=== PATIENT | male | born 1955 | race Caucasian/White ===

== ENCOUNTER 2019-06-14 02:41 | Inpatient (IN) | payer MEDICARE ==
[2019-06-14] MEDS ORDERED: SODIUM CHLORIDE 0.9% 1000 ML 2,000 ML ONE (05:12)
--- NOTE | 2019-06-14 05:15 | Emergency Department Report ---
Blank Doc - Documentation Documentation: I was called to the room to evaluate the patient. Patient has evidently been in the room for 2 hours, but was not on the tracking board and did not get triaged upon arrival. Nurse passed by room and saw that there was a pt in there. Nurse called patient's custodial from which he came, they state patient was transported to the ED for altered mental status. Patient currently has blood coming from his penile meatus. snf states patient normally has indwelling Toribio, but was having bleeding around the Toribio, so catheter was removed at some point on yesterday. Nurse reports patient is normally somewhat altered, usually yelling out randomly, sometimes able to answer questions. Patient is currently hypotensive, appears dry and dehydrayted. He is awake, lethargic, lifts head when name is called. Resuscitation will be initiated, and orders placed for further evaluation.
[2019-06-14] MEDS ORDERED: SODIUM CHLORIDE 0.9% 1000 ML IV SOLN IV ONE (05:31)
--- NOTE | 2019-06-14 05:36 | XRay Report ---
CHEST 1 VIEW INDICATION: ams. COMPARISON: None. FINDINGS: Support devices: None. Heart: Moderate cardiomegaly. Status post previous median sternotomy. Lungs/Pleura: No acute air space or interstitial disease. Additional findings: None. IMPRESSION: Moderate cardiomegaly. Signer Name: Hector Cornejo MD Signed: 06/14/2019 5:32 AM Workstation Name: [id number]
--- NOTE | 2019-06-14 06:13 | Emergency Department Report ---
HPI - General Chief Complaint: Altered Mental Status Time Seen by Provider: 06/14/19 05:56 - HPI HPI: As per my colleagues note, this patient has been in the emergency department for 3.5 hours prior to my arrival on shift. This 63-year-old male was initially sent in for some altered mental status and for some blood seen coming from the urethra. The patient usually has a indwelling Toribio catheter but the long-term staff, where he stays, had noticed blood coming around the Toribio catheter and therefore removed it. Apparently his baseline mental status is that he is generally altered and will call out at times. 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 There is some question of the pa tient having a fever at the long-term and Tylenol was given at 1:20 AM this morning. The patient is a poor historian. ED Past Medical Hx - Past Medical History Hx Hypertension: Yes Hx CVA: Yes Hx Diabetes: Yes Additional medical history: muscle weakness, urineary retention, hyperlipidemia, gout, prostate disorder, - Surgical History Additional Surgical History: atherosclerosis CAD bypass graft, left above the knee amputation - Social History Smoking Status: Former Smoker Substance Use Type: None - Medications Home Medications: Home Medications Medication Instructions Recorded Confirmed Last Taken Type Clotrimazole 1% [Mycelex Vag cream] 1 applicatio .ROUTE BID #1 tube 04/17/19 Unknown Rx ED Review of Systems ROS: Stated complaint: ALTERED MENTAL STATUS Other details as noted in HPI Comment: Unobtainable due to pts medical conditions Physical Exam - Physical Exam Vital Signs: Vital Signs 06/14/19 06/14/19 06/14/19 04:10 04:45 05:00 Temperature 99.6 F Pulse Rate 82 85 Respiratory 18 18 Rate Blood Pressure 81/45 82/52 Blood Pressure 89/48 [Right] O2 Sat by Pulse 97 97 99 Oximetry 06/14/19 06/14/19 06/14/19 05:15 05:46 06:01 Temperature Pulse Rate 82 Respiratory 18 Rate Blood Pressure 89/49 89/49 119/61 Blood Pressure [Right] O2 Sat by Pulse 96 98 100 Oximetry Physical Exam: GENERAL: The patient is well-developed well-nourished. HENT: Normocephalic. Atraumatic. Patient has moist mucous membranes. EYES: Extraocular motions are intact. Pupils equal reactive to light bilaterally. NECK: Supple. Trachea is midline. CHEST/LUNGS: Clear to auscultation. There is no respiratory distress noted. HEART/CARDIOVASCULAR: Regular. There is no tachycardia. There is no murmur. ABDOMEN: Abdomen is soft, nontender. Patient has normal bowel sounds. SKIN: Skin is warm and dry. NEURO: Patient is nonverbal. Withdraws to painful stimuli. Chronic left-sided hemiparesis. MUSCULOSKELETAL: There is no tenderness or deformity. There is no evidence of acute injury. ED Course Vital Signs 06/14/19 06/14/19 06/14/19 04:10 04:45 05:00 Temperature 99.6 F Pulse Rate 82 85 Respiratory 18 18 Rate Blood Pressure 81/45 82/52 Blood Pressure 89/48 [Right] O2 Sat by Pulse 97 97 99 Oximetry 06/14/19 06/14/19 06/14/19 05:15 05:46 06:01 Temperature Pulse Rate 82 Respiratory 18 Rate Blood Pressure 89/49 89/49 119/61 Blood Pressure [Right] O2 Sat by Pulse 96 98 100 Oximetry - Central Line Placement Right Femoral Consent Obtained: written consent Time Out Performed: Yes Patient Placed on Monitor/Pulse Ox: Yes MD Prep: mask, gown, gloves Central Line Prep: Chlorhexidine scrub Local Anesthesia Used: Lidocaine 1% Amount of Anesthesia Used (mls): 2 Ultrasound Used for Placement: Yes Central Line Lumen Inserted: triple Central Line Position: good blood return, all ports aspirated, flus, sutured in place with nyl Dressing Applied: Tegaderm, sterile gauze/tape Patient Tolerated Procedure: well Complications: none ED Medical Decision Making - Lab Data Result diagrams: 06/14/19 05:59 06/14/19 05:59 - EKG Data -: EKG Interpreted by Me EKG shows normal: sinus rhythm, axis (left axis deviation), intervals, QRS complexes (q waves to anterior and inferior leads), ST-T waves Rate: normal - EKG Data When compared to previous EKG there are: previous EKG unavailable Interpretation: other (sinus rhythm, left axis deviation, Q waves to the anterior and inferior leads) - Radiology Data Radiology results: report reviewed, image reviewed interpreted by me: Chest x-ray does not show any acute process. There are no pleural effusions, obvious pneumonia and there is no pneumothorax. CT head/brain wo con INDICATION: ams. TECHNIQUE: All CT scans at this location are performed using the following dose modulation technique: Automated exposure control. CONTRAST: None. COMPARISON: None available. FINDINGS: There is mild dilatation of the ventricular system on the basis of diffuse cerebral atrophy. Negative for midline shift, mass or hemorrhage. Low density within the periventricular white matter is typical of chronic small vessel ischemic change. A chronic right MCA infarct is present. Imaged portions of the paranasal sinuses are clear. IMPRESSION: 1. Chronic changes of atrophy and small vessel ischemia. 2. Chronic right MCA infarct. - Medical Decision Making This patient was sent in by his long-term facility for some altered mental status and concern for bleeding around his Toribio catheter. When he got here he was found to have some hypotension that at first responded to IV fluid resuscitation. Patient's labs show multiple abnormalities including a leukocytosis of 20,000, some acute renal insufficiency/failure, hyperglycemia, transaminitis and lactic acidosis. The patient's blood sugar was about 400 and he was given some IV insulin, along with the IV fluid resuscitation, as treatment. It is possible he has some early DKA as there is some venous acidosis and a slightly elevated anion gap, however the lactic acidosis is most likely the reason for the elevated venous acidosis and his current blood sugar has come down to about 190. He was treated empirically with some Rocephin, although no source of infection has yet to be found. At first the blood pressure responded to the IV fluid but after 3 L of normal saline the patient s till display some hypotension. For this reason a central line was placed by myself and the patient has been started on pressors by the admitting hospitalist. The patient will be treated admitted to the ICU and was accepted by Dr. Madsen. - Differential Diagnosis Sepsis, SIRS, DKA, HHNK, UTI Critical Care Time: Yes Critical care time in (mins) excluding proc time.: 35 Critical care attestation.: If time is entered above; I have spent that time in minutes in the direct care of this critically ill patient, excluding procedure time. Critical care time was spent on this patient and doing his initial evaluation, multiple re- evaluations, ordering and interpretation of labs and imaging, discussion with the patient's family. This does not include the time spent doing the central line procedure. Critical Care Time: 35 minutes ED Disposition Clinical Impression: Elevated troponin, Hyperglycemia, SIRS (systemic inflammatory response syndrome) Altered mental state Qualifiers: Altered mental status type: unspecified Qualified Code(s): R41.82 - Altered mental status, unspecified Acute renal failure Qualifiers: Acute renal failure type: unspecified Qualified Code(s): N17.9 - Acute kidney failure, unspecified Hypotension Qualifiers: Hypotension type: unspecified hypotension type Qualified Code(s): I95.9 - Hypotension, unspecified Disposition: DC-09 OP ADMIT IP TO THIS HOSP Is pt being admited?: Yes Condition: Serious Time of Disposition: 07:37
--- NOTE | 2019-06-14 06:20 | Cat Scan Report ---
CT head/brain wo con INDICATION: ams. TECHNIQUE: All CT scans at this location are performed using the following dose modulation technique: Automated exposure control. CONTRAST: None. COMPARISON: None available. FINDINGS: There is mild dilatation of the ventricular system on the basis of diffuse cerebral atrophy . Negative for midline shift, mass or hemorrhage. Low density within the periventricular white matter is typical of chronic small vessel ischemic change. A chronic right MCA infarct is present. Imaged portions of the paranasal sinuses are clear. IMPRESSION: 1. Chronic changes of atrophy and small vessel ischemia. 2. Chronic right MCA infarct. Signer Name: Hector Cornejo MD Signed: 06/14/2019 6:16 AM Workstation Name: [id number]
[2019-06-14 06:43] LABS: Hematocrit 39.2 % (35.5-45.6); Hemoglobin 12.7 gm/dl (11.8-15.2); Mean Corpuscular HGB Conc 33 % (32-34); Mean Corpuscular Volume 100 fl (84-94); Platelet Count 110 K/mm3 (140-440); Red Blood Count 3.92 M/mm3 (3.65-5.03); Red Cell Distribution Width 14.4 % (13.2-15.2)
[2019-06-14 06:50] LABS: Albumin 2.6 g/dL (3.9-5); Calcium 7.6 mg/dL (8.4-10.2); INR 1.63 (0.87-1.13)
[2019-06-14 06:51] LABS: Partial Thromboplastin Time 39.7 Sec. (24.2-36.6)
[2019-06-14] MEDS ORDERED: cefTRIAXone/NS 1 GM/50 ML 1 GM/50 ML BAG IV ONE (06:54)
[2019-06-14] MEDS ORDERED: INSULIN REGULAR, HUMAN 100 UNITS/1 ML IV ONE (06:55)
[2019-06-14] MEDS ORDERED: SODIUM CHLORIDE 0.9% 1000 ML 1,000 ML IV ONE (07:33)
[2019-06-14] MEDS ORDERED: ONDANSETRON 4 MG/2 ML INJ IV PRN (08:04)
[2019-06-14] MEDS ORDERED: DEXTROSE 50% IN WATER (25GM) 50 ML SYRINGE IV PRN (08:04)
[2019-06-14] MEDS ORDERED: ACETAMINOPHEN 325 MG TAB PO PRN (08:04)
[2019-06-14] MEDS ORDERED: LIDOCAINE-MPF (1%) 10 MG/1 ML VIAL 5 ML INFILTRATI ONE (08:08)
[2019-06-14 08:26] LABS: Chol/HDL Ratio 3.11 %
[2019-06-14 08:32] LABS: INR 1.67 (0.87-1.13)
[2019-06-14 08:33] LABS: Partial Thromboplastin Time 40.5 Sec. (24.2-36.6)
[2019-06-14] MEDS ORDERED: SODIUM CHLORIDE 0.9% 1000 ML 1,000 ML IV SCH (09:00)
[2019-06-14 09:11] LABS: Total Cells Counted 100
[2019-06-14 09:12] LABS: Basophils % (Manual) 0 % (0.0-1.8); Eosinophils % (Manual) 0 % (0.0-4.3); Large Platelets Few; Platelet Estimate Consistent w Auto; RBC Morphology Normal
[2019-06-14] MEDS ORDERED: FAMOTIDINE 20 MG/2 ML INJ IV ONE (10:53)
[2019-06-14] MEDS ORDERED: ENOXAPARIN 40 MG/0.4 ML INJ SUB-Q ONE (10:53)
[2019-06-14] MEDS: FAMOTIDINE 20 MG/2 ML INJ IV SCH ×2 (10:55→21:53)
[2019-06-14] MEDS: ENOXAPARIN 40 MG/0.4 ML INJ SUB-Q SCH (10:55)
[2019-06-14] MEDS ORDERED: VANCOMYCIN/NS 1 GM/250 ML 1 GM/250 ML BAG IV SCH (11:00)
[2019-06-14] MEDS ORDERED: NORepinephrine/NS 4 MG-250 ML 4 MG/250 ML BAG IV ONE (11:32)
[2019-06-14] MEDS: NORepinephrine/NS 4 MG-250 ML 4 MG/250 ML BAG IV SCH ×2 (11:33→21:51)
[2019-06-14] MEDS ORDERED: PANTOPRAZOLE 40 MG INJ IV ONE (11:39)
[2019-06-14] MEDS: PANTOPRAZOLE 40 MG INJ IV SCH (11:39)
--- NOTE | 2019-06-14 11:52 | Consultation ---
History of Present Illness - Reason for Consult Consult date: 06/14/19 acute renal failure Requesting physician: RU LINARES - History of Present Illness Patient is a 63-year-old male with past medical history significant for hypertension, diabetes and coronary artery disease was brought to the emergency room because of altered mental status. Patient apparently has also a history of urinary retention and had a Toribio catheter in the past. He was noted to have some hematuria in the skilled nursing and his Toribio catheter was removed. In the ER he was also found to have some blood coming out from his penile meatus. He currently has a previous Toribio in place. Renal consultation is requested for serum creatinine of 2.1. Patient is confused and unable to get any history from him. His daughter is at bedside in the emergency room who is giving the hist ory. Apparently they have been having problem making him drink water at the skilled nursing. He recently moved to [place]. Past History Past Medical History: CAD, diabetes, hypertension, stroke, other (history of urinary retention and coronary artery bypass surgery) Past Surgical History: Other (history of coronary artery bypass surgery) Social history: other (patient is currently a skilled nursing resident.) Family history: other (no significant family history of kidney disease) Medications and Allergies Allergies Allergy/AdvReac Type Severity Reaction Status Date / Time No Known Allergies Allergy Verified 04/17/19 03:38 Home Medications Medication Instructions Recorded Confirmed Last Taken Type Clotrimazole 1% [Mycelex Vag cream] 1 applicatio .ROUTE BID #1 tube 04/17/19 Unknown Rx Active Meds: Active Medications Acetaminophen (Tylenol) 650 mg PO Q4H PRN PRN Reason: Pain MILD(1-3)/Fever >100.5/GONZALEZ Dextrose (D50w (25gm) Syringe) 50 ml IV Q30MIN PRN; Protocol PRN Reason: Hypoglycemia Enoxaparin Sodium (Enoxaparin) 40 mg SUB-Q QDAY [facility] Last Admin: 06/14/19 10:55 Dose: 40 mg Documented by: Famotidine (Pepcid) 10 mg IV BID [facility] Last Admin: 06/14/19 10:55 Dose: 10 mg Documented by: Sodium Chloride (Nacl 0.9% 1000 Ml) 1,000 mls @ 125 mls/hr IV DIRECT [facility] Vancomycin HCl (Vancomycin/Ns 1 Gm/250 Ml) 1 gm in 250 mls @ 167.007 mls/hr IV ONCE [facility]; Protocol Norepinephrine (Levophed Drip 4 Mg/Ns 250 Ml) 4 mg in 250 mls @ 7.5 mls/hr IV TITR [facility]; Protocol Last Admin: 06/14/19 11:33 Dose: 2 mcg/min, 7.5 mls/hr Documented by: Morphine Sulfate (Morphine) 2 mg IV Q4H PRN PRN Reason: Pain, Moderate (4-6) Ondansetron HCl (Zofran) 4 mg IV Q8H PRN PRN Reason: Nausea And Vomiting Oxycodone/Acetaminophen (Percocet 5/325) 1 tab PO Q6H PRN PRN Reason: Pain, Moderate (4-6) Pantoprazole Sodium (Protonix) 40 mg IV QDAY [facility] Last Admin: 06/14/19 11:39 Dose: 40 mg Documented by: Sodium Chloride (Sodium Chloride Flush Syringe 10 Ml) 10 ml IV BID [facility] Last Admin: 06/14/19 10:43 Dose: 10 ml Documented by: Sodium Chloride (Sodium Chloride Flush Syringe 10 Ml) 10 ml IV PRN PRN PRN Reason: LINE FLUSH Review of Systems ROS unobtainable: due to mental status Exam - Vital Signs Vital signs: Vital Signs Temp Pulse Resp BP Pulse Ox 99.6 F 82 18 89/48 97 06/14/19 04:10 06/14/19 04:10 06/14/19 04:10 06/14/19 04:10 06/14/19 04:10 - General Appearance General appearance: well-developed, well-nourished, appears stated age EENT: ATNC, PERRL, mucous membranes dry Neck: Present: neck supple Respiratory: Clear to Ascultation Heart: regular, normal heart rate Gastrointestinal: Present: normal, normoactive bowel sounds Integumentary: no rash, other (no edema) Results - Lab Results 06/14/19 05:59 06/14/19 05:59 Most recent lab results Calcium 7.6 mg/dL (8.4-10.2) L 06/14/19 05:59 Assessment and Plan Impression * Acute kidney injury * Dehydration * Altered mental status * Metabolic acidosis * Hypotension * Sepsis * Diabetes * History of CVA * Coronary artery disease status post bypass surgery * Gross hematuria Recommendations * Patient clinically appears to be dehydrated. Oral mucosa is dry. He has received about 3 L of fluid in the emergency room. Currently on a Levophed drip. Continue IV hydration with isotonic fluid * Check a UA as well as a fractional excretion of sodium * Check a renal ultrasound to assess kidney size and echogenicity * Check vasculitis workup * Avoid nephrotoxins * Monitor fluid status and electrolytes closely * Thank you very much for the consultation. Shall follow along with you
[2019-06-14 14:01] LABS: Bilirubin,Urine NEG (Negative); Blood,Urine LG (Negative); Color,Urine Red (Yellow); Urobilinogen,Urine < 2.0 mg/dL (<2.0)
[2019-06-14 14:02] LABS: RBC,Urine > 182.0 /HPF (0.0-6.0); WBC,Urine > 182.0 /HPF (0.0-6.0)
[2019-06-14 14:04] LABS: Creatinine,Urine 246.7 mg/dL (0.1-20.0)
[2019-06-14] MEDS ORDERED: SODIUM CHLORIDE 0.9% IRRIG SOLN 2000 ML IR SCH (15:00)
--- NOTE | 2019-06-14 16:08 | History and Physical Report ---
History of Present Illness Date of admission: 06/14/19 08:05 Chief complaint: Altered mental status. Presents from senior care facility. History of present illness: Patient 63-year-old history of hypertension diabetes coronary artery disease status post CABG CVA presents with worsening altered mental status nursing facility. Patient was brought in initially had hematuria around Toribio catheter was changed. Important to note last visit several months ago patient had similar problem with urinary catheter with bleeding. Was reinserted. Spoke with both daughters were at bedside stated patient has had some hematuria and dysuria over the last several weeks. He states he always has been altered from previous stroke but this is more severe. Upon presentation patient was found to be altered hypotensive febrile and was diagnosed with sepsis. Hospital course was complicated by worsening hypotension and shock. Patient then had IV line placed and we started patient on pressors and transferred to ICU. Patient at present had tachypnea unable to really answer any questions despite sternal rub. Her present remains lethargic encephalopathic and unresponsive. Past History Past Medical History: CAD, diabetes, hypertension, stroke, other (history of urinary retention and coronary artery bypass surgery) Past Surgical History: Other (history of coronary artery bypass surgery) Social history: other (patient is currently a senior care resident.) Family history: other (no significant family history of kidney disease) Medications and Allergies Allergies Allergy/AdvReac Type Severity Reaction Status Date / Time No Known Allergies Allergy Verified 04/17/19 03:38 Home Medications Medication Instructions Recorded Confirmed Last Taken Type Clotrimazole 1% [Mycelex Vag cream] 1 applicatio .ROUTE BID #1 tube 04/17/19 Unknown Rx Active Meds: Active Medications Acetaminophen (Tylenol) 650 mg PO Q4H PRN PRN Reason: Pain MILD(1-3)/Fever >100.5/GONZALEZ Dextrose (D50w (25gm) Syringe) 50 ml IV Q30MIN PRN; Protocol PRN Reason: Hypoglycemia Enoxaparin Sodium (Enoxaparin) 40 mg SUB-Q QDAY [facility] Last Admin: 06/14/19 10:55 Dose: 40 mg Documented by: Famotidine (Pepcid) 10 mg IV BID [facility] Last Admin: 06/14/19 10:55 Dose: 10 mg Documented by: Sodium Chloride (Nacl 0.9% 1000 Ml) 1,000 mls @ 125 mls/hr IV DIRECT [facility] Last Admin: 06/14/19 12:04 Dose: 125 mls/hr Documented by: Vancomycin HCl (Vancomycin/Ns 1 Gm/250 Ml) 1 gm in 250 mls @ 167.007 mls/hr IV ONCE SAM; Protocol Last Admin: 06/14/19 12:23 Dose: 167.007 mls/hr Documented by: Norepinephrine (Levophed Drip 4 Mg/Ns 250 Ml) 4 mg in 250 mls @ 7.5 mls/hr IV TITR SAM; Protocol Last Titration: 06/14/19 13:56 Dose: 6 mcg/min, 22.5 mls/hr Documented by: Sodium Bicarbonate 75 meq/ (Sodium Chloride) 1,075 mls @ 150 mls/hr IV DIRECT SAM Morphine Sulfate (Morphine) 2 mg IV Q4H PRN PRN Reason: Pain, Moderate (4-6) Ondansetron HCl (Zofran) 4 mg IV Q8H PRN PRN Reason: Nausea And Vomiting Oxycodone/Acetaminophen (Percocet 5/325) 1 tab PO Q6H PRN PRN Reason: Pain, Moderate (4-6) Pantoprazole Sodium (Protonix) 40 mg IV QDAY [facility] Last Admin: 06/14/19 11:39 Dose: 40 mg Documented by: Sodium Chloride (Sodium Chloride Flush Syringe 10 Ml) 10 ml IV BID [facility] Last Admin: 06/14/19 10:43 Dose: 10 ml Documented by: Sodium Chloride (Sodium Chloride Flush Syringe 10 Ml) 10 ml IV PRN PRN PRN Reason: LINE FLUSH Sodium Chloride (Nacl 0.9%) 2,000 ml IR DIRECT SAM Review of Systems Constitutional: fever, chills, night sweats, weakness, no weight loss, no weight gain, no sweats, no anorexia, no fatigue, no malaise, no lethargy, no chronic headaches, no poor appetite, no daytime sleepiness, no chronic pain Ears, nose, mouth and throat: no ear discharge, no nose pain, no nasal discharge, no bleeding gums, no mouth pain, no dysphagia, no hoarseness, no vertigo, no pain front of neck, no neck fullness/pressure Cardiovascular: orthopnea, palpitations, no chest pain, no rapid/irregular heart beat, no edema, no syncope, no lightheadedness, no shortness of breath, no dy spnea on exertion, no paroxysmal nocturnal dyspnea, no claudication, no high blood pressure Respiratory: no cough, no cough with sputum, no excessive sputum, no congestion Gastrointestinal: nausea, no abdominal pain, no vomiting, no diarrhea, no cons tipation, no change in bowel habits, no hematemesis, no coffee ground emesis, no hematochezia, no loss of appetite, no belching, no early satiety Genitourinary Male: dysuria, hematuria, flank pain, incontinence, no discharge, no urinary frequency, no urinary hesitancy, no nocturia, no erectile dysfunction, no impotence, no decreased libido, no testicular pain, no testicula r lump, no difficulties fathering child, no urinary retention, no kidney stones Musculoskeletal: muscle weakness, prior amputations, no neck stiffness, no arm numbness/tingling, no low back pain, no morning stiffness, no myalgias, no atrophy, no limitation of motion, no frequent falls, no fractures, no loss of height Integumentary: no rash, no pruritis, no redness, no sores, no jaundice, no lesions, no depigmentation, no acne, no color changes, no brittle nails, no hirsutism, no foot/leg ulcers Neurological: paralysis, weakness, parathesias, numbness, tremors, lack of coordination, aphasia, change in speech, burning pain, no syncope, no headaches, no migraines, no convulsions Psychiatric: memory loss, no change in sleep habits, no insomnia, no hypersomnia, no hallucinations, no paranoia, no hopelessness, no difficulties concentrating, no confusion, no sadness/tearfullness Endocrine: no cold intolerance, no heat intolerance, no excessive thirst, no polydipsia, no polyuria, no flushing, no weight change, no increase in ring/shoe/hat size, no deepening of the voice, no low blood sugars, no recent glucocorticoid use Allergic/Immunologic: allergic rhinitis, persistent infections, no anaphylaxis Exam - Constitutional Vitals: Temp Pulse Resp BP Pulse Ox 98.4 F 77 16 105/46 100 06/14/19 12:27 06/14/19 13:40 06/14/19 13:40 06/14/19 14:21 06/14/19 13:40 General appearance: Present: severe distress, obese - EENT Eyes: Present: PERRL, EOM intact ENT: hearing decreased, poor dentition - Neck Neck: Present: supple, normal ROM. Absent: enlarged thyroid, masses or JVD, cervical LAD - Respiratory Respiratory: bilateral: diminished, rales - Cardiovascular Rhythm: other (tachycardia) - Extremities Extremities: no ischemia, pulses intact, normal temperature, normal color Extremity abnormal: edema, other (hemiparesis left) Peripheral Pulses: within normal limits - Abdominal General gastrointestinal: Present: soft, non-tender, distended, normal bowel sounds, other ( obese flank pain.). Absent: hepatomegaly, splenomegaly Male genitourinary: Present: penile edema - Rectal Rectal Exam: other (hematuria around Toribio catheter.) - Musculoskeletal Musculoskeletal: left sided weakness, generalized weakness - Psychiatric Psychiatric: no appropriate mood/affect, no intact judgment & insight, no memory intact - Neurologic Neurologic: focal deficits Results - Labs CBC & Chem 7: 06/14/19 05:59 06/14/19 05:59 Labs: Abnormal lab results 06/14/19 06/14/19 06/14/19 Range/Units 05:17 05:59 05:59 WBC 20.4 H (4.5-11.0) K/mm3 MCV 100 H (84-94) fl Plt Count 110 L (140-440) K/mm3 Seg Neuts % (Manual) 76.0 H (40.0-70.0) % Lymphocytes % (Manual) 2.0 L (13.4-35.0) % Seg Neutrophils # Man 15.5 H (1.8-7.7) K/mm3 Lymphocytes # (Manual) 0.4 L (1.2-5.4) K/mm3 PT 19.1 H (12.2-14.9) Sec. INR 1.63 H (0.87-1.13) APTT 39.7 H (24.2-36.6) Sec. VBG pH (7.320-7.420) Carbon Dioxide (22-30) mmol/L BUN (9-20) mg/dL Creatinine (0.8-1.5) mg/dL Glucose (75-100) mg/dL POC Glucose 422 H (70-105) Lactic Acid (0.7-2.0) mmol/L Calcium (8.4-10.2) mg/dL AST (5-40) units/L ALT (7-56) units/L Troponin T (0.00-0.029) ng/mL Total Protein (6.3-8.2) g/dL Albumin (3.9-5) g/dL LDL Cholesterol Direct (50-130) mg/dL HDL Cholesterol (40-59) mg/dL Urine WBC (Auto) (0.0-6.0) /HPF Urine Creatinine (0.1-20.0) mg/dL 06/14/19 06/14/19 06/14/19 Range/Units 05:59 05:59 05:59 WBC (4.5-11.0) K/mm3 MCV (84-94) fl Plt Count (140-440) K/mm3 Seg Neuts % (Manual) (40.0-70.0) % Lymphocytes % (Manual) (13.4-35.0) % Seg Neutrophils # Man (1.8-7.7) K/mm3 Lymphocytes # (Manual) (1.2-5.4) K/mm3 PT (12.2-14.9) Sec. INR (0.87-1.13) APTT (24.2-36.6) Sec. VBG pH 7.303 L (7.320-7.420) Carbon Dioxide 17 L (22-30) mmol/L BUN 35 H (9-20) mg/dL Creatinine 2.1 H (0.8-1.5) mg/dL Glucose 397 H (75-100) mg/dL POC Glucose (70-105) Lactic Acid 6.70 H* (0.7-2.0) mmol/L Calcium 7.6 L (8.4-10.2) mg/dL AST 130 H (5-40) units/L ALT 162 H (7-56) units/L Troponin T 0.055 H (0.00-0.029) ng/mL Total Protein 5.3 L (6.3-8.2) g/dL Albumin 2.6 L (3.9-5) g/dL LDL Cholesterol Direct 49 L (50-130) mg/dL HDL Cholesterol 26 L (40-59) mg/dL Urine WBC (Auto) (0.0-6.0) /HPF Urine Creatinine (0.1-20.0) mg/dL 06/14/19 06/14/19 06/14/19 Range/Units 08:03 08:03 10:12 WBC (4.5-11.0) K/mm3 MCV (84-94) fl Plt Count (140-440) K/mm3 Seg Neuts % (Manual) (40.0-70.0) % Lymphocytes % (Manual) (13.4-35.0) % Seg Neutrophils # Man (1.8-7.7) K/mm3 Lymphocytes # (Manual) (1.2-5.4) K/mm3 PT 19.4 H (12.2-14.9) Sec. INR 1.67 H (0.87-1.13) APTT 40.5 H (24.2-36.6) Sec. VBG pH (7.320-7.420) Carbon Dioxide (22-30) mmol/L BUN (9-20) mg/dL Creatinine (0.8-1.5) mg/dL Glucose (75-100) mg/dL POC Glucose 180 H (70-105) Lactic Acid 5.90 H* (0.7-2.0) mmol/L Calcium (8.4-10.2) mg/dL AST (5-40) units/L ALT (7-56) units/L Troponin T (0.00-0.029) ng/mL Total Protein (6.3-8.2) g/dL Albumin (3.9-5) g/dL LDL Cholesterol Direct (50-130) mg/dL HDL Cholesterol (40-59) mg/dL Urine WBC (Auto) (0.0-6.0) /HPF Urine Creatinine (0.1-20.0) mg/dL 06/14/19 06/14/19 06/14/19 Range/Units 13:40 13:40 13:51 WBC (4.5-11.0) K/mm3 MCV (84-94) fl Plt Count (140-440) K/mm3 Seg Neuts % (Manual) (40.0-70.0) % Lymphocytes % (Manual) (13.4-35.0) % Seg Neutrophils # Man (1.8-7.7) K/mm3 Lymphocytes # (Manual) (1.2-5.4) K/mm3 PT (12.2-14.9) Sec. INR (0.87-1.13) APTT (24.2-36.6) Sec. VBG pH (7.320-7.420) Carbon Dioxide (22-30) mmol/L BUN (9-20) mg/dL Creatinine (0.8-1.5) mg/dL Glucose (75-100) mg/dL POC Glucose 145 H (70-105) Lactic Acid (0.7-2.0) mmol/L Calcium (8.4-10.2) mg/dL AST (5-40) units/L ALT (7-56) units/L Troponin T (0.00-0.029) ng/mL Total Protein (6.3-8.2) g/dL Albumin (3.9-5) g/dL LDL Cholesterol Direct (50-130) mg/dL HDL Cholesterol (40-59) mg/dL Urine WBC (Auto) > 182.0 H (0.0-6.0) /HPF Urine Creatinine 246.7 H (0.1-20.0) mg/dL - Imaging and Cardiology Chest x-ray: report reviewed, image reviewed CT Scan - head: report reviewed, image reviewed US - abdomen: report reviewed, image reviewed Assessment and Plan 40 min The high probability of a clinically significant, sudden or life threatening de terioration of the [] system(s) required my full and direct attention, intervention and personal management. The aggregate critical care time was [] minutes. This time is in addition to time spent performing reported procedures but includes the following: [x] Data Review and interpretation [x] Patient assessment and monitoring of vital signs [x] Documentation [x] Medication orders and management - Patient Problems (1) Septic shock Current Visit: Yes Status: Acute Plan to address problem: Issue with septic shock most likely secondary to urinary source. We'll admit to ICU aggressive intravascular volume replacement. Start patient on pressors levophed. Continue supportive care. Follow culture data. We'll start patient on broad-spectrum anabiotic Rocephin which she is already on. Add a dose of vancomycin. And cefepime ID consult blood culture supportive care. Spoke with family they understand significance and how sick patient is. All questions and concerns answered. (2) Acute renal failure Current Visit: Yes Status: Acute Qualifiers: Acute renal failure type: unspecified Qualified Code(s): N17.9 - Acute kidney failure, unspecified Plan to address problem: Most likely secondary to prerenal azotemia. Patient does have a history of diabetes. Therefore does have increased risk of chronic kidney disease diabetic nephropathy. Rest of IV fluid renal consultation. (3) Altered mental state Current Visit: Yes Status: Acute Qualifiers: Altered mental status type: unspecified Qualified Code(s): R41.82 - Altered mental status, unspecified Plan to address problem: Multifactorial secondary to sepsis septic shock. We'll rule out another CVA but unlikely. I think this is all revolves around sepsis fever leukocytosis. (4) Elevated troponin Current Visit: Yes Status: Acute Plan to address problem: Elevated troponin. Nonspecific. No new changes on EKG. Only old anterior and inferior infarct. Most likely secondary to renal insufficiency we'll obtain c ardiology consult. Not a candidate for any invasive testing. He conservatively. (5) Hyperglycemia Current Visit: Yes Status: Acute Plan to address problem: We'll add sliding-scale insulin every 6 hours. Be aggressive with blood sugar control. (6) Hypotension Current Visit: Yes Status: Acute Qualifiers: Hypotension type: unspecified hypotension type Qualified Code(s): I95.9 - Hypotension, unspecified Plan to address problem: Pressor support. Secondary to sepsis. (7) UTI (urinary tract infection) due to urinary indwelling catheter Current Visit: Yes Status: Acute Plan to address problem: Patient on Rocephin we'll await culture data. Patient is only been here one time before. Suspect sensitivities. I have added vancomycin as well. Flat ce fepime ID consult. (8) Elevated transaminase level Current Visit: Yes Status: Acute Plan to address problem: May be associated with decrease liver perfusion shock liver. We'll obtain follow-up chemistry in a.m. If does not resolve may require GI consult.
--- NOTE | 2019-06-14 16:14 | Ultrasound Report ---
US renal BILAT INDICATION: acute kidney injury. COMPARISON: None available. FINDINGS: Right kidney: 11.2 cm in length. No significant abnormality. Left kidney: 10.9 cm in length. No significant abnormality. Urinary Bladder: Decompressed with a Toribio catheter Additional Findings: None. IMPRESSION: 1. No significant sonographic abnormality of the kidneys. Signer Name: Misbah Springer MD Signed: 06/14/2019 4:10 PM Workstation Name: [id number]
[2019-06-14 20:44] LABS: Hepatitis B Surface Antigen Non-Reactive (Negative); Hepatitis C Virus Antibody Non-Reactive (NonReactive)
[2019-06-14] MEDS: SODIUM CHLORIDE 0.45% 1000 ML 1,000 ML with SODIUM BICARBONATE 75 MEQ IV SCH (21:54)
[2019-06-15] MEDS: SODIUM CHLORIDE 0.45% 1000 ML 1,000 ML with SODIUM BICARBONATE 75 MEQ IV SCH ×2 (04:16→11:42)
[2019-06-15] MEDS: NORepinephrine/NS 4 MG-250 ML 4 MG/250 ML BAG IV SCH (08:55)
[2019-06-15] MEDS ORDERED: VANCOMYCIN PHARMACY TO DOSE IV SCH (09:00)
[2019-06-15] MEDS: PANTOPRAZOLE 40 MG INJ IV SCH (09:41)
[2019-06-15] MEDS: ENOXAPARIN 40 MG/0.4 ML INJ SUB-Q SCH (09:41)
[2019-06-15] MEDS ORDERED: cefTRIAXone/NS 1 GM/50 ML 1 GM/50 ML BAG IV SCH ×2 (10:00)
[2019-06-15 10:02] LABS: Hematocrit 35.2 % (35.5-45.6); Mean Corpuscular HGB Conc 34 % (32-34); Mean Corpuscular Volume 96 fl (84-94); Red Blood Count 3.67 M/mm3 (3.65-5.03); Red Cell Distribution Width 14.4 % (13.2-15.2)
[2019-06-15 10:03] LABS: Platelet Count 94 K/mm3 (140-440)
[2019-06-15 10:28] LABS: Alanine Aminotransferase 84 units/L (7-56); Albumin 2.4 g/dL (3.9-5); BUN/Creatinine Ratio 33; Blood Urea Nitrogen 33 mg/dL (9-20); Calcium 7.6 mg/dL (8.4-10.2); Hemolysis Index 4
--- NOTE | 2019-06-15 10:31 | Progress Note ---
Subjective Date of service: 06/15/19 Interval history: CONSULT DICTATED Objective Vital Signs Temp Pulse Pulse Pulse Pulse Pulse Pulse 06/15/19 09:21 78 06/15/19 09:11 77 06/15/19 09:00 79 06/15/19 08:51 76 06/15/19 08:41 79 06/15/19 08:37 06/15/19 08:30 80 06/15/19 08:21 80 06/15/19 08:11 81 06/15/19 08:00 98.3 F 78 79 06/15/19 07:51 80 06/15/19 07:41 80 06/15/19 07:30 80 06/15/19 07:21 79 06/15/19 07:11 80 06/15/19 07:00 76 06/15/19 06:51 82 06/15/19 06:41 81 06/15/19 06:30 77 06/15/19 06:21 78 06/15/19 06:11 82 06/15/19 06:00 78 06/15/19 05:51 77 06/15/19 05:50 80 80 80 80 80 06/15/19 05:41 77 06/15/19 05:30 78 06/15/19 05:20 83 06/15/19 05:11 83 06/15/19 05:00 78 06/15/19 04:50 81 06/15/19 04:40 81 06/15/19 04:30 81 06/15/19 04:21 82 06/15/19 04:10 74 06/15/19 04:00 99.3 F 76 66 68 68 68 68 06/15/19 03:51 80 06/15/19 03:41 82 06/15/19 03:31 82 06/15/19 03:21 83 06/15/19 03:11 79 06/15/19 03:00 75 06/15/19 02:50 73 06/15/19 02:41 75 06/15/19 02:30 74 06/15/19 02:21 80 06/15/19 02:11 77 06/15/19 02:00 74 77 77 77 77 77 06/15/19 01:51 78 06/15/19 01:41 78 06/15/19 01:30 83 06/15/19 01:21 82 06/15/19 01:11 80 06/15/19 00:00 99.3 F 06/14/19 23:56 66 66 66 66 66 06/14/19 22:00 66 68 68 68 68 06/14/19 21:07 85 06/14/19 20:00 98.8 F 66 66 66 66 66 06/14/19 18:00 98.7 F 82 82 82 82 82 06/14/19 17:14 06/14/19 17:00 85 06/14/19 16:06 85 06/14/19 14:21 06/14/19 13:40 77 06/14/19 12:27 98.4 F 06/14/19 12:00 82 06/14/19 11:55 81 06/14/19 10:40 84 Resp BP BP Pulse Ox 06/15/19 09:21 15 131/41 100 06/15/19 09:11 15 134/39 100 06/15/19 09:00 13 134/39 100 06/15/19 08:51 12 141/45 100 06/15/19 08:41 11 L 137/50 100 06/15/19 08:37 100 06/15/19 08:30 14 137/50 100 06/15/19 08:21 17 128/53 100 06/15/19 08:11 13 135/41 100 06/15/19 08:00 14 135/41 100 06/15/19 07:51 13 119/48 100 06/15/19 07:41 16 128/59 100 06/15/19 07:30 12 128/59 98 06/15/19 07:21 12 110/45 100 06/15/19 07:11 11 L 122/53 100 06/15/19 07:00 13 122/53 100 06/15/19 06:51 14 103/31 99 06/15/19 06:41 10 L 118/49 100 06/15/19 06:30 14 130/46 99 06/15/19 06:21 12 132/55 100 06/15/19 06:11 12 118/48 100 06/15/19 06:00 14 118/49 100 06/15/19 05:51 14 122/48 99 06/15/19 05:50 15 97 06/15/19 05:41 13 109/45 99 06/15/19 05:30 14 118/48 100 06/15/19 05:20 17 109/45 100 06/15/19 05:11 12 118/43 99 06/15/19 05:00 13 118/43 100 06/15/19 04:50 12 105/35 100 06/15/19 04:40 14 121/46 100 06/15/19 04:30 13 121/46 99 06/15/19 04:21 12 103/46 100 06/15/19 04:10 12 100/42 97 06/15/19 04:00 16 100/42 99 06/15/19 03:51 10 L 104/34 99 06/15/19 03:41 12 119/50 99 06/15/19 03:31 14 119/50 100 06/15/19 03:21 16 117/68 99 06/15/19 03:11 13 101/43 100 06/15/19 03:00 14 101/43 100 06/15/19 02:50 11 L 104/38 100 06/15/19 02:41 11 L 122/41 100 06/15/19 02:30 14 122/41 99 06/15/19 02:21 12 109/41 100 06/15/19 02:11 11 L 110/38 100 06/15/19 02:00 11 L 110/38 100 06/15/19 01:51 14 103/40 100 06/15/19 01:41 14 99 06/15/19 01:30 10 L 110/44 100 06/15/19 01:21 13 110/44 99 06/15/19 01:11 14 108/45 100 06/15/19 00:00 06/14/19 23:56 15 97 06/14/19 22:00 15 97 06/14/19 21:07 06/14/19 20:00 15 97 06/14/19 18:00 19 97 06/14/19 17:14 16 103/48 100 06/14/19 17:00 16 93/47 100 06/14/19 16:06 16 92/57 100 06/14/19 14:21 105/46 06/14/19 13:40 16 97/46 100 06/14/19 12:27 06/14/19 12:00 16 108/39 99 06/14/19 11:55 16 95/32 98 06/14/19 10:40 18 74/43 98 - Physical Examination Neck: Positive: neck supple - Labs and Meds Cardiac Enzymes 06/15/19 Range/Units 09:45 AST 44 H (5-40) units/L CBC 06/15/19 Range/Units 09:45 WBC 18.1 H (4.5-11.0) K/mm3 RBC 3.67 (3.65-5.03) M/mm3 Hgb 12.0 (11.8-15.2) gm/dl Hct 35.2 L (35.5-45.6) % Plt Count 94 L (140-440) K/mm3 Comprehensive Metabolic Panel 06/15/19 Range/Units 09:45 Sodium 141 (137-145) mmol/L Potassium 3.7 (3.6-5.0) mmol/L Chloride 106.1 (98-107) mmol/L Carbon Dioxide 21 L (22-30) mmol/L BUN 33 H (9-20) mg/dL Creatinine 1.0 D (0.8-1.5) mg/dL Glucose 100 (75-100) mg/dL Calcium 7.6 L (8.4-10.2) mg/dL AST 44 H (5-40) units/L ALT 84 H (7-56) units/L Alkaline Phosphatase 82 (35-129) units/L Total Protein 5.4 L (6.3-8.2) g/dL Albumin 2.4 L (3.9-5) g/dL
[2019-06-15] MEDS: PIPERACIL/TAZOBACTA 4.5/NS 100 4.5 GM/100 ML VIAL IV SCH ×2 (10:34→17:34)
[2019-06-15 10:49] LABS: Band Neutrophils # (Manual) 1.6 K/mm3; Basophils % (Manual) 0 % (0.0-1.8); Eosinophils % (Manual) 0 % (0.0-4.3); Total Cells Counted 100
[2019-06-15 10:50] LABS: Platelet Estimate Consistent w Auto; RBC Morphology Normal
--- NOTE | 2019-06-15 10:59 | Consultation ---
HISTORY OF PRESENT ILLNESS: The patient is a 63-year-old male who [facility] a [facility] and he has multiple medical problems. The patient has a history of coronary artery bypass surgery, stroke, diabetes and hypertension. He is aphasic, with dysarthric speech and unable to give any history. He has an indwelling Toribio and was noted to have hematuria. He was found to have urinary tract infection with sepsis and associated shock. Cardiology consult was requested because of abnormal cardiac enzymes. He is unable to give a history as to whether or not he has had any chest discomfort. His blood pressure has stabilized with pressors. There is no clear description of congestive heart failure or arrhythmias. ALLERGIES: None. MEDICATIONS: See the nurse's list. FAMILY HISTORY: Noncontributory. SOCIAL HISTORY: Smoking: None listed. Alcohol: No heavy use. None listed. PAST SURGICAL HISTORY: Other than coronary artery bypass surgery and left above the knee amputation, no surgeries are listed. REVIEW OF SYSTEMS: Unable to obtain due to mental status. Note that his mental status was noted to have worsened, so this is being evaluated. His mental status has not been normal since the stroke. PHYSICAL EXAMINATION: GENERAL: Well-developed, well-nourished, no acute distress. Alert, can follow some commands, but speech is dysarthric. EYES, NOSE, AND THROAT: Unremarkable. NECK: Reveals no JVD, no bruits. Neck is supple, no masses. LUNGS: Bilateral rhonchi. No labored respirations. HEART: Regular rate and rhythm, grade 2 systolic murmur. ABDOMEN: Soft, nontender, no masses. EXTREMITIES: No cyanosis or clubbing. There are diminished pulses in the right ankle. There is a left [id number] amputation. No skin lesions noted. NEUROLOGIC: Deferred. IMPRESSION: 1. Sepsis with shock and probable associated acute renal failure secondary to urinary tract infection. 2. History of coronary artery bypass surgery with minimal elevation of the troponin, which could be secondary to renal insufficiency. There are no acute electrocardiographic changes to suggest a myocardial infarction. 3. History of cerebrovascular accident with dysarthric speech. 4. Hyperlipidemia. 5. Bronchitis on physical exam, no evidence of pneumonia on chest x-ray. 6. Diabetes. 7. History of hypertension. 8. Systolic murmur. PLAN: Monitor clinically. Echocardiography to check for endocarditis. Continue pressors. Thank you for this consultation. We will follow the patient. JOB# [id number] FLOWER/NTS
[2019-06-15] MEDS: MORPHINE 2 MG/1 ML INJ IV PRN (11:41)
--- NOTE | 2019-06-15 12:07 | Progress Note ---
Assessment and Plan Impression * Acute kidney injury * Dehydration * Altered mental status * Metabolic acidosis * Hypotension * Sepsis * Diabetes * History of CVA * Coronary artery disease status post bypass surgery * Gross hematuria Recommendations * Her renal function is much improved. He is also currently nonoliguric. However he is currently on continuous bladder irrigation * Acidosis has also improved significantly. Reduce his IV fluid. * His urine shows microhematuria as well as pyuria. Urine study is also consistent with prerenal state. * Renal ultrasound is normal * Follow up results of vasculitis workup * Avoid nephrotoxins * Monitor fluid status and electrolytes closely * Discussed with patient's daughter at bedside Subjective Date of service: 06/15/19 Interval history: Patient currently in ICU. Appears much more alert. Off Levophed. Denies any shortness of breath. Objective - Vital Signs Vital signs: Vital Signs - 12hr 06/15/19 06/15/19 06/15/19 01:11 01:21 01:30 Temperature Pulse Rate 80 82 83 Pulse Rate [ From Monitor] Pulse Rate [ Left Popliteal] Pulse Rate [ Left Radial] Pulse Rate [ Right Dorsalis Pedis] Pulse Rate [ Right Radial] Respiratory 14 13 10 L Rate Blood Pressure 108/45 110/44 110/44 O2 Sat by Pulse 100 99 100 Oximetry 06/15/19 06/15/19 06/15/19 01:41 01:51 02:00 Temperature Pulse Rate 78 78 74 Pulse Rate [ 77 From Monitor] Pulse Rate [ 77 Left Popliteal] Pulse Rate [ 77 Left Radial] Pulse Rate [ 77 Right Dorsalis Pedis] Pulse Rate [ 77 Right Radial] Respiratory 14 14 11 L Rate Blood Pressure 103/40 110/38 O2 Sat by Pulse 99 100 100 Oximetry 06/15/19 06/15/19 06/15/19 02:11 02:21 02:30 Temperature Pulse Rate 77 80 74 Pulse Rate [ From Monitor] Pulse Rate [ Left Popliteal] Pulse Rate [ Left Radial] Pulse Rate [ Right Dorsalis Pedis] Pulse Rate [ Right Radial] Respiratory 11 L 12 14 Rate Blood Pressure 110/38 109/41 122/41 O2 Sat by Pulse 100 100 99 Oximetry 06/15/19 06/15/19 06/15/19 02:41 02:50 03:00 Temperature Pulse Rate 75 73 75 Pulse Rate [ From Monitor] Pulse Rate [ Left Popliteal] Pulse Rate [ Left Radial] Pulse Rate [ Right Dorsalis Pedis] Pulse Rate [ Right Radial] Respiratory 11 L 11 L 14 Rate Blood Pressure 122/41 104/38 101/43 O2 Sat by Pulse 100 100 100 Oximetry 06/15/19 06/15/19 06/15/19 03:11 03:21 03:31 Temperature Pulse Rate 79 83 82 Pulse Rate [ From Monitor] Pulse Rate [ Left Popliteal] Pulse Rate [ Left Radial] Pulse Rate [ Right Dorsalis Pedis] Pulse Rate [ Right Radial] Respiratory 13 16 14 Rate Blood Pressure 101/43 117/68 119/50 O2 Sat by Pulse 100 99 100 Oximetry 06/15/19 06/15/19 06/15/19 03:41 03:51 04:00 Temperature 99.3 F Pulse Rate 82 80 76 Pulse Rate [ 66 From Monitor] Pulse Rate [ 68 Left Popliteal] Pulse Rate [ 68 Left Radial] Pulse Rate [ 68 Right Dorsalis Pedis] Pulse Rate [ 68 Right Radial] Respiratory 12 10 L 16 Rate Blood Pressure 119/50 104/34 100/42 O2 Sat by Pulse 99 99 99 Oximetry 06/15/19 06/15/19 06/15/19 04:10 04:21 04:30 Temperature Pulse Rate 74 82 81 Pulse Rate [ From Monitor] Pulse Rate [ Left Popliteal] Pulse Rate [ Left Radial] Pulse Rate [ Right Dorsalis Pedis] Pulse Rate [ Right Radial] Respiratory 12 12 13 Rate Blood Pressure 100/42 103/46 121/46 O2 Sat by Pulse 97 100 99 Oximetry 06/15/19 06/15/19 06/15/19 04:40 04:50 05:00 Temperature Pulse Rate 81 81 78 Pulse Rate [ From Monitor] Pulse Rate [ Left Popliteal] Pulse Rate [ Left Radial] Pulse Rate [ Right Dorsalis Pedis] Pulse Rate [ Right Radial] Respiratory 14 12 13 Rate Blood Pressure 121/46 105/35 118/43 O2 Sat by Pulse 100 100 100 Oximetry 06/15/19 06/15/19 06/15/19 05:11 05:20 05:30 Temperature Pulse Rate 83 83 78 Pulse Rate [ From Monitor] Pulse Rate [ Left Popliteal] Pulse Rate [ Left Radial] Pulse Rate [ Right Dorsalis Pedis] Pulse Rate [ Right Radial] Respiratory 12 17 14 Rate Blood Pressure 118/43 109/45 118/48 O2 Sat by Pulse 99 100 100 Oximetry 1106/15/19 06/15/19 05:41 05:50 05:51 Temperature Pulse Rate 77 77 Pulse Rate [ 80 From Monitor] Pulse Rate [ 80 Left Popliteal] Pulse Rate [ 80 Left Radial] Pulse Rate [ 80 Right Dorsalis Pedis] Pulse Rate [ 80 Right Radial] Respiratory 13 15 14 Rate Blood Pressure 109/45 122/48 O2 Sat by Pulse 99 97 99 Oximetry 06/15/19 06/15/19 06/15/19 06:00 06:11 06:21 Temperature Pulse Rate 78 82 78 Pulse Rate [ From Monitor] Pulse Rate [ Left Popliteal] Pulse Rate [ Left Radial] Pulse Rate [ Right Dorsalis Pedis] Pulse Rate [ Right Radial] Respiratory 14 12 12 Rate Blood Pressure 118/49 118/48 132/55 O2 Sat by Pulse 100 100 100 Oximetry 06/15/19 06/15/19 06/15/19 06:30 06:41 06:51 Temperature Pulse Rate 77 81 82 Pulse Rate [ From Monitor] Pulse Rate [ Left Popliteal] Pulse Rate [ Left Radial] Pulse Rate [ Right Dorsalis Pedis] Pulse Rate [ Right Radial] Respiratory 14 10 L 14 Rate Blood Pressure 130/46 118/49 103/31 O2 Sat by Pulse 99 100 99 Oximetry 06/15/19 06/15/19 06/15/19 07:00 07:11 07:21 Temperature Pulse Rate 76 80 79 Pulse Rate [ From Monitor] Pulse Rate [ Left Popliteal] Pulse Rate [ Left Radial] Pulse Rate [ Right Dorsalis Pedis] Pulse Rate [ Right Radial] Respiratory 13 11 L 12 Rate Blood Pressure 122/53 122/53 110/45 O2 Sat by Pulse 100 100 100 Oximetry 06/15/19 06/15/19 06/15/19 07:30 07:41 07:51 Temperature Pulse Rate 80 80 80 Pulse Rate [ From Monitor] Pulse Rate [ Left Popliteal] Pulse Rate [ Left Radial] Pulse Rate [ Right Dorsalis Pedis] Pulse Rate [ Right Radial] Respiratory 12 16 13 Rate Blood Pressure 128/59 128/59 119/48 O2 Sat by Pulse 98 100 100 Oximetry 06/15/19 06/15/19 06/15/19 08:00 08:11 08:21 Temperature 98.3 F Pulse Rate 78 81 80 Pulse Rate [ 79 From Monitor] Pulse Rate [ Left Popliteal] Pulse Rate [ Left Radial] Pulse Rate [ Right Dorsalis Pedis] Pulse Rate [ Right Radial] Respiratory 14 13 17 Rate Blood Pressure 135/41 135/41 128/53 O2 Sat by Pulse 100 100 100 Oximetry 06/15/19 06/15/19 06/15/19 08:30 08:37 08:41 Temperature Pulse Rate 80 79 Pulse Rate [ From Monitor] Pulse Rate [ Left Popliteal] Pulse Rate [ Left Radial] Pulse Rate [ Right Dorsalis Pedis] Pulse Rate [ Right Radial] Respiratory 14 11 L Rate Blood Pressure 137/50 137/50 O2 Sat by Pulse 100 100 100 Oximetry 06/15/19 06/15/19 06/15/19 08:51 09:00 09:11 Temperature Pulse Rate 76 79 77 Pulse Rate [ From Monitor] Pulse Rate [ Left Popliteal] Pulse Rate [ Left Radial] Pulse Rate [ Right Dorsalis Pedis] Pulse Rate [ Right Radial] Respiratory 12 13 15 Rate Blood Pressure 141/45 134/39 134/39 O2 Sat by Pulse 100 100 100 Oximetry 06/15/19 06/15/19 06/15/19 09:21 09:30 09:41 Temperature Pulse Rate 78 75 78 Pulse Rate [ From Monitor] Pulse Rate [ Left Popliteal] Pulse Rate [ Left Radial] Pulse Rate [ Right Dorsalis Pedis] Pulse Rate [ Right Radial] Respiratory 15 12 16 Rate Blood Pressure 131/41 136/54 136/54 O2 Sat by Pulse 100 100 100 Oximetry 06/15/19 06/15/19 06/15/19 09:51 10:00 10:11 Temperature Pulse Rate 76 78 81 Pulse Rate [ From Monitor] Pulse Rate [ Left Popliteal] Pulse Rate [ Left Radial] Pulse Rate [ Right Dorsalis Pedis] Pulse Rate [ Right Radial] Respiratory 13 13 14 Rate Blood Pressure 119/60 111/57 111/57 O2 Sat by Pulse 100 100 100 Oximetry 06/15/19 06/15/19 06/15/19 10:21 10:31 10:41 Temperature Pulse Rate 78 80 80 Pulse Rate [ From Monitor] Pulse Rate [ Left Popliteal] Pulse Rate [ Left Radial] Pulse Rate [ Right Dorsalis Pedis] Pulse Rate [ Right Radial] Respiratory 14 14 13 Rate Blood Pressure 135/53 114/50 114/50 O2 Sat by Pulse 100 100 100 Oximetry 06/15/19 06/15/19 06/15/19 10:51 11:00 11:11 Temperature Pulse Rate 79 80 80 Pulse Rate [ From Monitor] Pulse Rate [ Left Popliteal] Pulse Rate [ Left Radial] Pulse Rate [ Right Dorsalis Pedis] Pulse Rate [ Right Radial] Respiratory 15 13 17 Rate Blood Pressure 110/48 116/51 116/51 O2 Sat by Pulse 99 99 100 Oximetry 06/15/19 06/15/19 06/15/19 11:21 11:30 11:41 Temperature Pulse Rate 80 82 82 Pulse Rate [ From Monitor] Pulse Rate [ Left Popliteal] Pulse Rate [ Left Radial] Pulse Rate [ Right Dorsalis Pedis] Pulse Rate [ Right Radial] Respiratory 13 17 18 Rate Blood Pressure 129/71 124/65 124/65 O2 Sat by Pulse 100 99 100 Oximetry 06/15/19 11:51 Temperature Pulse Rate 81 Pulse Rate [ From Monitor] Pulse Rate [ Left Popliteal] Pulse Rate [ Left Radial] Pulse Rate [ Right Dorsalis Pedis] Pulse Rate [ Right Radial] Respiratory 16 Rate Blood Pressure 131/48 O2 Sat by Pulse 98 Oximetry - General Appearance General appearance: well-developed, well-nourished, appears stated age EENT: PERRL, mucous membranes moist Neck: no JVD, no thyromegaly, no carotid bruit, supple Respiratory: Present: Ronchi (bilateral scattered rhonchi) Cardiology: regular, normal heart rate Gastrointestinal: normal, normoactive bowel sounds Integumentary: other (no edema) - Lab 06/15/19 09:45 06/15/19 09:45 Most recent lab results Calcium 7.6 mg/dL (8.4-10.2) L 06/15/19 09:45 Urine Creatinine 246.7 mg/dL (0.1-20.0) H 06/14/19 13:40 Urine Sodium 28 mmol/L 06/14/19 13:40 Medications & Allergies - Medications Allergies/Adverse Reactions: Allergies No Known Allergies Allergy (Verified 04/17/19 03:38) Home Medications: Home Medications Medication Instructions Recorded Confirmed Last Taken Type Clotrimazole 1% [Mycelex Vag cream] 1 applicatio .ROUTE BID #1 tube 04/17/19 Unknown Rx Active Medications: Generic Name Dose Route Start Last Admin Trade Name Freq PRN Reason Stop Dose Admin Acetaminophen 650 mg 06/14/19 08:04 Tylenol PO Q4H PRN Pain MILD(1-3)/Fever >100.5/GONZALEZ Dextrose 50 ml 06/14/19 08:04 D50w (25gm) Syringe IV Q30MIN PRN Hypoglycemia Protocol Enoxaparin Sodium 40 mg 06/14/19 10:00 06/15/19 09:41 Enoxaparin SUB-Q 40 mg QDAY SAM Administration Sodium Chloride 1,000 mls @ 125 mls/hr 06/14/19 09:00 06/14/19 21:53 Nacl 0.9% 1000 Ml IV Infused DIRECT SAM Infusion Norepinephrine 4 mg in 250 mls @ 7.5 mls/hr 06/14/19 11:00 06/15/19 10:16 Levophed Drip 4 Mg/Ns 250 Ml IV 0 mcg/min TITR SAM 0 mls/hr Titration Protocol 2 MCG/MIN Sodium Bicarbonate 75 meq/ 1,075 mls @ 150 mls/hr 06/14/19 12:00 06/15/19 11:42 Sodium Chloride IV 150 mls/hr DIRECT SAM Administration Piperacillin Sod/Tazobactam Sod 4.5 gm in 100 mls @ 200 mls/hr 06/15/19 10:00 06/15/19 10:34 Zosyn/Ns 4.5gm/100ml IV 200 mls/hr Q8H SAM Administration Morphine Sulfate 2 mg 06/14/19 08:04 06/15/19 11:41 Morphine IV 2 mg Q4H PRN Administration Pain, Moderate (4-6) Ondansetron HCl 4 mg 06/14/19 08:04 Zofran IV Q8H PRN Nausea And Vomiting Oxycodone/Acetaminophen 1 tab 06/14/19 08:04 Percocet 5/325 PO Q6H PRN Pain, Moderate (4-6) Pantoprazole Sodium 40 mg 06/14/19 11:00 06/15/19 09:41 Protonix IV 40 mg QDAY SAM Administration Sodium Chloride 10 ml 06/14/19 10:00 06/15/19 09:41 Sodium Chloride Flush Syringe 10 Ml IV 10 ml BID SAM Administration Sodium Chloride 10 ml 06/14/19 08:04 Sodium Chloride Flush Syringe 10 Ml IV PRN PRN LINE FLUSH Sodium Chloride 2,000 ml 06/14/19 15:00 06/14/19 19:04 Nacl 0.9% IR 2,000 ml DIRECT SAM Administration
--- NOTE | 2019-06-15 12:45 | Consultation ---
History of Present Illness Consult date: 06/15/19 Requesting physician: RU LINARES Reason for consult: other (Severe sepsis with septic shock, acute toxic- metabolic encephalopathy, Hematuria) History of present illness: history as per medical records- patient is encephaloapthic and unable to give a history Patient is a 63-year-old male with past medical history significant for hypertension, diabetes and coronary artery disease was brought to the emergency room because of altered mental status. Patient apparently has also a history of urinary retention and had a Zayas catheter in the past. He was noted to have some hematuria in the snf and his Zayas catheter was removed. In the ER he was also found to have some blood coming out from his penile meatus. He currently has a previous Zaays in place. Patient is confused and unable to get any history from him. Apparently they have been having problem making him drink water at the snf. He recently moved to [place]. Patient was admitted to the ICU with severe metabolic acidosis, sepsis, acute toxic metabolic encephalaopthy I have been consulted for critical care management. Patient was seen and examined. Vitals, labs, medications, chart and imaging were reviewed. At the time of my evaluation, he is awake but not obeying commands, he has a 3 way zayas catheter with dark urine, no blood. He is currently on a bicarbonate infusion and vasopressor support Past History Past Medical History: CAD, diabetes, hypertension, stroke, other (history of urinary retention and coronary artery bypass surgery) Past Surgical History: Other (history of coronary artery bypass surgery) Social history: other (patient is currently a snf resident.) Family history: other (no significant family history of kidney disease) Medications and Allergies Allergies Allergy/AdvReac Type Severity Reaction Status Date / Time No Known Allergies Allergy Verified 04/17/19 03:38 Home Medications Medication Instructions Recorded Confirmed Last Taken Type Allopurinol [Zyloprim] 300 mg PO QDAY 06/16/19 06/16/19 Unknown History Amlodipine Besylate [Norvasc] 2.5 mg PO DAILY 06/16/19 06/16/19 Unknown History Atorvastatin Calcium [Lipitor] 80 mg PO HS 06/16/19 06/16/19 Unknown History Colace CAP 200 mg PO BID 06/16/19 06/16/19 Unknown History Dicyclomine [Bentyl] 20 mg PO Q6HR PRN 06/16/19 06/16/19 Unknown History Ezetimibe [Zetia] 10 mg PO HS 06/16/19 06/16/19 Unknown History Levemir Flextouch (Nf) 23 units SC HS 06/16/19 06/16/19 Unknown History Losartan Potassium 100 mg PO DAILY 06/16/19 06/16/19 Unknown History Maalox Advanced Suspension 5 ml PO Q6HR PRN 06/16/19 06/16/19 Unknown History Melatonin 5 mg PO HS 06/16/19 06/16/19 Unknown History Plavix 75 mg PO DAILY 06/16/19 06/16/19 Unknown History Polyethylene Glycol 3350 1 packet PO DAILY PRN 06/16/19 06/16/19 Unknown History Senna Plus Tablet 2 tab PO HS PRN 06/16/19 06/16/19 Unknown History TEGretol 200 mg PO DAILY 06/16/19 06/16/19 Unknown History Tylenol 500 mg PO Q8HR PRN 06/16/19 06/16/19 Unknown History Vaseline White Petroleum 1 applicatio BID PRN 06/16/19 06/16/19 Unknown History carvediloL [Coreg] 12.5 mg PO BID 06/16/19 06/16/19 Unknown History Active Meds: Active Medications Acetaminophen (Tylenol) 650 mg PO Q4H PRN PRN Reason: Pain MILD(1-3)/Fever >100.5/GONZALEZ Dextrose (D50w (25gm) Syringe) 50 ml IV Q30MIN PRN; Protocol PRN Reason: Hypoglycemia Enoxaparin Sodium (Enoxaparin) 40 mg SUB-Q QDAY SAM Last Admin: 06/15/19 09:41 Dose: 40 mg Documented by: Sodium Chloride (Nacl 0.9% 1000 Ml) 1,000 mls @ 125 mls/hr IV DIRECT SAM Last Infusion: 06/14/19 21:53 Dose: Infused Documented by: Norepinephrine (Levophed Drip 4 Mg/Ns 250 Ml) 4 mg in 250 mls @ 7.5 mls/hr IV TITR SAM; Protocol Last Titration: 06/15/19 10:16 Dose: 0 mcg/min, 0 mls/hr Documented by: Sodium Bicarbonate 75 meq/ (Sodium Chloride) 1,075 mls @ 65 mls/hr IV DIRECT SAM Last Infusion: 06/15/19 12:14 Dose: 65 mls/hr Documented by: Piperacillin Sod/Tazobactam Sod (Zosyn/Ns 4.5gm/100ml) 4.5 gm in 100 mls @ 200 mls/hr IV Q8H [facility] Last Admin: 06/15/19 10:34 Dose: 200 mls/hr Documented by: Vancomycin HCl 1,250 mg/ (Sodium Chloride) 275 mls @ 166.667 mls/hr IV Q12H [facility] Morphine Sulfate (Morphine) 2 mg IV Q4H PRN PRN Reason: Pain, Moderate (4-6) Last Admin: 06/15/19 11:41 Dose: 2 mg Documented by: Ondansetron HCl (Zofran) 4 mg IV Q8H PRN PRN Reason: Nausea And Vomiting Oxycodone/Acetaminophen (Percocet 5/325) 1 tab PO Q6H PRN PRN Reason: Pain, Moderate (4-6) Pantoprazole Sodium (Protonix) 40 mg IV QDAY [facility] Last Admin: 06/15/19 09:41 Dose: 40 mg Documented by: Sodium Chloride (Sodium Chloride Flush Syringe 10 Ml) 10 ml IV BID [facility] Last Admin: 06/15/19 09:41 Dose: 10 ml Documented by: Sodium Chloride (Sodium Chloride Flush Syringe 10 Ml) 10 ml IV PRN PRN PRN Reason: LINE FLUSH Sodium Chloride (Nacl 0.9%) 2,000 ml IR DIRECT [facility] Last Admin: 06/14/19 19:04 Dose: 2,000 ml Documented by: Physical Examination Vital signs: Vital Signs Temp Pulse Resp BP Pulse Ox 99.6 F 82 18 89/48 97 06/14/19 04:10 06/14/19 04:10 06/14/19 04:10 06/14/19 04:10 06/14/19 04:10 General appearance: lethargic, other (rousable, obese) Eyes: non-icteric ENT: oropharynx dry Neck: supple, no lymphadenopathy, no JVD Effort: mildly labored Ascultation: Bilateral: clear, diminished breath sounds Cardiovascular: regular rate and rhythm, other (S1,S2, no murmurs, gallops or rubs. Midline sternotomy scar) Gastrointestinal: soft, non-tender, non-distended, other (3 way zayas cather with dark urine) Integumentary: normal Extremities: no cyanosis, no edema, pulses normal pupils equal and round, unable to assess, other other (unable to assess: AMS) Results - Laboratory Findings CBC and BMP: 06/15/19 09:45 06/16/19 05:26 PT/INR, D-dimer PT 19.4 Sec. (12.2-14.9) H 06/14/19 08:03 INR 1.67 (0.87-1.13) H 06/14/19 08:03 Abnormal lab findings: Abnormal Labs 06/14/19 06/14/19 06/14/19 05:17 05:59 05:59 WBC 20.4 H Hct MCV 100 H MCH Plt Count 110 L Seg Neuts % (Manual) 76.0 H Lymphocytes % (Manual) 2.0 L Seg Neutrophils # Man 15.5 H Lymphocytes # (Manual) 0.4 L PT 19.1 H INR 1.63 H APTT 39.7 H VBG pH Carbon Dioxide BUN Creatinine Glucose POC Glucose 422 H Lactic Acid Calcium AST ALT Troponin T Total Protein Albumin LDL Cholesterol Direct HDL Cholesterol Urine WBC (Auto) Urine Creatinine 06/14/19 06/14/19 06/14/19 05:59 05:59 05:59 WBC Hct MCV MCH Plt Count Seg Neuts % (Manual) Lymphocytes % (Manual) Seg Neutrophils # Man Lymphocytes # (Manual) PT INR APTT VBG pH 7.303 L Carbon Dioxide 17 L BUN 35 H Creatinine 2.1 H Glucose 397 H POC Glucose Lactic Acid 6.70 H* Calcium 7.6 L AST 130 H ALT 162 H Troponin T 0.055 H Total Protein 5.3 L Albumin 2.6 L LDL Cholesterol Direct 49 L HDL Cholesterol 26 L Urine WBC (Auto) Urine Creatinine 06/14/19 06/14/19 06/14/19 08:03 08:03 10:12 WBC Hct MCV MCH Plt Count Seg Neuts % (Manual) Lymphocytes % (Manual) Seg Neutrophils # Man Lymphocytes # (Manual) PT 19.4 H INR 1.67 H APTT 40.5 H VBG pH Carbon Dioxide BUN Creatinine Glucose POC Glucose 180 H Lactic Acid 5.90 H* Calcium AST ALT Troponin T Total Protein Albumin LDL Cholesterol Direct HDL Cholesterol Urine WBC (Auto) Urine Creatinine 06/14/19 06/14/19 06/14/19 13:40 13:40 13:51 WBC Hct MCV MCH Plt Count Seg Neuts % (Manual) Lymphocytes % (Manual) Seg Neutrophils # Man Lymphocytes # (Manual) PT INR APTT VBG pH Carbon Dioxide BUN Creatinine Glucose POC Glucose 145 H Lactic Acid Calcium AST ALT Troponin T Total Protein Albumin LDL Cholesterol Direct HDL Cholesterol Urine WBC (Auto) > 182.0 H Urine Creatinine 246.7 H 06/14/19 06/14/19 06/15/19 18:31 21:31 09:45 WBC 18.1 H Hct 35.2 L MCV 96 H MCH 33 H Plt Count 94 L Seg Neuts % (Manual) 83.0 H Lymphocytes % (Manual) 3.0 L Seg Neutrophils # Man 15.0 H Lymphocytes # (Manual) 0.5 L PT INR APTT VBG pH Carbon Dioxide BUN Creatinine Glucose POC Glucose 148 H 137 H Lactic Acid Calcium AST ALT Troponin T Total Protein Albumin LDL Cholesterol Direct HDL Cholesterol Urine WBC (Auto) Urine Creatinine 06/15/19 09:45 WBC Hct MCV MCH Plt Count Seg Neuts % (Manual) Lymphocytes % (Manual) Seg Neutrophils # Man Lymphocytes # (Manual) PT INR APTT VBG pH Carbon Dioxide 21 L BUN 33 H Creatinine Glucose POC Glucose Lactic Acid Calcium 7.6 L AST 44 H ALT 84 H Troponin T Total Protein 5.4 L Albumin 2.4 L LDL Cholesterol Direct HDL Cholesterol Urine WBC (Auto) Urine Creatinine Assessment and Plan Severe sepsis with septic shock- GNR bacteremia AG metabolic acidosis/Lactic acidosis Acute toxic-metabolic encephalopathy Acute renal failure probably secondary to vasomotor nephropathy Elevated troponin, possible type 2 ischemia -patient has history if CAD Hyperglycemia UTI (urinary tract infection) due to urinary indwelling catheter Elevated transaminases, possibly secondary to hypotension - Wean vasopressor support for MAP>65, -Continue bicarb infusion -Get ABG, follow up lactic acid levels -With history of CAD, it is unclear what his EF is. While volume resuscitation, we need to be judicious with fluids. Monitor his respiratory status closely to avoid pulmonary edema. -CXR in am, Supplemental oxygen if indicated to keep O2 sast>90% -Continue 3 way zayas catheter per Urology -Monitor Hand H and hemodynamics closely -Monitor renal function, avoid nephrotoxic agents, renally dose all medications -Volume resuscitation per sepsis protocol -Aspiration precautions, HOB>40 degrees -Speech language pathologist to evaluate swallow function -Discontinue femoral CVC once he is off vasopressor support and hemodynamically normal. -Place peripheral IV -Antibiotics for GNR sepsis ( blood culture positive for GNR), de-escalate antibiotics based on SHERRY and sensitivities - Lung protective strategies -CBC, BMP in am -VTE prophylaxis prophylaxis - Accuchecks with glycemic control for SSI (While critically ill target blood glucose of 140-180 mg/dL; avoid hypoglycemia) - Mobility protocol for pressure ulcer prevention -Monitor electrolyte profile closely and replete as indicated -Avoid benzodiazepines re delirium -Supportive transfusions as indicated for HgB<7 g/dL Discussed with care team in ICU-RT/RN CONDITION: CRITICAL PROGNOSIS: GUARDED CODE STATUS: FULL CODE The high probability of a clinically significant, sudden or life-threatening deterioration of the [respiratory, cardiovascular, neurology, renal ] system(s) required my full and direct attention, intervention and personal management. The aggregate critical care time was [65] minutes without overlap. Time includes s pent on; [x] Data Review and interpretation [x] Patient assessment and monitoring of vital signs [x] Documentation [x] Medication orders and management
[2019-06-15 12:57] LABS: Bacteria,Urine 2+ /HPF (Negative); Bilirubin,Urine NEG (Negative); Blood,Urine MOD (Negative); Color,Urine Yellow (Yellow); Protein,Urine <15 mg/dL mg/dL (Negative); Urobilinogen,Urine < 2.0 mg/dL (<2.0)
[2019-06-15] MEDS: VANCOMYCIN 1,250 MG in SODIUM CHLORIDE 0.9% 250ML 250 ML IV SCH (13:54)
--- NOTE | 2019-06-15 14:13 | Progress Note ---
Assessment and Plan Assessment and plan: 40 min The high probability of a clinically significant, sudden or life threatening deterioration of the [] system(s) required my full and direct attention, intervention and personal management. The aggregate critical care time was [] minutes. This time is in addition to time spent performing reported procedures but includes the following: [x] Data Review and interpretation [x] Patient assessment and monitoring of vital signs [x] Documentation [x] Medication orders and management Total Time Spent with Patient (Minutes): 34 - Patient Problems (1) Septic shock Current Visit: Yes Status: Acute Plan to address problem: Patient improving significantly. Fever curve coming down. Much more alert and less lethargic. Able to wean pressor support off. Patient found to have gram- negative rods. Antibiotic coverage changed to cover this Zosyn. If continues to improve by tomorrow discontinue vancomycin. (2) Acute renal failure Current Visit: Yes Status: Acute Qualifiers: Acute renal failure type: unspecified Qualified Code(s): N17.9 - Acute kidney failure, unspecified Plan to address problem: Acute renal failure has had significant improvement with volume resuscitation. (3) Altered mental state Current Visit: Yes Status: Acute Qualifiers: Altered mental status type: unspecified Qualified Code(s): R41.82 - Altered mental status, unspecified Plan to address problem: Improving as sepsis improved and dehydration improved prerenal azotemia not quite back at baseline. (4) Elevated troponin Current Visit: Yes Status: Acute Plan to address problem: Secondary to acute kidney injury. Atypical presentation. Aggressive blood pressure control. (5) Hyperglycemia Current Visit: Yes Status: Acute Plan to address problem: Patient diabetes much better controlled Accu-Chek today 104. Patient is nothing by mouth we'll hold any insulin a long-acting hypoglycemics at this particular time. NG tube on hold. We'll reevaluate in a.m. the patient unable to eat. Has failed swallow eval. (6) Hypotension Current Visit: Yes Status: Acute Qualifiers: Hypotension type: unspecified hypotension type Qualified Code(s): I95.9 - Hypotension, unspecified Plan to address problem: Pressor support. Secondary to sepsis. (7) UTI (urinary tract infection) due to urinary indwelling catheter Current Visit: Yes Status: Acute Plan to address problem: Patient on Rocephin we'll await culture data. Patient is only been here one time before. Suspect sensitivities. I have added vancomycin as well. Flat cefepime ID consult. (8) Elevated transaminase level Current Visit: Yes Status: Acute Plan to address problem: His amylase and liver function tests is also resolving to normal. History Interval history: Patient clinically looks better today. Able to open eyes. Daughter at bedside. Patient attempts to make needs known. No new untoward events overnight. Fever curve is down trending. Patient was able to wean off pressors. Hospitalist Physical - Constitutional Vitals: Temp Pulse Resp BP Pulse Ox 98.3 F 78 10 L 126/51 99 06/15/19 08:00 06/15/19 13:11 06/15/19 13:11 06/15/19 13:11 06/15/19 13:11 General appearance: Present: severe distress, obese - EENT Eyes: Present: PERRL, EOM intact ENT: clear oral mucosa - Respiratory Respiratory effort: normal Respiratory: bilateral: diminished - Extremities Extremities: no ischemia, pulses intact Extremity abnormal: other Peripheral Pulses: abnormal - Abdominal General gastrointestinal: soft, non-tender, hypoactive bowel sounds, other (obese) - Neurologic Neurologic: other (cognitive abnormalities and deficiency above baseline but much improved.) Results - Labs CBC & Chem 7: 06/15/19 09:45 06/15/19 09:45 Labs: Laboratory Last Values WBC 18.1 K/mm3 (4.5-11.0) H 06/15/19 09:45 RBC 3.67 M/mm3 (3.65-5.03) 06/15/19 09:45 Hgb 12.0 gm/dl (11.8-15.2) 06/15/19 09:45 Hct 35.2 % (35.5-45.6) L 06/15/19 09:45 MCV 96 fl (84-94) H 06/15/19 09:45 MCH 33 pg (28-32) H 06/15/19 09:45 MCHC 34 % (32-34) 06/15/19 09:45 RDW 14.4 % (13.2-15.2) 06/15/19 09:45 Plt Count 94 K/mm3 (140-440) L 06/15/19 09:45 Add Manual Diff Complete 06/15/19 09:45 Total Counted 100 06/15/19 09:45 Seg Neutrophils % Branch Manager 06/15/19 09:45 Seg Neuts % (Manual) 83.0 % (40.0-70.0) H 06/15/19 09:45 Band Neutrophils % 9.0 % 06/15/19 09:45 Lymphocytes % (Manual) 3.0 % (13.4-35.0) L 06/15/19 09:45 Reactive Lymphs % (Man) 0 % 06/15/19 09:45 Monocytes % (Manual) 1.0 % (0.0-7.3) 06/15/19 09:45 Eosinophils % (Manual) 0 % (0.0-4.3) 06/15/19 09:45 Basophils % (Manual) 0 % (0.0-1.8) 06/15/19 09:45 Metamyelocytes % 4.0 % 06/15/19 09:45 Myelocytes % 0 % 06/15/19 09:45 Promyelocytes % 0 % 06/15/19 09:45 Blast Cells % 0 % 06/15/19 09:45 Nucleated RBC % Not Reportable 06/15/19 09:45 Seg Neutrophils # Man 15.0 K/mm3 (1.8-7.7) H 06/15/19 09:45 Band Neutrophils # 1.6 K/mm3 06/15/19 09:45 Lymphocytes # (Manual) 0.5 K/mm3 (1.2-5.4) L 06/15/19 09:45 Abs React Lymphs (Man) 0.0 K/mm3 06/15/19 09:45 Monocytes # (Manual) 0.2 K/mm3 (0.0-0.8) 06/15/19 09:45 Eosinophils # (Manual) 0.0 K/mm3 (0.0-0.4) 06/15/19 09:45 Basophils # (Manual) 0.0 K/mm3 (0.0-0.1) 06/15/19 09:45 Metamyelocytes # 0.7 K/mm3 06/15/19 09:45 Myelocytes # 0.0 K/mm3 06/15/19 09:45 Promyelocytes # 0.0 K/mm3 06/15/19 09:45 Blast Cells # 0.0 K/mm3 06/15/19 09:45 WBC Morphology Not Reportable 06/15/19 09:45 Hypersegmented Neuts Not Reportable 06/15/19 09:45 Hyposegmented Neuts Not Reportable 06/15/19 09:45 Hypogranular Neuts Not Reportable 06/15/19 09:45 Smudge Cells Not Reportable 06/15/19 09:45 Toxic Granulation Not Reportable 06/15/19 09:45 Toxic Vacuolation Not Reportable 06/15/19 09:45 Dohle Bodies Not Reportable 06/15/19 09:45 Pelger-Huet Anomaly Not Reportable 06/15/19 09:45 Elinor Rods Not Reportable 06/15/19 09:45 Platelet Estimate Consistent w auto 06/15/19 09:45 Clumped Platelets Not Reportable 06/15/19 09:45 Plt Clumps, EDTA Not Reportable 06/15/19 09:45 Large Platelets Not Reportable 06/15/19 09:45 Giant Platelets Not Reportable 06/15/19 09:45 Platelet Satelliting Not Reportable 06/15/19 09:45 Plt Morphology Comment Not Reportable 06/15/19 09:45 RBC Morphology Normal 06/15/19 09:45 Dimorphic RBCs Not Reportable 06/15/19 09:45 Polychromasia Not Reportable 06/15/19 09:45 Hypochromasia Not Reportable 06/15/19 09:45 Poikilocytosis Not Reportable 06/15/19 09:45 Anisocytosis Not Reportable 06/15/19 09:45 Microcytosis Not Reportable 06/15/19 09:45 Macrocytosis Not Reportable 06/15/19 09:45 Spherocytes Not Reportable 06/15/19 09:45 Pappenheimer Bodies Not Reportable 06/15/19 09:45 Sickle Cells Not Reportable 06/15/19 09:45 Target Cells Not Reportable 06/15/19 09:45 Tear Drop Cells Not Reportable 06/15/19 09:45 Ovalocytes Not Reportable 06/15/19 09:45 Helmet Cells Not Reportable 06/15/19 09:45 Gillespie-Cochiti Bodies Not Reportable 06/15/19 09:45 Lengby Rings Not Reportable 06/15/19 09:45 Tj Cells Not Reportable 06/15/19 09:45 Bite Cells Not Reportable 06/15/19 09:45 Crenated Cell Not Reportable 06/15/19 09:45 Elliptocytes Not Reportable 06/15/19 09:45 Acanthocytes (Spur) Not Reportable 06/15/19 09:45 Rouleaux Not Reportable 06/15/19 09:45 Hemoglobin C Crystals Not Reportable 06/15/19 09:45 Schistocytes Not Reportable 06/15/19 09:45 Malaria parasites Not Reportable 06/15/19 09:45 Endy Bodies Not Reportable 06/15/19 09:45 Hem Pathologist Commnt No 06/15/19 09:45 PT 19.4 Sec. (12.2-14.9) H 06/14/19 08:03 INR 1.67 (0.87-1.13) H 06/14/19 08:03 APTT 40.5 Sec. (24.2-36.6) H 06/14/19 08:03 VBG pH 7.303 (7.320-7.420) L 06/14/19 05:59 Sodium 141 mmol/L (137-145) 06/15/19 09:45 Potassium 3.7 mmol/L (3.6-5.0) 06/15/19 09:45 Chloride 106.1 mmol/L (98-107) 06/15/19 09:45 Carbon Dioxide 21 mmol/L (22-30) L 06/15/19 09:45 Anion Gap 18 mmol/L 06/15/19 09:45 BUN 33 mg/dL (9-20) H 06/15/19 09:45 Creatinine 1.0 mg/dL (0.8-1.5) D 06/15/19 09:45 Estimated GFR > 60 ml/min 06/15/19 09:45 BUN/Creatinine Ratio 33 % 06/15/19 09:45 Glucose 100 mg/dL (75-100) 06/15/19 09:45 POC Glucose 101 (70-105) 06/15/19 07:54 Lactic Acid 5.90 mmol/L (0.7-2.0) H* 06/14/19 08:03 Calcium 7.6 mg/dL (8.4-10.2) L 06/15/19 09:45 Total Bilirubin 0.90 mg/dL (0.1-1.2) 06/15/19 09:45 AST 44 units/L (5-40) H 06/15/19 09:45 ALT 84 units/L (7-56) H 06/15/19 09:45 Alkaline Phosphatase 82 units/L (35-129) 06/15/19 09:45 Troponin T 0.055 ng/mL (0.00-0.029) H 06/14/19 05:59 Total Protein 5.4 g/dL (6.3-8.2) L 06/15/19 09:45 Albumin 2.4 g/dL (3.9-5) L 06/15/19 09:45 Albumin/Globulin Ratio 0.8 % 06/15/19 09:45 Triglycerides 83 mg/dL (2-149) 06/14/19 05:59 Cholesterol 81 mg/dL (50-199) 06/14/19 05:59 LDL Cholesterol Direct 49 mg/dL (50-130) L 06/14/19 05:59 HDL Cholesterol 26 mg/dL (40-59) L 06/14/19 05:59 Cholesterol/HDL Ratio 3.11 % 06/14/19 05:59 Urine Color Yellow (Yellow) 06/15/19 12:20 Urine Turbidity Clear (Clear) 06/15/19 12:20 Urine pH 7.0 (5.0-7.0) 06/15/19 12:20 Ur Specific Ribera 1.011 (1.003-1.030) 06/15/19 12:20 Urine Protein <15 mg/dl mg/dL (Negative) 06/15/19 12:20 Urine Glucose (UA) Neg mg/dL (Negative) 06/15/19 12:20 Urine Ketones Neg mg/dL (Negative) 06/15/19 12:20 Urine Blood Mod (Negative) 06/15/19 12:20 Urine Nitrite Neg (Negative) 06/15/19 12:20 Urine Bilirubin Neg (Negative) 06/15/19 12:20 Urine Urobilinogen < 2.0 mg/dL (<2.0) 06/15/19 12:20 Ur Leukocyte Esterase Mod (Negative) 06/15/19 12:20 Urine WBC (Auto) 19.0 /HPF (0.0-6.0) H 06/15/19 12:20 Urine RBC (Auto) 25.0 /HPF (0.0-6.0) 06/15/19 12:20 Urine Bacteria (Auto) 2+ /HPF (Negative) 06/15/19 12:20 Urine Eosinophils Few (None Seen) 06/14/19 13:40 Urine Creatinine 246.7 mg/dL (0.1-20.0) H 06/14/19 13:40 Urine Sodium 28 mmol/L 06/14/19 13:40 Fraction Sodium Excret 0.0 06/14/19 13:40 Random Vancomycin 7.1 ug/mL (0-40.0) 06/15/19 08:57 Hepatitis A IgM Ab Non-reactive (NonReactive) 06/14/19 19:40 Hep Bs Antigen Non-reactive (Negative) 06/14/19 19:40 Hep B Core IgM Ab Non-reactive (NonReactive) 06/14/19 19:40 Hepatitis C Antibody Non-reactive (NonReactive) 06/14/19 19:40 - Imaging and Cardiology CT Scan - head: report reviewed, image reviewed Venous US: image reviewed Active Medications - Current Medications Current Medications: Generic Name Dose Route Start Last Admin Trade Name Freq PRN Reason Stop Dose Admin Acetaminophen 650 mg 06/14/19 08:04 Tylenol PO Q4H PRN Pain MILD(1-3)/Fever >100.5/GONZALEZ Dextrose 50 ml 06/14/19 08:04 D50w (25gm) Syringe IV Q30MIN PRN Hypoglycemia Protocol Enoxaparin Sodium 40 mg 06/14/19 10:00 06/15/19 09:41 Enoxaparin SUB-Q 40 mg QDAY SAM Administration Sodium Chloride 1,000 mls @ 125 mls/hr 06/14/19 09:00 06/14/19 21:53 Nacl 0.9% 1000 Ml IV Infused DIRECT SAM Infusion Norepinephrine 4 mg in 250 mls @ 7.5 mls/hr 06/14/19 11:00 06/15/19 10:16 Levophed Drip 4 Mg/Ns 250 Ml IV 0 mcg/min TITR SAM 0 mls/hr Titration Protocol 2 MCG/MIN Sodium Bicarbonate 75 meq/ 1,075 mls @ 65 mls/hr 06/14/19 12:00 06/15/19 12:14 Sodium Chloride IV 65 mls/hr DIRECT SAM Infusion Piperacillin Sod/Tazobactam Sod 4.5 gm in 100 mls @ 200 mls/hr 06/15/19 10:00 06/15/19 10:34 Zosyn/Ns 4.5gm/100ml IV 200 mls/hr Q8H SAM Administration Vancomycin HCl 1,250 mg/ 275 mls @ 166.667 mls/hr 06/15/19 14:00 06/15/19 13:54 Sodium Chloride IV 166.667 mls/hr Q12H SAM Administration Morphine Sulfate 2 mg 06/14/19 08:04 06/15/19 11:41 Morphine IV 2 mg Q4H PRN Administration Pain, Moderate (4-6) Ondansetron HCl 4 mg 06/14/19 08:04 Zofran IV Q8H PRN Nausea And Vomiting Oxycodone/Acetaminophen 1 tab 06/14/19 08:04 Percocet 5/325 PO Q6H PRN Pain, Moderate (4-6) Pantoprazole Sodium 40 mg 06/14/19 11:00 06/15/19 09:41 Protonix IV 40 mg QDAY SAM Administration Sodium Chloride 10 ml 06/14/19 10:00 06/15/19 09:41 Sodium Chloride Flush Syringe 10 Ml IV 10 ml BID SAM Administration Sodium Chloride 10 ml 06/14/19 08:04 Sodium Chloride Flush Syringe 10 Ml IV PRN PRN LINE FLUSH Sodium Chloride 2,000 ml 06/14/19 15:00 06/14/19 19:04 Nacl 0.9% IR 2,000 ml DIRECT SAM Administration
[2019-06-15] MEDS ORDERED: D5W/0.45% NACL 1,000 ML IV SCH (17:00)
[2019-06-16] MEDS: PIPERACIL/TAZOBACTA 4.5/NS 100 4.5 GM/100 ML VIAL IV SCH ×2 (01:04→09:44)
[2019-06-16] MEDS: VANCOMYCIN 1,250 MG in SODIUM CHLORIDE 0.9% 250ML 250 ML IV SCH ×2 (03:33→13:56)
[2019-06-16 06:04] LABS: BUN/Creatinine Ratio 31; Blood Urea Nitrogen 22 mg/dL (9-20); Calcium 7.9 mg/dL (8.4-10.2)
[2019-06-16 06:05] LABS: Hemolysis Index 12
--- NOTE | 2019-06-16 08:46 | Progress Note ---
Assessment and Plan Septic shock UTI (urinary tract infection) Leucocytosis Acute renal failure Acute Encephalopathy (Toxic/Metabolic) NSTEMI Hyperglycemia Elevated transaminase level (? Shock liver) - replaced potassium (40 meq Kcl p.o.) - s/p Gan drip for gross hematuria - begin empiric flomax for possible BPH - pull Toribio catheter thereafter - prn vasopressor support to keep MAP > 65 mmHg - Stop IVF re: CHF - conservative volume management at this point - continue supplemental oxygen as needed to keep O2 sat's > 90% - continue bronchodilators with pulmonary hygiene per RT - complete empiric anti-infective therapy; de-escalate based on clinical and microbiologic data/progress - ID consult placed - ST evaluation as more alert; advance diet per their recommendations - continue aspiration precautions - PT/OT as tolerated - mobility protocols for pressure ulcer prophylaxis - continue accuchecks with glycemic control per SSI for target BG < 180 mg/dl - Monitor hemodynamics closely - Monitor electrolyte profile closely and replete as indicated - GI & VTE prophylaxis - Flu & pneumovax addressed per protocol - continue other care per attending / other consultants ... re-evaluate in am & prn ... transfer to IMCU and watch closely The high probability of a clinically significant, sudden or life threatening deterioration of the [Cardiovascular, pulmonary and renal] system(s) required my full and direct attention, intervention and personal management. The aggregate critical care time was [32] minutes. This time is in addition to time spent performing reported procedures but includes the following: [x] Data Review and interpretation [x] Patient assessment and monitoring of vital signs [x] Documentation [x] Medication orders and management Subjective Date of service: 06/16/19 Principal diagnosis: Septic shock; UTI; DIANA; Ac. Encephalopathy; NSTEMI; Hyperglycemia Interval history: Patient is seen today for: Septic shock; UTI (urinary tract infection) ; Leucocytosis; Acute renal failure; Acute Encephalopathy (Toxic/Metabolic); NSTEMI; Hyperglycemia; Elevated transaminase level (? Shock liver) Seen and examined at bedside; 24hour events reviewed; nursing and respiratory care staff consulted; no adverse overnight events reported to me; resting peacefully in bed; remains on supplemental oxygen via NC; still with AMS; no more gross hematuria noted; off vasopressors now but BP's labile; no emesis or overt aspiration Objective Vital Signs - 12hr 06/15/19 06/15/1906/15/19 20:58 21:00 21:11 Temperature Pulse Rate 88 94 H 81 Pulse Rate [ From Monitor] Respiratory 17 12 13 Rate Blood Pressure 129/55 148/90 148/90 O2 Sat by Pulse 94 96 94 Oximetry 06/15/19 06/15/19 06/15/19 21:31 22:00 22:30 Temperature Pulse Rate 82 89 89 Pulse Rate [ From Monitor] Respiratory 18 18 9 L Rate Blood Pressure 144/94 126/99 130/87 O2 Sat by Pulse 94 95 94 Oximetry 06/15/19 06/15/19 06/16/19 23:00 23:30 00:00 Temperature 99.6 F Pulse Rate 84 83 79 Pulse Rate [ From Monitor] Respiratory 15 14 12 Rate Blood Pressure 140/77 149/72 149/72 O2 Sat by Pulse 95 99 96 Oximetry 06/16/19 06/16/19 06/16/19 00:30 01:00 02:00 Temperature Pulse Rate 84 76 82 Pulse Rate [ From Monitor] Respiratory 15 10 L 15 Rate Blood Pressure 145/67 151/70 141/60 O2 Sat by Pulse 100 100 98 Oximetry 06/16/19 06/16/19 06/16/19 03:00 04:00 05:00 Temperature 98.9 F Pulse Rate 78 75 80 Pulse Rate [ From Monitor] Respiratory 11 L 13 12 Rate Blood Pressure 133/70 144/51 149/46 O2 Sat by Pulse 96 98 96 Oximetry 06/16/19 06/16/19 06/16/19 06:00 07:00 08:00 Temperature Pulse Rate 76 78 79 Pulse Rate [ 75 From Monitor] Respiratory 10 L 17 12 Rate Blood Pressure 152/60 151/60 151/53 O2 Sat by Pulse 96 93 100 Oximetry Constitutional: appears uncomfortable, other (elderly looking male; normoc ephalic with mildly increased respiratory effort at rest) Eyes: non-icteric ENT: oropharynx moist Neck: supple, no lymphadenopathy, no JVD, other (large neck circumference) Effort: mildly labored Ascultation: Bilateral: diminished breath sounds, rhonchi Percussion: Bilateral: not dull Cardiovascular: regular rate and rhythm Gastrointestinal: normoactive bowel sounds, soft, non-tender, non-distended Integumentary: normal Extremities: no cyanosis, no edema, no ischemia or petechiae, other (Left AKA) Neurologic: non-focal exam (grossly), pupils equal and round, CN II-XII normal, other (weak, lethargic, confused) Psychiatric: other (unable to assess re: AMS) CBC and BMP: 06/15/19 09:45 06/16/19 05:26 ABG, PT/INR, D-dimer: ABG POC ABG pH 7.403 (7.35-7.45) 06/15/19 14:39 POC ABG pCO2 42.5 (35-45) 06/15/19 14:39 POC ABG pO2 63 (80-105) L 06/15/19 14:39 POC ABG HCO3 26.5 (22-26 mml/L) 06/15/19 14:39 POC ABG Total CO2 28 (23-27mmol/L) 06/15/19 14:39 POC ABG O2 Sat 92 06/15/19 14:39 PT/INR, D-dimer PT 19.4 Sec. (12.2-14.9) H 06/14/19 08:03 INR 1.67 (0.87-1.13) H 06/14/19 08:03 Abnormal lab findings: Abnormal Labs 06/14/19 06/14/19 06/14/19 05:17 05:59 05:59 WBC 20.4 H Hct MCV 100 H MCH Plt Count 110 L Seg Neuts % (Manual) 76.0 H Lymphocytes % (Manual) 2.0 L Seg Neutrophils # Man 15.5 H Lymphocytes # (Manual) 0.4 L PT 19.1 H INR 1.63 H APTT 39.7 H POC ABG pO2 VBG pH Potassium Carbon Dioxide BUN Creatinine Glucose POC Glucose 422 H Lactic Acid Calcium AST ALT Troponin T Total Protein Albumin LDL Cholesterol Direct HDL Cholesterol Urine WBC (Auto) Urine Creatinine 06/14/19 06/14/19 06/14/19 05:59 05:59 05:59 WBC Hct MCV MCH Plt Count Seg Neuts % (Manual) Lymphocytes % (Manual) Seg Neutrophils # Man Lymphocytes # (Manual) PT INR APTT POC ABG pO2 VBG pH 7.303 L Potassium Carbon Dioxide 17 L BUN 35 H Creatinine 2.1 H Glucose 397 H POC Glucose Lactic Acid 6.70 H* Calcium 7.6 L AST 130 H ALT 162 H Troponin T 0.055 H Total Protein 5.3 L Albumin 2.6 L LDL Cholesterol Direct 49 L HDL Cholesterol 26 L Urine WBC (Auto) Urine Creatinine 06/14/19 06/14/19 06/14/19 08:03 08:03 10:12 WBC Hct MCV MCH Plt Count Seg Neuts % (Manual) Lymphocytes % (Manual) Seg Neutrophils # Man Lymphocytes # (Manual) PT 19.4 H INR 1.67 H APTT 40.5 H POC ABG pO2 VBG pH Potassium Carbon Dioxide BUN Creatinine Glucose POC Glucose 180 H Lactic Acid 5.90 H* Calcium AST ALT Troponin T Total Protein Albumin LDL Cholesterol Direct HDL Cholesterol Urine WBC (Auto) Urine Creatinine 06/14/19 06/14/19 06/14/19 13:40 13:40 13:51 WBC Hct MCV MCH Plt Count Seg Neuts % (Manual) Lymphocytes % (Manual) Seg Neutrophils # Man Lymphocytes # (Manual) PT INR APTT POC ABG pO2 VBG pH Potassium Carbon Dioxide BUN Creatinine Glucose POC Glucose 145 H Lactic Acid Calcium AST ALT Troponin T Total Protein Albumin LDL Cholesterol Direct HDL Cholesterol Urine WBC (Auto) > 182.0 H Urine Creatinine 246.7 H 06/14/19 06/14/19 06/15/19 18:31 21:31 09:45 WBC 18.1 H Hct 35.2 L MCV 96 H MCH 33 H Plt Count 94 L Seg Neuts % (Manual) 83.0 H Lymphocytes % (Manual) 3.0 L Seg Neutrophils # Man 15.0 H Lymphocytes # (Manual) 0.5 L PT INR APTT POC ABG pO2 VBG pH Potassium Carbon Dioxide BUN Creatinine Glucose POC Glucose 148 H 137 H Lactic Acid Calcium AST ALT Troponin T Total Protein Albumin LDL Cholesterol Direct HDL Cholesterol Urine WBC (Auto) Urine Creatinine 06/15/19 06/15/19 06/15/19 09:45 12:20 14:39 WBC Hct MCV MCH Plt Count Seg Neuts % (Manual) Lymphocytes % (Manual) Seg Neutrophils # Man Lymphocytes # (Manual) PT INR APTT POC ABG pO2 63 L VBG pH Potassium Carbon Dioxide 21 L BUN 33 H Creatinine Glucose POC Glucose Lactic Acid Calcium 7.6 L AST 44 H ALT 84 H Troponin T Total Protein 5.4 L Albumin 2.4 L LDL Cholesterol Direct HDL Cholesterol Urine WBC (Auto) 19.0 H Urine Creatinine 06/16/19 06/16/19 05:26 05:58 WBC Hct MCV MCH Plt Count Seg Neuts % (Manual) Lymphocytes % (Manual) Seg Neutrophils # Man Lymphocytes # (Manual) PT INR APTT POC ABG pO2 VBG pH Potassium 3.5 L Carbon Dioxide BUN 22 H Creatinine 0.7 L Glucose 123 H POC Glucose 119 H Lactic Acid Calcium 7.9 L AST ALT Troponin T Total Protein Albumin LDL Cholesterol Direct HDL Cholesterol Urine WBC (Auto) Urine Creatinine Chest x-ray: image reviewed (developing interstitial edema; ? LLL infiltrate also) Allied health notes reviewed: nursing
--- NOTE | 2019-06-16 09:03 | XRay Report ---
CHEST 1 VIEW INDICATION / CLINICAL INFORMATION: obie. COMPARISON: 06/14/2019 FINDINGS: SUPPORT DEVICES: None. HEART / MEDIASTINUM: Unchanged LUNGS / PLEURA: No significant pulmonary or pleural abnormality.. No pneumothorax. ADDITIONAL FINDINGS: No significant additional findings. IMPRESSION: 1. No significant change. Signer Name: Ezio Kapoor MD Signed: 06/16/2019 8:59 AM Workstation Name: [id number]
[2019-06-16] MEDS: ENOXAPARIN 40 MG/0.4 ML INJ SUB-Q SCH (09:44)
[2019-06-16] MEDS: PANTOPRAZOLE 40 MG INJ IV SCH (09:44)
--- NOTE | 2019-06-16 10:08 | Progress Note ---
Assessment and Plan - Patient Problems (1) Acute renal failure Current Visit: Yes Status: Acute Qualifiers: Acute renal failure type: with acute tubular necrosis Qualified Code(s): N17.0 - Acute kidney failure with tubular necrosis Plan to address problem: Acute renal failure resolved Current creatinine is 0.6 creatinine admission was 2.1 Plan discontinue intravenous fluids Avoid nephrotoxins Continue Toribio (2) Septic shock Current Visit: Yes Status: Acute Plan to address problem: Septic shock improving remains on Levophed Lactic acidosis resolved (3) Metabolic acidosis Current Visit: Yes Status: Acute Plan to address problem: Metabolic acidosis Bicarbonate is 22 Would avoid saline containing infusions unless necessary Consider changing D5 half-normal to D5 water (4) Hypokalemia Current Visit: Yes Status: Acute Plan to address problem: Hypokalemia We'll give 40 mEq KCl 1 We will sign off thank you for allowing us to participate in his care Subjective Principal diagnosis: Septic shock; UTI; DIANA; Ac. Encephalopathy; NSTEMI; Hyperglycemia Interval history: 63-year-old gentleman with diabetes CAD status post CABG previous CVA admitted with altered mental status hematuria was lethargic encephalopathy, on arrival Patient was seen today mental status is improved Current intravenous fluids Objective - Vital Signs Vital signs: Vital Signs - 12hr 06/15/19 06/15/19 06/15/19 22:30 23:00 23:30 Temperature Pulse Rate 89 84 83 Pulse Rate [ From Monitor] Respiratory 9 L 15 14 Rate Blood Pressure 130/87 140/77 149/72 O2 Sat by Pulse 94 95 99 Oximetry 06/16/19 06/16/19 06/16/19 00:00 00:30 01:00 Temperature 99.6 F Pulse Rate 79 84 76 Pulse Rate [ From Monitor] Respiratory 12 15 10 L Rate Blood Pressure 149/72 145/67 151/70 O2 Sat by Pulse 96 100 100 Oximetry 06/16/19 06/16/19 06/16/19 02:00 03:00 04:00 Temperature 98.9 F Pulse Rate 82 78 75 Pulse Rate [ From Monitor] Respiratory 15 11 L 13 Rate Blood Pressure 141/60 133/70 144/51 O2 Sat by Pulse 98 96 98 Oximetry 06/16/19 06/16/19 06/16/19 05:00 06:00 07:00 Temperature Pulse Rate 80 76 78 Pulse Rate [ From Monitor] Respiratory 12 10 L 17 Rate Blood Pressure 149/46 152/60 151/60 O2 Sat by Pulse 96 96 93 Oximetry 06/16/19 06/16/19 08:00 09:00 Temperature Pulse Rate 79 74 Pulse Rate [ 75 From Monitor] Respiratory 12 12 Rate Blood Pressure 151/53 152/69 O2 Sat by Pulse 100 98 Oximetry - General Appearance General appearance: well-developed, well-nourished EENT: ATNC, PERRL Neck: no JVD Respiratory: Present: Clear to Ascultation Cardiology: regular, S1S2 Gastrointestinal: normal, normoactive bowel sounds Integumentary: no rash Neurologic: alert and oriented x3, CN 3-12 intact Psychiatric: mood/affect appropriate - Lab 06/15/19 09:45 06/16/19 05:26 Most recent lab results Calcium 7.9 mg/dL (8.4-10.2) L 06/16/19 05:26 Urine Creatinine 246.7 mg/dL (0.1-20.0) H 06/14/19 13:40 Urine Sodium 28 mmol/L 06/14/19 13:40 - Imaging Chest x-ray: image reviewed (review chest x-ray without significant pulmonary edema) Medications & Allergies - Medications Allergies/Adverse Reactions: Allergies No Known Allergies Allergy (Verified 04/17/19 03:38) Home Medications: Home Medications Medication Instructions Recorded Confirmed Last Taken Type Allopurinol [Zyloprim] 300 mg PO QDAY 06/16/19 06/16/19 Unknown History Amlodipine Besylate [Norvasc] 2.5 mg PO DAILY 06/16/19 06/16/19 Unknown History Atorvastatin Calcium [Lipitor] 80 mg PO HS 06/16/19 06/16/19 Unknown History Colace CAP 200 mg PO BID 06/16/19 06/16/19 Unknown History Dicyclomine [Bentyl] 20 mg PO Q6HR PRN 06/16/19 06/16/19 Unknown History Ezetimibe [Zetia] 10 mg PO HS 06/16/19 06/16/19 Unknown History Levemir Flextouch (Nf) 23 units SC HS 06/16/19 06/16/19 Unknown History Losartan Potassium 100 mg PO DAILY 06/16/19 06/16/19 Unknown History Maalox Advanced Suspension 5 ml PO Q6HR PRN 06/16/19 06/16/19 Unknown History Melatonin 5 mg PO HS 06/16/19 06/16/19 Unknown History Plavix 75 mg PO DAILY 06/16/19 06/16/19 Unknown History Polyethylene Glycol 3350 1 packet PO DAILY PRN 06/16/19 06/16/19 Unknown History Senna Plus Tablet 2 tab PO HS PRN 06/16/19 06/16/19 Unknown History TEGretol 200 mg PO DAILY 06/16/19 06/16/19 Unknown History Tylenol 500 mg PO Q8HR PRN 06/16/19 06/16/19 Unknown History Vaseline White Petroleum 1 applicatio BID PRN 06/16/19 06/16/19 Unknown History carvediloL [Coreg] 12.5 mg PO BID 06/16/19 06/16/19 Unknown History Active Medications: Generic Name Dose Route Start Last Admin Trade Name Freq PRN Reason Stop Dose Admin Acetaminophen 650 mg 06/14/19 08:04 Tylenol PO Q4H PRN Pain MILD(1-3)/Fever >100.5/GONZALEZ Dextrose 50 ml 06/14/19 08:04 D50w (25gm) Syringe IV Q30MIN PRN Hypoglycemia Protocol Enoxaparin Sodium 40 mg 06/14/19 10:00 06/16/19 09:44 Enoxaparin SUB-Q 40 mg QDAY SAM Administration Norepinephrine 4 mg in 250 mls @ 7.5 mls/hr 06/14/19 11:00 06/15/19 10:16 Levophed Drip 4 Mg/Ns 250 Ml IV 0 mcg/min TITR SAM 0 mls/hr Titration Protocol 2 MCG/MIN Piperacillin Sod/Tazobactam Sod 4.5 gm in 100 mls @ 200 mls/hr 06/15/19 10:00 06/16/19 09:44 Zosyn/Ns 4.5gm/100ml IV 200 mls/hr Q8H SAM Administration Vancomycin HCl 1,250 mg/ 275 mls @ 166.667 mls/hr 06/15/19 14:00 06/16/19 03:33 Sodium Chloride IV 166.667 mls/hr Q12H SAM Administration Dextrose/Sodium Chloride 1,000 mls @ 50 mls/hr 06/15/19 17:00 06/16/19 03:34 D5/0.45ns IV 50 mls/hr DIRECT SAM Infusion Morphine Sulfate 2 mg 06/14/19 08:04 06/15/19 11:41 Morphine IV 2 mg Q4H PRN Administration Pain, Moderate (4-6) Ondansetron HCl 4 mg 06/14/19 08:04 Zofran IV Q8H PRN Nausea And Vomiting Oxycodone/Acetaminophen 1 tab 06/14/19 08:04 Percocet 5/325 PO Q6H PRN Pain, Moderate (4-6) Pantoprazole Sodium 40 mg 06/14/19 11:00 06/16/19 09:44 Protonix IV 40 mg QDAY SAM Administration Sodium Chloride 10 ml 06/14/19 10:00 06/16/19 09:44 Sodium Chloride Flush Syringe 10 Ml IV 10 ml BID SAM Administration Sodium Chloride 10 ml 06/14/19 08:04 Sodium Chloride Flush Syringe 10 Ml IV PRN PRN LINE FLUSH
[2019-06-16] MEDS ORDERED: POTASSIUM CHLORIDE 20 MEQ PACKET FEEDTUBE ONE (13:00)
--- NOTE | 2019-06-16 13:15 | Progress Note ---
Assessment and Plan Altered mental status Severe sepsis with - GNR bacteremia UTI Hx of CAD with 4vessel CABG in 2013 Prior CVA Hyperglycemia Elevated transaminases -trending downwards Acute renal failure -resolved An echocardiogram this admission reports a mildly decreased LVEF 40-45%. Subjective Date of service: 06/16/19 Principal diagnosis: Septic shock; UTI; DIANA; Ac. Encephalopathy; NSTEMI; Hyperglycemia Interval history: Patient is resting in bed comfortably. Expressive aphasia noted. Family member is at the bedside. Objective Vital Signs Temp Pulse Pulse Resp BP Pulse Ox 06/16/19 13:00 71 11 L 156/72 94 06/16/19 12:00 77 77 16 146/80 100 06/16/19 11:00 66 12 169/74 100 06/16/19 10:00 81 12 159/71 99 06/16/19 09:00 74 12 152/69 98 06/16/19 08:00 96.2 F L 79 75 12 151/53 100 06/16/19 07:00 78 17 151/60 93 06/16/19 06:00 76 10 L 152/60 96 06/16/19 05:00 80 12 149/46 96 06/16/19 04:00 98.9 F 75 13 144/51 98 06/16/19 03:00 78 11 L 133/70 96 06/16/19 02:00 82 15 141/60 98 06/16/19 01:00 76 10 L 151/70 100 06/16/19 00:30 84 15 145/67 100 06/16/19 00:00 99.6 F 79 12 149/72 96 06/15/19 23:30 83 14 149/72 99 06/15/19 23:00 84 15 140/77 95 06/15/19 22:30 89 9 L 130/87 94 06/15/19 22:00 89 18 126/99 95 06/15/19 21:31 82 18 144/94 94 06/15/19 21:11 81 13 148/90 94 06/15/19 21:00 94 H 12 148/90 96 06/15/19 20:58 88 17 129/55 94 06/15/19 20:45 79 10 L 129/55 95 06/15/19 20:31 78 9 L 148/59 93 06/15/19 20:15 84 15 141/82 94 06/15/19 20:06 80 06/15/19 20:00 99.9 F H 82 12 141/82 94 06/15/19 19:45 85 11 L 142/93 94 06/15/19 19:30 79 11 L 136/52 92 06/15/19 19:21 78 12 137/53 92 06/15/19 19:11 77 11 L 151/56 93 06/15/19 19:00 78 10 L 149/63 91 06/15/19 18:51 87 12 149/63 93 06/15/19 18:41 84 13 147/71 91 06/15/19 18:30 89 12 147/71 86 06/15/19 18:21 82 13 141/65 92 06/15/19 18:11 88 12 136/65 90 06/15/19 18:00 85 21 136/65 93 06/15/19 17:51 92 H 132/63 93 06/15/19 17:41 92 H 14 132/63 95 06/15/19 17:30 87 8 L 132/63 93 06/15/19 17:21 89 12 124/109 94 06/15/19 17:11 87 11 L 112/58 95 06/15/19 17:00 88 9 L 112/58 96 06/15/19 16:51 86 10 L 121/62 96 06/15/19 16:41 85 11 L 125/49 96 06/15/19 16:31 86 12 125/49 96 06/15/19 16:21 86 13 128/64 95 06/15/19 16:11 90 15 133/55 95 06/15/19 16:03 82 12 94 06/15/19 16:00 99.0 F 82 12 133/55 94 06/15/19 15:51 82 11 L 125/54 93 06/15/19 15:41 78 12 125/54 91 06/15/19 15:30 86 11 L 125/54 96 06/15/19 15:21 78 12 121/53 92 06/15/19 15:11 83 11 L 126/54 95 06/15/19 15:00 81 12 126/54 96 06/15/19 14:51 81 13 120/46 95 06/15/19 14:41 78 11 L 107/81 95 06/15/19 14:31 79 13 107/81 95 06/15/19 14:21 80 16 107/81 95 06/15/19 14:11 73 11 L 133/37 93 06/15/19 14:01 80 11 L 133/37 97 06/15/19 13:51 84 14 113/57 97 06/15/19 13:41 77 11 L 98/41 95 06/15/19 13:31 80 13 125/96 99 06/15/19 13:21 83 12 125/96 99 - Physical Examination General: No Apparent Distress HEENT: Positive: PERRL Neck: Positive: trachea midline Cardiac: Positive: Reg Rate and Rhythm - Labs and Meds Comprehensive Metabolic Panel 06/16/19 Range/Units 05:26 Sodium 140 (137-145) mmol/L Potassium 3.5 L (3.6-5.0) mmol/L Chloride 105.4 (98-107) mmol/L Carbon Dioxide 22 (22-30) mmol/L BUN 22 H (9-20) mg/dL Creatinine 0.7 L (0.8-1.5) mg/dL Glucose 123 H (75-100) mg/dL Calcium 7.9 L (8.4-10.2) mg/dL
--- NOTE | 2019-06-16 13:23 | Gastroenterology Consultation ---
<NICHOLAS SEPULVEDA - Last Filed: 06/16/19 13:25> History of Present Illness - Reason for Consult Consult date: 06/16/19 liver failure Requesting physician: RU LINARES - History of Present Illness Patient is a 63 y[facility] PM[facility] of HTN, DM, stroke, and urinary retention (indwelling zayas) who presented to ED with AMS and was admitted for severe sepsis/shock 2/2 UTI/GNR bacteremia. Upon admission, LFTs were noted to be elevated to which GI has been consulted for evaluation of liver failure. Patient is currently in ICU, now off pressor supports. With noted expressive aphasia upon exam and unable to provide history (no family at bedside; history obtained via chart review). No evidence of abd pain, N/V, jaundice, or signs of bleeding. Prior GI history including liver disease or substance abuse unknown. Past History Past Medical History: CAD, diabetes, hypertension, stroke, other (history of urinary retention and coronary artery bypass surgery) Past Surgical History: Other (history of coronary artery bypass surgery) Social history: other (patient is currently a jail resident.) Family history: other (no significant family history of kidney disease) Medications and Allergies Allergies Allergy/AdvReac Type Severity Reaction Status Date / Time No Known Allergies Allergy Verified 04/17/19 03:38 Home Medications Medication Instructions Recorded Confirmed Last Taken Type Allopurinol [Zyloprim] 300 mg PO QDAY 06/16/19 06/16/19 Unknown History Amlodipine Besylate [Norvasc] 2.5 mg PO DAILY 06/16/19 06/16/19 Unknown History Atorvastatin Calcium [Lipitor] 80 mg PO HS 06/16/19 06/16/19 Unknown History Colace CAP 200 mg PO BID 06/16/19 06/16/19 Unknown History Dicyclomine [Bentyl] 20 mg PO Q6HR PRN 06/16/19 06/16/19 Unknown History Ezetimibe [Zetia] 10 mg PO HS 06/16/19 06/16/19 Unknown History Levemir Flextouch (Nf) 23 units SC HS 06/16/19 06/16/19 Unknown History Losartan Potassium 100 mg PO DAILY 06/16/19 06/16/19 Unknown History Maalox Advanced Suspension 5 ml PO Q6HR PRN 06/16/19 06/16/19 Unknown History Melatonin 5 mg PO HS 06/16/19 06/16/19 Unknown History Plavix 75 mg PO DAILY 06/16/19 06/16/19 Unknown History Polyethylene Glycol 3350 1 packet PO DAILY PRN 06/16/19 06/16/19 Unknown History Senna Plus Tablet 2 tab PO HS PRN 06/16/19 06/16/19 Unknown History TEGretol 200 mg PO DAILY 06/16/19 06/16/19 Unknown History Tylenol 500 mg PO Q8HR PRN 06/16/19 06/16/19 Unknown History Vaseline White Petroleum 1 applicatio BID PRN 06/16/19 06/16/19 Unknown History carvediloL [Coreg] 12.5 mg PO BID 06/16/19 06/16/19 Unknown History Active Meds: Active Medications Acetaminophen (Tylenol) 650 mg PO Q4H PRN PRN Reason: Pain MILD(1-3)/Fever >100.5/GONZALEZ Dextrose (D50w (25gm) Syringe) 50 ml IV Q30MIN PRN; Protocol PRN Reason: Hypoglycemia Enoxaparin Sodium (Enoxaparin) 40 mg SUB-Q QDAY SAM Last Admin: 06/16/19 09:44 Dose: 40 mg Documented by: Norepinephrine (Levophed Drip 4 Mg/Ns 250 Ml) 4 mg in 250 mls @ 7.5 mls/hr IV TITR SAM; Protocol Last Titration: 06/15/19 10:16 Dose: 0 mcg/min, 0 mls/hr Documented by: Vancomycin HCl 1,250 mg/ (Sodium Chloride) 275 mls @ 166.667 mls/hr IV Q12H SAM Last Admin: 06/16/19 03:33 Dose: 166.667 mls/hr Documented by: Cefepime HCl (Cefepime/Ns 1 Gm/100 Ml) 1 gm in 100 mls @ 200 mls/hr IV Q8HR SAM Morphine Sulfate (Morphine) 2 mg IV Q4H PRN PRN Reason: Pain, Moderate (4-6) Last Admin: 06/15/19 11:41 Dose: 2 mg Documented by: Ondansetron HCl (Zofran) 4 mg IV Q8H PRN PRN Reason: Nausea And Vomiting Oxycodone/Acetaminophen (Percocet 5/325) 1 tab PO Q6H PRN PRN Reason: Pain, Moderate (4-6) Pantoprazole Sodium (Protonix) 40 mg IV QDAY [facility] Last Admin: 06/16/19 09:44 Dose: 40 mg Documented by: Sodium Chloride (Sodium Chloride Flush Syringe 10 Ml) 10 ml IV BID [facility] Last Admin: 06/16/19 09:44 Dose: 10 ml Documented by: Sodium Chloride (Sodium Chloride Flush Syringe 10 Ml) 10 ml IV PRN PRN PRN Reason: LINE FLUSH Tamsulosin HCl (Flomax) 0.4 mg PO QDAY [facility] medications reviewed/updated as required Review of Systems - Review of Systems ROS unobtainable: due to mental status Exam - Constitutional Vital Signs: Temp Pulse Resp BP Pulse Ox 96.2 F L 71 11 L 156/72 94 06/16/19 08:00 06/16/19 13:00 06/16/19 13:00 06/16/19 13:00 06/16/19 13:00 General appearance: no acute distress, other (expressive aphasia) - Respiratory Respiratory effort: normal Respiratory: bilateral: diminished - Cardiovascular Rhythm: regular - Gastrointestinal General gastrointestinal: Present: soft, non-distended, normal bowel sounds - Integumentary Integumentary: Present: warm, dry - Neurologic Neurological: other (unable to assess) - Labs CBC & Chem 7: 06/15/19 09:45 06/16/19 05:26 Lab Results: Laboratory Results - last 24 hr 06/15/19 06/15/19 06/15/19 12:12 14:31 14:39 POC ABG pH 7.403 POC ABG pCO2 42.5 POC ABG pO2 63 L POC ABG HCO3 26.5 POC ABG Total CO2 28 POC ABG O2 Sat 92 POC ABG Base Excess 2 FiO2 28 Sodium Potassium Chloride Carbon Dioxide Anion Gap BUN Creatinine Estimated GFR BUN/Creatinine Ratio Glucose POC Glucose 93 Lactic Acid 1.30 Calcium 06/15/19 06/15/19 06/16/19 18:06 23:40 05:26 POC ABG pH POC ABG pCO2 POC ABG pO2 POC ABG HCO3 POC ABG Total CO2 POC ABG O2 Sat POC ABG Base Excess FiO2 Sodium 140 Potassium 3.5 L Chloride 105.4 Carbon Dioxide 22 Anion Gap 16 BUN 22 H Creatinine 0.7 L Estimated GFR > 60 BUN/Creatinine Ratio 31 Glucose 123 H POC Glucose 81 93 Lactic Acid Calcium 7.9 L 06/16/19 06/16/19 06/16/19 05:58 12:01 12:47 POC ABG pH POC ABG pCO2 POC ABG pO2 POC ABG HCO3 POC ABG Total CO2 POC ABG O2 Sat POC ABG Base Excess FiO2 Sodium Potassium Chloride Carbon Dioxide Anion Gap BUN Creatinine Estimated GFR BUN/Creatinine Ratio Glucose POC Glucose 119 H 136 H 142 H Lactic Acid Calcium Assessment and Plan 1.elevated LFTs/liver failure? -plt 94 -INR 1.67 on admission -LFTs trending down (T.patrick 0.90, AST 44, ALT 84, alk phos 82) -acute hepatitis panel negative -etiology unclear-possibly 2/2 sepsis vs other (underlying liver disease?) -will order abd ultrasound to further evaluate liver -continue to trend labs and supportive care -avoid hepatotoxic agents -further recommendations to follow <GUSTAVO ORLANDO - Last Filed: 06/16/19 20:05> Medications and Allergies Active Meds: Active Medications Acetaminophen (Tylenol) 650 mg PO Q4H PRN PRN Reason: Pain MILD(1-3)/Fever >100.5/GONZALEZ Albuterol (Proventil) 2.5 mg IH Q4HRT PRN PRN Reason: Shortness Of Breath Dextrose (D50w (25gm) Syringe) 50 ml IV Q30MIN PRN; Protocol PRN Reason: Hypoglycemia Enoxaparin Sodium (Enoxaparin) 40 mg SUB-Q QDAY [facility] Last Admin: 06/16/19 09:44 Dose: 40 mg Documented by: Cefepime HCl (Cefepime/Ns 2 Gm/100 Ml) 2 gm in 100 mls @ 200 mls/hr IV Q8HR [facility]; Protocol Last Admin: 06/16/19 15:19 Dose: 200 mls/hr Documented by: Morphine Sulfate (Morphine) 2 mg IV Q4H PRN PRN Reason: Pain, Moderate (4-6) Last Admin: 06/16/19 13:51 Dose: 2 mg Documented by: Ondansetron HCl (Zofran) 4 mg IV Q8H PRN PRN Reason: Nausea And Vomiting Oxycodone/Acetaminophen (Percocet 5/325) 1 tab PO Q6H PRN PRN Reason: Pain, Moderate (4-6) Pantoprazole Sodium (Protonix) 40 mg IV QDAY [facility] Last Admin: 06/16/19 09:44 Dose: 40 mg Documented by: Sodium Chloride (Sodium Chloride Flush Syringe 10 Ml) 10 ml IV BID [facility] Last Admin: 06/16/19 09:44 Dose: 10 ml Documented by: Sodium Chloride (Sodium Chloride Flush Syringe 10 Ml) 10 ml IV PRN PRN PRN Reason: LINE FLUSH Tamsulosin HCl (Flomax) 0.4 mg PO QDAY [facility] Last Admin: 06/16/19 19:15 Dose: Not Given Documented by: Exam - Constitutional Vital Signs: Temp Pulse Resp BP Pulse Ox 98.3 F 75 16 155/68 98 06/16/19 12:00 06/16/19 18:00 06/16/19 18:00 06/16/19 18:00 06/16/19 18:00 - Labs CBC & Chem 7: 06/15/19 09:45 06/16/19 05:26 Lab Results: Laboratory Results - last 24 hr 06/15/19 06/16/19 06/16/19 23:40 05:26 05:58 Sodium 140 Potassium 3.5 L Chloride 105.4 Carbon Dioxide 22 Anion Gap 16 BUN 22 H Creatinine 0.7 L Estimated GFR > 60 BUN/Creatinine Ratio 31 Glucose 123 H POC Glucose 93 119 H Calcium 7.9 L 06/16/19 06/16/19 06/16/19 12:01 12:47 18:22 Sodium Potassium Chloride Carbon Dioxide Anion Gap BUN Creatinine Estimated GFR BUN/Creatinine Ratio Glucose POC Glucose 136 H 142 H 142 H Calcium Assessment and Plan Patient seen and examined. Agree with note above.
[2019-06-16] MEDS ORDERED: ALBUTEROL 2.5 MG/3 ML NEBU IH PRN (13:38)
[2019-06-16] MEDS: MORPHINE 2 MG/1 ML INJ IV PRN ×2 (13:51→21:28)
[2019-06-16] MEDS ORDERED: CEFEPIME/NS 1 GM/100 ML 1 GM/100 ML BAG IV SCH (14:00)
--- NOTE | 2019-06-16 14:08 | Consultation ---
History of Present Illness - Reason for Consult Consult date: 06/16/19 sepsis Requesting physician: YEFRI WATTS - History of Present Illness 63 y/o male with history of diabetes, previous CVA, hypertension, previous left AKA and urinary retention with a chronic indwelling zayas at [facility] admitted on 06/14/2019 due to altered mental status, fever and zayas draining blood, sent from [place]. He has currently expressive aphasia, unknown if this is new, difficult interview. In the ER, temp 99.6, BP 89/48, HR 87. WBC 20.4. Plat 110. Lactate 6.7. Glucose 422. AST 130. ALT 162. UA with 182 wbc, positive nitrates and large blood. Blood culture 06/14/2019 growing GNR 4 of 4 bottles. Urine culture grew 10-100K mixed bacteria. Renal US was unremarkable. CXR with cardiomegaly no consolidations. CT head chronic atrophy and right MCA. In the ED, zayas was removed and ED placed a new zayas and started bladder irrigation. ID consulted for septic shock. Review of Systems: unable to obtain due to expressive aphasia Past History Past Medical History: CAD, diabetes, hypertension, stroke, other (history of urinary retention and coronary artery bypass surgery) Past Surgical History: Other (history of coronary artery bypass surgery) Social history: other (patient is currently a retirement resident.) Family history: other (no significant family history of kidney disease) Medications and Allergies Allergies Allergy/AdvReac Type Severity Reaction Status Date / Time No Known Allergies Allergy Verified 04/17/19 03:38 Home Medications Medication Instructions Recorded Confirmed Last Taken Type Allopurinol [Zyloprim] 300 mg PO QDAY 06/16/19 06/16/19 Unknown History Amlodipine Besylate [Norvasc] 2.5 mg PO DAILY 06/16/19 06/16/19 Unknown History Atorvastatin Calcium [Lipitor] 80 mg PO HS 06/16/19 06/16/19 Unknown History Colace CAP 200 mg PO BID 06/16/19 06/16/19 Unknown History Dicyclomine [Bentyl] 20 mg PO Q6HR PRN 06/16/19 06/16/19 Unknown History Ezetimibe [Zetia] 10 mg PO HS 06/16/19 06/16/19 Unknown History Levemir Flextouch (Nf) 23 units SC HS 06/16/19 06/16/19 Unknown History Losartan Potassium 100 mg PO DAILY 06/16/19 06/16/19 Unknown History Maalox Advanced Suspension 5 ml PO Q6HR PRN 06/16/19 06/16/19 Unknown History Melatonin 5 mg PO HS 06/16/19 06/16/19 Unknown History Plavix 75 mg PO DAILY 06/16/19 06/16/19 Unknown History Polyethylene Glycol 3350 1 packet PO DAILY PRN 06/16/19 06/16/19 Unknown History Senna Plus Tablet 2 tab PO HS PRN 06/16/19 06/16/19 Unknown History TEGretol 200 mg PO DAILY 06/16/19 06/16/19 Unknown History Tylenol 500 mg PO Q8HR PRN 06/16/19 06/16/19 Unknown History Vaseline White Petroleum 1 applicatio BID PRN 06/16/19 06/16/19 Unknown History carvediloL [Coreg] 12.5 mg PO BID 06/16/19 06/16/19 Unknown History Active Meds: Active Medications Acetaminophen (Tylenol) 650 mg PO Q4H PRN PRN Reason: Pain MILD(1-3)/Fever >100.5/GONZALEZ Albuterol (Proventil) 2.5 mg IH Q4HRT PRN PRN Reason: Shortness Of Breath Dextrose (D50w (25gm) Syringe) 50 ml IV Q30MIN PRN; Protocol PRN Reason: Hypoglycemia Enoxaparin Sodium (Enoxaparin) 40 mg SUB-Q QDAY SAM Last Admin: 06/16/19 09:44 Dose: 40 mg Documented by: Norepinephrine (Levophed Drip 4 Mg/Ns 250 Ml) 4 mg in 250 mls @ 7.5 mls/hr IV TITR SAM; Protocol Last Titration: 06/15/19 10:16 Dose: 0 mcg/min, 0 mls/hr Documented by: Vancomycin HCl 1,250 mg/ (Sodium Chloride) 275 mls @ 166.667 mls/hr IV Q12H [facility] Last Admin: 06/16/19 13:56 Dose: 166.667 mls/hr Documented by: Cefepime HCl (Cefepime/Ns 1 Gm/100 Ml) 1 gm in 100 mls @ 200 mls/hr IV Q8HR SAM Morphine Sulfate (Morphine) 2 mg IV Q4H PRN PRN Reason: Pain, Moderate (4-6) Last Admin: 06/16/19 13:51 Dose: 2 mg Documented by: Ondansetron HCl (Zofran) 4 mg IV Q8H PRN PRN Reason: Nausea And Vomiting Oxycodone/Acetaminophen (Percocet 5/325) 1 tab PO Q6H PRN PRN Reason: Pain, Moderate (4-6) Pantoprazole Sodium (Protonix) 40 mg IV QDAY [facility] Last Admin: 06/16/19 09:44 Dose: 40 mg Documented by: Sodium Chloride (Sodium Chloride Flush Syringe 10 Ml) 10 ml IV BID [facility] Last Admin: 06/16/19 09:44 Dose: 10 ml Documented by: Sodium Chloride (Sodium Chloride Flush Syringe 10 Ml) 10 ml IV PRN PRN PRN Reason: LINE FLUSH Tamsulosin HCl (Flomax) 0.4 mg PO QDAY [facility] Physical Examination - Physical Exam Narrative exam: Constitutional: Alert, cooperative. No acute distress Head, Ears, Nose: Normocephalic, atraumatic. External ears, nose normal Eyes: Conjunctivae/corneas clear. No icterus. No ptosis. Neck: Supple, no meningeal signs Oral: dentition fair, no thrush Cardiovascular: S1, S2 normal. Respiratory: Good air entry, clear to auscultation bilaterally GI: Soft, non-tender Musculoskeletal: left AKA well healed Skin: No rash or abscess Hem/Lymphatic: No palpable cervical or supraclavicular nodes. No lymphangitis Psych: no agitated Neurological: Awake, alert, +expressive aphasia, follows commands - Constitutional Vitals: Vital Signs Temp Pulse Resp BP Pulse Ox 98.3 F 71 11 L 156/72 94 06/16/19 12:00 06/16/19 13:00 06/16/19 13:00 06/16/19 13:00 06/16/19 13:00 Temperature -Last 24 Hours Temperature 98.3 F Temperature 96.2 F Temperature 98.9 F Temperature 99.6 F Temperature 99.9 F Temperature 99.0 F Results - Labs CBC & Chem 7: 06/15/19 09:45 06/16/19 05:26 Labs: Abnormal lab results 06/15/19 06/16/19 06/16/19 Range/Units 14:39 05:26 05:58 POC ABG pO2 63 L (80-105) Potassium 3.5 L (3.6-5.0) mmol/L BUN 22 H (9-20) mg/dL Creatinine 0.7 L (0.8-1.5) mg/dL Glucose 123 H (75-100) mg/dL POC Glucose 119 H (70-105) Calcium 7.9 L (8.4-10.2) mg/dL 06/16/19 06/16/19 Range/Units 12:01 12:47 POC ABG pO2 (80-105) Potassium (3.6-5.0) mmol/L BUN (9-20) mg/dL Creatinine (0.8-1.5) mg/dL Glucose (75-100) mg/dL POC Glucose 136 H 142 H (70-105) Calcium (8.4-10.2) mg/dL Assessment and Plan Cultures: Blood culture 06/14/2019 GNR 4 of 4 bottles Urine culture 10-100K mixed bacteria Assessment: 63 y/o male with history of diabetes, previous CVA, hypertension, previous left AKA and urinary retention with a chronic indwelling zayas at [facility] admitted on 06/14/2019 due to altered mental status: 1) Severe sepsis with initial septic shock: present on admission with low grade fever, hypotension, elevated lactate, shock currently resolved; etiology likely GNR bacteremia/UTI. Blood culture 06/14/2019 growing GNR 4 of 4 bottles. 2) GNR bacteremia: likely from complicated UTI. 3) Complicated CAUTI with hematuria: In the ED, zayas was removed and ED placed a new zayas and started bladder irrigation.UA with 182 wbc, positive nitrates and large blood. Urine culture grew 10-100K mixed bacteria. Renal US was unremarkable. 4) Elevated LFTs: from sepsis. 5) Diabetes uncontrolled 6) AMS: CT head chronic atrophy and right MCA. Better ? baseline aphasia. Recs: increase cefepime to 2 gm IV q 8 hours stop vancomycin f/u blood culture ID and MICs check acute viral hepatitis panel Urology consult Will follow. Thanks for consultation Jackelyn Archer MD Infectious Diseases Science Tutor [facility] M [phone] O [phone]
--- NOTE | 2019-06-16 15:10 | Progress Note ---
Assessment and Plan Assessment and plan: Patient 63-year-old history of hypertension diabetes coronary artery disease status post CABG, CVA presents with worsening altered mental status nursing facility. Patient was brought in initially had hematuria around Toribio catheter was changed. Important to note last visit several months ago patient had similar problem with urinary catheter with bleeding. Was reinserted. Spoke with both daughters were at bedside stated patient has had some hematuria and dysuria over the last several weeks. He states he always has been altered from previous stroke but this is more severe. Upon presentation patient was found to be altered hypotensive febrile and was diagnosed with sepsis. Hospital course was complicated by worsening hypotension and shock. Patient then had IV line placed and we started patient on pressors and transferred to ICU. Patient at present had tachypnea unable to really answer any questions despite sternal rub. HE present remains lethargic encephalopathic and unresponsive. Echocardiogram shows mild left ventricle systolic dysfunction, ejection fraction 40-45%. PT/OT eval for passive range of motion when out of critical care Patient is bedbound, employ pressure ulcer preventive measures. (1) Septic shock secondary to GNR bactermia probably from Complicated UTI-POA Current Visit: Yes Status: Acute Plan to address problem: Patient improving significantly. Fever curve coming down. Much more alert and less lethargic. Able to wean pressor support off. Patient found to have gram- negative rods. ID following, currently on Cefepime Patient has indewing Toribio from home. Was replaced in the ED, bladder irragation done (2) Acute renal failure secondary to vasomotor nephropathy- Continue to monitor Current Visit: Yes Status: Acute Qualifiers: Acute renal failure type: unspecified Qualified Code(s): N17.9 - Acute kidney failure, unspecified Plan to address problem: Acute renal failure has had significant improvement with volume resuscitation. (3) Altered mental state-Toxic Metabolic Encephalopathy Current Visit: Yes Status: Acute Qualifiers: Altered mental status type: unspecified Qualified Code(s): R41.82 - Altered mental status, unspecified Plan to address problem: Improving as sepsis improved and dehydration improved prerenal azotemia not quite back at baseline. (4) Type 2 TX Current Visit: Yes Status: Acute Plan to address problem: Secondary to acute kidney injury. Atypical presentation. Aggressive blood pressure control. Cardiology input lilian (5) Hyperglycemia Current Visit: Yes Status: Acute Plan to address problem: Patient diabetes much better controlled Accu-Chek today 104. Patient is nothing by mouth we'll hold any insulin a long-acting hypoglycemics at this particular time. NG tube on hold. We'll reevaluate in a.m. the patient unable to eat. Has failed swallow eval. (6) SHOCK LIVER Pressor support now off. Secondary to sepsis. GI following -acute hepatitis panel negative -etiology unclear-possibly 2/2 sepsis vs other (underlying liver disease?) -will order abd ultrasound to further evaluate liver -continue to trend labs and supportive care -avoid hepatotoxic agents -further recommendations to follow (7) UTI (urinary tract infection) due to urinary indwelling catheter Current Visit: Yes Status: Acute Plan to address problem: Patient on Rocephin we'll await culture data. Patient is only been here one time before. Suspect sensitivities. I have added vancomycin as well. Flat cefepime ID consult. (8) Hypokalemia Replace DVT/GI prophy Continue SUPPORTIVE CARE DOWNGRADE TO IMCU History Interval history: Patient seen and examined, resting comfortably. now off pressors and undergoing swallowing evaluation Hospitalist Physical - Constitutional Vitals: Temp Pulse Resp BP Pulse Ox 98.3 F 71 11 L 156/72 94 06/16/19 12:00 06/16/19 13:00 06/16/19 13:00 06/16/19 13:00 06/16/19 13:00 General appearance: Present: mild distress, obese - EENT Eyes: Present: PERRL, EOM intact ENT: hearing intact, clear oral mucosa - Neck Neck: Present: supple, normal ROM - Respiratory Respiratory effort: normal Respiratory: bilateral: diminished - Cardiovascular Rhythm: regular Heart Sounds: Present: S1 & S2. Absent: systolic murmur - Extremities Extremities: no ischemia, pulses intact, No edema, normal temperature, normal color, Full ROM Extremity abnormal: edema Peripheral Pulses: within normal limits - Abdominal General gastrointestinal: soft, non-tender, non-distended, normal bowel sounds - Integumentary Integumentary: Present: warm, dry - Psychiatric Psychiatric: cooperative, other (aphasia) - Neurologic Neurologic: CNII-XII intact, focal deficits (left hemipareses), other (bedbound) - Allied Health Allied health notes reviewed: nursing Results - Labs CBC & Chem 7: 06/15/19 09:45 06/16/19 05:26 Labs: Laboratory Last Values WBC 18.1 K/mm3 (4.5-11.0) H 06/15/19 09:45 RBC 3.67 M/mm3 (3.65-5.03) 06/15/19 09:45 Hgb 12.0 gm/dl (11.8-15.2) 06/15/19 09:45 Hct 35.2 % (35.5-45.6) L 06/15/19 09:45 MCV 96 fl (84-94) H 06/15/19 09:45 MCH 33 pg (28-32) H 06/15/19 09:45 MCHC 34 % (32-34) 06/15/19 09:45 RDW 14.4 % (13.2-15.2) 06/15/19 09:45 Plt Count 94 K/mm3 (140-440) L 06/15/19 09:45 Add Manual Diff Complete 06/15/19 09:45 Total Counted 100 06/15/19 09:45 Seg Neutrophils % Molecular Biology Scientist 06/15/19 09:45 Seg Neuts % (Manual) 83.0 % (40.0-70.0) H 06/15/19 09:45 Band Neutrophils % 9.0 % 06/15/19 09:45 Lymphocytes % (Manual) 3.0 % (13.4-35.0) L 06/15/19 09:45 Reactive Lymphs % (Man) 0 % 06/15/19 09:45 Monocytes % (Manual) 1.0 % (0.0-7.3) 06/15/19 09:45 Eosinophils % (Manual) 0 % (0.0-4.3) 06/15/19 09:45 Basophils % (Manual) 0 % (0.0-1.8) 06/15/19 09:45 Metamyelocytes % 4.0 % 06/15/19 09:45 Myelocytes % 0 % 06/15/19 09:45 Promyelocytes % 0 % 06/15/19 09:45 Blast Cells % 0 % 06/15/19 09:45 Nucleated RBC % Not Reportable 06/15/19 09:45 Seg Neutrophils # Man 15.0 K/mm3 (1.8-7.7) H 06/15/19 09:45 Band Neutrophils # 1.6 K/mm3 06/15/19 09:45 Lymphocytes # (Manual) 0.5 K/mm3 (1.2-5.4) L 06/15/19 09:45 Abs React Lymphs (Man) 0.0 K/mm3 06/15/19 09:45 Monocytes # (Manual) 0.2 K/mm3 (0.0-0.8) 06/15/19 09:45 Eosinophils # (Manual) 0.0 K/mm3 (0.0-0.4) 06/15/19 09:45 Basophils # (Manual) 0.0 K/mm3 (0.0-0.1) 06/15/19 09:45 Metamyelocytes # 0.7 K/mm3 06/15/19 09:45 Myelocytes # 0.0 K/mm3 06/15/19 09:45 Promyelocytes # 0.0 K/mm3 06/15/19 09:45 Blast Cells # 0.0 K/mm3 06/15/19 09:45 WBC Morphology Not Reportable 06/15/19 09:45 Hypersegmented Neuts Not Reportable 06/15/19 09:45 Hyposegmented Neuts Not Reportable 06/15/19 09:45 Hypogranular Neuts Not Reportable 06/15/19 09:45 Smudge Cells Not Reportable 06/15/19 09:45 Toxic Granulation Not Reportable 06/15/19 09:45 Toxic Vacuolation Not Reportable 06/15/19 09:45 Dohle Bodies Not Reportable 06/15/19 09:45 Pelger-Huet Anomaly Not Reportable 06/15/19 09:45 Elinor Rods Not Reportable 06/15/19 09:45 Platelet Estimate Consistent w auto 06/15/19 09:45 Clumped Platelets Not Reportable 06/15/19 09:45 Plt Clumps, EDTA Not Reportable 06/15/19 09:45 Large Platelets Not Reportable 06/15/19 09:45 Giant Platelets Not Reportable 06/15/19 09:45 Platelet Satelliting Not Reportable 06/15/19 09:45 Plt Morphology Comment Not Reportable 06/15/19 09:45 RBC Morphology Normal 06/15/19 09:45 Dimorphic RBCs Not Reportable 06/15/19 09:45 Polychromasia Not Reportable 06/15/19 09:45 Hypochromasia Not Reportable 06/15/19 09:45 Poikilocytosis Not Reportable 06/15/19 09:45 Anisocytosis Not Reportable 06/15/19 09:45 Microcytosis Not Reportable 06/15/19 09:45 Macrocytosis Not Reportable 06/15/19 09:45 Spherocytes Not Reportable 06/15/19 09:45 Pappenheimer Bodies Not Reportable 06/15/19 09:45 Sickle Cells Not Reportable 06/15/19 09:45 Target Cells Not Reportable 06/15/19 09:45 Tear Drop Cells Not Reportable 06/15/19 09:45 Ovalocytes Not Reportable 06/15/19 09:45 Helmet Cells Not Reportable 06/15/19 09:45 Gillespie-Shaniko Bodies Not Reportable 06/15/19 09:45 [place] Rings Not Reportable 06/15/19 09:45 Tj Cells Not Reportable 06/15/19 09:45 Bite Cells Not Reportable 06/15/19 09:45 Crenated Cell Not Reportable 06/15/19 09:45 Elliptocytes Not Reportable 06/15/19 09:45 Acanthocytes (Spur) Not Reportable 06/15/19 09:45 Rouleaux Not Reportable 06/15/19 09:45 Hemoglobin C Crystals Not Reportable 06/15/19 09:45 Schistocytes Not Reportable 06/15/19 09:45 Malaria parasites Not Reportable 06/15/19 09:45 Endy Bodies Not Reportable 06/15/19 09:45 Hem Pathologist Commnt No 06/15/19 09:45 PT 19.4 Sec. (12.2-14.9) H 06/14/19 08:03 INR 1.67 (0.87-1.13) H 06/14/19 08:03 APTT 40.5 Sec. (24.2-36.6) H 06/14/19 08:03 POC ABG pH 7.403 (7.35-7.45) 06/15/19 14:39 POC ABG pCO2 42.5 (35-45) 06/15/19 14:39 POC ABG pO2 63 (80-105) L 06/15/19 14:39 POC ABG HCO3 26.5 (22-26 mml/L) 06/15/19 14:39 POC ABG Total CO2 28 (23-27mmol/L) 06/15/19 14:39 POC ABG O2 Sat 92 06/15/19 14:39 POC ABG Base Excess 2 ((-2) - (+3)mmol/L) 06/15/19 14:39 VBG pH 7.303 (7.320-7.420) L 06/14/19 05:59 FiO2 28 % 06/15/19 14:39 Sodium 140 mmol/L (137-145) 06/16/19 05:26 Potassium 3.5 mmol/L (3.6-5.0) L 06/16/19 05:26 Chloride 105.4 mmol/L (98-107) 06/16/19 05:26 Carbon Dioxide 22 mmol/L (22-30) 06/16/19 05:26 Anion Gap 16 mmol/L 06/16/19 05:26 BUN 22 mg/dL (9-20) H 06/16/19 05:26 Creatinine 0.7 mg/dL (0.8-1.5) L 06/16/19 05:26 Estimated GFR > 60 ml/min 06/16/19 05:26 BUN/Creatinine Ratio 31 % 06/16/19 05:26 Glucose 123 mg/dL (75-100) H 06/16/19 05:26 POC Glucose 142 (70-105) H 06/16/19 12:47 Lactic Acid 1.30 mmol/L (0.7-2.0) 06/15/19 14:31 Calcium 7.9 mg/dL (8.4-10.2) L 06/16/19 05:26 Total Bilirubin 0.90 mg/dL (0.1-1.2) 06/15/19 09:45 AST 44 units/L (5-40) H 06/15/19 09:45 ALT 84 units/L (7-56) H 06/15/19 09:45 Alkaline Phosphatase 82 units/L (35-129) 06/15/19 09:45 Troponin T 0.055 ng/mL (0.00-0.029) H 06/14/19 05:59 Total Protein 5.4 g/dL (6.3-8.2) L 06/15/19 09:45 Albumin 2.4 g/dL (3.9-5) L 06/15/19 09:45 Albumin/Globulin Ratio 0.8 % 06/15/19 09:45 Triglycerides 83 mg/dL (2-149) 06/14/19 05:59 Cholesterol 81 mg/dL (50-199) 06/14/19 05:59 LDL Cholesterol Direct 49 mg/dL (50-130) L 06/14/19 05:59 HDL Cholesterol 26 mg/dL (40-59) L 06/14/19 05:59 Cholesterol/HDL Ratio 3.11 % 06/14/19 05:59 Urine Color Yellow (Yellow) 06/15/19 12:20 Urine Turbidity Clear (Clear) 06/15/19 12:20 Urine pH 7.0 (5.0-7.0) 06/15/19 12:20 Ur Specific [place] 1.011 (1.003-1.030) 06/15/19 12:20 Urine Protein <15 mg/dl mg/dL (Negative) 06/15/19 12:20 Urine Glucose (UA) Neg mg/dL (Negative) 06/15/19 12:20 Urine Ketones Neg mg/dL (Negative) 06/15/19 12:20 Urine Blood Mod (Negative) 06/15/19 12:20 Urine Nitrite Neg (Negative) 06/15/19 12:20 Urine Bilirubin Neg (Negative) 06/15/19 12:20 Urine Urobilinogen < 2.0 mg/dL (<2.0) 06/15/19 12:20 Ur Leukocyte Esterase Mod (Negative) 06/15/19 12:20 Urine WBC (Auto) 19.0 /HPF (0.0-6.0) H 06/15/19 12:20 Urine RBC (Auto) 25.0 /HPF (0.0-6.0) 06/15/19 12:20 Urine Bacteria (Auto) 2+ /HPF (Negative) 06/15/19 12:20 Urine Eosinophils Few (None Seen) 06/14/19 13:40 Urine Creatinine 246.7 mg/dL (0.1-20.0) H 06/14/19 13:40 Urine Sodium 28 mmol/L 06/14/19 13:40 Fraction Sodium Excret 0.0 06/14/19 13:40 Random Vancomycin 7.1 ug/mL (0-40.0) 06/15/19 08:57 Hepatitis A IgM Ab Non-reactive (NonReactive) 06/14/19 19:40 Hep Bs Antigen Non-reactive (Negative) 06/14/19 19:40 Hep B Core IgM Ab Non-reactive (NonReactive) 06/14/19 19:40 Hepatitis C Antibody Non-reactive (NonReactive) 06/14/19 19:40 Active Medications - Current Medications Current Medications: Generic Name Dose Route Start Last Admin Trade Name Freq PRN Reason Stop Dose Admin Acetaminophen 650 mg 06/14/19 08:04 Tylenol PO Q4H PRN Pain MILD(1-3)/Fever >100.5/GONZALEZ Albuterol 2.5 mg 06/16/19 13:38 Proventil IH Q4HRT PRN Shortness Of Breath Dextrose 50 ml 06/14/19 08:04 D50w (25gm) Syringe IV Q30MIN PRN Hypoglycemia Protocol Enoxaparin Sodium 40 mg 06/14/19 10:00 06/16/19 09:44 Enoxaparin SUB-Q 40 mg QDAY SAM Administration Norepinephrine 4 mg in 250 mls @ 7.5 mls/hr 06/14/19 11:00 06/15/19 10:16 Levophed Drip 4 Mg/Ns 250 Ml IV 0 mcg/min TITR SAM 0 mls/hr Titration Protocol 2 MCG/MIN Cefepime HCl 2 gm in 100 mls @ 200 mls/hr 06/16/19 15:00 Cefepime/Ns 2 Gm/100 Ml IV Q8HR SAM Protocol Morphine Sulfate 2 mg 06/14/19 08:04 06/16/19 13:51 Morphine IV 2 mg Q4H PRN Administration Pain, Moderate (4-6) Ondansetron HCl 4 mg 06/14/19 08:04 Zofran IV Q8H PRN Nausea And Vomiting Oxycodone/Acetaminophen 1 tab 06/14/19 08:04 Percocet 5/325 PO Q6H PRN Pain, Moderate (4-6) Pantoprazole Sodium 40 mg 06/14/19 11:00 06/16/19 09:44 Protonix IV 40 mg QDAY SAM Administration Sodium Chloride 10 ml 06/14/19 10:00 06/16/19 09:44 Sodium Chloride Flush Syringe 10 Ml IV 10 ml BID SAM Administration Sodium Chloride 10 ml 06/14/19 08:04 Sodium Chloride Flush Syringe 10 Ml IV PRN PRN LINE FLUSH Tamsulosin HCl 0.4 mg 06/16/19 13:00 Flomax PO QDAY SAM Nutrition/Malnutrition Assess - Dietary Evaluation Nutrition/Malnutrition Findings: Nutrition Notes Start: 06/16/19 10:15 Freq: Status: Active Protocol: Document 06/16/19 10:15 LP (Rec: 06/16/19 10:27 LP [id number]) Nutrition Notes Need for Assessment generated from: acetylene cutter Initial or Follow up Assessment Current Diagnosis Acute Kidney Injury,Diabetes, Sepsis,Hypertension,Stroke Other Pertinent Diagnosis AMS, UTI Current Diet NPO Labs/Tests K 3.5 BUN 22 BG 123 Pertinent Medications D5 1/2 NS at 50ml/hr Height 5 ft 6 in Weight 86 kg [place] Body Weight (kg) 64.54 BMI 30.6 Subjective/Other Information Screen for difficulty chewing and skin risk (13). Pt sleeping at time of visit. CRM CONSULTANT recommends NPO until MBS. Burn Absent Trauma Absent Minimum of two criteria No physical signs of malnutrition #1 Nutrition Diagnosis Inadequate oral intake Etiology CVA As Evidenced by Signs and Symptoms Pt with swallowing difficulty and NPO Is patient on ventilator? No Is Patient Ambulatory and/or Out of Bed No REE-([facility]-confined to bed) 1928.220 Calculation Used for Recommendations [facility] Additional Notes Protein needs are 86-103g (1-1 .2g/kg) Fluid needs are 1ml/kcal Nutrition Intervention Change Diet Order: Advance diet as feasible per MBS Goal #1 MBS results Anticipated Discharge Needs: Unable to determine at this time Follow-Up By: 06/18/19 Additional Comments Follow for MBS results/ assessment
[2019-06-16] MEDS: CEFEPIME/NS 2 GM/100 ML 2 GM/100 ML BAG IV SCH ×2 (15:19→21:43)
[2019-06-16] MEDS: TAMSULOSIN 0.4 MG CAP PO SCH ×2 (18:12→19:15)
--- NOTE | 2019-06-16 20:59 | Ultrasound Report ---
ULTRASOUND ABDOMEN, COMPLETE INDICATION: Elevated liver function tests. COMPARISON: None available. FINDINGS: PANCREAS: Suboptimally evaluated due to bowel gas. ABDOMINAL AORTA: Incompletely visualized due to bowel gas. IVC: No significant abnormality.. LIVER: 10.7 cm in length with mild generalized increased echogenicity compared to the right renal cor bhanu. No focal lesion and normal directional blood flow in the main portal vein. GALLBLADDER: No significant abnormality. BILE DUCTS: No significant abnormality. Common bile duct measures 3 mm. KIDNEYS: Right: No significant abnormality Left: No significant abnormality SPLEEN: No significant abnormality. FREE FLUID: None. ADDITIONAL FINDINGS: None. IMPRESSION: Mild diffuse fatty infiltration of the liver. Signer Name: Markie Flanagan MD Signed: 06/16/2019 8:55 PM Workstation Name: [id number]
[2019-06-17] MEDS: MORPHINE 2 MG/1 ML INJ IV PRN ×4 (01:42→22:01)
[2019-06-17] MEDS: CEFEPIME/NS 2 GM/100 ML 2 GM/100 ML BAG IV SCH ×3 (05:13→21:46)
[2019-06-17 05:40] LABS: INR 1.15 (0.87-1.13)
[2019-06-17 05:46] LABS: Alanine Aminotransferase 51 units/L (7-56); Albumin 2.6 g/dL (3.9-5); BUN/Creatinine Ratio 20; Bilirubin,Direct 0.6 mg/dL (0-0.2); Blood Urea Nitrogen 12 mg/dL (9-20); Calcium 8.1 mg/dL (8.4-10.2); Hemolysis Index 10
[2019-06-17 06:55] LABS: BUN/Creatinine Ratio TNR; Blood Urea Nitrogen TNR mg/dL (9-20)
[2019-06-17 06:56] LABS: Calcium TNR mg/dL (8.4-10.2); Hemolysis Index TNR
[2019-06-17 07:56] LABS: Hematocrit 40.3 % (35.5-45.6); Hemoglobin 13.8 gm/dl (11.8-15.2); Mean Corpuscular HGB Conc 34 % (32-34); Mean Corpuscular Volume 95 fl (84-94); Red Blood Count 4.24 M/mm3 (3.65-5.03); Red Cell Distribution Width 14.3 % (13.2-15.2)
[2019-06-17 07:59] LABS: Platelet Count 82 K/mm3 (140-440)
[2019-06-17 08:30] LABS: BUN/Creatinine Ratio 24; Blood Urea Nitrogen 12 mg/dL (9-20); Calcium 8.3 mg/dL (8.4-10.2); Hemolysis Index 30
[2019-06-17] MEDS: TAMSULOSIN 0.4 MG CAP PO SCH (09:26)
[2019-06-17] MEDS: ENOXAPARIN 40 MG/0.4 ML INJ SUB-Q SCH (09:26)
[2019-06-17] MEDS: PANTOPRAZOLE 40 MG TAB PO SCH (09:26)
[2019-06-17] MEDS: oxyCODONE /ACETAMINOPHEN 5-325MG TAB PO PRN ×2 (10:29→21:55)
--- NOTE | 2019-06-17 10:45 | Progress Note ---
Assessment and Plan Assessment and plan: Patient 63-year-old history of hypertension diabetes coronary artery disease status post CABG, CVA presents with worsening altered mental status nursing facility. Patient was brought in initially had hematuria around Toribio catheter was changed. Important to note last visit several months ago patient had similar problem with urinary catheter with bleeding. Was reinserted. Spoke with both daughters were at bedside stated patient has had some hematuria and dysuria over the last several weeks. He states he always has been altered from previous stroke but this is more severe. Upon presentation patient was found to be altered hypotensive febrile and was diagnosed with sepsis. Hospital course was complicated by worsening hypotension and shock. Patient then had IV line placed and we started patient on pressors and transferred to ICU. Patient at present had tachypnea unable to really answer any questions despite sternal rub. HE present remains lethargic encephalopathic and unresponsive. Echocardiogram shows mild left ventricle systolic dysfunction, ejection fraction 40-45%. PT/OT eval for passive range of motion when out of critical care Patient is bedbound, employ pressure ulcer preventive measures. Septic shock secondary to GNR bactermia probably from Complicated UTI-POA Patient improving significantly. Fever curve coming down. Much more alert and less lethargic. Able to wean pressor support off. Patient found to have gram- negative rods. ID following, currently on Cefepime Patient has indewing Toribio from home. Was replaced in the ED, bladder irragation done Acute renal failure secondary to vasomotor nephropathy- Continue to monitor Acute renal failure has had significant improvement with volume resuscitation. Altered mental state-Toxic Metabolic Encephalopathy Improving as sepsis improved and dehydration improved prerenal azotemia not quite back at baseline. Type 2 [place] Secondary to acute kidney injury. Atypical presentation. Aggressive blood pressure control. Cardiology input noed Hyperglycemia Patient diabetes much better controlled Accu-Chek today 104. Patient is nothing by mouth we'll hold any insulin a long-acting hypoglycemics at this particular time. NG tube on hold. We'll reevaluate in a.m. the patient unable to eat. Has failed swallow eval. SHOCK LIVER Pressor support now off. Secondary to sepsis. GI following -acute hepatitis panel negative -etiology unclear-possibly 2/2 sepsis vs other (underlying liver disease?) -will order abd ultrasound to further evaluate liver -continue to trend labs and supportive care -avoid hepatotoxic agents -further recommendations to follow UTI (urinary tract infection) due to urinary indwelling catheter Patient on Rocephin we'll await culture data. Patient is only been here one time before. Suspect sensitivities. I have added vancomycin as well. Flat cefepime ID consult. Hypokalemia Replace DVT/GI prophy Continue SUPPORTIVE CARE History Interval history: Altered mental status Hospitalist Physical - Physical exam Narrative exam: Gen: Not in acute distress, lying in bed, obese HEENT: Normocephalic, atraumatic Neck: supple, no JVD Heart: S1 and S2 reg, no murmurs, rubs or gallop Lungs: Clear to auscultation bilaterally, Abd: soft, non tender, non distended, normal BS, Ext: No edema, no clubbing, no cyanosis Neuro: Lethargic, encephalopathy, - Constitutional Vitals: Temp Pulse Resp BP Pulse Ox 99.7 F H 82 11 L 154/118 95 06/17/19 08:00 06/17/19 10:01 06/17/19 10:01 06/17/19 10:01 06/17/19 10:01 General appearance: Present: obese Results - Labs CBC & Chem 7: 06/17/19 06:59 06/17/19 06:59 Labs: Laboratory Last Values WBC 10.6 K/mm3 (4.5-11.0) 06/17/19 06:59 RBC 4.24 M/mm3 (3.65-5.03) 06/17/19 06:59 Hgb 13.8 gm/dl (11.8-15.2) 06/17/19 06:59 Hct 40.3 % (35.5-45.6) 06/17/19 06:59 MCV 95 fl (84-94) H 06/17/19 06:59 MCH 33 pg (28-32) H 06/17/19 06:59 MCHC 34 % (32-34) 06/17/19 06:59 RDW 14.3 % (13.2-15.2) 06/17/19 06:59 Plt Count 82 K/mm3 (140-440) L 06/17/19 06:59 Add Manual Diff Complete 06/15/19 09:45 Total Counted 100 06/15/19 09:45 Seg Neutrophils % Due Diligence Coordinator 06/15/19 09:45 Seg Neuts % (Manual) 83.0 % (40.0-70.0) H 06/15/19 09:45 Band Neutrophils % 9.0 % 06/15/19 09:45 Lymphocytes % (Manual) 3.0 % (13.4-35.0) L 06/15/19 09:45 Reactive Lymphs % (Man) 0 % 06/15/19 09:45 Monocytes % (Manual) 1.0 % (0.0-7.3) 06/15/19 09:45 Eosinophils % (Manual) 0 % (0.0-4.3) 06/15/19 09:45 Basophils % (Manual) 0 % (0.0-1.8) 06/15/19 09:45 Metamyelocytes % 4.0 % 06/15/19 09:45 Myelocytes % 0 % 06/15/19 09:45 Promyelocytes % 0 % 06/15/19 09:45 Blast Cells % 0 % 06/15/19 09:45 Nucleated RBC % Not Reportable 06/15/19 09:45 Seg Neutrophils # Man 15.0 K/mm3 (1.8-7.7) H 06/15/19 09:45 Band Neutrophils # 1.6 K/mm3 06/15/19 09:45 Lymphocytes # (Manual) 0.5 K/mm3 (1.2-5.4) L 06/15/19 09:45 Abs React Lymphs (Man) 0.0 K/mm3 06/15/19 09:45 Monocytes # (Manual) 0.2 K/mm3 (0.0-0.8) 06/15/19 09:45 Eosinophils # (Manual) 0.0 K/mm3 (0.0-0.4) 06/15/19 09:45 Basophils # (Manual) 0.0 K/mm3 (0.0-0.1) 06/15/19 09:45 Metamyelocytes # 0.7 K/mm3 06/15/19 09:45 Myelocytes # 0.0 K/mm3 06/15/19 09:45 Promyelocytes # 0.0 K/mm3 06/15/19 09:45 Blast Cells # 0.0 K/mm3 06/15/19 09:45 WBC Morphology Not Reportable 06/15/19 09:45 Hypersegmented Neuts Not Reportable 06/15/19 09:45 Hyposegmented Neuts Not Reportable 06/15/19 09:45 Hypogranular Neuts Not Reportable 06/15/19 09:45 Smudge Cells Not Reportable 06/15/19 09:45 Toxic Granulation Not Reportable 06/15/19 09:45 Toxic Vacuolation Not Reportable 06/15/19 09:45 Dohle Bodies Not Reportable 06/15/19 09:45 Pelger-Huet Anomaly Not Reportable 06/15/19 09:45 Elinor Rods Not Reportable 06/15/19 09:45 Platelet Estimate Consistent w auto 06/15/19 09:45 Clumped Platelets Not Reportable 06/15/19 09:45 Plt Clumps, EDTA Not Reportable 06/15/19 09:45 Large Platelets Not Reportable 06/15/19 09:45 Giant Platelets Not Reportable 06/15/19 09:45 Platelet Satelliting Not Reportable 06/15/19 09:45 Plt Morphology Comment Not Reportable 06/15/19 09:45 RBC Morphology Normal 06/15/19 09:45 Dimorphic RBCs Not Reportable 06/15/19 09:45 Polychromasia Not Reportable 06/15/19 09:45 Hypochromasia Not Reportable 06/15/19 09:45 Poikilocytosis Not Reportable 06/15/19 09:45 Anisocytosis Not Reportable 06/15/19 09:45 Microcytosis Not Reportable 06/15/19 09:45 Macrocytosis Not Reportable 06/15/19 09:45 Spherocytes Not Reportable 06/15/19 09:45 Pappenheimer Bodies Not Reportable 06/15/19 09:45 Sickle Cells Not Reportable 06/15/19 09:45 Target Cells Not Reportable 06/15/19 09:45 Tear Drop Cells Not Reportable 06/15/19 09:45 Ovalocytes Not Reportable 06/15/19 09:45 Helmet Cells Not Reportable 06/15/19 09:45 Gillespie-Belcourt Bodies Not Reportable 06/15/19 09:45 [place] Rings Not Reportable 06/15/19 09:45 Tj Cells Not Reportable 06/15/19 09:45 Bite Cells Not Reportable 06/15/19 09:45 Crenated Cell Not Reportable 06/15/19 09:45 Elliptocytes Not Reportable 06/15/19 09:45 Acanthocytes (Spur) Not Reportable 06/15/19 09:45 Rouleaux Not Reportable 06/15/19 09:45 Hemoglobin C Crystals Not Reportable 06/15/19 09:45 Schistocytes Not Reportable 06/15/19 09:45 Malaria parasites Not Reportable 06/15/19 09:45 Endy Bodies Not Reportable 06/15/19 09:45 Hem Pathologist Commnt No 06/15/19 09:45 PT 14.6 Sec. (12.2-14.9) 06/17/19 04:12 INR 1.15 (0.87-1.13) H 06/17/19 04:12 APTT 40.5 Sec. (24.2-36.6) H 06/14/19 08:03 POC ABG pH 7.403 (7.35-7.45) 06/15/19 14:39 POC ABG pCO2 42.5 (35-45) 06/15/19 14:39 POC ABG pO2 63 (80-105) L 06/15/19 14:39 POC ABG HCO3 26.5 (22-26 mml/L) 06/15/19 14:39 POC ABG Total CO2 28 (23-27mmol/L) 06/15/19 14:39 POC ABG O2 Sat 92 06/15/19 14:39 POC ABG Base Excess 2 ((-2) - (+3)mmol/L) 06/15/19 14:39 VBG pH 7.303 (7.320-7.420) L 06/14/19 05:59 FiO2 28 % 06/15/19 14:39 Sodium 137 mmol/L (137-145) 06/17/19 06:59 Potassium 4.1 mmol/L (3.6-5.0) 06/17/19 06:59 Chloride 102.6 mmol/L (98-107) 06/17/19 06:59 Carbon Dioxide 21 mmol/L (22-30) L 06/17/19 06:59 Anion Gap 18 mmol/L 06/17/19 06:59 BUN 12 mg/dL (9-20) 06/17/19 06:59 Creatinine 0.5 mg/dL (0.8-1.5) L 06/17/19 06:59 Estimated GFR > 60 ml/min 06/17/19 06:59 BUN/Creatinine Ratio 24 % 06/17/19 06:59 Glucose 121 mg/dL (75-100) H 06/17/19 06:59 POC Glucose 121 (70-105) H 06/17/19 05:45 Lactic Acid 1.30 mmol/L (0.7-2.0) 06/15/19 14:31 Calcium 8.3 mg/dL (8.4-10.2) L 06/17/19 06:59 Total Bilirubin 0.90 mg/dL (0.1-1.2) 06/17/19 04:12 Direct Bilirubin 0.6 mg/dL (0-0.2) H 06/17/19 04:12 Indirect Bilirubin 0.3 mg/dL 06/17/19 04:12 AST 21 units/L (5-40) 06/17/19 04:12 ALT 51 units/L (7-56) 06/17/19 04:12 Alkaline Phosphatase 125 units/L (35-129) 06/17/19 04:12 Troponin T 0.055 ng/mL (0.00-0.029) H 06/14/19 05:59 Total Protein 5.7 g/dL (6.3-8.2) L 06/17/19 04:12 Albumin 2.6 g/dL (3.9-5) L 06/17/19 04:12 Albumin/Globulin Ratio 0.8 % 06/17/19 04:12 Triglycerides 83 mg/dL (2-149) 06/14/19 05:59 Cholesterol 81 mg/dL (50-199) 06/14/19 05:59 LDL Cholesterol Direct 49 mg/dL (50-130) L 06/14/19 05:59 HDL Cholesterol 26 mg/dL (40-59) L 06/14/19 05:59 Cholesterol/HDL Ratio 3.11 % 06/14/19 05:59 Urine Color Yellow (Yellow) 06/15/19 12:20 Urine Turbidity Clear (Clear) 06/15/19 12:20 Urine pH 7.0 (5.0-7.0) 06/15/19 12:20 Ur Specific [place] 1.011 (1.003-1.030) 06/15/19 12:20 Urine Protein <15 mg/dl mg/dL (Negative) 06/15/19 12:20 Urine Glucose (UA) Neg mg/dL (Negative) 06/15/19 12:20 Urine Ketones Neg mg/dL (Negative) 06/15/19 12:20 Urine Blood Mod (Negative) 06/15/19 12:20 Urine Nitrite Neg (Negative) 06/15/19 12:20 Urine Bilirubin Neg (Negative) 06/15/19 12:20 Urine Urobilinogen < 2.0 mg/dL (<2.0) 06/15/19 12:20 Ur Leukocyte Esterase Mod (Negative) 06/15/19 12:20 Urine WBC (Auto) 19.0 /HPF (0.0-6.0) H 06/15/19 12:20 Urine RBC (Auto) 25.0 /HPF (0.0-6.0) 06/15/19 12:20 Urine Bacteria (Auto) 2+ /HPF (Negative) 06/15/19 12:20 Urine Eosinophils Few (None Seen) 06/14/19 13:40 Urine Creatinine 246.7 mg/dL (0.1-20.0) H 06/14/19 13:40 Urine Sodium 28 mmol/L 06/14/19 13:40 Fraction Sodium Excret 0.0 06/14/19 13:40 Random Vancomycin 7.1 ug/mL (0-40.0) 06/15/19 08:57 Hepatitis A IgM Ab Non-reactive (NonReactive) 06/14/19 19:40 Hep Bs Antigen Non-reactive (Negative) 06/14/19 19:40 Hep B Core IgM Ab Non-reactive (NonReactive) 06/14/19 19:40 Hepatitis C Antibody Non-reactive (NonReactive) 06/14/19 19:40 Active Medications - Current Medications Current Medications: Generic Name Dose Route Start Last Admin Trade Name Freq PRN Reason Stop Dose Admin Acetaminophen 650 mg 06/14/19 08:04 Tylenol PO Q4H PRN Pain MILD(1-3)/Fever >100.5/GONZALEZ Albuterol 2.5 mg 06/16/19 13:38 Proventil IH Q4HRT PRN Shortness Of Breath Dextrose 50 ml 06/14/19 08:04 D50w (25gm) Syringe IV Q30MIN PRN Hypoglycemia Protocol Enoxaparin Sodium 40 mg 06/14/19 10:00 06/17/19 09:26 Enoxaparin SUB-Q 40 mg QDAY SAM Administration Cefepime HCl 2 gm in 100 mls @ 200 mls/hr 06/16/19 15:00 06/17/19 05:13 Cefepime/Ns 2 Gm/100 Ml IV 200 mls/hr Q8HR SAM Administration Protocol Morphine Sulfate 2 mg 06/14/19 08:04 06/17/19 09:29 Morphine IV 2 mg Q4H PRN Administration Pain, Moderate (4-6) Ondansetron HCl 4 mg 06/14/19 08:04 Zofran IV Q8H PRN Nausea And Vomiting Oxycodone/Acetaminophen 1 tab 06/14/19 08:04 06/17/19 10:29 Percocet 5/325 PO 1 tab Q6H PRN Administration Pain, Moderate (4-6) Pantoprazole Sodium 40 mg 06/17/19 10:00 06/17/19 09:26 Protonix PO 40 mg DAILY SAM Administration Sodium Chloride 10 ml 06/14/19 10:00 06/17/19 09:32 Sodium Chloride Flush Syringe 10 Ml IV 10 ml BID SAM Administration Sodium Chloride 10 ml 06/14/19 08:04 Sodium Chloride Flush Syringe 10 Ml IV PRN PRN LINE FLUSH Tamsulosin HCl 0.4 mg 06/16/19 13:00 06/17/19 09:26 Flomax PO 0.4 mg QDAY SAM Administration Nutrition/Malnutrition Assess - Dietary Evaluation Nutrition/Malnutrition Findings: Nutrition Notes Start: 06/16/19 10:15 Freq: Status: Active Protocol: Document 06/16/19 10:15 LP (Rec: 06/16/19 10:27 LP [id number]) Nutrition Notes Need for Assessment generated from: railway patrol officer Initial or Follow up Assessment Current Diagnosis Acute Kidney Injury,Diabetes, Sepsis,Hypertension,Stroke Other Pertinent Diagnosis AMS, UTI Current Diet NPO Labs/Tests K 3.5 BUN 22 BG 123 Pertinent Medications D5 1/2 NS at 50ml/hr Height 5 ft 6 in Weight 86 kg [place] Body Weight (kg) 64.54 BMI 30.6 Subjective/Other Information Screen for difficulty chewing and skin risk (13). Pt sleeping at time of visit. NETWORK SECURITY ADMINISTRATOR recommends NPO until MBS. Burn Absent Trauma Absent Minimum of two criteria No physical signs of malnutrition #1 Nutrition Diagnosis Inadequate oral intake Etiology CVA As Evidenced by Signs and Symptoms Pt with swallowing difficulty and NPO Is patient on ventilator? No Is Patient Ambulatory and/or Out of Bed No REE-([facility]-confined to bed) [phone] Calculation Used for Recommendations [facility] Additional Notes Protein needs are 86-103g (1-1 .2g/kg) Fluid needs are 1ml/kcal Nutrition Intervention Change Diet Order: Advance diet as feasible per MBS Goal #1 MBS results Anticipated Discharge Needs: Unable to determine at this time Follow-Up By: 06/18/19 Additional Comments Follow for MBS results/ assessment
--- NOTE | 2019-06-17 10:57 | Progress Note ---
Assessment and Plan Altered mental status Severe sepsis with - GNR bacteremia Dehydration UTI Hx of CAD with 4vessel CABG in 2013 Prior CVA with left hemiparesis and aphasic. Diabetes Elevated transaminases -resolved Acute renal failure -resolved Elevated troponin EKG was normal sinus rhythm, old inferior myocardial infarction and poor with progression but no acute ischemic changes. An echocardiogram this admission reports a mildly decreased LVEF 40-45%. Conservative cardiac management. Subjective Date of service: 06/17/19 Principal diagnosis: Septic shock; UTI; DIANA; Ac. Encephalopathy; NSTEMI; Hyperglycemia Interval history: No cardiac events overnight reported. Objective Vital Signs Temp Pulse Pulse Resp BP Pulse Ox 06/17/19 10:01 82 11 L 154/118 95 06/17/19 09:01 85 20 165/59 97 06/17/19 08:01 80 9 L 146/80 96 06/17/19 08:00 99.7 F H 06/17/19 07:00 76 15 146/74 94 06/17/19 06:01 77 11 L 147/66 96 06/17/19 05:00 84 12 138/83 98 06/17/19 04:01 81 13 130/71 98 06/17/19 03:59 98.8 F 06/17/19 03:57 98.8 F 06/17/19 03:01 75 11 L 130/61 95 06/17/19 02:00 76 13 132/71 96 06/17/19 01:01 81 9 L 166/78 96 06/17/19 00:00 98.8 F 112 H 20 152/90 98 06/16/19 23:22 111 H 164/59 06/16/19 20:00 98.6 F 06/16/19 18:31 164/59 06/16/19 18:00 75 16 155/68 98 06/16/19 17:00 74 16 146/71 100 06/16/19 16:00 97 H 97 H 15 132/98 100 06/16/19 15:00 72 14 145/67 100 06/16/19 14:00 80 13 144/74 100 06/16/19 13:00 71 11 L 156/72 94 06/16/19 12:00 98.3 F 77 77 16 146/80 100 06/16/19 11:00 66 12 169/74 100 - Physical Examination General: No Apparent Distress HEENT: Positive: PERRL Neck: Positive: trachea midline Cardiac: Positive: Reg Rate and Rhythm Lungs: Positive: Decreased Breath Sounds - Labs and Meds Cardiac Enzymes 06/17/19 Range/Units 04:12 AST 21 (5-40) units/L Coagulation 06/17/19 Range/Units 04:12 PT 14.6 (12.2-14.9) Sec. INR 1.15 H (0.87-1.13) CBC 06/17/19 Range/Units 06:59 WBC 10.6 (4.5-11.0) K/mm3 RBC 4.24 (3.65-5.03) M/mm3 Hgb 13.8 (11.8-15.2) gm/dl Hct 40.3 (35.5-45.6) % Plt Count 82 L (140-440) K/mm3 Comprehensive Metabolic Panel 06/17/19 06/17/19 06/17/19 Range/Units 04:12 04:12 06:59 Sodium TNR 141 137 Potassium TNR 3.9 4.1 Chloride TNR 104.8 102.6 Carbon Dioxide TNR 26 21 L BUN TNR 12 12 Creatinine TNR 0.6 L 0.5 L Glucose TNR 124 H 121 H Calcium TNR 8.1 L 8.3 L Direct Bilirubin 0.6 H (0-0.2) mg/dL Indirect Bilirubin 0.3 mg/dL AST 21 (5-40) units/L ALT 51 (7-56) units/L Alkaline Phosphatase 125 (35-129) units/L Total Protein 5.7 L (6.3-8.2) g/dL Albumin 2.6 L (3.9-5) g/dL - Allied health notes Allied health notes reviewed: nursing
--- NOTE | 2019-06-17 11:03 | Progress Note ---
Assessment and Plan Cultures: Blood culture 06/14/2019 GNR 4 of 4 bottles Urine culture 10-100K mixed bacteria Assessment: 63 y/o male with history of diabetes, previous CVA, hypertension, previous left AKA and urinary retention with a chronic indwelling zaays at [facility] admitted on 06/14/2019 due to altered mental status: 1) Severe sepsis with initial septic shock: present on admission with low grade fever, hypotension, elevated lactate, shock currently resolved; etiology likely GNR bacteremia/UTI. Blood culture 06/14/2019 growing GNR 4 of 4 bottles. 2) GNR bacteremia: likely from complicated UTI. 3) Complicated CAUTI with hematuria: In the ED, zayas was removed and ED placed a new zayas and started bladder irrigation.UA with 182 wbc, positive nitrates and large blood. Urine culture grew 10-100K mixed bacteria. Renal US was unremarkable. 4) Elevated LFTs: from sepsis. Viral hepatitis serology negative 5) Diabetes uncontrolled 6) AMS: CT head chronic atrophy and right MCA. Better ? baseline aphasia. Recs: continue cefepime to 2 gm IV q 8 hours D2 f/u blood culture ID and MICs Will follow. Jackelyn Archer MD Infectious Diseases Soft Work Cigar Machine Operator [facility], [place], [facility]ated [facility] ([facility]) M [phone] O [phone] Subjective Date of service: 06/17/19 Principal diagnosis: Septic shock; UTI; DIANA; Ac. Encephalopathy; NSTEMI; Hyperglycemia Interval history: Feels better, talking more still aphasic Objective - Exam Narrative Exam: Constitutional: Alert, cooperative. No acute distress Head, Ears, Nose: Normocephalic, atraumatic. External ears, nose normal Eyes: Conjunctivae/corneas clear. No icterus. No ptosis. Neck: Supple, no meningeal signs Oral: dentition fair, no thrush Cardiovascular: S1, S2 normal. Respiratory: Good air entry, clear to auscultation bilaterally GI: Soft, non-tender Musculoskeletal: left AKA well healed Skin: No rash or abscess Hem/Lymphatic: No palpable cervical or supraclavicular nodes. No lymphangitis Psych: no agitated Neurological: Awake, alert, +expressive aphasia, follows commands +zayas clear urine - Constitutional Vitals: Vital Signs Temp Pulse Resp BP Pulse Ox 99.7 F H 82 11 L 154/118 95 06/17/19 08:00 06/17/19 10:01 06/17/19 10:01 06/17/19 10:01 06/17/19 10:01 Temperature -Last 24 Hours Temperature 99.7 F Temperature 98.8 F Temperature 98.8 F Temperature 98.8 F Temperature 98.6 F Temperature 98.3 F - Labs CBC & Chem 7: 06/17/19 06:59 06/17/19 06:59 Labs: Abnormal lab results 06/16/19 06/16/19 06/16/19 Range/Units 12:01 12:47 18:22 MCV (84-94) fl MCH (28-32) pg Plt Count (140-440) K/mm3 INR (0.87-1.13) Carbon Dioxide (22-30) mmol/L Creatinine (0.8-1.5) mg/dL Glucose (75-100) mg/dL POC Glucose 136 H 142 H 142 H (70-105) Calcium (8.4-10.2) mg/dL Direct Bilirubin (0-0.2) mg/dL Total Protein (6.3-8.2) g/dL Albumin (3.9-5) g/dL 06/17/19 06/17/19 06/17/19 Range/Units 00:19 04:12 04:12 MCV (84-94) fl MCH (28-32) pg Plt Count (140-440) K/mm3 INR 1.15 H (0.87-1.13) Carbon Dioxide (22-30) mmol/L Creatinine 0.6 L (0.8-1.5) mg/dL Glucose 124 H (75-100) mg/dL POC Glucose 119 H (70-105) Calcium 8.1 L (8.4-10.2) mg/dL Direct Bilirubin 0.6 H (0-0.2) mg/dL Total Protein 5.7 L (6.3-8.2) g/dL Albumin 2.6 L (3.9-5) g/dL 06/17/19 06/17/19 06/17/19 Range/Units 05:45 06:59 06:59 MCV 95 H (84-94) fl MCH 33 H (28-32) pg Plt Count 82 L (140-440) K/mm3 INR (0.87-1.13) Carbon Dioxide 21 L (22-30) mmol/L Creatinine 0.5 L (0.8-1.5) mg/dL Glucose 121 H (75-100) mg/dL POC Glucose 121 H (70-105) Calcium 8.3 L (8.4-10.2) mg/dL Direct Bilirubin (0-0.2) mg/dL Total Protein (6.3-8.2) g/dL Albumin (3.9-5) g/dL
--- NOTE | 2019-06-17 11:35 | Gastroenterology Progress Note ---
<NICHOLAS SEPULVEDA - Last Filed: 06/17/19 11:35> Assessment and Plan 1.elevated LFTs/liver failure? -INR 1.15-trending down -LFTs now trended down to normal -acute hepatitis panel negative -abd U/S shoed fatty infiltration of the liver -etiology-likely 2/2 sepsis -continue to trend labs and supportive care -avoid hepatotoxic agents -no further workup recommended at this time per GI standpoint -will sign off, please call if needed Subjective Date of service: 06/17/19 Principal diagnosis: liver failure Interval history: No acute distress. No evidence of abd pain, N/V, or signs of GI bleeding. Objective - Constitutional Vitals: Temp Pulse Resp BP Pulse Ox 99.7 F H 75 13 163/83 100 06/17/19 08:00 06/17/19 11:00 06/17/19 11:00 06/17/19 11:00 06/17/19 11:00 General appearance: no acute distress - Respiratory Respiratory effort: normal - Cardiovascular Rhythm: regular - Gastrointestinal General gastrointestinal: Present: soft, non-tender, non-distended, normal bowel sounds - Labs CBC & Chem 7: 06/17/19 06:59 06/17/19 06:59 Labs: Laboratory Results - last 24 hr 06/16/19 06/16/19 06/16/19 12:01 12:47 18:22 WBC RBC Hgb Hct MCV MCH MCHC RDW Plt Count PT INR Sodium Potassium Chloride Carbon Dioxide Anion Gap BUN Creatinine Estimated GFR BUN/Creatinine Ratio Glucose POC Glucose 136 H 142 H 142 H Calcium Total Bilirubin Direct Bilirubin Indirect Bilirubin AST ALT Alkaline Phosphatase Total Protein Albumin Albumin/Globulin Ratio 06/17/19 06/17/19 06/17/19 00:19 04:12 04:12 WBC RBC Hgb Hct MCV MCH MCHC RDW Plt Count PT 14.6 INR 1.15 H Sodium TNR Potassium TNR Chloride TNR Carbon Dioxide TNR Anion Gap TNR BUN TNR Creatinine TNR Estimated GFR TNR BUN/Creatinine Ratio TNR Glucose TNR POC Glucose 119 H Calcium TNR Total Bilirubin Direct Bilirubin Indirect Bilirubin AST ALT Alkaline Phosphatase Total Protein Albumin Albumin/Globulin Ratio 06/17/19 06/17/19 06/17/19 04:12 05:45 06:59 WBC 10.6 RBC 4.24 Hgb 13.8 Hct 40.3 MCV 95 H MCH 33 H MCHC 34 RDW 14.3 Plt Count 82 L PT INR Sodium 141 Potassium 3.9 Chloride 104.8 Carbon Dioxide 26 Anion Gap 14 BUN 12 Creatinine 0.6 L Estimated GFR > 60 BUN/Creatinine Ratio 20 Glucose 124 H POC Glucose 121 H Calcium 8.1 L Total Bilirubin 0.90 Direct Bilirubin 0.6 H Indirect Bilirubin 0.3 AST 21 ALT 51 Alkaline Phosphatase 125 Total Protein 5.7 L Albumin 2.6 L Albumin/Globulin Ratio 0.8 06/17/19 06:59 WBC RBC Hgb Hct MCV MCH MCHC RDW Plt Count PT INR Sodium 137 Potassium 4.1 Chloride 102.6 Carbon Dioxide 21 L Anion Gap 18 BUN 12 Creatinine 0.5 L Estimated GFR > 60 BUN/Creatinine Ratio 24 Glucose 121 H POC Glucose Calcium 8.3 L Total Bilirubin Direct Bilirubin Indirect Bilirubin AST ALT Alkaline Phosphatase Total Protein Albumin Albumin/Globulin Ratio <GUSTAVO ORLANDO - Last Filed: 06/17/19 19:03> Assessment and Plan pt seen and examined; agree with note above. liver enzymes improved. will sign off, please call as needed. Objective - Constitutional Vitals: Temp Pulse Resp BP Pulse Ox 98.8 F 78 22 188/78 95 06/17/19 16:00 06/17/19 18:57 06/17/19 18:00 06/17/19 18:57 06/17/19 18:00 - Labs CBC & Chem 7: 06/17/19 06:59 06/17/19 06:59 Labs: Laboratory Results - last 24 hr 06/17/19 06/17/19 06/17/19 00:19 04:12 04:12 WBC RBC Hgb Hct MCV MCH MCHC RDW Plt Count PT 14.6 INR 1.15 H Sodium TNR Potassium TNR Chloride TNR Carbon Dioxide TNR Anion Gap TNR BUN TNR Creatinine TNR Estimated GFR TNR BUN/Creatinine Ratio TNR Glucose TNR POC Glucose 119 H Calcium TNR Total Bilirubin Direct Bilirubin Indirect Bilirubin AST ALT Alkaline Phosphatase Total Protein Albumin Albumin/Globulin Ratio 06/17/19 06/17/19 06/17/19 04:12 05:45 06:59 WBC 10.6 RBC 4.24 Hgb 13.8 Hct 40.3 MCV 95 H MCH 33 H MCHC 34 RDW 14.3 Plt Count 82 L PT INR Sodium 141 Potassium 3.9 Chloride 104.8 Carbon Dioxide 26 Anion Gap 14 BUN 12 Creatinine 0.6 L Estimated GFR > 60 BUN/Creatinine Ratio 20 Glucose 124 H POC Glucose 121 H Calcium 8.1 L Total Bilirubin 0.90 Direct Bilirubin 0.6 H Indirect Bilirubin 0.3 AST 21 ALT 51 Alkaline Phosphatase 125 Total Protein 5.7 L Albumin 2.6 L Albumin/Globulin Ratio 0.8 06/17/19 06/17/19 06:59 12:31 WBC RBC Hgb Hct MCV MCH MCHC RDW Plt Count PT INR Sodium 137 Potassium 4.1 Chloride 102.6 Carbon Dioxide 21 L Anion Gap 18 BUN 12 Creatinine 0.5 L Estimated GFR > 60 BUN/Creatinine Ratio 24 Glucose 121 H POC Glucose 159 H Calcium 8.3 L Total Bilirubin Direct Bilirubin Indirect Bilirubin AST ALT Alkaline Phosphatase Total Protein Albumin Albumin/Globulin Ratio
[2019-06-17] MEDS: amLODIPine 5 MG TAB PO SCH (13:20)
--- NOTE | 2019-06-17 14:21 | Progress Note ---
Assessment and Plan Severe sepsis with septic shock- GNR bacteremia AG metabolic acidosis/Lactic acidosis Acute toxic-metabolic encephalopathy Acute renal failure probably secondary to vasomotor nephropathy Elevated troponin, possible type 2 ischemia -patient has history if CAD Hyperglycemia UTI (urinary tract infection) due to urinary indwelling catheter Elevated transaminases, possibly secondary to hypotension -CXR prn, -Wean supplemental oxygen for O2 sats>90% -Hematuria and zayas catheter management per Urology -Monitor Hand H and hemodynamics closely -Monitor renal function, avoid nephrotoxic agents, renally dose all medications -Aspiration precautions, HOB>40 degrees -Speech language pathologist to evaluate swallow function -Antibiotics for GNR sepsis ( blood culture positive for GNR), de-escalate antibiotics based on SHERRY and sensitivities -CBC, BMP in am -VTE prophylaxis prophylaxis - Accuchecks with glycemic control for SSI (While critically ill target blood glucose of 140-180 mg/dL; avoid hypoglycemia) - Mobility protocol for pressure ulcer prevention -Monitor electrolyte profile closely and replete as indicated -Avoid benzodiazepines re delirium -Supportive transfusions as indicated for HgB<7 g/dL - Flu & pneumovax addressed per protocol Subjective Date of service: 06/17/19 Principal diagnosis: liver failure Interval history: Patient is seen today for: Septic shock; UTI (urinary tract infection) ; Leucocytosis; Acute renal failure; Acute Encephalopathy (Toxic/Metabolic); NSTEM I; Hyperglycemia; Elevated transaminase level Seen and examined at bedside; 24hour events reviewed; nursing and respiratory care staff consulted; no adverse overnight events reported to me; resting peacefully in bed; remains on supplemental oxygen via NC; persistent enceph alopathy; off vasopressors; no emesis or overt aspiration; no fvers or chills, no diarrhea. Vitals, labs, medications, chart reviewed Objective Vital Signs - 12hr 06/17/19 06/17/19 06/17/19 03:01 03:57 03:59 Temperature 98.8 F 98.8 F Pulse Rate 75 Pulse Rate [ From Monitor] Respiratory 11 L Rate Blood Pressure 130/61 O2 Sat by Pulse 95 Oximetry 06/17/19 06/17/19 06/17/19 04:01 05:00 06:01 Temperature Pulse Rate 81 84 77 Pulse Rate [ From Monitor] Respiratory 13 12 11 L Rate Blood Pressure 130/71 138/83 147/66 O2 Sat by Pulse 98 98 96 Oximetry 06/17/19 06/17/19 06/17/19 07:00 08:00 08:01 Temperature 99.7 F H Pulse Rate 76 80 80 Pulse Rate [ 80 From Monitor] Respiratory 15 15 9 L Rate Blood Pressure 146/74 146/80 O2 Sat by Pulse 94 96 96 Oximetry 06/17/19 06/17/19 06/17/19 09:01 10:01 11:00 Temperature Pulse Rate 85 82 75 Pulse Rate [ From Monitor] Respiratory 20 11 L 13 Rate Blood Pressure 165/59 154/118 163/83 O2 Sat by Pulse 97 95 100 Oximetry 06/17/19 06/17/19 12:00 13:20 Temperature 98.3 F Pulse Rate 77 77 Pulse Rate [ From Monitor] Respiratory 14 Rate Blood Pressure 159/89 155/76 O2 Sat by Pulse 92 Oximetry Constitutional: no acute distress, appears uncomfortable Eyes: non-icteric ENT: oropharynx moist Neck: supple, no lymphadenopathy, no JVD, other (large neck circumference) Effort: normal Ascultation: Bilateral: clear, diminished breath sounds, rhonchi Percussion: Bilateral: not dull Cardiovascular: regular rate and rhythm, other (S1,S2) Gastrointestinal: normoactive bowel sounds, soft, non-tender, non-distended Integumentary: normal Extremities: no cyanosis, no edema, no ischemia or petechiae, other (Left AKA) Neurologic: non-focal exam (grossly), pupils equal and round, other (weak, lethargic, confused) Psychiatric: other (unable to assess re: AMS) CBC and BMP: 06/17/19 06:59 06/18/19 04:44 ABG, PT/INR, D-dimer: ABG POC ABG pH 7.403 (7.35-7.45) 06/15/19 14:39 POC ABG pCO2 42.5 (35-45) 06/15/19 14:39 POC ABG pO2 63 (80-105) L 06/15/19 14:39 POC ABG HCO3 26.5 (22-26 mml/L) 06/15/19 14:39 POC ABG Total CO2 28 (23-27mmol/L) 06/15/19 14:39 POC ABG O2 Sat 92 06/15/19 14:39 PT/INR, D-dimer PT 14.6 Sec. (12.2-14.9) 06/17/19 04:12 INR 1.15 (0.87-1.13) H 06/17/19 04:12 Abnormal lab findings: Abnormal Labs 06/14/19 06/14/19 06/14/19 05:17 05:59 05:59 WBC 20.4 H Hct MCV 100 H MCH Plt Count 110 L Seg Neuts % (Manual) 76.0 H Lymphocytes % (Manual) 2.0 L Seg Neutrophils # Man 15.5 H Lymphocytes # (Manual) 0.4 L PT 19.1 H INR 1.63 H APTT 39.7 H POC ABG pO2 VBG pH Potassium Carbon Dioxide BUN Creatinine Glucose POC Glucose 422 H Lactic Acid Calcium Direct Bilirubin AST ALT Troponin T Total Protein Albumin LDL Cholesterol Direct HDL Cholesterol Urine WBC (Auto) Urine Creatinine 06/14/19 06/14/19 06/14/19 05:59 05:59 05:59 WBC Hct MCV MCH Plt Count Seg Neuts % (Manual) Lymphocytes % (Manual) Seg Neutrophils # Man Lymphocytes # (Manual) PT INR APTT POC ABG pO2 VBG pH 7.303 L Potassium Carbon Dioxide 17 L BUN 35 H Creatinine 2.1 H Glucose 397 H POC Glucose Lactic Acid 6.70 H* Calcium 7.6 L Direct Bilirubin AST 130 H ALT 162 H Troponin T 0.055 H Total Protein 5.3 L Albumin 2.6 L LDL Cholesterol Direct 49 L HDL Cholesterol 26 L Urine WBC (Auto) Urine Creatinine 06/14/19 06/14/19 06/14/19 08:03 08:03 10:12 WBC Hct MCV MCH Plt Count Seg Neuts % (Manual) Lymphocytes % (Manual) Seg Neutrophils # Man Lymphocytes # (Manual) PT 19.4 H INR 1.67 H APTT 40.5 H POC ABG pO2 VBG pH Potassium Carbon Dioxide BUN Creatinine Glucose POC Glucose 180 H Lactic Acid 5.90 H* Calcium Direct Bilirubin AST ALT Troponin T Total Protein Albumin LDL Cholesterol Direct HDL Cholesterol Urine WBC (Auto) Urine Creatinine 06/14/19 06/14/19 06/14/19 13:40 13:40 13:51 WBC Hct MCV MCH Plt Count Seg Neuts % (Manual) Lymphocytes % (Manual) Seg Neutrophils # Man Lymphocytes # (Manual) PT INR APTT POC ABG pO2 VBG pH Potassium Carbon Dioxide BUN Creatinine Glucose POC Glucose 145 H Lactic Acid Calcium Direct Bilirubin AST ALT Troponin T Total Protein Albumin LDL Cholesterol Direct HDL Cholesterol Urine WBC (Auto) > 182.0 H Urine Creatinine 246.7 H 06/14/19 06/14/19 06/15/19 18:31 21:31 09:45 WBC 18.1 H Hct 35.2 L MCV 96 H MCH 33 H Plt Count 94 L Seg Neuts % (Manual) 83.0 H Lymphocytes % (Manual) 3.0 L Seg Neutrophils # Man 15.0 H Lymphocytes # (Manual) 0.5 L PT INR APTT POC ABG pO2 VBG pH Potassium Carbon Dioxide BUN Creatinine Glucose POC Glucose 148 H 137 H Lactic Acid Calcium Direct Bilirubin AST ALT Troponin T Total Protein Albumin LDL Cholesterol Direct HDL Cholesterol Urine WBC (Auto) Urine Creatinine 06/15/19 06/15/19 06/15/19 09:45 12:20 14:39 WBC Hct MCV MCH Plt Count Seg Neuts % (Manual) Lymphocytes % (Manual) Seg Neutrophils # Man Lymphocytes # (Manual) PT INR APTT POC ABG pO2 63 L VBG pH Potassium Carbon Dioxide 21 L BUN 33 H Creatinine Glucose POC Glucose Lactic Acid Calcium 7.6 L Direct Bilirubin AST 44 H ALT 84 H Troponin T Total Protein 5.4 L Albumin 2.4 L LDL Cholesterol Direct HDL Cholesterol Urine WBC (Auto) 19.0 H Urine Creatinine 06/16/19 06/16/19 06/16/19 05:26 05:58 12:01 WBC Hct MCV MCH Plt Count Seg Neuts % (Manual) Lymphocytes % (Manual) Seg Neutrophils # Man Lymphocytes # (Manual) PT INR APTT POC ABG pO2 VBG pH Potassium 3.5 L Carbon Dioxide BUN 22 H Creatinine 0.7 L Glucose 123 H POC Glucose 119 H 136 H Lactic Acid Calcium 7.9 L Direct Bilirubin AST ALT Troponin T Total Protein Albumin LDL Cholesterol Direct HDL Cholesterol Urine WBC (Auto) Urine Creatinine 06/16/19 06/16/19 06/17/19 12:47 18:22 00:19 WBC Hct MCV MCH Plt Count Seg Neuts % (Manual) Lymphocytes % (Manual) Seg Neutrophils # Man Lymphocytes # (Manual) PT INR APTT POC ABG pO2 VBG pH Potassium Carbon Dioxide BUN Creatinine Glucose POC Glucose 142 H 142 H 119 H Lactic Acid Calcium Direct Bilirubin AST ALT Troponin T Total Protein Albumin LDL Cholesterol Direct HDL Cholesterol Urine WBC (Auto) Urine Creatinine 06/17/19 06/17/19 06/17/19 04:12 04:12 05:45 WBC Hct MCV MCH Plt Count Seg Neuts % (Manual) Lymphocytes % (Manual) Seg Neutrophils # Man Lymphocytes # (Manual) PT INR 1.15 H APTT POC ABG pO2 VBG pH Potassium Carbon Dioxide BUN Creatinine 0.6 L Glucose 124 H POC Glucose 121 H Lactic Acid Calcium 8.1 L Direct Bilirubin 0.6 H AST ALT Troponin T Total Protein 5.7 L Albumin 2.6 L LDL Cholesterol Direct HDL Cholesterol Urine WBC (Auto) Urine Creatinine 06/17/19 06/17/19 06/17/19 06:59 06:59 12:31 WBC Hct MCV 95 H MCH 33 H Plt Count 82 L Seg Neuts % (Manual) Lymphocytes % (Manual) Seg Neutrophils # Man Lymphocytes # (Manual) PT INR APTT POC ABG pO2 VBG pH Potassium Carbon Dioxide 21 L BUN Creatinine 0.5 L Glucose 121 H POC Glucose 159 H Lactic Acid Calcium 8.3 L Direct Bilirubin AST ALT Troponin T Total Protein Albumin LDL Cholesterol Direct HDL Cholesterol Urine WBC (Auto) Urine Creatinine Additional Studies: Echocardiogram shows mild left ventricle systolic dysfunction, ejection fraction 40-45%. Allied health notes reviewed: nursing
[2019-06-17] MEDS: hydrALAZINE 20 MG/1 ML INJ IV PRN (18:57)
[2019-06-17] MEDS: INSULIN LISPRO 100 UNIT/ML SUB-Q SCH (18:57)
[2019-06-18] MEDS: INSULIN LISPRO 100 UNIT/ML SUB-Q SCH ×4 (00:08→18:10)
[2019-06-18] MEDS: MORPHINE 2 MG/1 ML INJ IV PRN ×2 (02:23→21:34)
[2019-06-18] MEDS: CEFEPIME/NS 2 GM/100 ML 2 GM/100 ML BAG IV SCH ×3 (05:16→21:33)
[2019-06-18 05:25] LABS: BUN/Creatinine Ratio 16; Blood Urea Nitrogen 8 mg/dL (9-20); Calcium 8.3 mg/dL (8.4-10.2); Hemolysis Index 129
[2019-06-18] MEDS: TAMSULOSIN 0.4 MG CAP PO SCH (10:47)
[2019-06-18] MEDS: ENOXAPARIN 40 MG/0.4 ML INJ SUB-Q SCH (10:47)
[2019-06-18] MEDS: amLODIPine 5 MG TAB PO SCH (10:47)
[2019-06-18] MEDS: PANTOPRAZOLE 40 MG TAB PO SCH (10:48)
--- NOTE | 2019-06-18 11:59 | Progress Note ---
Assessment and Plan Cultures: Blood culture 06/14/2019 Proteus and Providencia 4 of 4 bottles Urine culture 10-100K mixed bacteria Assessment: 63 y/o male with history of diabetes, previous CVA, hypertension, previous left AKA and urinary retention with a chronic indwelling zayas at [facility] admitted on 06/14/2019 due to altered mental status: 1) Severe sepsis with initial septic shock: resolved; etiology likely GNR bacteremia/UTI. 2) Proteus and Providencia bacteremia: likely from complicated UTI. 3) Complicated CAUTI with hematuria: In the ED, zayas was removed and ED placed a new zayas and started bladder irrigation. UA with 182 wbc, positive nitrates and large blood. Urine culture grew 10-100K mixed bacteria. Renal US was unremarkable. 4) Elevated LFTs: from sepsis. Viral hepatitis serology negative 5) Diabetes uncontrolled 6) AMS: CT head chronic atrophy and right MCA. Better ? baseline aphasia. Recs: continue cefepime to 2 gm IV q 8 hours D3 f/u blood culture ID and MICs duration abx 7-10 days Will follow. Jackelyn Archer MD Infectious Diseases [employer] [facility] [id number] [phone] Subjective Date of service: 06/18/19 Principal diagnosis: liver failure Interval history: Feels better, no fever, daughter at bedside, still aphasic Objective - Exam Narrative Exam: Constitutional: Alert, cooperative. No acute distress Head, Ears, Nose: Normocephalic, atraumatic. External ears, nose normal Eyes: Conjunctivae/corneas clear. No icterus. No ptosis. Neck: Supple, no meningeal signs Oral: dentition fair, no thrush Cardiovascular: S1, S2 normal. Respiratory: Good air entry, clear to auscultation bilaterally GI: Soft, non-tender Musculoskeletal: left AKA well healed Skin: No rash or abscess Hem/Lymphatic: No palpable cervical or supraclavicular nodes. No lymphangitis Psych: no agitated Neurological: Awake, alert, +expressive aphasia, follows commands +zayas clear urine - Constitutional Vitals: Vital Signs Temp Pulse Resp BP Pulse Ox 98.7 F 82 18 189/78 97 06/18/19 08:00 06/18/19 11:00 06/18/19 11:00 06/18/19 11:00 06/18/19 11:00 Temperature -Last 24 Hours Temperature 98.7 F Temperature 98.9 F Temperature 98.0 F Temperature 98 F Temperature 98.1 F Temperature 98.8 F Temperature 98.3 F - Labs CBC & Chem 7: 06/17/19 06:59 06/18/19 04:44 Labs: Abnormal lab results 06/17/19 06/17/19 06/17/19 Range/Units 12:31 18:11 23:59 Sodium (137-145) mmol/L BUN (9-20) mg/dL Creatinine (0.8-1.5) mg/dL Glucose (75-100) mg/dL POC Glucose 159 H 178 H 114 H (70-105) Calcium (8.4-10.2) mg/dL 06/18/19 06/18/19 Range/Units 04:44 06:44 Sodium 136 L (137-145) mmol/L BUN 8 L (9-20) mg/dL Creatinine 0.5 L (0.8-1.5) mg/dL Glucose 129 H (75-100) mg/dL POC Glucose 121 H (70-105) Calcium 8.3 L (8.4-10.2) mg/dL
[2019-06-18 12:54] LABS: ANA Screen, IFA Negative (Negative)
--- NOTE | 2019-06-18 13:17 | Progress Note ---
Assessment and Plan Septic shock UTI (urinary tract infection) Leucocytosis Acute renal failure Acute Encephalopathy (Toxic/Metabolic) NSTEMI Hyperglycemia Elevated transaminase level (? Shock liver) - continue empiric flomax for possible BPH - continue supplemental oxygen as needed to keep O2 sat's > 90% - continue bronchodilators with pulmonary hygiene per RT - complete empiric anti-infective therapy; de-escalate per ID recommendations - continue ST evaluation; advance diet per their recommendations - continue aspiration precautions - PT/OT as tolerated - mobility protocols for pressure ulcer prophylaxis - continue accuchecks with glycemic control per SSI for target BG < 180 mg/dl - Monitor hemodynamics closely - Monitor electrolyte profile closely and replete as indicated - GI & VTE prophylaxis - Flu & pneumovax addressed per protocol - continue other care per attending / other consultants ... re-evaluate in am & prn Subjective Date of service: 06/18/19 Principal diagnosis: Septic shock; UTI; DIANA; Ac. Encephalopathy; NSTEMI; Hyperglycemia Interval history: Patient is seen today for: Septic shock; UTI (urinary tract infection) ; Leucocytosis; Acute renal failure; Acute Encephalopathy (Toxic/Metabolic); NSTEMI; Hyperglycemia; Elevated transaminase level (? Shock liver) Seen and examined at bedside; 24hour events reviewed; nursing and respiratory care staff consulted; no adverse overnight events reported to me; resting peacefully in bed; feels better overall; NO N/V/F/C Objective Vital Signs - 12hr 06/18/19 06/18/19 06/18/19 02:00 03:00 04:00 Temperature 98.9 F Pulse Rate 80 81 79 Pulse Rate [ 79 From Monitor] Respiratory 17 15 14 Rate Blood Pressure 142/67 139/73 149/71 O2 Sat by Pulse 100 97 94 Oximetry 06/18/19 06/18/19 06/18/19 05:00 06:00 07:00 Temperature Pulse Rate 77 80 77 Pulse Rate [ From Monitor] Respiratory 13 12 11 L Rate Blood Pressure 138/64 138/64 152/71 O2 Sat by Pulse 92 96 98 Oximetry 06/18/19 06/18/19 06/18/19 08:00 08:55 09:00 Temperature 98.7 F Pulse Rate 81 86 Pulse Rate [ 81 From Monitor] Respiratory 16 16 Rate Blood Pressure 172/72 148/70 O2 Sat by Pulse 95 97 95 Oximetry 06/18/19 06/18/1906/18/19 10:00 10:47 11:00 Temperature Pulse Rate 81 83 82 Pulse Rate [ From Monitor] Respiratory 15 18 Rate Blood Pressure 165/69 165/69 189/78 O2 Sat by Pulse 88 97 Oximetry 06/18/19 12:00 Temperature 98.8 F Pulse Rate Pulse Rate [ From Monitor] Respiratory Rate Blood Pressure O2 Sat by Pulse Oximetry Constitutional: no acute distress, appears uncomfortable Eyes: non-icteric ENT: oropharynx moist Neck: supple, no lymphadenopathy, no JVD, other (large neck circumference) Effort: normal Ascultation: Bilateral: clear, diminished breath sounds Percussion: Bilateral: not dull Cardiovascular: regular rate and rhythm, other (S1,S2) Gastrointestinal: normoactive bowel sounds, soft, non-tender, non-distended Integumentary: normal Extremities: no cyanosis, no edema, no ischemia or petechiae, other (Left AKA) Neurologic: non-focal exam (grossly), pupils equal and round, other (weak, lethargic, confused) Psychiatric: mood appropriate, affect normal CBC and BMP: 06/19/19 04:55 06/19/19 04:55 ABG, PT/INR, D-dimer: ABG POC ABG pH 7.403 (7.35-7.45) 06/15/19 14:39 POC ABG pCO2 42.5 (35-45) 06/15/19 14:39 POC ABG pO2 63 (80-105) L 06/15/19 14:39 POC ABG HCO3 26.5 (22-26 mml/L) 06/15/19 14:39 POC ABG Total CO2 28 (23-27mmol/L) 06/15/19 14:39 POC ABG O2 Sat 92 06/15/19 14:39 PT/INR, D-dimer PT 14.6 Sec. (12.2-14.9) 06/17/19 04:12 INR 1.15 (0.87-1.13) H 06/17/19 04:12 Abnormal lab findings: Abnormal Labs 06/14/19 06/14/19 06/14/19 05:17 05:59 05:59 WBC 20.4 H Hct MCV 100 H MCH Plt Count 110 L Seg Neuts % (Manual) 76.0 H Lymphocytes % (Manual) 2.0 L Seg Neutrophils # Man 15.5 H Lymphocytes # (Manual) 0.4 L PT 19.1 H INR 1.63 H APTT 39.7 H POC ABG pO2 VBG pH Sodium Potassium Carbon Dioxide BUN Creatinine Glucose POC Glucose 422 H Lactic Acid Calcium Direct Bilirubin AST ALT Troponin T Total Protein Albumin LDL Cholesterol Direct HDL Cholesterol Urine WBC (Auto) Urine Creatinine 06/14/19 06/14/19 06/14/19 05:59 05:59 05:59 WBC Hct MCV MCH Plt Count Seg Neuts % (Manual) Lymphocytes % (Manual) Seg Neutrophils # Man Lymphocytes # (Manual) PT INR APTT POC ABG pO2 VBG pH 7.303 L Sodium Potassium Carbon Dioxide 17 L BUN 35 H Creatinine 2.1 H Glucose 397 H POC Glucose Lactic Acid 6.70 H* Calcium 7.6 L Direct Bilirubin AST 130 H ALT 162 H Troponin T 0.055 H Total Protein 5.3 L Albumin 2.6 L LDL Cholesterol Direct 49 L HDL Cholesterol 26 L Urine WBC (Auto) Urine Creatinine 06/14/19 06/14/19 06/14/19 08:03 08:03 10:12 WBC Hct MCV MCH Plt Count Seg Neuts % (Manual) Lymphocytes % (Manual) Seg Neutrophils # Man Lymphocytes # (Manual) PT 19.4 H INR 1.67 H APTT 40.5 H POC ABG pO2 VBG pH Sodium Potassium Carbon Dioxide BUN Creatinine Glucose POC Glucose 180 H Lactic Acid 5.90 H* Calcium Direct Bilirubin AST ALT Troponin T Total Protein Albumin LDL Cholesterol Direct HDL Cholesterol Urine WBC (Auto) Urine Creatinine 06/14/19 06/14/19 06/14/19 13:40 13:40 13:51 WBC Hct MCV MCH Plt Count Seg Neuts % (Manual) Lymphocytes % (Manual) Seg Neutrophils # Man Lymphocytes # (Manual) PT INR APTT POC ABG pO2 VBG pH Sodium Potassium Carbon Dioxide BUN Creatinine Glucose POC Glucose 145 H Lactic Acid Calcium Direct Bilirubin AST ALT Troponin T Total Protein Albumin LDL Cholesterol Direct HDL Cholesterol Urine WBC (Auto) > 182.0 H Urine Creatinine 246.7 H 06/14/19 06/14/19 06/15/19 18:31 21:31 09:45 WBC 18.1 H Hct 35.2 L MCV 96 H MCH 33 H Plt Count 94 L Seg Neuts % (Manual) 83.0 H Lymphocytes % (Manual) 3.0 L Seg Neutrophils # Man 15.0 H Lymphocytes # (Manual) 0.5 L PT INR APTT POC ABG pO2 VBG pH Sodium Potassium Carbon Dioxide BUN Creatinine Glucose POC Glucose 148 H 137 H Lactic Acid Calcium Direct Bilirubin AST ALT Troponin T Total Protein Albumin LDL Cholesterol Direct HDL Cholesterol Urine WBC (Auto) Urine Creatinine 06/15/19 06/15/19 06/15/19 09:45 12:20 14:39 WBC Hct MCV MCH Plt Count Seg Neuts % (Manual) Lymphocytes % (Manual) Seg Neutrophils # Man Lymphocytes # (Manual) PT INR APTT POC ABG pO2 63 L VBG pH Sodium Potassium Carbon Dioxide 21 L BUN 33 H Creatinine Glucose POC Glucose Lactic Acid Calcium 7.6 L Direct Bilirubin AST 44 H ALT 84 H Troponin T Total Protein 5.4 L Albumin 2.4 L LDL Cholesterol Direct HDL Cholesterol Urine WBC (Auto) 19.0 H Urine Creatinine 06/16/19 06/16/19 06/16/19 05:26 05:58 12:01 WBC Hct MCV MCH Plt Count Seg Neuts % (Manual) Lymphocytes % (Manual) Seg Neutrophils # Man Lymphocytes # (Manual) PT INR APTT POC ABG pO2 VBG pH Sodium Potassium 3.5 L Carbon Dioxide BUN 22 H Creatinine 0.7 L Glucose 123 H POC Glucose 119 H 136 H Lactic Acid Calcium 7.9 L Direct Bilirubin AST ALT Troponin T Total Protein Albumin LDL Cholesterol Direct HDL Cholesterol Urine WBC (Auto) Urine Creatinine 06/16/19 06/16/19 06/17/19 12:47 18:22 00:19 WBC Hct MCV MCH Plt Count Seg Neuts % (Manual) Lymphocytes % (Manual) Seg Neutrophils # Man Lymphocytes # (Manual) PT INR APTT POC ABG pO2 VBG pH Sodium Potassium Carbon Dioxide BUN Creatinine Glucose POC Glucose 142 H 142 H 119 H Lactic Acid Calcium Direct Bilirubin AST ALT Troponin T Total Protein Albumin LDL Cholesterol Direct HDL Cholesterol Urine WBC (Auto) Urine Creatinine 06/17/19 06/17/19 06/17/19 04:12 04:12 05:45 WBC Hct MCV MCH Plt Count Seg Neuts % (Manual) Lymphocytes % (Manual) Seg Neutrophils # Man Lymphocytes # (Manual) PT INR 1.15 H APTT POC ABG pO2 VBG pH Sodium Potassium Carbon Dioxide BUN Creatinine 0.6 L Glucose 124 H POC Glucose 121 H Lactic Acid Calcium 8.1 L Direct Bilirubin 0.6 H AST ALT Troponin T Total Protein 5.7 L Albumin 2.6 L LDL Cholesterol Direct HDL Cholesterol Urine WBC (Auto) Urine Creatinine 06/17/19 06/17/19 06/17/19 06:59 06:59 12:31 WBC Hct MCV 95 H MCH 33 H Plt Count 82 L Seg Neuts % (Manual) Lymphocytes % (Manual) Seg Neutrophils # Man Lymphocytes # (Manual) PT INR APTT POC ABG pO2 VBG pH Sodium Potassium Carbon Dioxide 21 L BUN Creatinine 0.5 L Glucose 121 H POC Glucose 159 H Lactic Acid Calcium 8.3 L Direct Bilirubin AST ALT Troponin T Total Protein Albumin LDL Cholesterol Direct HDL Cholesterol Urine WBC (Auto) Urine Creatinine 06/17/19 06/17/19 06/18/19 18:11 23:59 04:44 WBC Hct MCV MCH Plt Count Seg Neuts % (Manual) Lymphocytes % (Manual) Seg Neutrophils # Man Lymphocytes # (Manual) PT INR APTT POC ABG pO2 VBG pH Sodium 136 L Potassium Carbon Dioxide BUN 8 L Creatinine 0.5 L Glucose 129 H POC Glucose 178 H 114 H Lactic Acid Calcium 8.3 L Direct Bilirubin AST ALT Troponin T Total Protein Albumin LDL Cholesterol Direct HDL Cholesterol Urine WBC (Auto) Urine Creatinine 06/18/19 06:44 WBC Hct MCV MCH Plt Count Seg Neuts % (Manual) Lymphocytes % (Manual) Seg Neutrophils # Man Lymphocytes # (Manual) PT INR APTT POC ABG pO2 VBG pH Sodium Potassium Carbon Dioxide BUN Creatinine Glucose POC Glucose 121 H Lactic Acid Calcium Direct Bilirubin AST ALT Troponin T Total Protein Albumin LDL Cholesterol Direct HDL Cholesterol Urine WBC (Auto) Urine Creatinine Allied health notes reviewed: nursing
[2019-06-18] MEDS: oxyCODONE /ACETAMINOPHEN 5-325MG TAB PO PRN (14:47)
--- NOTE | 2019-06-18 15:19 | Progress Note ---
Assessment and Plan Assessment and plan: Patient 63-year-old history of hypertension diabetes coronary artery disease status post CABG, CVA presents with worsening altered mental status nursing facility. Patient was brought in initially had hematuria around Toribio catheter was changed. Important to note last visit several months ago patient had similar problem with urinary catheter with bleeding. Was reinserted. Spoke with both daughters were at bedside stated patient has had some hematuria and dysuria over the last several weeks. He states he always has been altered from previous stroke but this is more severe. Upon presentation patient was found to be altered hypotensive febrile and was diagnosed with sepsis. Hospital course was complicated by worsening hypotension and shock. Patient then had IV line placed and we started patient on pressors and transferred to ICU. Patient at present had tachypnea unable to really answer any questions despite sternal rub. HE present remains lethargic encephalopathic and unresponsive. Echocardiogram shows mild left ventricle systolic dysfunction, ejection fraction 40-45%. PT/OT eval for passive range of motion when out of critical care Patient is bedbound, employ pressure ulcer preventive measures. Septic shock secondary to GNR bactermia probably from Complicated UTI-POA Patient improving significantly. Fever curve coming down. Much more alert and less lethargic. Able to wean pressor support off. Patient found to have gram- negative rods. ID following, currently on Cefepime Patient has indewing Toribio from home. Was replaced in the ED, bladder irragation done Acute renal failure secondary to vasomotor nephropathy- Continue to monitor Acute renal failure has had significant improvement with volume resuscitation. Altered mental state-Toxic Metabolic Encephalopathy Improving as sepsis improved and dehydration improved prerenal azotemia not quite back at baseline. Type 2 LA Secondary to acute kidney injury. Atypical presentation. Aggressive blood pressure control. Cardiology input noed Hyperglycemia Patient diabetes much better controlled Accu-Chek today 104. Patient is nothing by mouth we'll hold any insulin a long-acting hypoglycemics at this particular time. NG tube on hold. We'll reevaluate in a.m. the patient unable to eat. Has failed swallow eval. SHOCK LIVER Pressor support now off. Secondary to sepsis. GI following -acute hepatitis panel negative -etiology unclear-possibly 2/2 sepsis vs other (underlying liver disease?) -will order abd ultrasound to further evaluate liver -continue to trend labs and supportive care -avoid hepatotoxic agents -further recommendations to follow UTI (urinary tract infection) due to urinary indwelling catheter Patient on Rocephin we'll await culture data. Patient is only been here one time before. Suspect sensitivities. I have added vancomycin as well. Flat cefepime ID consult. Hypokalemia Replace DVT/GI prophy Continue SUPPORTIVE CARE History Interval history: Altered mental status Hospitalist Physical - Physical exam Narrative exam: Gen: Not in acute distress, lying in bed, obese HEENT: Normocephalic, atraumatic Neck: supple, no JVD Heart: S1 and S2 reg, no murmurs, rubs or gallop Lungs: Clear to auscultation bilaterally, Abd: soft, non tender, non distended, normal BS, Ext: No edema, no clubbing, no cyanosis Neuro: Lethargic, encephalopathy, - Constitutional Vitals: Temp Pulse Resp BP Pulse Ox 98.8 F 91 H 17 151/46 93 06/18/19 12:00 06/18/19 14:00 06/18/19 14:00 06/18/19 14:00 06/18/19 14:00 General appearance: Present: obese Results - Labs CBC & Chem 7: 06/17/19 06:59 06/18/19 04:44 Labs: Laboratory Last Values WBC 10.6 K/mm3 (4.5-11.0) 06/17/19 06:59 RBC 4.24 M/mm3 (3.65-5.03) 06/17/19 06:59 Hgb 13.8 gm/dl (11.8-15.2) 06/17/19 06:59 Hct 40.3 % (35.5-45.6) 06/17/19 06:59 MCV 95 fl (84-94) H 06/17/19 06:59 MCH 33 pg (28-32) H 06/17/19 06:59 MCHC 34 % (32-34) 06/17/19 06:59 RDW 14.3 % (13.2-15.2) 06/17/19 06:59 Plt Count 82 K/mm3 (140-440) L 06/17/19 06:59 Add Manual Diff Complete 06/15/19 09:45 Total Counted 100 06/15/19 09:45 Seg Neutrophils % Manager Environmental Health And Safety 06/15/19 09:45 Seg Neuts % (Manual) 83.0 % (40.0-70.0) H 06/15/19 09:45 Band Neutrophils % 9.0 % 06/15/19 09:45 Lymphocytes % (Manual) 3.0 % (13.4-35.0) L 06/15/19 09:45 Reactive Lymphs % (Man) 0 % 06/15/19 09:45 Monocytes % (Manual) 1.0 % (0.0-7.3) 06/15/19 09:45 Eosinophils % (Manual) 0 % (0.0-4.3) 06/15/19 09:45 Basophils % (Manual) 0 % (0.0-1.8) 06/15/19 09:45 Metamyelocytes % 4.0 % 06/15/19 09:45 Myelocytes % 0 % 06/15/19 09:45 Promyelocytes % 0 % 06/15/19 09:45 Blast Cells % 0 % 06/15/19 09:45 Nucleated RBC % Not Reportable 06/15/19 09:45 Seg Neutrophils # Man 15.0 K/mm3 (1.8-7.7) H 06/15/19 09:45 Band Neutrophils # 1.6 K/mm3 06/15/19 09:45 Lymphocytes # (Manual) 0.5 K/mm3 (1.2-5.4) L 06/15/19 09:45 Abs React Lymphs (Man) 0.0 K/mm3 06/15/19 09:45 Monocytes # (Manual) 0.2 K/mm3 (0.0-0.8) 06/15/19 09:45 Eosinophils # (Manual) 0.0 K/mm3 (0.0-0.4) 06/15/19 09:45 Basophils # (Manual) 0.0 K/mm3 (0.0-0.1) 06/15/19 09:45 Metamyelocytes # 0.7 K/mm3 06/15/19 09:45 Myelocytes # 0.0 K/mm3 06/15/19 09:45 Promyelocytes # 0.0 K/mm3 06/15/19 09:45 Blast Cells # 0.0 K/mm3 06/15/19 09:45 WBC Morphology Not Reportable 06/15/19 09:45 Hypersegmented Neuts Not Reportable 06/15/19 09:45 Hyposegmented Neuts Not Reportable 06/15/19 09:45 Hypogranular Neuts Not Reportable 06/15/19 09:45 Smudge Cells Not Reportable 06/15/19 09:45 Toxic Granulation Not Reportable 06/15/19 09:45 Toxic Vacuolation Not Reportable 06/15/19 09:45 Dohle Bodies Not Reportable 06/15/19 09:45 Pelger-Huet Anomaly Not Reportable 06/15/19 09:45 Elinor Rods Not Reportable 06/15/19 09:45 Platelet Estimate Consistent w auto 06/15/19 09:45 Clumped Platelets Not Reportable 06/15/19 09:45 Plt Clumps, EDTA Not Reportable 06/15/19 09:45 Large Platelets Not Reportable 06/15/19 09:45 Giant Platelets Not Reportable 06/15/19 09:45 Platelet Satelliting Not Reportable 06/15/19 09:45 Plt Morphology Comment Not Reportable 06/15/19 09:45 RBC Morphology Normal 06/15/19 09:45 Dimorphic RBCs Not Reportable 06/15/19 09:45 Polychromasia Not Reportable 06/15/19 09:45 Hypochromasia Not Reportable 06/15/19 09:45 Poikilocytosis Not Reportable 06/15/19 09:45 Anisocytosis Not Reportable 06/15/19 09:45 Microcytosis Not Reportable 06/15/19 09:45 Macrocytosis Not Reportable 06/15/19 09:45 Spherocytes Not Reportable 06/15/19 09:45 Pappenheimer Bodies Not Reportable 06/15/19 09:45 Sickle Cells Not Reportable 06/15/19 09:45 Target Cells Not Reportable 06/15/19 09:45 Tear Drop Cells Not Reportable 06/15/19 09:45 Ovalocytes Not Reportable 06/15/19 09:45 Helmet Cells Not Reportable 06/15/19 09:45 Gillespie-Cowden Bodies Not Reportable 06/15/19 09:45 [place] Rings Not Reportable 06/15/19 09:45 [place] Cells Not Reportable 06/15/19 09:45 Bite Cells Not Reportable 06/15/19 09:45 Crenated Cell Not Reportable 06/15/19 09:45 Elliptocytes Not Reportable 06/15/19 09:45 Acanthocytes (Spur) Not Reportable 06/15/19 09:45 Rouleaux Not Reportable 06/15/19 09:45 Hemoglobin C Crystals Not Reportable 06/15/19 09:45 Schistocytes Not Reportable 06/15/19 09:45 Malaria parasites Not Reportable 06/15/19 09:45 Endy Bodies Not Reportable 06/15/19 09:45 Hem Pathologist Commnt No 06/15/19 09:45 PT 14.6 Sec. (12.2-14.9) 06/17/19 04:12 INR 1.15 (0.87-1.13) H 06/17/19 04:12 APTT 40.5 Sec. (24.2-36.6) H 06/14/19 08:03 POC ABG pH 7.403 (7.35-7.45) 06/15/19 14:39 POC ABG pCO2 42.5 (35-45) 06/15/19 14:39 POC ABG pO2 63 (80-105) L 06/15/19 14:39 POC ABG HCO3 26.5 (22-26 mml/L) 06/15/19 14:39 POC ABG Total CO2 28 (23-27mmol/L) 06/15/19 14:39 POC ABG O2 Sat 92 06/15/19 14:39 POC ABG Base Excess 2 ((-2) - (+3)mmol/L) 06/15/19 14:39 VBG pH 7.303 (7.320-7.420) L 06/14/19 05:59 FiO2 28 % 06/15/19 14:39 Sodium 136 mmol/L (137-145) L 06/18/19 04:44 Potassium 4.0 mmol/L (3.6-5.0) 06/18/19 04:44 Chloride 98.4 mmol/L (98-107) 06/18/19 04:44 Carbon Dioxide 27 mmol/L (22-30) 06/18/19 04:44 Anion Gap 15 mmol/L 06/18/19 04:44 BUN 8 mg/dL (9-20) L 06/18/19 04:44 Creatinine 0.5 mg/dL (0.8-1.5) L 06/18/19 04:44 Estimated GFR > 60 ml/min 06/18/19 04:44 BUN/Creatinine Ratio 16 % 06/18/19 04:44 Glucose 129 mg/dL (75-100) H 06/18/19 04:44 POC Glucose 121 (70-105) H 06/18/19 06:44 Lactic Acid 1.30 mmol/L (0.7-2.0) 06/15/19 14:31 Calcium 8.3 mg/dL (8.4-10.2) L 06/18/19 04:44 Total Bilirubin 0.90 mg/dL (0.1-1.2) 06/17/19 04:12 Direct Bilirubin 0.6 mg/dL (0-0.2) H 06/17/19 04:12 Indirect Bilirubin 0.3 mg/dL 06/17/19 04:12 AST 21 units/L (5-40) 06/17/19 04:12 ALT 51 units/L (7-56) 06/17/19 04:12 Alkaline Phosphatase 125 units/L (35-129) 06/17/19 04:12 Troponin T 0.055 ng/mL (0.00-0.029) H 06/14/19 05:59 Total Protein 5.7 g/dL (6.3-8.2) L 06/17/19 04:12 Albumin 2.6 g/dL (3.9-5) L 06/17/19 04:12 Albumin/Globulin Ratio 0.8 % 06/17/19 04:12 Triglycerides 83 mg/dL (2-149) 06/14/19 05:59 Cholesterol 81 mg/dL (50-199) 06/14/19 05:59 LDL Cholesterol Direct 49 mg/dL (50-130) L 06/14/19 05:59 HDL Cholesterol 26 mg/dL (40-59) L 06/14/19 05:59 Cholesterol/HDL Ratio 3.11 % 06/14/19 05:59 Urine Color Yellow (Yellow) 06/15/19 12:20 Urine Turbidity Clear (Clear) 06/15/19 12:20 Urine pH 7.0 (5.0-7.0) 06/15/19 12:20 Ur Specific [place] 1.011 (1.003-1.030) 06/15/19 12:20 Urine Protein <15 mg/dl mg/dL (Negative) 06/15/19 12:20 Urine Glucose (UA) Neg mg/dL (Negative) 06/15/19 12:20 Urine Ketones Neg mg/dL (Negative) 06/15/19 12:20 Urine Blood Mod (Negative) 06/15/19 12:20 Urine Nitrite Neg (Negative) 06/15/19 12:20 Urine Bilirubin Neg (Negative) 06/15/19 12:20 Urine Urobilinogen < 2.0 mg/dL (<2.0) 06/15/19 12:20 Ur Leukocyte Esterase Mod (Negative) 06/15/19 12:20 Urine WBC (Auto) 19.0 /HPF (0.0-6.0) H 06/15/19 12:20 Urine RBC (Auto) 25.0 /HPF (0.0-6.0) 06/15/19 12:20 Urine Bacteria (Auto) 2+ /HPF (Negative) 06/15/19 12:20 Urine Eosinophils Few (None Seen) 06/14/19 13:40 Urine Creatinine 246.7 mg/dL (0.1-20.0) H 06/14/19 13:40 Urine Sodium 28 mmol/L 06/14/19 13:40 Fraction Sodium Excret 0.0 06/14/19 13:40 Random Vancomycin 7.1 ug/mL (0-40.0) 06/15/19 08:57 MARJORIE Screen Negative (Negative) 06/14/19 19:40 Complement C3 122 mg/dL (82-185) 06/14/19 19:40 Complement C4 34 mg/dL (15-53) 06/14/19 19:40 Hepatitis A IgM Ab Non-reactive (NonReactive) 06/14/19 19:40 Hep Bs Antigen Non-reactive (Negative) 06/14/19 19:40 Hep B Core IgM Ab Non-reactive (NonReactive) 06/14/19 19:40 Hepatitis C Antibody Non-reactive (NonReactive) 06/14/19 19:40 Active Medications - Current Medications Current Medications: Generic Name Dose Route Start Last Admin Trade Name Freq PRN Reason Stop Dose Admin Acetaminophen 650 mg 06/14/19 08:04 Tylenol PO Q4H PRN Pain MILD(1-3)/Fever >100.5/[id number] Albuterol 2.5 mg 06/16/19 13:38 Proventil IH Q4HRT PRN Shortness Of Breath Amlodipine Besylate 5 mg 06/17/19 14:00 06/18/19 10:47 Amlodipine PO 5 mg QDAY SAM Administration Dextrose 50 ml 06/14/19 08:04 D50w (25gm) Syringe IV Q30MIN PRN Hypoglycemia Protocol Enoxaparin Sodium 40 mg 06/14/19 10:00 06/18/19 10:47 Enoxaparin SUB-Q 40 mg QDAY SAM Administration Hydralazine HCl 10 mg 06/17/19 18:40 06/17/19 18:57 Apresoline IV 10 mg Q4H PRN Administration HTN SBP>170 OR DBP>110 Cefepime HCl 2 gm in 100 mls @ 200 mls/hr 06/16/19 15:00 06/18/19 14:38 Cefepime/Ns 2 Gm/100 Ml IV 200 mls/hr Q8HR SAM Administration Protocol Insulin Human Lispro 0 unit 06/17/19 19:00 06/18/19 12:41 Humalog SUB-Q 2 unit Q6HR SAM Administration Protocol Morphine Sulfate 2 mg 06/14/19 08:04 06/18/19 02:23 Morphine IV 2 mg Q4H PRN Administration Pain, Moderate (4-6) Ondansetron HCl 4 mg 06/14/19 08:04 Zofran IV Q8H PRN Nausea And Vomiting Oxycodone/Acetaminophen 1 tab 06/14/19 08:04 06/18/19 14:47 Percocet 5/325 PO 1 tab Q6H PRN Administration Pain, Moderate (4-6) Pantoprazole Sodium 40 mg 06/17/19 10:00 06/18/19 10:48 Protonix PO 40 mg DAILY SAM Administration Sodium Chloride 10 ml 06/14/19 10:00 06/18/19 10:48 Sodium Chloride Flush Syringe 10 Ml IV 10 ml BID SAM Administration Sodium Chloride 10 ml 06/14/19 08:04 Sodium Chloride Flush Syringe 10 Ml IV PRN PRN LINE FLUSH Tamsulosin HCl 0.4 mg 06/16/19 13:00 06/18/19 10:47 Flomax PO 0.4 mg QDAY SAM Administration Nutrition/Malnutrition Assess - Dietary Evaluation Nutrition/Malnutrition Findings: Nutrition Notes Start: 06/16/19 10:15 Freq: Status: Active Protocol: Document 06/18/19 10:50 CC (Rec: 06/18/19 11:01 CC [email or web address]) Co-Sign 06/18/19 10:50 LP Nutrition Notes Initial or Follow up Reassessment Current Diagnosis Acute Kidney Injury,Diabetes, Sepsis,Hypertension,Stroke Other Pertinent Diagnosis AMS, UTI Current Diet clear liquid Labs/Tests Na 136 BUN 8 Creat 0.5 Pertinent Medications reviewed Height 5 ft 6 in Weight 86 kg Matthews Body Weight (kg) 64.54 BMI 30.6 Subjective/Other Information Per RN pt eating 50-75% of meals. RN reported pt does not have a long attention span while eating therfore he is not eating all of his meal. Pt was on clear liquid diet and per STAFF RADIATION THERAPIST note full liquid diet with nectar thick liquids was recommended with advancement as tolerated. ONS order placed Percent of energy/protein needs met: 19%/12% Burn Absent Trauma Absent Minimum of two criteria No physical signs of malnutrition #1 Nutrition Diagnosis Inadequate oral intake Etiology CVA As Evidenced by Signs and Symptoms Pt with swallowing difficulty and difficulty focusing on meal Diagnosis Progress(for reassessment Continues documentation) Is patient on ventilator? No Is Patient Ambulatory and/or Out of Bed No REE-([facility]-confined to bed) [phone] Calculation Used for Recommendations [facility] Additional Notes Protein needs are 86-103g (1-1 .2g/kg) Fluid needs are 1ml/kcal Nutrition Intervention Change Diet Order: advance diet as tolerated Add Supplement/Snack (indicate name/kcal Ensure high protein chocolate, /protein ) chilled once daily Provides kCal: 160 Provides Protein (gm) 16 Goal #1 Meet at least 80% of energy and protein needs via PO and ONS intakes Anticipated Discharge Needs: Unable to determine at this time Follow-Up By: 06/20/19 Additional Comments F/U for PO and ONS intakes
[2019-06-18 21:26] LABS: Albumin 2.2 g/dL (3.8-4.8); Gamma Globulin 0.8 g/dL (0.8-1.7)
[2019-06-19] MEDS: INSULIN LISPRO 100 UNIT/ML SUB-Q SCH ×6 (00:39→22:00)
[2019-06-19 05:29] LABS: Hematocrit 39.9 % (35.5-45.6); Hemoglobin 13.8 gm/dl (11.8-15.2); Mean Corpuscular HGB Conc 35 % (32-34); Mean Corpuscular Volume 95 fl (84-94); Red Blood Count 4.22 M/mm3 (3.65-5.03); Red Cell Distribution Width 13.7 % (13.2-15.2)
[2019-06-19] MEDS: CEFEPIME/NS 2 GM/100 ML 2 GM/100 ML BAG IV SCH (05:37)
[2019-06-19 05:44] LABS: BUN/Creatinine Ratio 18; Blood Urea Nitrogen 9 mg/dL (9-20); Calcium 8.1 mg/dL (8.4-10.2); Hemolysis Index 1
[2019-06-19 05:46] LABS: Platelet Count 78 K/mm3 (140-440)
--- NOTE | 2019-06-19 07:43 | Progress Note ---
Assessment and Plan Severe sepsis with septic shock- GNR bacteremia AG metabolic acidosis/Lactic acidosis Acute toxic-metabolic encephalopathy( improving) Acute renal failure probably secondary to vasomotor nephropathy( resolved) Elevated troponin, possible type 2 ischemia -patient has history if CAD Hyperglycemia UTI (urinary tract infection) due to urinary indwelling catheter Elevated transaminases, possibly secondary to hypotension -CXR prn, -Wean supplemental oxygen for O2 sats>90% -Hematuria and zayas catheter management per Urology -Monitor Hand H and hemodynamics closely -Monitor renal function, avoid nephrotoxic agents, renally dose all medications -Modified diet with aspiration precautions -Antibiotics for GNR sepsis ( blood culture positive for GNR), de-escalate antibiotics based on SHERRY and sensitivities -CBC, BMP prn -VTE prophylaxis - Accuchecks with glycemic control for SSI (While critically ill target blood glucose of 140-180 mg/dL; avoid hypoglycemia) - Mobility protocol for pressure ulcer prevention -Monitor electrolyte profile closely and replete as indicated -Avoid benzodiazepines re delirium -Supportive transfusions as indicated for HgB<7 g/dL - Flu & pneumovax addressed per protocol Stable for transfer to the floor Discussed with RN Discussed with Dr. Garcia Subjective Date of service: 06/19/19 Principal diagnosis: Septic shock; UTI; DIANA; Ac. Encephalopathy; NSTEMI; Hyperglycemia Interval history: Patient is seen today for: Septic shock; UTI (urinary tract infection) ; Leucocytosis; Acute renal failure; Acute Encephalopathy (Toxic/Metabolic); NSTEMI; Hyperglycemia; Elevated transaminase level Seen and examined at bedside; 24hour events reviewed; nursing and respiratory care staff consulted; no adverse overnight events reported to me; resting peacefully in bed; remains on supplemental oxygen via NC; no emesis or overt aspiration; no fevers or chills, no diarrhea; able to communicate needs- has some dysarthria Vitals, labs, medications, chart reviewed Objective Vital Signs - 12hr 06/18/19 06/18/19 06/18/19 20:00 21:00 22:00 Temperature 98.3 F Pulse Rate 82 75 77 Pulse Rate [ 76 From Monitor] Respiratory 16 16 15 Rate Blood Pressure 143/66 147/68 147/68 O2 Sat by Pulse 95 95 92 Oximetry 06/18/19 06/18/19 06/19/19 23:00 23:20 00:00 Temperature 98.9 F Pulse Rate 80 82 79 Pulse Rate [ 75 From Monitor] Respiratory 16 15 12 Rate Blood Pressure 147/68 154/63 154/63 O2 Sat by Pulse 94 95 95 Oximetry 06/19/19 06/19/19 06/19/19 01:00 02:00 03:00 Temperature Pulse Rate 76 75 75 Pulse Rate [ From Monitor] Respiratory 18 11 L 15 Rate Blood Pressure 175/48 149/59 169/76 O2 Sat by Pulse 93 96 94 Oximetry 06/19/19 06/19/19 06/19/19 04:00 05:00 06:00 Temperature 98.9 F Pulse Rate 73 81 75 Pulse Rate [ 77 From Monitor] Respiratory 16 14 11 L Rate Blood Pressure 148/77 153/84 137/51 O2 Sat by Pulse 96 93 93 Oximetry Constitutional: no acute distress, appears uncomfortable Eyes: non-icteric ENT: oropharynx moist Neck: supple, no lymphadenopathy, no JVD, other (large neck circumference) Effort: normal Ascultation: Bilateral: clear, diminished breath sounds, rhonchi Percussion: Bilateral: not dull Cardiovascular: regular rate and rhythm, other (S1,S2) Gastrointestinal: normoactive bowel sounds, soft, non-tender, non-distended, other (3-way zayas catheter draining clear urine) Integumentary: normal Extremities: no cyanosis, no edema, no ischemia or petechiae, other (Left AKA) Neurologic: non-focal exam (grossly), pupils equal and round, other (dysarthria but able to make needs known) Psychiatric: mood appropriate, affect normal CBC and BMP: 06/19/19 04:55 06/19/19 04:55 ABG, PT/INR, D-dimer: ABG POC ABG pH 7.403 (7.35-7.45) 06/15/19 14:39 POC ABG pCO2 42.5 (35-45) 06/15/19 14:39 POC ABG pO2 63 (80-105) L 06/15/19 14:39 POC ABG HCO3 26.5 (22-26 mml/L) 06/15/19 14:39 POC ABG Total CO2 28 (23-27mmol/L) 06/15/19 14:39 POC ABG O2 Sat 92 06/15/19 14:39 PT/INR, D-dimer PT 14.6 Sec. (12.2-14.9) 06/17/19 04:12 INR 1.15 (0.87-1.13) H 06/17/19 04:12 Abnormal lab findings: Abnormal Labs 06/14/19 06/14/19 06/14/19 05:17 05:59 05:59 WBC 20.4 H Hct MCV 100 H MCH MCHC Plt Count 110 L Seg Neuts % (Manual) 76.0 H Lymphocytes % (Manual) 2.0 L Seg Neutrophils # Man 15.5 H Lymphocytes # (Manual) 0.4 L PT 19.1 H INR 1.63 H APTT 39.7 H POC ABG pO2 VBG pH Sodium Potassium Carbon Dioxide BUN Creatinine Glucose POC Glucose 422 H Lactic Acid Calcium Direct Bilirubin AST ALT Troponin T Serum Total Protein Total Protein Albumin PEP Interpretation LDL Cholesterol Direct HDL Cholesterol Urine WBC (Auto) Urine Creatinine 06/14/19 06/14/19 06/14/19 05:59 05:59 05:59 WBC Hct MCV MCH MCHC Plt Count Seg Neuts % (Manual) Lymphocytes % (Manual) Seg Neutrophils # Man Lymphocytes # (Manual) PT INR APTT POC ABG pO2 VBG pH 7.303 L Sodium Potassium Carbon Dioxide 17 L BUN 35 H Creatinine 2.1 H Glucose 397 H POC Glucose Lactic Acid 6.70 H* Calcium 7.6 L Direct Bilirubin AST 130 H ALT 162 H Troponin T 0.055 H Serum Total Protein Total Protein 5.3 L Albumin 2.6 L PEP Interpretation LDL Cholesterol Direct 49 L HDL Cholesterol 26 L Urine WBC (Auto) Urine Creatinine 06/14/19 06/14/19 06/14/19 08:03 08:03 10:12 WBC Hct MCV MCH MCHC Plt Count Seg Neuts % (Manual) Lymphocytes % (Manual) Seg Neutrophils # Man Lymphocytes # (Manual) PT 19.4 H INR 1.67 H APTT 40.5 H POC ABG pO2 VBG pH Sodium Potassium Carbon Dioxide BUN Creatinine Glucose POC Glucose 180 H Lactic Acid 5.90 H* Calcium Direct Bilirubin AST ALT Troponin T Serum Total Protein Total Protein Albumin PEP Interpretation LDL Cholesterol Direct HDL Cholesterol Urine WBC (Auto) Urine Creatinine 06/14/19 06/14/19 06/14/19 13:40 13:40 13:51 WBC Hct MCV MCH MCHC Plt Count Seg Neuts % (Manual) Lymphocytes % (Manual) Seg Neutrophils # Man Lymphocytes # (Manual) PT INR APTT POC ABG pO2 VBG pH Sodium Potassium Carbon Dioxide BUN Creatinine Glucose POC Glucose 145 H Lactic Acid Calcium Direct Bilirubin AST ALT Troponin T Serum Total Protein Total Protein Albumin PEP Interpretation LDL Cholesterol Direct HDL Cholesterol Urine WBC (Auto) > 182.0 H Urine Creatinine 246.7 H 06/14/19 06/14/19 06/15/19 18:31 21:31 04:59 WBC Hct MCV MCH MCHC Plt Count Seg Neuts % (Manual) Lymphocytes % (Manual) Seg Neutrophils # Man Lymphocytes # (Manual) PT INR APTT POC ABG pO2 VBG pH Sodium Potassium Carbon Dioxide BUN Creatinine Glucose POC Glucose 148 H 137 H Lactic Acid Calcium Direct Bilirubin AST ALT Troponin T Serum Total Protein 4.6 L Total Protein Albumin 2.2 L PEP Interpretation see below H LDL Cholesterol Direct HDL Cholesterol Urine WBC (Auto) Urine Creatinine 06/15/19 06/15/19 06/15/19 09:45 09:45 12:20 WBC 18.1 H Hct 35.2 L MCV 96 H MCH 33 H MCHC Plt Count 94 L Seg Neuts % (Manual) 83.0 H Lymphocytes % (Manual) 3.0 L Seg Neutrophils # Man 15.0 H Lymphocytes # (Manual) 0.5 L PT INR APTT POC ABG pO2 VBG pH Sodium Potassium Carbon Dioxide 21 L BUN 33 H Creatinine Glucose POC Glucose Lactic Acid Calcium 7.6 L Direct Bilirubin AST 44 H ALT 84 H Troponin T Serum Total Protein Total Protein 5.4 L Albumin 2.4 L PEP Interpretation LDL Cholesterol Direct HDL Cholesterol Urine WBC (Auto) 19.0 H Urine Creatinine 06/15/19 06/16/19 06/16/19 14:39 05:26 05:58 WBC Hct MCV MCH MCHC Plt Count Seg Neuts % (Manual) Lymphocytes % (Manual) Seg Neutrophils # Man Lymphocytes # (Manual) PT INR APTT POC ABG pO2 63 L VBG pH Sodium Potassium 3.5 L Carbon Dioxide BUN 22 H Creatinine 0.7 L Glucose 123 H POC Glucose 119 H Lactic Acid Calcium 7.9 L Direct Bilirubin AST ALT Troponin T Serum Total Protein Total Protein Albumin PEP Interpretation LDL Cholesterol Direct HDL Cholesterol Urine WBC (Auto) Urine Creatinine 06/16/19 06/16/19 06/16/19 12:01 12:47 18:22 WBC Hct MCV MCH MCHC Plt Count Seg Neuts % (Manual) Lymphocytes % (Manual) Seg Neutrophils # Man Lymphocytes # (Manual) PT INR APTT POC ABG pO2 VBG pH Sodium Potassium Carbon Dioxide BUN Creatinine Glucose POC Glucose 136 H 142 H 142 H Lactic Acid Calcium Direct Bilirubin AST ALT Troponin T Serum Total Protein Total Protein Albumin PEP Interpretation LDL Cholesterol Direct HDL Cholesterol Urine WBC (Auto) Urine Creatinine 06/17/19 06/17/19 06/17/19 00:19 04:12 04:12 WBC Hct MCV MCH MCHC Plt Count Seg Neuts % (Manual) Lymphocytes % (Manual) Seg Neutrophils # Man Lymphocytes # (Manual) PT INR 1.15 H APTT POC ABG pO2 VBG pH Sodium Potassium Carbon Dioxide BUN Creatinine 0.6 L Glucose 124 H POC Glucose 119 H Lactic Acid Calcium 8.1 L Direct Bilirubin 0.6 H AST ALT Troponin T Serum Total Protein Total Protein 5.7 L Albumin 2.6 L PEP Interpretation LDL Cholesterol Direct HDL Cholesterol Urine WBC (Auto) Urine Creatinine 06/17/19 06/17/19 06/17/19 05:45 06:59 06:59 WBC Hct MCV 95 H MCH 33 H MCHC Plt Count 82 L Seg Neuts % (Manual) Lymphocytes % (Manual) Seg Neutrophils # Man Lymphocytes # (Manual) PT INR APTT POC ABG pO2 VBG pH Sodium Potassium Carbon Dioxide 21 L BUN Creatinine 0.5 L Glucose 121 H POC Glucose 121 H Lactic Acid Calcium 8.3 L Direct Bilirubin AST ALT Troponin T Serum Total Protein Total Protein Albumin PEP Interpretation LDL Cholesterol Direct HDL Cholesterol Urine WBC (Auto) Urine Creatinine 06/17/19 06/17/19 06/17/19 12:31 18:11 23:59 WBC Hct MCV MCH MCHC Plt Count Seg Neuts % (Manual) Lymphocytes % (Manual) Seg Neutrophils # Man Lymphocytes # (Manual) PT INR APTT POC ABG pO2 VBG pH Sodium Potassium Carbon Dioxide BUN Creatinine Glucose POC Glucose 159 H 178 H 114 H Lactic Acid Calcium Direct Bilirubin AST ALT Troponin T Serum Total Protein Total Protein Albumin PEP Interpretation LDL Cholesterol Direct HDL Cholesterol Urine WBC (Auto) Urine Creatinine 06/18/19 06/18/19 06/18/19 04:44 06:44 11:53 WBC Hct MCV MCH MCHC Plt Count Seg Neuts % (Manual) Lymphocytes % (Manual) Seg Neutrophils # Man Lymphocytes # (Manual) PT INR APTT POC ABG pO2 VBG pH Sodium 136 L Potassium Carbon Dioxide BUN 8 L Creatinine 0.5 L Glucose 129 H POC Glucose 121 H 198 H Lactic Acid Calcium 8.3 L Direct Bilirubin AST ALT Troponin T Serum Total Protein Total Protein Albumin PEP Interpretation LDL Cholesterol Direct HDL Cholesterol Urine WBC (Auto) Urine Creatinine 06/18/19 06/19/19 06/19/19 18:19 00:08 04:55 WBC Hct MCV MCH MCHC Plt Count Seg Neuts % (Manual) Lymphocytes % (Manual) Seg Neutrophils # Man Lymphocytes # (Manual) PT INR APTT POC ABG pO2 VBG pH Sodium Potassium 3.4 L Carbon Dioxide BUN Creatinine 0.5 L Glucose 133 H POC Glucose 141 H 130 H Lactic Acid Calcium 8.1 L Direct Bilirubin AST ALT Troponin T Serum Total Protein Total Protein Albumin PEP Interpretation LDL Cholesterol Direct HDL Cholesterol Urine WBC (Auto) Urine Creatinine 06/19/19 06/19/19 04:55 05:40 WBC Hct MCV 95 H MCH 33 H MCHC 35 H Plt Count 78 L Seg Neuts % (Manual) Lymphocytes % (Manual) Seg Neutrophils # Man Lymphocytes # (Manual) PT INR APTT POC ABG pO2 VBG pH Sodium Potassium Carbon Dioxide BUN Creatinine Glucose POC Glucose 126 H Lactic Acid Calcium Direct Bilirubin AST ALT Troponin T Serum Total Protein Total Protein Albumin PEP Interpretation LDL Cholesterol Direct HDL Cholesterol Urine WBC (Auto) Urine Creatinine Allied health notes reviewed: nursing
[2019-06-19] MEDS: PANTOPRAZOLE 40 MG TAB PO SCH (10:26)
[2019-06-19] MEDS: ENOXAPARIN 40 MG/0.4 ML INJ SUB-Q SCH (10:27)
[2019-06-19] MEDS: TAMSULOSIN 0.4 MG CAP PO SCH (10:27)
[2019-06-19] MEDS: amLODIPine 5 MG TAB PO SCH (10:27)
[2019-06-19 10:57] LABS: Myeloperoxidase Antibody <1.0 AI (<1.0)
[2019-06-19] MEDS ORDERED: cefTRIAXone/NS 2 GM/100 ML 2 GM/100 ML BAG IV SCH (13:00)
--- NOTE | 2019-06-19 13:02 | Progress Note ---
Assessment and Plan Assessment and plan: Patient 63-year-old history of hypertension diabetes coronary artery disease status post CABG, CVA presents with worsening altered mental status nursing facility. Patient was brought in initially had hematuria and Toribio catheter was changed. Important to note last visit several months ago patient had similar problem with urinary catheter with bleeding. Was reinserted. Hospitalist discussed with both daughters at bedside stated patient has had some hematuria and dysuria over the last several weeks. He states he always has been altered from previous stroke but this is more severe. Upon presentation patient was found to be altered hypotensive febrile and was diagnosed with sepsis. Hospital course was complicated by worsening hypotension and shock. Patient then had IV line placed and we started patient on pressors and transferred to ICU. He was managed in ICU, improved ,transferred to IMCU. Septic shock secondary to GNR bactermia probably from Complicated UTI-POA Blood cultures growing Proteus mirabilis and Providencia stuartii Patient improving significantly. Much more alert and less lethargic. ID following, was on Cefepime, switched to Ertapenem today 06/19 Patient has indewlling Toribio from home. Was replaced in the ED, bladder irragation done Acute renal failure secondary to vasomotor nephropathy, resolved. Altered mental state-Toxic Metabolic Encephalopathy Improving as sepsis improved and dehydration improved prerenal azotemia not quite back at baseline. Type 2 NSTEMI Secondary to acute kidney injury. Atypical presentation. Aggressive blood pressure control. Cardiology input noted Diabetes mellitus type 2 monitor accuchek . SHOCK LIVER Pressor support now off. Secondary to sepsis. GI following -acute hepatitis panel negative -etiology unclear-possibly 2/2 sepsis vs other (underlying liver disease?) -continue to trend labs and supportive care -avoid hepatotoxic agents UTI (urinary tract infection) due to urinary indwelling catheter Full code status Patient improved stable to transfer to med/surg History Interval history: Altered mental status, improving Hospitalist Physical - Physical exam Narrative exam: Gen: Not in acute distress, lying in bed, obese HEENT: Normocephalic, atraumatic Neck: supple, no JVD Heart: S1 and S2 reg, no murmurs, rubs or gallop Lungs: Clear to auscultation bilaterally, Abd: soft, non tender, non distended, normal BS, Ext: No edema, no clubbing, no cyanosis Neuro: More alert, encephalopathy, - Constitutional Vitals: Temp Pulse Resp BP Pulse Ox 98.4 F 91 H 19 155/58 93 06/19/19 08:00 06/19/19 11:00 06/19/19 11:00 06/19/19 11:00 06/19/19 11:00 General appearance: Present: obese Results - Labs CBC & Chem 7: 06/19/19 04:55 06/19/19 04:55 Labs: Laboratory Last Values WBC 6.6 K/mm3 (4.5-11.0) 06/19/19 04:55 RBC 4.22 M/mm3 (3.65-5.03) 06/19/19 04:55 Hgb 13.8 gm/dl (11.8-15.2) 06/19/19 04:55 Hct 39.9 % (35.5-45.6) 06/19/19 04:55 MCV 95 fl (84-94) H 06/19/19 04:55 MCH 33 pg (28-32) H 06/19/19 04:55 MCHC 35 % (32-34) H 06/19/19 04:55 RDW 13.7 % (13.2-15.2) 06/19/19 04:55 Plt Count 78 K/mm3 (140-440) L 06/19/19 04:55 Add Manual Diff Complete 06/15/19 09:45 Total Counted 100 06/15/19 09:45 Seg Neutrophils % Card Tape Converter Operator 06/15/19 09:45 Seg Neuts % (Manual) 83.0 % (40.0-70.0) H 06/15/19 09:45 Band Neutrophils % 9.0 % 06/15/19 09:45 Lymphocytes % (Manual) 3.0 % (13.4-35.0) L 06/15/19 09:45 Reactive Lymphs % (Man) 0 % 06/15/19 09:45 Monocytes % (Manual) 1.0 % (0.0-7.3) 06/15/19 09:45 Eosinophils % (Manual) 0 % (0.0-4.3) 06/15/19 09:45 Basophils % (Manual) 0 % (0.0-1.8) 06/15/19 09:45 Metamyelocytes % 4.0 % 06/15/19 09:45 Myelocytes % 0 % 06/15/19 09:45 Promyelocytes % 0 % 06/15/19 09:45 Blast Cells % 0 % 06/15/19 09:45 Nucleated RBC % Not Reportable 06/15/19 09:45 Seg Neutrophils # Man 15.0 K/mm3 (1.8-7.7) H 06/15/19 09:45 Band Neutrophils # 1.6 K/mm3 06/15/19 09:45 Lymphocytes # (Manual) 0.5 K/mm3 (1.2-5.4) L 06/15/19 09:45 Abs React Lymphs (Man) 0.0 K/mm3 06/15/19 09:45 Monocytes # (Manual) 0.2 K/mm3 (0.0-0.8) 06/15/19 09:45 Eosinophils # (Manual) 0.0 K/mm3 (0.0-0.4) 06/15/19 09:45 Basophils # (Manual) 0.0 K/mm3 (0.0-0.1) 06/15/19 09:45 Metamyelocytes # 0.7 K/mm3 06/15/19 09:45 Myelocytes # 0.0 K/mm3 06/15/19 09:45 Promyelocytes # 0.0 K/mm3 06/15/19 09:45 Blast Cells # 0.0 K/mm3 06/15/19 09:45 WBC Morphology Not Reportable 06/15/19 09:45 Hypersegmented Neuts Not Reportable 06/15/19 09:45 Hyposegmented Neuts Not Reportable 06/15/19 09:45 Hypogranular Neuts Not Reportable 06/15/19 09:45 Smudge Cells Not Reportable 06/15/19 09:45 Toxic Granulation Not Reportable 06/15/19 09:45 Toxic Vacuolation Not Reportable 06/15/19 09:45 Dohle Bodies Not Reportable 06/15/19 09:45 Pelger-Huet Anomaly Not Reportable 06/15/19 09:45 Elinor Rods Not Reportable 06/15/19 09:45 Platelet Estimate Consistent w auto 06/15/19 09:45 Clumped Platelets Not Reportable 06/15/19 09:45 Plt Clumps, EDTA Not Reportable 06/15/19 09:45 Large Platelets Not Reportable 06/15/19 09:45 Giant Platelets Not Reportable 06/15/19 09:45 Platelet Satelliting Not Reportable 06/15/19 09:45 Plt Morphology Comment Not Reportable 06/15/19 09:45 RBC Morphology Normal 06/15/19 09:45 Dimorphic RBCs Not Reportable 06/15/19 09:45 Polychromasia Not Reportable 06/15/19 09:45 Hypochromasia Not Reportable 06/15/19 09:45 Poikilocytosis Not Reportable 06/15/19 09:45 Anisocytosis Not Reportable 06/15/19 09:45 Microcytosis Not Reportable 06/15/19 09:45 Macrocytosis Not Reportable 06/15/19 09:45 Spherocytes Not Reportable 06/15/19 09:45 Pappenheimer Bodies Not Reportable 06/15/19 09:45 Sickle Cells Not Reportable 06/15/19 09:45 Target Cells Not Reportable 06/15/19 09:45 Tear Drop Cells Not Reportable 06/15/19 09:45 Ovalocytes Not Reportable 06/15/19 09:45 Helmet Cells Not Reportable 06/15/19 09:45 [place] Bodies Not Reportable 06/15/19 09:45 [place] Rings Not Reportable 06/15/19 09:45 [place]ley Cells Not Reportable 06/15/19 09:45 Bite Cells Not Reportable 06/15/19 09:45 Crenated Cell Not Reportable 06/15/19 09:45 Elliptocytes Not Reportable 06/15/19 09:45 Acanthocytes (Spur) Not Reportable 06/15/19 09:45 Rouleaux Not Reportable 06/15/19 09:45 Hemoglobin C Crystals Not Reportable 06/15/19 09:45 Schistocytes Not Reportable 06/15/19 09:45 Malaria parasites Not Reportable 06/15/19 09:45 Endy Bodies Not Reportable 06/15/19 09:45 Hem Pathologist Commnt No 06/15/19 09:45 PT 14.6 Sec. (12.2-14.9) 06/17/19 04:12 INR 1.15 (0.87-1.13) H 06/17/19 04:12 APTT 40.5 Sec. (24.2-36.6) H 06/14/19 08:03 POC ABG pH 7.403 (7.35-7.45) 06/15/19 14:39 POC ABG pCO2 42.5 (35-45) 06/15/19 14:39 POC ABG pO2 63 (80-105) L 06/15/19 14:39 POC ABG HCO3 26.5 (22-26 mml/L) 06/15/19 14:39 POC ABG Total CO2 28 (23-27mmol/L) 06/15/19 14:39 POC ABG O2 Sat 92 06/15/19 14:39 POC ABG Base Excess 2 ((-2) - (+3)mmol/L) 06/15/19 14:39 VBG pH 7.303 (7.320-7.420) L 06/14/19 05:59 FiO2 28 % 06/15/19 14:39 Sodium 137 mmol/L (137-145) 06/19/19 04:55 Potassium 3.4 mmol/L (3.6-5.0) L 06/19/19 04:55 Chloride 98.1 mmol/L (98-107) 06/19/19 04:55 Carbon Dioxide 29 mmol/L (22-30) 06/19/19 04:55 Anion Gap 13 mmol/L 06/19/19 04:55 BUN 9 mg/dL (9-20) 06/19/19 04:55 Creatinine 0.5 mg/dL (0.8-1.5) L 06/19/19 04:55 Estimated GFR > 60 ml/min 06/19/19 04:55 BUN/Creatinine Ratio 18 % 06/19/19 04:55 Glucose 133 mg/dL (75-100) H 06/19/19 04:55 POC Glucose 127 (70-105) H 06/19/19 08:16 Lactic Acid 1.30 mmol/L (0.7-2.0) 06/15/19 14:31 Calcium 8.1 mg/dL (8.4-10.2) L 06/19/19 04:55 Total Bilirubin 0.90 mg/dL (0.1-1.2) 06/17/19 04:12 Direct Bilirubin 0.6 mg/dL (0-0.2) H 06/17/19 04:12 Indirect Bilirubin 0.3 mg/dL 06/17/19 04:12 AST 21 units/L (5-40) 06/17/19 04:12 ALT 51 units/L (7-56) 06/17/19 04:12 Alkaline Phosphatase 125 units/L (35-129) 06/17/19 04:12 Troponin T 0.055 ng/mL (0.00-0.029) H 06/14/19 05:59 Serum Total Protein 4.6 g/dL (6.1-8.1) L 06/15/19 04:59 Total Protein 5.7 g/dL (6.3-8.2) L 06/17/19 04:12 Albumin 2.6 g/dL (3.9-5) L 06/17/19 04:12 Albumin/Globulin Ratio 0.8 % 06/17/19 04:12 Dwuzb-6-Pgrtnwbef 0.3 g/dL (0.2-0.3) 06/15/19 04:59 Vbfhj-2-Kzttwldqa 0.7 g/dL (0.5-0.9) 06/15/19 04:59 Beta Globulins 0.4 g/dL (0.2-0.5) 06/15/19 04:59 Gamma Globulins 0.8 g/dL (0.8-1.7) 06/15/19 04:59 Abnorm Protein Band 1 see below 06/15/19 04:59 PEP Interpretation see below H 06/15/19 04:59 Triglycerides 83 mg/dL (2-149) 06/14/19 05:59 Cholesterol 81 mg/dL (50-199) 06/14/19 05:59 LDL Cholesterol Direct 49 mg/dL (50-130) L 06/14/19 05:59 HDL Cholesterol 26 mg/dL (40-59) L 06/14/19 05:59 Cholesterol/HDL Ratio 3.11 % 06/14/19 05:59 Urine Color Yellow (Yellow) 06/15/19 12:20 Urine Turbidity Clear (Clear) 06/15/19 12:20 Urine pH 7.0 (5.0-7.0) 06/15/19 12:20 Ur Specific [place] 1.011 (1.003-1.030) 06/15/19 12:20 Urine Protein <15 mg/dl mg/dL (Negative) 06/15/19 12:20 Urine Glucose (UA) Neg mg/dL (Negative) 06/15/19 12:20 Urine Ketones Neg mg/dL (Negative) 06/15/19 12:20 Urine Blood Mod (Negative) 06/15/19 12:20 Urine Nitrite Neg (Negative) 06/15/19 12:20 Urine Bilirubin Neg (Negative) 06/15/19 12:20 Urine Urobilinogen < 2.0 mg/dL (<2.0) 06/15/19 12:20 Ur Leukocyte Esterase Mod (Negative) 06/15/19 12:20 Urine WBC (Auto) 19.0 /HPF (0.0-6.0) H 06/15/19 12:20 Urine RBC (Auto) 25.0 /HPF (0.0-6.0) 06/15/19 12:20 Urine Bacteria (Auto) 2+ /HPF (Negative) 06/15/19 12:20 Urine Eosinophils Few (None Seen) 06/14/19 13:40 Urine Creatinine 246.7 mg/dL (0.1-20.0) H 06/14/19 13:40 Urine Sodium 28 mmol/L 06/14/19 13:40 Fraction Sodium Excret 0.0 06/14/19 13:40 Random Vancomycin 7.1 ug/mL (0-40.0) 06/15/19 08:57 MARJORIE Screen Negative (Negative) 06/14/19 19:40 Proteinase 3 (PR3) Ab <1.0 AI (<1.0) 06/14/19 19:40 Myeloperoxidase Ab <1.0 AI (<1.0) 06/14/19 19:40 Complement C3 122 mg/dL (82-185) 06/14/19 19:40 Complement C4 34 mg/dL (15-53) 06/14/19 19:40 Hepatitis A IgM Ab Non-reactive (NonReactive) 06/14/19 19:40 Hep Bs Antigen Non-reactive (Negative) 06/14/19 19:40 Hep B Core IgM Ab Non-reactive (NonReactive) 06/14/19 19:40 Hepatitis C Antibody Non-reactive (NonReactive) 06/14/19 19:40 Active Medications - Current Medications Current Medications: Generic Name Dose Route Start Last Admin Trade Name Freq PRN Reason Stop Dose Admin Acetaminophen 650 mg 06/14/19 08:04 Tylenol PO Q4H PRN Pain MILD(1-3)/Fever >100.5/GONZALEZ Albuterol 2.5 mg 06/16/19 13:38 Proventil IH Q4HRT PRN Shortness Of Breath Amlodipine Besylate 5 mg 06/17/19 14:00 06/19/19 10:27 Amlodipine PO 5 mg QDAY SAM Administration Dextrose 50 ml 06/14/19 08:04 D50w (25gm) Syringe IV Q30MIN PRN Hypoglycemia Protocol Enoxaparin Sodium 40 mg 06/14/19 10:00 06/19/19 10:27 Enoxaparin SUB-Q 40 mg QDAY SAM Administration Hydralazine HCl 10 mg 06/17/19 18:40 06/17/19 18:57 Apresoline IV 10 mg Q4H PRN Administration HTN SBP>170 OR DBP>110 Ceftriaxone Sodium 2 gm in 100 mls @ 200 mls/hr 06/19/19 13:00 Rocephin/Ns 2 Gm/100 Ml IV Q24HR SAM Protocol Insulin Human Lispro 0 unit 06/19/19 07:30 06/19/19 11:53 Humalog SUB-Q 3 unit ACHS SAM Administration Protocol Morphine Sulfate 2 mg 06/14/19 08:04 06/18/19 21:34 Morphine IV 2 mg Q4H PRN Administration Pain, Moderate (4-6) Ondansetron HCl 4 mg 06/14/19 08:04 Zofran IV Q8H PRN Nausea And Vomiting Oxycodone/Acetaminophen 1 tab 06/14/19 08:04 06/18/19 14:47 Percocet 5/325 PO 1 tab Q6H PRN Administration Pain, Moderate (4-6) Pantoprazole Sodium 40 mg 06/17/19 10:00 06/19/19 10:26 Protonix PO 40 mg DAILY SAM Administration Sodium Chloride 10 ml 06/14/19 10:00 06/19/19 10:28 Sodium Chloride Flush Syringe 10 Ml IV 10 ml BID SAM Administration Sodium Chloride 10 ml 06/14/19 08:04 Sodium Chloride Flush Syringe 10 Ml IV PRN PRN LINE FLUSH Tamsulosin HCl 0.4 mg 06/16/19 13:00 06/19/19 10:27 Flomax PO 0.4 mg QDAY SAM Administration Nutrition/Malnutrition Assess - Dietary Evaluation Nutrition/Malnutrition Findings: Nutrition Notes Start: 06/16/19 10:15 Freq: Status: Active Protocol: Document 06/18/19 10:50 CC (Rec: 06/18/19 11:01 CC [email or web address]) Co-Sign 06/18/19 10:50 LP Nutrition Notes Initial or Follow up Reassessment Current Diagnosis Acute Kidney Injury,Diabetes, Sepsis,Hypertension,Stroke Other Pertinent Diagnosis AMS, UTI Current Diet clear liquid Labs/Tests Na 136 BUN 8 Creat 0.5 Pertinent Medications reviewed Height 5 ft 6 in Weight 86 kg [place] Body Weight (kg) 64.54 BMI 30.6 Subjective/Other Information Per RN pt eating 50-75% of meals. RN reported pt does not have a long attention span while eating therfore he is not eating all of his meal. Pt was on clear liquid diet and per TREAD CUTTER note full liquid diet with nectar thick liquids was recommended with advancement as tolerated. ONS order placed Percent of energy/protein needs met: 19%/12% Burn Absent Trauma Absent Minimum of two criteria No physical signs of malnutrition #1 Nutrition Diagnosis Inadequate oral intake Etiology CVA As Evidenced by Signs and Symptoms Pt with swallowing difficulty and difficulty focusing on meal Diagnosis Progress(for reassessment Continues documentation) Is patient on ventilator? No Is Patient Ambulatory and/or Out of Bed No REE-([facility]-confined to bed) [phone] Calculation Used for Recommendations [facility] Additional Notes Protein needs are 86-103g (1-1 .2g/kg) Fluid needs are 1ml/kcal Nutrition Intervention Change Diet Order: advance diet as tolerated Add Supplement/Snack (indicate name/kcal Ensure high protein chocolate, /protein ) chilled once daily Provides kCal: 160 Provides Protein (gm) 16 Goal #1 Meet at least 80% of energy and protein needs via PO and ONS intakes Anticipated Discharge Needs: Unable to determine at this time Follow-Up By: 06/20/19 Additional Comments F/U for PO and ONS intakes
--- NOTE | 2019-06-19 15:43 | Progress Note ---
Assessment and Plan Cultures: Blood culture 06/14/2019 Proteus and MDR Providencia 4 of 4 bottles Urine culture 10-100K mixed bacteria Assessment: 63 y/o male with history of diabetes, previous CVA, hypertension, previous left AKA and urinary retention with a chronic indwelling zayas at [facility] admitted on 06/14/2019 due to altered mental status: 1) Severe sepsis with initial septic shock: resolved; etiology likely GNR bacteremia/UTI. 2) Proteus and MDR Providencia bacteremia: likely from complicated UTI. Providencia very MDR sens to ertapenem 3) Complicated CAUTI with hematuria: In the ED, zayas was removed and ED placed a new zayas and started bladder irrigation. UA with 182 wbc, positive nitrates and large blood. Urine culture grew 10-100K mixed bacteria. Renal US was unremarkable. 4) Elevated LFTs: from sepsis. Viral hepatitis serology negative 5) Diabetes uncontrolled 6) AMS: CT head chronic atrophy and right MCA. Better still aphasia. Recs: per daughter he does not talk like this, aphasia is not at baseline, consider neuro eval stop cefepime start ertapenem 1 gm IV q day for MDR Providencia contact isolation fro MDR duration abx 7-10 days Will follow. Jackelyn Archer MD Infectious Diseases Staff Analyst [facility] [phone] Subjective Date of service: 06/19/19 Principal diagnosis: Septic shock; UTI; DIANA; Ac. Encephalopathy; NSTEMI; Hyperglycemia Interval history: Feels better, no fever, daughter at bedside, still aphasic Objective - Exam Narrative Exam: Constitutional: Alert, cooperative. No acute distress Head, Ears, Nose: Normocephalic, atraumatic. External ears, nose normal Eyes: Conjunctivae/corneas clear. No icterus. No ptosis. Neck: Supple, no meningeal signs Oral: dentition fair, no thrush Cardiovascular: S1, S2 normal. Respiratory: Good air entry, clear to auscultation bilaterally GI: Soft, non-tender Musculoskeletal: left AKA well healed Skin: No rash or abscess Hem/Lymphatic: No palpable cervical or supraclavicular nodes. No lymphangitis Psych: no agitated Neurological: Awake, alert, +expressive aphasia, follows commands +zayas clear urine - Constitutional Vitals: Vital Signs Temp Pulse Resp BP Pulse Ox 98.9 F 88 22 130/64 96 06/19/19 12:00 06/19/19 15:00 06/19/19 15:00 06/19/19 15:00 06/19/19 15:00 Temperature -Last 24 Hours Temperature 98.9 F Temperature 98.4 F Temperature 98.9 F Temperature 98.9 F Temperature 98.3 F Temperature 98.8 F - Labs CBC & Chem 7: 06/19/19 04:55 06/19/19 04:55 Labs: Abnormal lab results 06/15/19 06/18/19 06/18/19 Range/Units 04:59 11:53 18:19 MCV (84-94) fl MCH (28-32) pg MCHC (32-34) % Plt Count (140-440) K/mm3 Potassium (3.6-5.0) mmol/L Creatinine (0.8-1.5) mg/dL Glucose (75-100) mg/dL POC Glucose 198 H 141 H (70-105) Calcium (8.4-10.2) mg/dL Serum Total Protein 4.6 L (6.1-8.1) g/dL Albumin 2.2 L (3.8-4.8) g/dL PEP Interpretation see below H 06/19/19 06/19/19 06/19/19 Range/Units 00:08 04:55 04:55 MCV 95 H (84-94) fl MCH 33 H (28-32) pg MCHC 35 H (32-34) % Plt Count 78 L (140-440) K/mm3 Potassium 3.4 L (3.6-5.0) mmol/L Creatinine 0.5 L (0.8-1.5) mg/dL Glucose 133 H (75-100) mg/dL POC Glucose 130 H (70-105) Calcium 8.1 L (8.4-10.2) mg/dL Serum Total Protein (6.1-8.1) g/dL Albumin (3.8-4.8) g/dL PEP Interpretation 06/19/19 06/19/19 Range/Units 05:40 08:16 MCV (84-94) fl MCH (28-32) pg MCHC (32-34) % Plt Count (140-440) K/mm3 Potassium (3.6-5.0) mmol/L Creatinine (0.8-1.5) mg/dL Glucose (75-100) mg/dL POC Glucose 126 H 127 H (70-105) Calcium (8.4-10.2) mg/dL Serum Total Protein (6.1-8.1) g/dL Albumin (3.8-4.8) g/dL PEP Interpretation
[2019-06-19] MEDS: ERTAPENEM 1 GM in SODIUM CHLORIDE 0.9% 50 ML IV SCH (16:55)
[2019-06-20] MEDS: INSULIN LISPRO 100 UNIT/ML SUB-Q SCH ×4 (08:30→23:05)
[2019-06-20 09:26] LABS: Hematocrit 41.8 % (35.5-45.6); Hemoglobin 14.5 gm/dl (11.8-15.2); Mean Corpuscular HGB Conc 35 % (32-34); Mean Corpuscular Volume 94 fl (84-94); Platelet Count 105 K/mm3 (140-440); Red Blood Count 4.44 M/mm3 (3.65-5.03); Red Cell Distribution Width 14.2 % (13.2-15.2)
[2019-06-20] MEDS: ENOXAPARIN 40 MG/0.4 ML INJ SUB-Q SCH (09:55)
[2019-06-20] MEDS: TAMSULOSIN 0.4 MG CAP PO SCH (09:56)
[2019-06-20] MEDS: PANTOPRAZOLE 40 MG TAB PO SCH (09:56)
[2019-06-20] MEDS: amLODIPine 5 MG TAB PO SCH (09:56)
[2019-06-20 10:24] LABS: BUN/Creatinine Ratio 20; Blood Urea Nitrogen 10 mg/dL (9-20); Calcium 8.6 mg/dL (8.4-10.2); Hemolysis Index 146
--- NOTE | 2019-06-20 11:29 | Progress Note ---
Assessment and Plan Patient 63-year-old history of hypertension diabetes coronary artery disease status post CABG, CVA presents with worsening altered mental status nursing facility. Patient was brought in initially had hematuria and Toribio catheter was changed. Important to note last visit several months ago patient had similar problem with urinary catheter with bleeding. Was reinserted. Hospitalist discussed with both daughters at bedside stated patient has had some hematuria and dysuria over the last several weeks. He states he always has been altered from previous stroke but this is more severe. Upon presentation patient was found to be altered hypotensive febrile and was diagnosed with sepsis. Hospital course was complicated by worsening hypotension and shock. Patient then had IV line placed and we started patient on pressors and transferred to ICU. He was managed in ICU, improved ,transferred to IMCU. Septic shock secondary to GNR bactermia probably from Complicated UTI-POA Blood cultures growing Proteus mirabilis and Providencia stuartii Patient improving significantly. Much more alert and less lethargic. ID following, was on Cefepime, switched to Ertapenem today 06/19 Patient has indewlling Toribio from home. Was replaced in the ED, bladder irragation done Acute renal failure secondary to vasomotor nephropathy, resolved. Altered mental state-Toxic Metabolic Encephalopathy Improving as sepsis improved and dehydration improved prerenal azotemia not quite back at baseline. Type 2 NSTEMI Secondary to acute kidney injury. Atypical presentation. Aggressive blood pressure control. Cardiology input noted Diabetes mellitus type 2 monitor accuchek . SHOCK LIVER Pressor support now off. Secondary to sepsis. GI following -acute hepatitis panel negative -etiology unclear-possibly 2/2 sepsis vs other (underlying liver disease?) -continue to trend labs and supportive care -avoid hepatotoxic agents UTI (urinary tract infection) due to urinary indwelling catheter Full code status Patient improved stable to transfer to med/surg History Interval history: Altered mental status, improving Hospitalist Physical - Physical exam Narrative exam: Gen: Not in acute distress, lying in bed, obese HEENT: Normocephalic, atraumatic Neck: supple, no JVD Heart: S1 and S2 reg, no murmurs, rubs or gallop Lungs: Clear to auscultation bilaterally, Abd: soft, non tender, non distended, normal BS, Ext: No edema, no clubbing, no cyanosis Neuro: More alert, encephalopathy, Subjective Date of service: 06/20/19 Principal diagnosis: Septic shock; UTI; DIANA; Ac. Encephalopathy; NSTEMI; Hyperglycemia Objective - Constitutional Vitals: Vital Signs - 12hr 06/20/19 06/20/19 06:12 11:18 Temperature 99.2 F Pulse Rate 75 Respiratory 20 Rate Blood Pressure 172/65 O2 Sat by Pulse 95 96 Oximetry - Labs CBC & Chem 7: 06/20/19 08:54 06/20/19 08:54 Labs: Abnormal lab results 06/19/19 06/19/19 06/20/19 Range/Units 11:37 16:33 08:27 MCH (28-32) pg MCHC (32-34) % Plt Count (140-440) K/mm3 Creatinine (0.8-1.5) mg/dL Glucose (75-100) mg/dL POC Glucose 229 H 129 H 114 H (70-105) Hemoglobin A1c (4-6) % 06/20/19 06/20/19 06/20/19 Range/Units 08:54 08:54 08:54 MCH 33 H (28-32) pg MCHC 35 H (32-34) % Plt Count 105 L (140-440) K/mm3 Creatinine 0.5 L (0.8-1.5) mg/dL Glucose 111 H (75-100) mg/dL POC Glucose (70-105) Hemoglobin A1c 7.0 H (4-6) %
--- NOTE | 2019-06-20 11:33 | Progress Note ---
Assessment and Plan Severe sepsis with septic shock- GNR bacteremia AG metabolic acidosis/Lactic acidosis Acute toxic-metabolic encephalopathy( improving) Acute renal failure probably secondary to vasomotor nephropathy( resolved) Elevated troponin, possible type 2 ischemia -patient has history if CAD Hyperglycemia UTI (urinary tract infection) due to urinary indwelling catheter Elevated transaminases, possibly secondary to hypotension -CXR prn, -Wean supplemental oxygen for O2 sats>90% -Hematuria and zayas catheter management per Urology -Monitor Hand H and hemodynamics closely -Monitor renal function, avoid nephrotoxic agents, renally dose all medications -Modified diet with aspiration precautions -Antibiotics for GNR sepsis ( blood culture positive for GNR), de-escalate antibiotics based on SHERRY and sensitivities -CBC, BMP prn -VTE prophylaxis - Accuchecks with glycemic control for SSI (While critically ill target blood glucose of 140-180 mg/dL; avoid hypoglycemia) - Mobility protocol for pressure ulcer prevention -Monitor electrolyte profile closely and replete as indicated -Avoid benzodiazepines re delirium -Supportive transfusions as indicated for HgB<7 g/dL - Flu & pneumovax addressed per protocol Discharge planning Subjective Date of service: 06/20/19 Principal diagnosis: Septic shock; UTI; DIANA; Ac. Encephalopathy; NSTEMI; Hyperglycemia Interval history: Patient is seen today for: Septic shock; UTI (urinary tract infection) ; Leucocytosis; Acute renal failure; Acute Encephalopathy (Toxic/Metabolic); NSTEMI; Hyperglycemia; Elevated transaminase level Seen and examined at bedside; 24hour events reviewed; nursing and respiratory care staff consulted; no adverse overnight events reported to me; resting peacefully in bed; remains on supplemental oxygen via NC; no emesis or overt aspiration; no fevers or chills, no diarrhea; able to communicate needs- has some dysarthria Vitals, labs, medications, chart reviewed Objective Vital Signs - 12hr 06/20/19 06/20/19 06:12 11:18 Temperature 99.2 F Pulse Rate 75 Respiratory 20 Rate Blood Pressure 172/65 O2 Sat by Pulse 95 96 Oximetry Constitutional: no acute distress, appears uncomfortable Eyes: non-icteric ENT: oropharynx moist Neck: supple, no lymphadenopathy, no JVD, other (large neck circumference) Effort: normal Ascultation: Bilateral: clear, diminished breath sounds, rhonchi Percussion: Bilateral: not dull Cardiovascular: regular rate and rhythm, other (S1,S2) Gastrointestinal: normoactive bowel sounds, soft, non-tender, non-distended, other (3-way zayas catheter draining clear urine) Integumentary: normal Extremities: no cyanosis, no edema, no ischemia or petechiae, other (Left AKA) Neurologic: non-focal exam (grossly), pupils equal and round, other (dysarthria but able to make needs known) Psychiatric: mood appropriate, affect normal CBC and BMP: 06/20/19 08:54 06/20/19 08:54 ABG, PT/INR, D-dimer: ABG POC ABG pH 7.403 (7.35-7.45) 06/15/19 14:39 POC ABG pCO2 42.5 (35-45) 06/15/19 14:39 POC ABG pO2 63 (80-105) L 06/15/19 14:39 POC ABG HCO3 26.5 (22-26 mml/L) 06/15/19 14:39 POC ABG Total CO2 28 (23-27mmol/L) 06/15/19 14:39 POC ABG O2 Sat 92 06/15/19 14:39 PT/INR, D-dimer PT 14.6 Sec. (12.2-14.9) 06/17/19 04:12 INR 1.15 (0.87-1.13) H 06/17/19 04:12 Abnormal lab findings: Abnormal Labs 06/14/19 06/14/19 06/14/19 05:17 05:59 05:59 WBC 20.4 H Hct MCV 100 H MCH MCHC Plt Count 110 L Seg Neuts % (Manual) 76.0 H Lymphocytes % (Manual) 2.0 L Seg Neutrophils # Man 15.5 H Lymphocytes # (Manual) 0.4 L PT 19.1 H INR 1.63 H APTT 39.7 H POC ABG pO2 VBG pH Sodium Potassium Carbon Dioxide BUN Creatinine Glucose POC Glucose 422 H Hemoglobin A1c Lactic Acid Calcium Direct Bilirubin AST ALT Troponin T Serum Total Protein Total Protein Albumin PEP Interpretation LDL Cholesterol Direct HDL Cholesterol Urine WBC (Auto) Urine Creatinine 06/14/19 06/14/19 06/14/19 05:59 05:59 05:59 WBC Hct MCV MCH MCHC Plt Count Seg Neuts % (Manual) Lymphocytes % (Manual) Seg Neutrophils # Man Lymphocytes # (Manual) PT INR APTT POC ABG pO2 VBG pH 7.303 L Sodium Potassium Carbon Dioxide 17 L BUN 35 H Creatinine 2.1 H Glucose 397 H POC Glucose Hemoglobin A1c Lactic Acid 6.70 H* Calcium 7.6 L Direct Bilirubin AST 130 H ALT 162 H Troponin T 0.055 H Serum Total Protein Total Protein 5.3 L Albumin 2.6 L PEP Interpretation LDL Cholesterol Direct 49 L HDL Cholesterol 26 L Urine WBC (Auto) Urine Creatinine 06/14/19 06/14/19 06/14/19 08:03 08:03 10:12 WBC Hct MCV MCH MCHC Plt Count Seg Neuts % (Manual) Lymphocytes % (Manual) Seg Neutrophils # Man Lymphocytes # (Manual) PT 19.4 H INR 1.67 H APTT 40.5 H POC ABG pO2 VBG pH Sodium Potassium Carbon Dioxide BUN Creatinine Glucose POC Glucose 180 H Hemoglobin A1c Lactic Acid 5.90 H* Calcium Direct Bilirubin AST ALT Troponin T Serum Total Protein Total Protein Albumin PEP Interpretation LDL Cholesterol Direct HDL Cholesterol Urine WBC (Auto) Urine Creatinine 06/14/19 06/14/19 06/14/19 13:40 13:40 13:51 WBC Hct MCV MCH MCHC Plt Count Seg Neuts % (Manual) Lymphocytes % (Manual) Seg Neutrophils # Man Lymphocytes # (Manual) PT INR APTT POC ABG pO2 VBG pH Sodium Potassium Carbon Dioxide BUN Creatinine Glucose POC Glucose 145 H Hemoglobin A1c Lactic Acid Calcium Direct Bilirubin AST ALT Troponin T Serum Total Protein Total Protein Albumin PEP Interpretation LDL Cholesterol Direct HDL Cholesterol Urine WBC (Auto) > 182.0 H Urine Creatinine 246.7 H 06/14/19 06/14/19 06/15/19 18:31 21:31 04:59 WBC Hct MCV MCH MCHC Plt Count Seg Neuts % (Manual) Lymphocytes % (Manual) Seg Neutrophils # Man Lymphocytes # (Manual) PT INR APTT POC ABG pO2 VBG pH Sodium Potassium Carbon Dioxide BUN Creatinine Glucose POC Glucose 148 H 137 H Hemoglobin A1c Lactic Acid Calcium Direct Bilirubin AST ALT Troponin T Serum Total Protein 4.6 L Total Protein Albumin 2.2 L PEP Interpretation see below H LDL Cholesterol Direct HDL Cholesterol Urine WBC (Auto) Urine Creatinine 06/15/19 06/15/19 06/15/19 09:45 09:45 12:20 WBC 18.1 H Hct 35.2 L MCV 96 H MCH 33 H MCHC Plt Count 94 L Seg Neuts % (Manual) 83.0 H Lymphocytes % (Manual) 3.0 L Seg Neutrophils # Man 15.0 H Lymphocytes # (Manual) 0.5 L PT INR APTT POC ABG pO2 VBG pH Sodium Potassium Carbon Dioxide 21 L BUN 33 H Creatinine Glucose POC Glucose Hemoglobin A1c Lactic Acid Calcium 7.6 L Direct Bilirubin AST 44 H ALT 84 H Troponin T Serum Total Protein Total Protein 5.4 L Albumin 2.4 L PEP Interpretation LDL Cholesterol Direct HDL Cholesterol Urine WBC (Auto) 19.0 H Urine Creatinine 06/15/19 06/16/19 06/16/19 14:39 05:26 05:58 WBC Hct MCV MCH MCHC Plt Count Seg Neuts % (Manual) Lymphocytes % (Manual) Seg Neutrophils # Man Lymphocytes # (Manual) PT INR APTT POC ABG pO2 63 L VBG pH Sodium Potassium 3.5 L Carbon Dioxide BUN 22 H Creatinine 0.7 L Glucose 123 H POC Glucose 119 H Hemoglobin A1c Lactic Acid Calcium 7.9 L Direct Bilirubin AST ALT Troponin T Serum Total Protein Total Protein Albumin PEP Interpretation LDL Cholesterol Direct HDL Cholesterol Urine WBC (Auto) Urine Creatinine 06/16/19 06/16/19 06/16/19 12:01 12:47 18:22 WBC Hct MCV MCH MCHC Plt Count Seg Neuts % (Manual) Lymphocytes % (Manual) Seg Neutrophils # Man Lymphocytes # (Manual) PT INR APTT POC ABG pO2 VBG pH Sodium Potassium Carbon Dioxide BUN Creatinine Glucose POC Glucose 136 H 142 H 142 H Hemoglobin A1c Lactic Acid Calcium Direct Bilirubin AST ALT Troponin T Serum Total Protein Total Protein Albumin PEP Interpretation LDL Cholesterol Direct HDL Cholesterol Urine WBC (Auto) Urine Creatinine 06/17/19 06/17/19 06/17/19 00:19 04:12 04:12 WBC Hct MCV MCH MCHC Plt Count Seg Neuts % (Manual) Lymphocytes % (Manual) Seg Neutrophils # Man Lymphocytes # (Manual) PT INR 1.15 H APTT POC ABG pO2 VBG pH Sodium Potassium Carbon Dioxide BUN Creatinine 0.6 L Glucose 124 H POC Glucose 119 H Hemoglobin A1c Lactic Acid Calcium 8.1 L Direct Bilirubin 0.6 H AST ALT Troponin T Serum Total Protein Total Protein 5.7 L Albumin 2.6 L PEP Interpretation LDL Cholesterol Direct HDL Cholesterol Urine WBC (Auto) Urine Creatinine 06/17/19 06/17/19 06/17/19 05:45 06:59 06:59 WBC Hct MCV 95 H MCH 33 H MCHC Plt Count 82 L Seg Neuts % (Manual) Lymphocytes % (Manual) Seg Neutrophils # Man Lymphocytes # (Manual) PT INR APTT POC ABG pO2 VBG pH Sodium Potassium Carbon Dioxide 21 L BUN Creatinine 0.5 L Glucose 121 H POC Glucose 121 H Hemoglobin A1c Lactic Acid Calcium 8.3 L Direct Bilirubin AST ALT Troponin T Serum Total Protein Total Protein Albumin PEP Interpretation LDL Cholesterol Direct HDL Cholesterol Urine WBC (Auto) Urine Creatinine 06/17/19 06/17/19 06/17/19 12:31 18:11 23:59 WBC Hct MCV MCH MCHC Plt Count Seg Neuts % (Manual) Lymphocytes % (Manual) Seg Neutrophils # Man Lymphocytes # (Manual) PT INR APTT POC ABG pO2 VBG pH Sodium Potassium Carbon Dioxide BUN Creatinine Glucose POC Glucose 159 H 178 H 114 H Hemoglobin A1c Lactic Acid Calcium Direct Bilirubin AST ALT Troponin T Serum Total Protein Total Protein Albumin PEP Interpretation LDL Cholesterol Direct HDL Cholesterol Urine WBC (Auto) Urine Creatinine 06/18/19 06/18/19 06/18/19 04:44 06:44 11:53 WBC Hct MCV MCH MCHC Plt Count Seg Neuts % (Manual) Lymphocytes % (Manual) Seg Neutrophils # Man Lymphocytes # (Manual) PT INR APTT POC ABG pO2 VBG pH Sodium 136 L Potassium Carbon Dioxide BUN 8 L Creatinine 0.5 L Glucose 129 H POC Glucose 121 H 198 H Hemoglobin A1c Lactic Acid Calcium 8.3 L Direct Bilirubin AST ALT Troponin T Serum Total Protein Total Protein Albumin PEP Interpretation LDL Cholesterol Direct HDL Cholesterol Urine WBC (Auto) Urine Creatinine 06/18/19 06/19/19 06/19/19 18:19 00:08 04:55 WBC Hct MCV MCH MCHC Plt Count Seg Neuts % (Manual) Lymphocytes % (Manual) Seg Neutrophils # Man Lymphocytes # (Manual) PT INR APTT POC ABG pO2 VBG pH Sodium Potassium 3.4 L Carbon Dioxide BUN Creatinine 0.5 L Glucose 133 H POC Glucose 141 H 130 H Hemoglobin A1c Lactic Acid Calcium 8.1 L Direct Bilirubin AST ALT Troponin T Serum Total Protein Total Protein Albumin PEP Interpretation LDL Cholesterol Direct HDL Cholesterol Urine WBC (Auto) Urine Creatinine 06/19/19 06/19/19 06/19/19 04:55 05:40 08:16 WBC Hct MCV 95 H MCH 33 H MCHC 35 H Plt Count 78 L Seg Neuts % (Manual) Lymphocytes % (Manual) Seg Neutrophils # Man Lymphocytes # (Manual) PT INR APTT POC ABG pO2 VBG pH Sodium Potassium Carbon Dioxide BUN Creatinine Glucose POC Glucose 126 H 127 H Hemoglobin A1c Lactic Acid Calcium Direct Bilirubin AST ALT Troponin T Serum Total Protein Total Protein Albumin PEP Interpretation LDL Cholesterol Direct HDL Cholesterol Urine WBC (Auto) Urine Creatinine 06/19/19 06/19/19 06/20/19 11:37 16:33 08:27 WBC Hct MCV MCH MCHC Plt Count Seg Neuts % (Manual) Lymphocytes % (Manual) Seg Neutrophils # Man Lymphocytes # (Manual) PT INR APTT POC ABG pO2 VBG pH Sodium Potassium Carbon Dioxide BUN Creatinine Glucose POC Glucose 229 H 129 H 114 H Hemoglobin A1c Lactic Acid Calcium Direct Bilirubin AST ALT Troponin T Serum Total Protein Total Protein Albumin PEP Interpretation LDL Cholesterol Direct HDL Cholesterol Urine WBC (Auto) Urine Creatinine 06/20/19 06/20/19 06/20/19 08:54 08:54 08:54 WBC Hct MCV MCH 33 H MCHC 35 H Plt Count 105 L Seg Neuts % (Manual) Lymphocytes % (Manual) Seg Neutrophils # Man Lymphocytes # (Manual) PT INR APTT POC ABG pO2 VBG pH Sodium Potassium Carbon Dioxide BUN Creatinine 0.5 L Glucose 111 H POC Glucose Hemoglobin A1c 7.0 H Lactic Acid Calcium Direct Bilirubin AST ALT Troponin T Serum Total Protein Total Protein Albumin PEP Interpretation LDL Cholesterol Direct HDL Cholesterol Urine WBC (Auto) Urine Creatinine Allied health notes reviewed: nursing
[2019-06-20] MEDS: cefTRIAXone/NS 2 GM/100 ML 2 GM/100 ML BAG IV SCH (12:57)
[2019-06-20] MEDS: ERTAPENEM 1 GM in SODIUM CHLORIDE 0.9% 50 ML IV SCH (12:57)
--- NOTE | 2019-06-20 14:24 | Progress Note ---
Subjective Date of service: 06/20/19 Principal diagnosis: Septic shock; UTI; DIANA; Ac. Encephalopathy; NSTEMI; Hyperglycemia Interval history: Feels better, no fever, daughter at bedside, still aphasic Objective - Constitutional Vitals: Vital Signs Temp Pulse Resp BP Pulse Ox 97.6 F 74 22 140/70 93 06/20/19 12:11 06/20/19 12:11 06/20/19 12:11 06/20/19 12:11 06/20/19 12:11 Temperature -Last 24 Hours Temperature 97.6 F Temperature 99.2 F Temperature 98.8 F Temperature 97.6 F - Labs CBC & Chem 7: 06/20/19 08:54 06/20/19 08:54 Labs: Abnormal lab results 06/19/19 06/19/19 06/20/19 Range/Units 11:37 16:33 08:27 MCH (28-32) pg MCHC (32-34) % Plt Count (140-440) K/mm3 Creatinine (0.8-1.5) mg/dL Glucose (75-100) mg/dL POC Glucose 229 H 129 H 114 H (70-105) Hemoglobin A1c (4-6) % 06/20/19 06/20/19 06/20/19 Range/Units 08:54 08:54 08:54 MCH 33 H (28-32) pg MCHC 35 H (32-34) % Plt Count 105 L (140-440) K/mm3 Creatinine 0.5 L (0.8-1.5) mg/dL Glucose 111 H (75-100) mg/dL POC Glucose (70-105) Hemoglobin A1c 7.0 H (4-6) % 06/20/19 Range/Units 12:22 MCH (28-32) pg MCHC (32-34) % Plt Count (140-440) K/mm3 Creatinine (0.8-1.5) mg/dL Glucose (75-100) mg/dL POC Glucose 179 H (70-105) Hemoglobin A1c (4-6) %
--- NOTE | 2019-06-20 14:56 | Discharge Summary ---
Providers - Providers Date of Admission: 06/14/19 08:05 Date of discharge: 06/20/19 Attending physician: CATALINA MAURO 06/14/19 10:39 Consult to Physician [CONS] Routine Comment: Consulting Provider: LUIS SANTANA Physician Instructions: Reason For Exam: liver failure Speech Therapy Evaluation and Treat [CONS] Routine Reason For Exam: dysphagia 06/14/19 10:47 Consult to Cardiac Rehabilitation [CONS] Routine Reason For Exam: Non-STEMI 06/14/19 12:59 Consult to Physician [CONS] Routine Comment: Consulting Provider: KAREN DON Physician Instructions: Reason For Exam: renal failure 06/15/19 09:27 Consult to Physician [CONS] Urgent Comment: Consulting Provider: JULIETTE AGUIRRE Physician Instructions: Reason For Exam: critical care management 06/16/19 12:44 Consult to Physician [CONS] Urgent Comment: Consulting Provider: LAMONT GOINS Physician Instructions: Reason For Exam: Blood culture positive for gram negative rods 06/20/19 12:33 PICC Line Insertion [Consult to PICC Line RN] [CONS] Routine Reason For Exam: need iv abx Type Line:: PICC Primary care physician: CAR OILER Hospitalization Condition: Fair Pertinent studies: Head CT CXR Abdominal US Renal US Hospital course: Patient 63-year-old history of hypertension diabetes coronary artery disease status post CABG, CVA presents with worsening altered mental status nursing facility. Patient was brought in initially had hematuria and Toribio catheter was changed. Important to note last visit several months ago patient had similar problem with urinary catheter with bleeding. Catheter Was reinserted. Hospitalist discussed with both daughters at bedside stated patient has had some hematuria and dysuria over the last several weeks. Per family - he always has been altered from previous stroke but this is more severe. Upon presentation patient was found to be altered, hypotensive, febrile and was diagnosed with sepsis. Hospital course was complicated by worsening hypotension and shock. Patient then had IV line placed and we started patient on pressors and transferred to ICU. He was managed in ICU, improved, transferred to IMCU. Had repeat CT head which showed no acute process. patient was then discharged back to SNF in stable condition. Discharge Diagnosis and Mx: /Septic shock secondary to GNR bactermia probably from Complicated UTI-POA Blood cultures growing Proteus mirabilis and Providencia stuartii Patient improving significantly. Much more alert and less lethargic. ID was following, was on Cefepime, switched to Ertapenem on 06/19 - discharged with bactrim DS 1 tab po bid for 7 extra days Patient has indewlling Toribio from home. Was replaced in the ED, bladder irragation done /Acute renal failure secondary to vasomotor nephropathy, resolved. /Altered mental state-Toxic Metabolic Encephalopathy Improving as sepsis improved and dehydration improved /Type 2 NSTEMI Secondary to acute kidney injury. Atypical presentation. Cardiology input noted - medical Mx /Diabetes mellitus type 2 monitored with accuchek . /SHOCK LIVER Pressor support now off. Secondary to sepsis. GI following -acute hepatitis panel negative -etiology unclear-possibly 2/2 sepsis vs other (underlying liver disease?) -continue to trend labs and supportive care -avoid hepatotoxic agents /UTI (urinary tract infection) due to urinary indwelling catheter, treated with abx Full code status Patient improved stable to transfer to SNF Hospitalist Physical Gen: Not in acute distress, lying in bed, obese HEENT: Normocephalic, atraumatic Neck: supple, no JVD Heart: S1 and S2 reg, no murmurs, rubs or gallop Lungs: Clear to auscultation bilaterally, Abd: soft, non tender, non distended, normal BS, Ext: No edema, no clubbing, no cyanosis Neuro: More alert, encephalopathy, Disposition: DC/[place]-03 SNF [facility] C[facility] Time spent for discharge: 34 minutes Core Measure Documentation - Palliative Care Palliative Care/ Comfort Measures: Not Applicable - Core Measures Any of the following diagnoses?: none Exam - Constitutional Vitals: Temp Pulse Resp BP Pulse Ox 97.6 F 74 22 140/70 93 06/20/19 12:11 06/20/19 12:11 06/20/19 12:11 06/20/19 12:11 06/20/19 12:11 Plan Activity: fall precautions Weight Bearing Status: Non-Weight Bearing Diet: other (pureed diet) Special Instructions: record daily BP diary Follow up with: PRIMARY CARE, [Primary Care Provider] - 3-5 Days Prescriptions: Sulfamethoxazole/Trimethoprim [Bactrim DS TAB] 1 each PO BID #14 tablet
--- NOTE | 2019-06-20 15:17 | Progress Note ---
Assessment and Plan Cultures: Blood culture 06/14/2019 Proteus and MDR Providencia 4 of 4 bottles Urine culture 10-100K mixed bacteria Assessment: 63 y/o male with history of diabetes, previous CVA, hypertension, previous left AKA and urinary retention with a chronic indwelling zayas at [facility] admitted on 06/14/2019 due to altered mental status: 1) Severe sepsis with initial septic shock: resolved; etiology likely GNR bacteremia/UTI. 2) Proteus and MDR Providencia bacteremia: likely from complicated UTI. Providencia very MDR sens to ertapenem 3) Complicated CAUTI with hematuria: In the ED, zayas was removed and ED placed a new zayas and started bladder irrigation. UA with 182 wbc, positive nitrates and large blood. Urine culture grew 10-100K mixed bacteria. Renal US was unremarkable. 4) Elevated LFTs: from sepsis. Viral hepatitis serology negative 5) Diabetes uncontrolled 6) AMS: CT head chronic atrophy and right MCA. Better still aphasia. Recs: stop ertapenem 1 gm IV q day for MDR Providencia start bactrim DS 1 tab po bid for 7 extra days contact isolation fro MDR Will sign off Jackelyn Archer MD Infectious Diseases [employer] [facility] M [phone] [id number] [phone] Subjective Date of service: 06/20/19 Principal diagnosis: Septic shock; UTI; DIANA; Ac. Encephalopathy; NSTEMI; Hyperglycemia Interval history: Feels better, no fever Objective - Exam Narrative Exam: Constitutional: Alert, cooperative. No acute distress Head, Ears, Nose: Normocephalic, atraumatic. External ears, nose normal Eyes: Conjunctivae/corneas clear. No icterus. No ptosis. Neck: Supple, no meningeal signs Oral: dentition fair, no thrush Cardiovascular: S1, S2 normal. Respiratory: Good air entry, clear to auscultation bilaterally GI: Soft, non-tender Musculoskeletal: left AKA well healed Skin: No rash or abscess Hem/Lymphatic: No palpable cervical or supraclavicular nodes. No lymphangitis Psych: no agitated Neurological: Awake, alert, +expressive aphasia, follows commands +zayas clear urine - Constitutional Vitals: Vital Signs Temp Pulse Resp BP Pulse Ox 97.6 F 74 22 140/70 93 06/20/19 12:11 06/20/19 12:11 06/20/19 12:11 06/20/19 12:11 06/20/19 12:11 Temperature -Last 24 Hours Temperature 97.6 F Temperature 99.2 F Temperature 98.8 F Temperature 97.6 F - Labs CBC & Chem 7: 06/20/19 08:54 06/20/19 08:54 Labs: Abnormal lab results 06/19/19 06/19/19 06/20/19 Range/Units 11:37 16:33 08:27 MCH (28-32) pg MCHC (32-34) % Plt Count (140-440) K/mm3 Creatinine (0.8-1.5) mg/dL Glucose (75-100) mg/dL POC Glucose 229 H 129 H 114 H (70-105) Hemoglobin A1c (4-6) % 06/20/19 06/20/19 06/20/19 Range/Units 08:54 08:54 08:54 MCH 33 H (28-32) pg MCHC 35 H (32-34) % Plt Count 105 L (140-440) K/mm3 Creatinine 0.5 L (0.8-1.5) mg/dL Glucose 111 H (75-100) mg/dL POC Glucose (70-105) Hemoglobin A1c 7.0 H (4-6) % 06/20/19 Range/Units 12:22 MCH (28-32) pg MCHC (32-34) % Plt Count (140-440) K/mm3 Creatinine (0.8-1.5) mg/dL Glucose (75-100) mg/dL POC Glucose 179 H (70-105) Hemoglobin A1c (4-6) %
[2019-06-21] MEDS: oxyCODONE /ACETAMINOPHEN 5-325MG TAB PO PRN (01:52)
[2019-06-21] MEDS: hydrALAZINE 20 MG/1 ML INJ IV PRN (03:19)
[2019-06-21] MEDS: MORPHINE 2 MG/1 ML INJ IV PRN (04:00)
--- NOTE | 2019-06-21 04:16 | Cat Scan Report ---
Examination: CT of the head without contrast Clinical information: Altered mental status Comparison: CT of the head, 06/14/2019 Technical: Multiple axial CT images of the head were obtained without intravenous contrast. Sagittal and coronal reformats were obtained. All CTs at this facility utilize dose reduction techniques inc luding automated exposure control, iterative reconstruction and weight based dosing when appropriate to reduce patient radiation dose to as low as reasonable achievable. Findings: There is no CT evidence of acute intracranial hemorrhage. Confluent regions of hypodensity are again noted within both cerebral hemispheres and within the deep white matter, most compatible wi th chronic small vessel ischemic disease and multiple areas of encephalomalacia. There is moderate ge neralized atrophy and concomitant dilatation of the ventricular system. Evaluation of the calvarium demonstrates no evidence of acute bony abnormality. The visualized parana jessica sinuses and mastoid air cells are clear. Impression: 1. Extensive changes associated with chronic small vessel ischemic disease and age-related changes. It would be difficult to evaluate for small areas of ischemia without diffusion-weighted MRI. Signer Name: Ladi Grajeda MD Signed: 06/21/2019 4:12 AM Workstation Name: [id number]
[2019-06-21] MEDS: INSULIN LISPRO 100 UNIT/ML SUB-Q SCH ×3 (07:30→16:30)
--- NOTE | 2019-06-21 09:10 | Event Note ---
Date: 06/21/19 d/c was hold as CT head was not completed CT head done today showed no acute process patient is stable for d/c to SNF
[2019-06-21] MEDS: cefTRIAXone/NS 2 GM/100 ML 2 GM/100 ML BAG IV SCH (09:25)
[2019-06-21] MEDS: TAMSULOSIN 0.4 MG CAP PO SCH (09:26)
[2019-06-21] MEDS: amLODIPine 5 MG TAB PO SCH (09:26)
[2019-06-21] MEDS: ENOXAPARIN 40 MG/0.4 ML INJ SUB-Q SCH (09:26)
[2019-06-21] MEDS: PANTOPRAZOLE 40 MG TAB PO SCH (09:26)
--- NOTE | 2019-06-21 14:18 | Progress Note ---
Assessment and Plan Patient alert, awake. Presently resting on room air.O2 saturation 98%.Patient denies chest pain, shortness of breath or cough. Patient Left AKA. Patient afebrile. No leukocytosis. Patient going home. Can come to my office as out patient for pulmonary fallow up. - Patient Problems (1) Septic shock Current Visit: Yes Status: Acute Plan to address problem: Improved. Recent blood pressure 122/64. (2) Acute renal failure Current Visit: Yes Status: Acute Qualifiers: Acute renal failure type: with acute tubular necrosis Qualified Code(s): N17.0 - Acute kidney failure with tubular necrosis Plan to address problem: Management as per primary care. (3) Altered mental state Current Visit: Yes Status: Acute Qualifiers: Altered mental status type: unspecified Qualified Code(s): R41.82 - Altered mental status, unspecified Plan to address problem: Management as per primary care. (4) Metabolic acidosis Current Visit: Yes Status: Acute Plan to address problem: Improved. (5) SIRS (systemic inflammatory response syndrome) Current Visit: Yes Status: Acute Plan to address problem: Improved. Subjective Date of service: 06/21/19 Principal diagnosis: Septic shock; UTI; DIANA; Ac. Encephalopathy; NSTEMI; Hyperglycemia Interval history: Patient alert, awake. Presently resting on room air.O2 saturation 98%.Patient denies chest pain, shortness of breath or cough. Patient Left AKA. Patient afebrile. No leukocytosis. Patient going home. Can come to my office as out patient for pulmonary fallow up. Objective Vital Signs - 12hr 06/21/19 06/21/19 06/21/19 03:19 05:54 11:31 Temperature 98.1 F 97.0 F L Pulse Rate 77 79 87 Respiratory 20 20 Rate Blood Pressure 172/65 151/72 122/64 O2 Sat by Pulse 98 93 Oximetry Constitutional: no acute distress, alert Eyes: non-icteric ENT: oropharynx moist Neck: supple, no lymphadenopathy, no JVD, other (large neck circumference) Effort: normal Ascultation: Bilateral: diminished breath sounds, rhonchi Percussion: Bilateral: not dull Cardiovascular: regular rate and rhythm, other (S1,S2) Gastrointestinal: normoactive bowel sounds, soft, non-tender, non-distended, other (3-way zayas catheter draining clear urine) Integumentary: normal Extremities: no cyanosis, no edema, no ischemia or petechiae, other (Left AKA) Neurologic: non-focal exam (grossly), pupils equal and round, other (dysarthria but able to make needs known) Psychiatric: mood appropriate, affect normal CBC and BMP: 06/20/19 08:54 06/20/19 08:54 ABG, PT/INR, D-dimer: ABG POC ABG pH 7.403 (7.35-7.45) 06/15/19 14:39 POC ABG pCO2 42.5 (35-45) 06/15/19 14:39 POC ABG pO2 63 (80-105) L 06/15/19 14:39 POC ABG HCO3 26.5 (22-26 mml/L) 06/15/19 14:39 POC ABG Total CO2 28 (23-27mmol/L) 06/15/19 14:39 POC ABG O2 Sat 92 06/15/19 14:39 PT/INR, D-dimer PT 14.6 Sec. (12.2-14.9) 06/17/19 04:12 INR 1.15 (0.87-1.13) H 06/17/19 04:12 Abnormal lab findings: Abnormal Labs 06/14/19 06/14/19 06/14/19 05:17 05:59 05:59 WBC 20.4 H Hct MCV 100 H MCH MCHC Plt Count 110 L Seg Neuts % (Manual) 76.0 H Lymphocytes % (Manual) 2.0 L Seg Neutrophils # Man 15.5 H Lymphocytes # (Manual) 0.4 L PT 19.1 H INR 1.63 H APTT 39.7 H POC ABG pO2 VBG pH Sodium Potassium Carbon Dioxide BUN Creatinine Glucose POC Glucose 422 H Hemoglobin A1c Lactic Acid Calcium Direct Bilirubin AST ALT Troponin T Serum Total Protein Total Protein Albumin PEP Interpretation LDL Cholesterol Direct HDL Cholesterol Urine WBC (Auto) Urine Creatinine 06/14/19 06/14/19 06/14/19 05:59 05:59 05:59 WBC Hct MCV MCH MCHC Plt Count Seg Neuts % (Manual) Lymphocytes % (Manual) Seg Neutrophils # Man Lymphocytes # (Manual) PT INR APTT POC ABG pO2 VBG pH 7.303 L Sodium Potassium Carbon Dioxide 17 L BUN 35 H Creatinine 2.1 H Glucose 397 H POC Glucose Hemoglobin A1c Lactic Acid 6.70 H* Calcium 7.6 L Direct Bilirubin AST 130 H ALT 162 H Troponin T 0.055 H Serum Total Protein Total Protein 5.3 L Albumin 2.6 L PEP Interpretation LDL Cholesterol Direct 49 L HDL Cholesterol 26 L Urine WBC (Auto) Urine Creatinine 06/14/19 06/14/19 06/14/19 08:03 08:03 10:12 WBC Hct MCV MCH MCHC Plt Count Seg Neuts % (Manual) Lymphocytes % (Manual) Seg Neutrophils # Man Lymphocytes # (Manual) PT 19.4 H INR 1.67 H APTT 40.5 H POC ABG pO2 VBG pH Sodium Potassium Carbon Dioxide BUN Creatinine Glucose POC Glucose 180 H Hemoglobin A1c Lactic Acid 5.90 H* Calcium Direct Bilirubin AST ALT Troponin T Serum Total Protein Total Protein Albumin PEP Interpretation LDL Cholesterol Direct HDL Cholesterol Urine WBC (Auto) Urine Creatinine 06/14/19 06/14/19 06/14/19 13:40 13:40 13:51 WBC Hct MCV MCH MCHC Plt Count Seg Neuts % (Manual) Lymphocytes % (Manual) Seg Neutrophils # Man Lymphocytes # (Manual) PT INR APTT POC ABG pO2 VBG pH Sodium Potassium Carbon Dioxide BUN Creatinine Glucose POC Glucose 145 H Hemoglobin A1c Lactic Acid Calcium Direct Bilirubin AST ALT Troponin T Serum Total Protein Total Protein Albumin PEP Interpretation LDL Cholesterol Direct HDL Cholesterol Urine WBC (Auto) > 182.0 H Urine Creatinine 246.7 H 06/14/19 06/14/19 06/15/19 18:31 21:31 04:59 WBC Hct MCV MCH MCHC Plt Count Seg Neuts % (Manual) Lymphocytes % (Manual) Seg Neutrophils # Man Lymphocytes # (Manual) PT INR APTT POC ABG pO2 VBG pH Sodium Potassium Carbon Dioxide BUN Creatinine Glucose POC Glucose 148 H 137 H Hemoglobin A1c Lactic Acid Calcium Direct Bilirubin AST ALT Troponin T Serum Total Protein 4.6 L Total Protein Albumin 2.2 L PEP Interpretation see below H LDL Cholesterol Direct HDL Cholesterol Urine WBC (Auto) Urine Creatinine 06/15/19 06/15/19 06/15/19 09:45 09:45 12:20 WBC 18.1 H Hct 35.2 L MCV 96 H MCH 33 H MCHC Plt Count 94 L Seg Neuts % (Manual) 83.0 H Lymphocytes % (Manual) 3.0 L Seg Neutrophils # Man 15.0 H Lymphocytes # (Manual) 0.5 L PT INR APTT POC ABG pO2 VBG pH Sodium Potassium Carbon Dioxide 21 L BUN 33 H Creatinine Glucose POC Glucose Hemoglobin A1c Lactic Acid Calcium 7.6 L Direct Bilirubin AST 44 H ALT 84 H Troponin T Serum Total Protein Total Protein 5.4 L Albumin 2.4 L PEP Interpretation LDL Cholesterol Direct HDL Cholesterol Urine WBC (Auto) 19.0 H Urine Creatinine 06/15/19 06/16/19 06/16/19 14:39 05:26 05:58 WBC Hct MCV MCH MCHC Plt Count Seg Neuts % (Manual) Lymphocytes % (Manual) Seg Neutrophils # Man Lymphocytes # (Manual) PT INR APTT POC ABG pO2 63 L VBG pH Sodium Potassium 3.5 L Carbon Dioxide BUN 22 H Creatinine 0.7 L Glucose 123 H POC Glucose 119 H Hemoglobin A1c Lactic Acid Calcium 7.9 L Direct Bilirubin AST ALT Troponin T Serum Total Protein Total Protein Albumin PEP Interpretation LDL Cholesterol Direct HDL Cholesterol Urine WBC (Auto) Urine Creatinine 06/16/19 06/16/19 06/16/19 12:01 12:47 18:22 WBC Hct MCV MCH MCHC Plt Count Seg Neuts % (Manual) Lymphocytes % (Manual) Seg Neutrophils # Man Lymphocytes # (Manual) PT INR APTT POC ABG pO2 VBG pH Sodium Potassium Carbon Dioxide BUN Creatinine Glucose POC Glucose 136 H 142 H 142 H Hemoglobin A1c Lactic Acid Calcium Direct Bilirubin AST ALT Troponin T Serum Total Protein Total Protein Albumin PEP Interpretation LDL Cholesterol Direct HDL Cholesterol Urine WBC (Auto) Urine Creatinine 06/17/19 06/17/19 06/17/19 00:19 04:12 04:12 WBC Hct MCV MCH MCHC Plt Count Seg Neuts % (Manual) Lymphocytes % (Manual) Seg Neutrophils # Man Lymphocytes # (Manual) PT INR 1.15 H APTT POC ABG pO2 VBG pH Sodium Potassium Carbon Dioxide BUN Creatinine 0.6 L Glucose 124 H POC Glucose 119 H Hemoglobin A1c Lactic Acid Calcium 8.1 L Direct Bilirubin 0.6 H AST ALT Troponin T Serum Total Protein Total Protein 5.7 L Albumin 2.6 L PEP Interpretation LDL Cholesterol Direct HDL Cholesterol Urine WBC (Auto) Urine Creatinine 06/17/19 06/17/19 06/17/19 05:45 06:59 06:59 WBC Hct MCV 95 H MCH 33 H MCHC Plt Count 82 L Seg Neuts % (Manual) Lymphocytes % (Manual) Seg Neutrophils # Man Lymphocytes # (Manual) PT INR APTT POC ABG pO2 VBG pH Sodium Potassium Carbon Dioxide 21 L BUN Creatinine 0.5 L Glucose 121 H POC Glucose 121 H Hemoglobin A1c Lactic Acid Calcium 8.3 L Direct Bilirubin AST ALT Troponin T Serum Total Protein Total Protein Albumin PEP Interpretation LDL Cholesterol Direct HDL Cholesterol Urine WBC (Auto) Urine Creatinine 06/17/19 06/17/19 06/17/19 12:31 18:11 23:59 WBC Hct MCV MCH MCHC Plt Count Seg Neuts % (Manual) Lymphocytes % (Manual) Seg Neutrophils # Man Lymphocytes # (Manual) PT INR APTT POC ABG pO2 VBG pH Sodium Potassium Carbon Dioxide BUN Creatinine Glucose POC Glucose 159 H 178 H 114 H Hemoglobin A1c Lactic Acid Calcium Direct Bilirubin AST ALT Troponin T Serum Total Protein Total Protein Albumin PEP Interpretation LDL Cholesterol Direct HDL Cholesterol Urine WBC (Auto) Urine Creatinine 06/18/19 06/18/19 06/18/19 04:44 06:44 11:53 WBC Hct MCV MCH MCHC Plt Count Seg Neuts % (Manual) Lymphocytes % (Manual) Seg Neutrophils # Man Lymphocytes # (Manual) PT INR APTT POC ABG pO2 VBG pH Sodium 136 L Potassium Carbon Dioxide BUN 8 L Creatinine 0.5 L Glucose 129 H POC Glucose 121 H 198 H Hemoglobin A1c Lactic Acid Calcium 8.3 L Direct Bilirubin AST ALT Troponin T Serum Total Protein Total Protein Albumin PEP Interpretation LDL Cholesterol Direct HDL Cholesterol Urine WBC (Auto) Urine Creatinine 06/18/19 06/19/19 06/19/19 18:19 00:08 04:55 WBC Hct MCV MCH MCHC Plt Count Seg Neuts % (Manual) Lymphocytes % (Manual) Seg Neutrophils # Man Lymphocytes # (Manual) PT INR APTT POC ABG pO2 VBG pH Sodium Potassium 3.4 L Carbon Dioxide BUN Creatinine 0.5 L Glucose 133 H POC Glucose 141 H 130 H Hemoglobin A1c Lactic Acid Calcium 8.1 L Direct Bilirubin AST ALT Troponin T Serum Total Protein Total Protein Albumin PEP Interpretation LDL Cholesterol Direct HDL Cholesterol Urine WBC (Auto) Urine Creatinine 06/19/19 06/19/19 06/19/19 04:55 05:40 08:16 WBC Hct MCV 95 H MCH 33 H MCHC 35 H Plt Count 78 L Seg Neuts % (Manual) Lymphocytes % (Manual) Seg Neutrophils # Man Lymphocytes # (Manual) PT INR APTT POC ABG pO2 VBG pH Sodium Potassium Carbon Dioxide BUN Creatinine Glucose POC Glucose 126 H 127 H Hemoglobin A1c Lactic Acid Calcium Direct Bilirubin AST ALT Troponin T Serum Total Protein Total Protein Albumin PEP Interpretation LDL Cholesterol Direct HDL Cholesterol Urine WBC (Auto) Urine Creatinine 06/19/19 06/19/19 06/20/19 11:37 16:33 08:27 WBC Hct MCV MCH MCHC Plt Count Seg Neuts % (Manual) Lymphocytes % (Manual) Seg Neutrophils # Man Lymphocytes # (Manual) PT INR APTT POC ABG pO2 VBG pH Sodium Potassium Carbon Dioxide BUN Creatinine Glucose POC Glucose 229 H 129 H 114 H Hemoglobin A1c Lactic Acid Calcium Direct Bilirubin AST ALT Troponin T Serum Total Protein Total Protein Albumin PEP Interpretation LDL Cholesterol Direct HDL Cholesterol Urine WBC (Auto) Urine Creatinine 06/20/19 06/20/19 06/20/19 08:54 08:54 08:54 WBC Hct MCV MCH 33 H MCHC 35 H Plt Count 105 L Seg Neuts % (Manual) Lymphocytes % (Manual) Seg Neutrophils # Man Lymphocytes # (Manual) PT INR APTT POC ABG pO2 VBG pH Sodium Potassium Carbon Dioxide BUN Creatinine 0.5 L Glucose 111 H POC Glucose Hemoglobin A1c 7.0 H Lactic Acid Calcium Direct Bilirubin AST ALT Troponin T Serum Total Protein Total Protein Albumin PEP Interpretation LDL Cholesterol Direct HDL Cholesterol Urine WBC (Auto) Urine Creatinine 06/20/19 06/20/19 06/20/19 12:22 16:39 21:43 WBC Hct MCV MCH MCHC Plt Count Seg Neuts % (Manual) Lymphocytes % (Manual) Seg Neutrophils # Man Lymphocytes # (Manual) PT INR APTT POC ABG pO2 VBG pH Sodium Potassium Carbon Dioxide BUN Creatinine Glucose POC Glucose 179 H 141 H 234 H Hemoglobin A1c Lactic Acid Calcium Direct Bilirubin AST ALT Troponin T Serum Total Protein Total Protein Albumin PEP Interpretation LDL Cholesterol Direct HDL Cholesterol Urine WBC (Auto) Urine Creatinine 06/21/19 06/21/19 08:03 11:42 WBC Hct MCV MCH MCHC Plt Count Seg Neuts % (Manual) Lymphocytes % (Manual) Seg Neutrophils # Man Lymphocytes # (Manual) PT INR APTT POC ABG pO2 VBG pH Sodium Potassium Carbon Dioxide BUN Creatinine Glucose POC Glucose 133 H 172 H Hemoglobin A1c Lactic Acid Calcium Direct Bilirubin AST ALT Troponin T Serum Total Protein Total Protein Albumin PEP Interpretation LDL Cholesterol Direct HDL Cholesterol Urine WBC (Auto) Urine Creatinine Chest x-ray: report reviewed (Nopleural, parenchymal changes seen. No Pneumothor ax.), image reviewed Allied health notes reviewed: nursing
[2019-06-21 17:50] VITALS: BP 112/52
== END 2019-06-21 18:47 | DRG 698 ==
LOC: ED 02:41 → 3A 08:05 → CC1 10:08 → IMCU 06-16 19:14 → 3A 06-19 16:10
PROVIDERS: ADMIT Internal Medicine; ATTEND Internal Medicine
PROC: 06HY33Z Insertion of Infusion Device into Lower Vein, Percutaneous Approach (ICD-10-PCS; 2019-06-14)
PROC: B54BZZA Ultrasonography of Right Lower Extremity Veins, Guidance (ICD-10-PCS; 2019-06-14)
PROC: 0T2BX0Z Change Drainage Device in Bladder, External Approach (ICD-10-PCS; 2019-06-14)
PROC: 4A033R1 Measurement of Arterial Saturation, Peripheral, Percutaneous Approach (ICD-10-PCS; principal; 2019-06-15)
DX: T83.511A Infection and inflammatory reaction due to indwelling urethral catheter, initial encounter (principal); A41.50 Gram-negative sepsis, unspecified; R65.21 Severe sepsis with septic shock; N17.0 Acute kidney failure with tubular necrosis; G92 Toxic encephalopathy; I21.A1 Myocardial infarction type 2; K72.00 Acute and subacute hepatic failure without coma; I69.354 Hemiplegia and hemiparesis following cerebral infarction affecting left non-dominant side; I95.9 Hypotension, unspecified; I10 Essential (primary) hypertension; I25.10 Atherosclerotic heart disease of native coronary artery without angina pectoris; Y83.8 Other surgical procedures as the cause of abnormal reaction of the patient, or of later complication, without mention of misadventure at the time of the procedure; E11.65 Type 2 diabetes mellitus with hyperglycemia; E78.5 Hyperlipidemia, unspecified; J40 Bronchitis, not specified as acute or chronic; E86.0 Dehydration; R31.0 Gross hematuria; M10.9 Gout, unspecified; N39.0 Urinary tract infection, site not specified; R74.0 Nonspecific elevation of levels of transaminase and lactic acid dehydrogenase [LDH]; E87.6 Hypokalemia; Z89.612 Acquired absence of left leg above knee; Z95.1 Presence of aortocoronary bypass graft; Z79.899 Other long term (current) drug therapy; Y92.89 Other specified places as the place of occurrence of the external cause
CPT/HCPCS: 36415; 36600; 70450; 71045; 76700; 76770; 80048; 80053; 80061; 80074; 80076; 80202; 81001; 82140; 82570; 82803; 82805; 82962; 83036; 84165; 84300; 84484; 85007; 85025; 85027; 85610; 85730; 86021; 86038; 86160; 86225; 87040; 87076; 87086; 87186; 89050; 93005; 93010; 93306; 94760; 96361; 96365; 96367; 96375; G0378; A4217; C9113; J0360; J0692; J0696; J1335; J1650; J1815; J2270; J2543; J3370; J7030; J7050

== ENCOUNTER 2021-04-11 14:13 | Inpatient (IN) | payer MEDICARE ==
--- NOTE | 2021-04-11 16:25 | XRay Report ---
CHEST 1 VIEW 04/11/2021 3:17 PM INDICATION / CLINICAL INFORMATION: hypoxia. COMPARISON: None available. FINDINGS: SUPPORT DEVICES: None. HEART / MEDIASTINUM: Normal heart size. Previous median sternotomy and CABG. LUNGS / PLEURA: No significant pulmonary or pleural abnormality. No pneumothorax. ADDITIONAL FINDINGS: No significant additional findings. IMPRESSION: 1. No acute findings. Signer Name: Misbah Springer MD Signed: 04/11/2021 4:21 PM Workstation Name: [id number]
--- NOTE | 2021-04-11 16:25 | XRay Report ---
XR foot 2V RT INDICATION: gangrene. COMPARISON: None available. FINDINGS: There appears to be some soft tissue gas in the great toe as well as in the plantar aspect of the kimberlyn t. There is diffuse subjective osteopenia but there is no definite focal bone destruction to suggest osteomyelitis. There is mild DJD in the tibiotalar joint. Signer Name: Misbah Springer MD Signed: 04/11/2021 4:20 PM Workstation Name: [id number]
[2021-04-11 16:32] LABS: Hematocrit 27.8 % (35.5-45.6); Mean Corpuscular HGB Conc 32 % (32-34); Mean Corpuscular Volume 91 fl (84-94); Platelet Count 365 K/mm3 (140-440); Red Blood Count 3.05 M/mm3 (3.65-5.03); Red Cell Distribution Width 16.2 % (13.2-15.2)
[2021-04-11] MEDS ORDERED: CEFEPIME/NS 1 GM/100 ML 1 GM/100 ML BAG IV ONE (16:45)
[2021-04-11 16:50] LABS: BUN/Creatinine Ratio 28; Blood Urea Nitrogen 31 mg/dL (9-20); Calcium 8.6 mg/dL (8.4-10.2); Hemolysis Index 0
[2021-04-11 16:51] LABS: INR 1.27 (0.87-1.13)
[2021-04-11 16:52] LABS: Partial Thromboplastin Time 32.3 Sec. (24.2-36.6)
[2021-04-11] MEDS ORDERED: VANCOMYCIN 1,250 MG in SODIUM CHLORIDE 0.9% 500 ML 500 ML IV ONE (17:00)
--- NOTE | 2021-04-11 17:18 | Emergency Department Report ---
ED Extremity Problem HPI - General Chief complaint: Extremity Injury, Lower Stated complaint: GANGRENE Time Seen by Provider: 04/11/21 14:52 Source: EMS Mode of arrival: Stretcher Limitations: Other - History of Present Illness Initial comments: 65-year-old male, history of diabetes, dementia, CVA with left-sided weakness, hypertension, left AKA, CAD, presents to ED from [facility] with report of gangrene to the right foot. Daughter, Brandon Christianson ([phone]) is at bedside. She states patient has had some gangrene to the right foot previously. Daughter states patient has been seen at wound care. Daughter has a picture of patient's foot from 1 month ago. She reports the anterior aspect of the foot along with the second through fifth toes were gangrenous and black at that time, but the great toe and patient's heel were not. Now, the great toe and heel are involved. Patient has been experiencing increasing pain. MD Complaint: extremity pain -: unknown Location: right, other (Foot) History of Same: Yes Consistency: constant Worsens with: palpation - Related Data Home Medications Medication Instructions Recorded Confirmed Last Taken Atorvastatin Calcium [Lipitor] 80 mg PO HS 06/16/19 08/16/19 Unknown Colace CAP 200 mg PO BID 06/16/19 08/16/19 Unknown Dicyclomine [Bentyl] 20 mg PO Q6HR PRN 06/16/19 08/16/19 Unknown Ezetimibe [Zetia] 10 mg PO HS 06/16/19 08/16/19 Unknown Losartan Potassium 100 mg PO DAILY 06/16/19 08/16/19 Unknown Maalox Advanced Suspension 5 ml PO Q6HR PRN 06/16/19 08/16/19 Unknown Melatonin 5 mg PO HS 06/16/19 08/16/19 Unknown Plavix 75 mg PO DAILY 06/16/19 08/16/19 Unknown Polyethylene Glycol 3350 1 packet PO DAILY PRN 06/16/19 08/16/19 Unknown TEGretol 200 mg PO DAILY 06/16/19 08/16/19 Unknown Vaseline White Petroleum 1 applicatio BID PRN 06/16/19 08/16/19 Unknown allopurinoL [Zyloprim] 300 mg PO QDAY 06/16/19 08/16/19 Unknown carvediloL [Coreg] 12.5 mg PO BID 06/16/19 08/16/19 Unknown Previous Rx's Medication Instructions Recorded Last Taken Type ALBUTEROL NEB's [Proventil 0.083% 2.5 mg IH Q4HRT PRN nebu 06/20/19 Unknown Rx NEBS] Pantoprazole [Protonix TAB] 40 mg PO DAILY tablet 06/20/19 Unknown Rx Sulfamethoxazole/Trimethoprim 1 each PO BID #14 tablet 06/20/19 Unknown Rx [Bactrim DS TAB] Tamsulosin [Flomax] 0.4 mg PO QDAY capsule 06/20/19 Unknown Rx amLODIPine 5 mg PO QDAY tablet 06/20/19 Unknown Rx Aspirin EC [Halfprin EC] 81 mg PO QDAY #30 tablet 08/22/19 Unknown Rx Insulin Detemir [Levemir Flextouch] 12 unit SQ QHS #1 insuln.pen 08/22/19 Unknown Rx oxyCODONE /ACETAMINOPHEN [Percocet 1 tab PO Q6H PRN #14 tablet 08/22/19 Unknown Rx 5/325 mg] Allergies Allergy/AdvReac Type Severity Reaction Status Date / Time No Known Allergies Allergy Verified 04/11/21 15:34 ED Review of Systems ROS: Stated complaint: REKHA/HEART RATE LOW Other details as noted in HPI Comment: Unobtainable due to pts medical conditions (Dementia) Musculoskeletal: as per HPI ED Past Medical Hx - Past Medical History Hx Hypertension: Yes Hx CVA: Yes Hx Diabetes: Yes (Insulin) Hx Deep Vein Thrombosis: No Hx Arthritis: Yes Hx Seizures: Yes Hx Asthma: No Hx HIV: No Additional medical history: muscle weakness, urineary retention, hyperlipidemia, gout, prostate disorder, - Surgical History Hx Open Heart Surgery: Yes Hx Pacemaker: No Hx Internal Defibrillator: No Additional Surgical History: atherosclerosis CAD bypass graft, left above the knee amputation - Social History Smoking Status: Never Smoker Substance Use Type: None - Medications Home Medications: Home Medications Medication Instructions Recorded Confirmed Last Taken Type Atorvastatin Calcium [Lipitor] 80 mg PO HS 06/16/19 08/16/19 Unknown History Colace CAP 200 mg PO BID 06/16/19 08/16/19 Unknown History Dicyclomine [Bentyl] 20 mg PO Q6HR PRN 06/16/19 08/16/19 Unknown History Ezetimibe [Zetia] 10 mg PO HS 06/16/19 08/16/19 Unknown History Losartan Potassium 100 mg PO DAILY 06/16/19 08/16/19 Unknown History Maalox Advanced Suspension 5 ml PO Q6HR PRN 06/16/19 08/16/19 Unknown History Melatonin 5 mg PO HS 06/16/19 08/16/19 Unknown History Plavix 75 mg PO DAILY 06/16/19 08/16/19 Unknown History Polyethylene Glycol 3350 1 packet PO DAILY PRN 06/16/19 08/16/19 Unknown History TEGretol 200 mg PO DAILY 06/16/19 08/16/19 Unknown History Vaseline White Petroleum 1 applicatio BID PRN 06/16/19 08/16/19 Unknown History allopurinoL [Zyloprim] 300 mg PO QDAY 06/16/19 08/16/19 Unknown History carvediloL [Coreg] 12.5 mg PO BID 06/16/19 08/16/19 Unknown History ALBUTEROL NEB's [Proventil 0.083% 2.5 mg IH Q4HRT PRN nebu 06/20/19 08/16/19 Unknown Rx NEBS] Pantoprazole [Protonix TAB] 40 mg PO DAILY tablet 06/20/19 08/16/19 Unknown Rx Sulfamethoxazole/Trimethoprim 1 each PO BID #14 tablet 06/20/19 08/16/19 Unknown Rx [Bactrim DS TAB] Tamsulosin [Flomax] 0.4 mg PO QDAY capsule 06/20/19 08/16/19 Unknown Rx amLODIPine 5 mg PO QDAY tablet 06/20/19 08/16/19 Unknown Rx Aspirin EC [Halfprin EC] 81 mg PO QDAY #30 tablet 08/22/19 Unknown Rx Insulin Detemir [Levemir Flextouch] 12 unit SQ QHS #1 insuln.pen 08/22/19 Unknown Rx oxyCODONE /ACETAMINOPHEN [Percocet 1 tab PO Q6H PRN #14 tablet 08/22/19 Unknown Rx 5/325 mg] ED Physical Exam - General Limitations: Other General appearance: alert, in no apparent distress - Head Head exam: Present: atraumatic, normocephalic - Eye Eye exam: Present: normal appearance - ENT ENT exam: Present: mucous membranes moist - Neck Neck exam: Present: normal inspection - Respiratory Respiratory exam: Present: normal lung sounds bilaterally. Absent: respiratory distress - Cardiovascular Cardiovascular Exam: Present: regular rate, normal rhythm - GI/Abdominal GI/Abdominal exam: Present: soft. Absent: distended, tenderness - Extremities Exam Extremities exam: Present: other (Left AKA present; dry gangrene noted to the right forefoot and heel) - Neurological Exam Neurological exam: Present: alert, other (Daughter states patient is at his baseline; ) - Psychiatric Psychiatric exam: Present: normal affect, normal mood - Skin Skin exam: Present: warm, dry ED Course Vital Signs 04/11/21 04/11/21 04/11/21 15:13 15:16 15:30 Temperature Pulse Rate Blood Pressure 112/53 101/50 O2 Sat by Pulse 100 96 92 Oximetry 04/11/21 04/11/21 04/11/21 15:32 15:46 16:00 Temperature 98.5 F Pulse Rate 88 Blood Pressure 111/48 113/48 O2 Sat by Pulse 91 91 Oximetry 04/11/21 16:16 Temperature Pulse Rate Blood Pressure 118/55 O2 Sat by Pulse 91 Oximetry - Consultations Consultation #1: 04/11/21 17:[address] Huntley, vascular surgeon. States he will consult on the patient. ED Medical Decision Making - Lab Data Result diagrams: 04/11/21 16:09 04/11/21 16:09 - Radiology Data Radiology results: report reviewed, image reviewed - Medical Decision Making 65-year-old male presents to ED with gangrene of the right forefoot and heel. Vital signs stable. Patient has white count 23.4. Vancomycin and cefepime given. I spoke with Dr. Thompson, vascular surgeon who will consult on the patient. Patient will likely need amputation. Patient will be admitted to hospitalist, Dr. Hou, for further management. - Differential Diagnosis Gangrene, osteomyelitis, sepsis Critical care attestation.: If time is entered above; I have spent that time in minutes in the direct care of this critically ill patient, excluding procedure time. ED Disposition Clinical Impression: Gangrene of right foot Disposition: ADMITTED INPATIENT Is pt being admited?: Yes Condition: Stable Time of Disposition: 17:30
--- NOTE | 2021-04-11 17:26 | History and Physical Report ---
History of Present Illness Date of examination: 04/11/21 Chief complaint: right foot gangrene History of present illness: 65-year-old male presents to ED from group home with report of gangrene to the right foot. Daughter, Brandon Christianson ([phone]) is at bedside. She states patient has had some gangrene to the right foot previously. States patient has been seen at wound care. Patient has a picture of patient's foot from 1 month ago. She reports the anterior aspect of the foot along with the second through fifth toes were gangrenous and black at that time, but the great toe and p atient's heel were not. Medications and Allergies Allergies Allergy/AdvReac Type Severity Reaction Status Date / Time No Known Allergies Allergy Verified 04/11/21 15:34 Home Medications Medication Instructions Recorded Confirmed Last Taken Type Atorvastatin Calcium [Lipitor] 80 mg PO HS 06/16/19 08/16/19 Unknown History Colace CAP 200 mg PO BID 06/16/19 08/16/19 Unknown History Dicyclomine [Bentyl] 20 mg PO Q6HR PRN 06/16/19 08/16/19 Unknown History Ezetimibe [Zetia] 10 mg PO HS 06/16/19 08/16/19 Unknown History Losartan Potassium 100 mg PO DAILY 06/16/19 08/16/19 Unknown History Maalox Advanced Suspension 5 ml PO Q6HR PRN 06/16/19 08/16/19 Unknown History Melatonin 5 mg PO HS 06/16/19 08/16/19 Unknown History Plavix 75 mg PO DAILY 06/16/19 08/16/19 Unknown History Polyethylene Glycol 3350 1 packet PO DAILY PRN 06/16/19 08/16/19 Unknown History TEGretol 200 mg PO DAILY 06/16/19 08/16/19 Unknown History Vaseline White Petroleum 1 applicatio BID PRN 06/16/19 08/16/19 Unknown History allopurinoL [Zyloprim] 300 mg PO QDAY 06/16/19 08/16/19 Unknown History carvediloL [Coreg] 12.5 mg PO BID 06/16/19 08/16/19 Unknown History ALBUTEROL NEB's [Proventil 0.083% 2.5 mg IH Q4HRT PRN nebu 06/20/19 08/16/19 Unknown Rx NEBS] Pantoprazole [Protonix TAB] 40 mg PO DAILY tablet 06/20/19 08/16/19 Unknown Rx Sulfamethoxazole/Trimethoprim 1 each PO BID #14 tablet 06/20/19 08/16/19 Unknown Rx [Bactrim DS TAB] Tamsulosin [Flomax] 0.4 mg PO QDAY capsule 06/20/19 08/16/19 Unknown Rx amLODIPine 5 mg PO QDAY tablet 06/20/19 08/16/19 Unknown Rx Aspirin EC [Halfprin EC] 81 mg PO QDAY #30 tablet 08/22/19 Unknown Rx Insulin Detemir [Levemir Flextouch] 12 unit SQ QHS #1 insuln.pen 08/22/19 Unknown Rx oxyCODONE /ACETAMINOPHEN [Percocet 1 tab PO Q6H PRN #14 tablet 08/22/19 Unknown Rx 5/325 mg] Active Meds: Active Medications Vancomycin HCl 1,250 mg/ (Sodium Chloride) 275 mls @ 166.667 mls/hr IV ONCE ONE Stop: 04/11/21 19:08 Exam - Constitutional Vitals: Temp Pulse Resp BP Pulse Ox 98.5 F 88 118/55 91 04/11/21 15:32 04/11/21 15:32 04/11/21 16:16 04/11/21 16:16 Results - Labs CBC & Chem 7: 04/11/21 16:09 04/11/21 16:09 Labs: Abnormal lab results 04/11/21 04/11/21 04/11/21 Range/Units 16:09 16:09 16:09 WBC 23.4 H (4.5-11.0) K/mm3 RBC 3.05 L (3.65-5.03) M/mm3 Hgb 9.0 L (11.8-15.2) gm/dl Hct 27.8 L (35.5-45.6) % RDW 16.2 H (13.2-15.2) % PT 16.4 H (12.2-14.9) Sec. INR 1.27 H (0.87-1.13) Sodium 134 L (137-145) mmol/L Potassium 5.1 H (3.6-5.0) mmol/L BUN 31 H (9-20) mg/dL Glucose 357 H (75-100) mg/dL Assessment and Plan Right Foot Dry gangrene Sepsis
[2021-04-11] MEDS ORDERED: VANCOMYCIN 1,250 MG in SODIUM CHLORIDE 0.9% 250ML 250 ML IV ONE (17:30)
[2021-04-11] MEDS ORDERED: ONDANSETRON 4 MG/2 ML INJ IV PRN (17:37)
[2021-04-11] MEDS ORDERED: oxyCODONE /ACETAMINOPHEN 5-325MG TAB PO PRN (17:37)
[2021-04-11] MEDS ORDERED: ACETAMINOPHEN 325 MG TAB PO PRN (17:37)
[2021-04-11] MEDS: VANCOMYCIN/NS 1 GM/250 ML 1 GM/250 ML BAG IV SCH (19:05)
[2021-04-11 19:48] LABS: RBC Morphology Normal; Total Cells Counted 100
[2021-04-11] MEDS: HEPARIN 5,000 UNIT/1 ML VIAL SUB-Q SCH (23:13)
[2021-04-11] MEDS: FAMOTIDINE 10 MG TAB PO SCH (23:13)
[2021-04-11] MEDS: SODIUM CHLORIDE 0.9% 1000 ML 1,000 ML IV SCH (23:14)
[2021-04-12] MEDS: CEFEPIME/NS 1 GM/100 ML 1 GM/100 ML BAG IV SCH ×3 (01:40→19:02)
[2021-04-12] MEDS: MORPHINE 2 MG/1 ML INJ IV PRN ×2 (04:30→23:01)
[2021-04-12] MEDS: HEPARIN 5,000 UNIT/1 ML VIAL SUB-Q SCH ×3 (05:33→23:02)
[2021-04-12 06:12] LABS: BUN/Creatinine Ratio 30; Blood Urea Nitrogen 33 mg/dL (9-20); Calcium 8.2 mg/dL (8.4-10.2); Hemolysis Index 0
[2021-04-12] MEDS: VANCOMYCIN/NS 1 GM/250 ML 1 GM/250 ML BAG IV SCH ×2 (06:52→20:24)
[2021-04-12] MEDS: FAMOTIDINE 10 MG TAB PO SCH ×2 (10:46→23:02)
[2021-04-12] MEDS: SODIUM CHLORIDE 0.9% 1000 ML 1,000 ML IV SCH (11:35)
--- NOTE | 2021-04-12 14:33 | Progress Note ---
Assessment and Plan Right Foot Dry gangrene Sepsis Daily clinical course: 04/12/21: Continue empiric antibiotics, continue IV fluid. Vascular ID consulted will follow recommendation. Wound culture pending. Subjective Date of service: 04/12/21 Objective - Constitutional Vitals: Vital Signs - 12hr 04/12/21 04/12/21 04/12/21 02:46 03:00 03:16 Pulse Rate Respiratory Rate Blood Pressure 104/29 104/58 104/58 Blood Pressure [Right] O2 Sat by Pulse 100 97 93 Oximetry 04/12/21 04/12/21 04/12/21 03:30 03:46 04:00 Pulse Rate Respiratory Rate Blood Pressure 104/58 104/58 119/53 Blood Pressure [Right] O2 Sat by Pulse 93 95 98 Oximetry 04/12/21 04/12/21 04/12/21 04:16 04:30 04:46 Pulse Rate Respiratory Rate Blood Pressure 119/53 119/53 119/53 Blood Pressure [Right] O2 Sat by Pulse 98 96 99 Oximetry 04/12/21 04/12/21 04/12/21 05:00 05:16 05:30 Pulse Rate Respiratory Rate Blood Pressure 109/68 109/68 119/53 Blood Pressure [Right] O2 Sat by Pulse 87 97 97 Oximetry 04/12/21 04/12/21 04/12/21 05:46 06:00 06:16 Pulse Rate Respiratory Rate Blood Pressure 119/53 157/77 157/77 Blood Pressure [Right] O2 Sat by Pulse 98 97 98 Oximetry 04/12/21 04/12/21 04/12/21 07:00 07:32 07:46 Pulse Rate Respiratory Rate Blood Pressure 152/62 157/77 157/77 Blood Pressure [Right] O2 Sat by Pulse 99 98 96 Oximetry 04/12/21 04/12/21 04/12/21 08:00 08:30 09:16 Pulse Rate Respiratory Rate Blood Pressure 144/98 139/59 158/63 Blood Pressure [Right] O2 Sat by Pulse 96 98 100 Oximetry 04/12/21 04/12/21 04/12/21 09:46 10:00 10:16 Pulse Rate Respiratory Rate Blood Pressure 158/63 135/60 135/60 Blood Pressure [Right] O2 Sat by Pulse 97 97 100 Oximetry 04/12/21 04/12/21 04/12/21 10:30 10:46 11:00 Pulse Rate Respiratory Rate Blood Pressure 135/60 135/60 129/50 Blood Pressure [Right] O2 Sat by Pulse 99 98 Oximetry 04/12/21 04/12/21 11:16 11:45 Pulse Rate 84 Respiratory 25 H Rate Blood Pressure 129/50 Blood Pressure 158/67 [Right] O2 Sat by Pulse 97 97 Oximetry - Labs CBC & Chem 7: 04/11/21 16:09 04/12/21 05:20 Labs: Abnormal lab results 04/11/21 04/11/21 04/11/21 Range/Units 16:09 16:09 16:09 WBC 23.4 H (4.5-11.0) K/mm3 RBC 3.05 L (3.65-5.03) M/mm3 Hgb 9.0 L (11.8-15.2) gm/dl Hct 27.8 L (35.5-45.6) % RDW 16.2 H (13.2-15.2) % Seg Neuts % (Manual) 89.0 H (40.0-70.0) % Lymphocytes % (Manual) 5.0 L (13.4-35.0) % Seg Neutrophils # Man 20.8 H (1.8-7.7) K/mm3 Monocytes # (Manual) 1.4 H (0.0-0.8) K/mm3 PT 16.4 H (12.2-14.9) Sec. INR 1.27 H (0.87-1.13) Sodium 134 L (137-145) mmol/L Potassium 5.1 H (3.6-5.0) mmol/L BUN 31 H (9-20) mg/dL Glucose 357 H (75-100) mg/dL Calcium (8.4-10.2) mg/dL 04/12/21 Range/Units 05:20 WBC (4.5-11.0) K/mm3 RBC (3.65-5.03) M/mm3 Hgb (11.8-15.2) gm/dl Hct (35.5-45.6) % RDW (13.2-15.2) % Seg Neuts % (Manual) (40.0-70.0) % Lymphocytes % (Manual) (13.4-35.0) % Seg Neutrophils # Man (1.8-7.7) K/mm3 Monocytes # (Manual) (0.0-0.8) K/mm3 PT (12.2-14.9) Sec. INR (0.87-1.13) Sodium 132 L (137-145) mmol/L Potassium (3.6-5.0) mmol/L BUN 33 H (9-20) mg/dL Glucose 260 H (75-100) mg/dL Calcium 8.2 L (8.4-10.2) mg/dL
--- NOTE | 2021-04-12 15:38 | Consultation ---
History of Present Illness - Reason for Consult Consult date: 04/12/21 Dry gangrene of the right lower extremity Requesting physician: SHOLA RAMESH - History of Present Illness 65-year-old male with gangrene of the right lower extremity who was sent to the emergency room from long term. Patient has had gangrene of the right lower extremity in the past and has endovascular revascularization and then was lost to follow-up likely secondary to Covid. Since endovascular revascularization, the patient appears to have declined. He developed a right knee contracture and a right hip contracture. There is also been worsening of the gangrene which is now involving the heel and the entire forefoot with dry gangrene. The interface between the midfoot and the forefoot has some erythema. There is a left above-knee amputation which is well-healed with a contracture. The patient does not respond to questions and hollers with progressive increasing volume. Nonpalpable right pedal pulses although patient moved and hollered making palpation difficult. I attempted to palpate his femoral pulses, but he proceeded to holler, move, making pulse evaluation difficult. Upon review of his prior imaging, his femoral pulses should be present. This is adequate for above-knee amputation. ROS: Stated complaint: REKHA/HEART RATE LOW Other details as noted in HPI Comment: Unobtainable due to pts medical conditions (Dementia) Musculoskeletal: as per HPI Past Medical History Hx Hypertension: Yes Hx CVA: Yes Hx Diabetes: Yes (Insulin) Hx Deep Vein Thrombosis: No Hx Arthritis: Yes Hx Seizures: Yes Hx Asthma: No Hx HIV: No Additional medical history: muscle weakness, urineary retention, hyperlipidemia, gout, prostate disorder, Surgical History Hx Open Heart Surgery: Yes Hx Pacemaker: No Hx Internal Defibrillator: No Additional Surgical History: atherosclerosis CAD bypass graft, left above the knee amputation Social History Smoking Status: Never Smoker Substance Use Type: None Medications and Allergies Allergies Allergy/AdvReac Type Severity Reaction Status Date / Time No Known Allergies Allergy Verified 04/11/21 15:34 Home Medications Medication Instructions Recorded Confirmed Last Taken Type Atorvastatin Calcium [Lipitor] 80 mg PO HS 06/16/19 08/16/19 Unknown History Colace CAP 200 mg PO BID 06/16/19 08/16/19 Unknown History Dicyclomine [Bentyl] 20 mg PO Q6HR PRN 06/16/19 08/16/19 Unknown History Ezetimibe [Zetia] 10 mg PO HS 06/16/19 08/16/19 Unknown History Losartan Potassium 100 mg PO DAILY 06/16/19 08/16/19 Unknown History Maalox Advanced Suspension 5 ml PO Q6HR PRN 06/16/19 08/16/19 Unknown History Melatonin 5 mg PO HS 06/16/19 08/16/19 Unknown History Plavix 75 mg PO DAILY 06/16/19 08/16/19 Unknown History Polyethylene Glycol 3350 1 packet PO DAILY PRN 06/16/19 08/16/19 Unknown History TEGretol 200 mg PO DAILY 06/16/19 08/16/19 Unknown History Vaseline White Petroleum 1 applicatio BID PRN 06/16/19 08/16/19 Unknown History allopurinoL [Zyloprim] 300 mg PO QDAY 06/16/19 08/16/19 Unknown History carvediloL [Coreg] 12.5 mg PO BID 06/16/19 08/16/19 Unknown History ALBUTEROL NEB's [Proventil 0.083% 2.5 mg IH Q4HRT PRN nebu 06/20/19 08/16/19 Unknown Rx NEBS] Pantoprazole [Protonix TAB] 40 mg PO DAILY tablet 06/20/19 08/16/19 Unknown Rx Sulfamethoxazole/Trimethoprim 1 each PO BID #14 tablet 06/20/19 08/16/19 Unknown Rx [Bactrim DS TAB] Tamsulosin [Flomax] 0.4 mg PO QDAY capsule 06/20/19 08/16/19 Unknown Rx amLODIPine 5 mg PO QDAY tablet 06/20/19 08/16/19 Unknown Rx Aspirin EC [Halfprin EC] 81 mg PO QDAY #30 tablet 08/22/19 Unknown Rx Insulin Detemir [Levemir Flextouch] 12 unit SQ QHS #1 insuln.pen 08/22/19 Unknown Rx oxyCODONE /ACETAMINOPHEN [Percocet 1 tab PO Q6H PRN #14 tablet 08/22/19 Unknown Rx 5/325 mg] Active Meds: Active Medications Acetaminophen (Acetaminophen 325 Mg Tab) 650 mg PO Q4H PRN PRN Reason: Pain MILD(1-3)/Fever >100.5/GONZALEZ Famotidine (Famotidine 10 Mg Tab) 10 mg PO BID [facility] Last Admin: 04/12/21 10:46 Dose: Not Given Documented by: Heparin Sodium (Porcine) (Heparin 5,000 Unit/1 Ml Vial) 5,000 unit SUB-Q Q8HR [facility] Last Admin: 04/12/21 05:33 Dose: 5,000 unit Documented by: Hydralazine HCl (Hydralazine 20 Mg/1 Ml Inj) 5 mg IV Q30MIN PRN PRN Reason: Hypertension Vancomycin HCl (Vancomycin/Ns 1 Gm/250 Ml) 1 gm in 250 mls @ 166.667 mls/hr IV Q12H [facility]; Protocol Last Admin: 04/12/21 06:52 Dose: 166.667 mls/hr Documented by: Cefepime HCl (Cefepime/Ns 1 Gm/100 Ml) 1 gm in 100 mls @ 200 mls/hr IV Q8H [facility]; Protocol Last Admin: 04/12/21 11:32 Dose: 200 mls/hr Documented by: Dextrose/Sodium Chloride (D5ns) 1,000 mls @ 75 mls/hr IV DIRECT [facility] Morphine Sulfate (Morphine 2 Mg/1 Ml Inj) 2 mg IV Q4H PRN PRN Reason: Pain, Moderate (4-6) Last Admin: 04/12/21 04:30 Dose: 2 mg Documented by: Ondansetron HCl (Ondansetron 4 Mg/2 Ml Inj) 4 mg IV Q8H PRN PRN Reason: N/V unrelieved by Reglan Oxycodone/Acetaminophen (Oxycodone /Acetaminophen 5-325mg Tab) 1 tab PO Q6H PRN PRN Reason: Pain, Moderate (4-6) Last Admin: 04/11/21 23:13 Dose: 1 tab Documented by: Review of Systems ROS unobtainable: due to mental status Exam - Constitutional Vitals: Temp Pulse Resp BP Pulse Ox 100.3 F H 84 25 H 158/67 97 04/11/21 23:38 04/12/21 11:45 04/12/21 11:45 04/12/21 11:45 04/12/21 11:45 General appearance: Present: other (Hollering loudly, unclear if in distress due to severe dementia) - EENT Eyes: Present: EOM intact - Respiratory Respiratory effort: normal - Extremities Extremities: abnormal (see HPI) Peripheral Pulses: abnormal (see HPI) - Abdominal General gastrointestinal: Present: soft, other (Obese) - Psychiatric Psychiatric: no appropriate mood/affect, no intact judgment & insight, no memory intact, agitated Results - Labs CBC & Chem 7: 04/11/21 16:09 04/12/21 05:20 Labs: Abnormal lab results 04/11/21 04/11/21 04/11/21 Range/Units 16:09 16:09 16:09 WBC 23.4 H (4.5-11.0) K/mm3 RBC 3.05 L (3.65-5.03) M/mm3 Hgb 9.0 L (11.8-15.2) gm/dl Hct 27.8 L (35.5-45.6) % RDW 16.2 H (13.2-15.2) % Seg Neuts % (Manual) 89.0 H (40.0-70.0) % Lymphocytes % (Manual) 5.0 L (13.4-35.0) % Seg Neutrophils # Man 20.8 H (1.8-7.7) K/mm3 Monocytes # (Manual) 1.4 H (0.0-0.8) K/mm3 PT 16.4 H (12.2-14.9) Sec. INR 1.27 H (0.87-1.13) Sodium 134 L (137-145) mmol/L Potassium 5.1 H (3.6-5.0) mmol/L BUN 31 H (9-20) mg/dL Glucose 357 H (75-100) mg/dL Calcium (8.4-10.2) mg/dL 04/12/21 Range/Units 05:20 WBC (4.5-11.0) K/mm3 RBC (3.65-5.03) M/mm3 Hgb (11.8-15.2) gm/dl Hct (35.5-45.6) % RDW (13.2-15.2) % Seg Neuts % (Manual) (40.0-70.0) % Lymphocytes % (Manual) (13.4-35.0) % Seg Neutrophils # Man (1.8-7.7) K/mm3 Monocytes # (Manual) (0.0-0.8) K/mm3 PT (12.2-14.9) Sec. INR (0.87-1.13) Sodium 132 L (137-145) mmol/L Potassium (3.6-5.0) mmol/L BUN 33 H (9-20) mg/dL Glucose 260 H (75-100) mg/dL Calcium 8.2 L (8.4-10.2) mg/dL Assessment and Plan 65-year-old male with multiple medical issues including severe dementia, bilateral hip contractures, right knee contracture, and gangrene of the right forefoot and hindfoot. Patient has had interval severe decline since he was seen last, and is now contracted. The right foot is not salvageable. Given his severe right lower extremity c ontraction, and severity of the gangrene of the right forefoot and hindfoot, the only options are palliation/hospice versus right above-knee amputation. We will discuss with family about right above-knee amputation. If agree, we will plan on amputating once the operating room has availability. N.p.o. after midnight for possible above-knee amputation.
[2021-04-12] MEDS: D5W/0.9% NACL 1,000 ML IV SCH (20:25)
[2021-04-13] MEDS: HEPARIN 5,000 UNIT/1 ML VIAL SUB-Q SCH ×3 (06:40→21:49)
[2021-04-13] MEDS: CEFEPIME/NS 1 GM/100 ML 1 GM/100 ML BAG IV SCH ×3 (06:40→17:41)
[2021-04-13] MEDS: D5W/0.9% NACL 1,000 ML IV SCH (06:41)
[2021-04-13] MEDS: VANCOMYCIN/NS 1 GM/250 ML 1 GM/250 ML BAG IV SCH ×2 (06:45→18:40)
[2021-04-13] MEDS ORDERED: ROCURONIUM 50 MG/5 ML INJ IV ONE (08:37)
[2021-04-13] MEDS ORDERED: SODIUM CHLORIDE 0.9% 1000 ML 1,000 ML ONE (08:37)
[2021-04-13] MEDS ORDERED: LIDOCAINE MPF (2%) 20 MG/1 ML VIAL 5 ML ONE (08:37)
[2021-04-13] MEDS ORDERED: SUCCINYLCHOLINE CHLORIDE 200 MG/10 ML INJ MDV ONE (08:37)
[2021-04-13] MEDS ORDERED: propofoL 200 MG/20 ML VIAL IV ONE (08:38)
[2021-04-13] MEDS ORDERED: fentaNYL 100 MCG/2 ML INJ ONE (08:38)
[2021-04-13] MEDS ORDERED: PHENYLEPHRINE/NS 1,000 MCG/10 ML SYRINGE (OR USE) IV ONE (09:00)
--- NOTE | 2021-04-13 09:15 | Anesthesia Consultation ---
Anesthesia Consult and Med Hx Date of service: 04/13/21 - Airway Intubation Access Assessment: Possibly Difficult (patient not cooperative with air exam) - Pre-Operative Health Status ASA Pre-Surgery Classification: ASA3 Proposed Anesthetic Plan: General - Pulmonary Hx Respiratory Symptoms: No Hx Sleep Apnea: Yes (no CPAP) - Cardiovascular System Hx Hypertension: Yes Hx Coronary Artery Disease: Yes (s/p 4v CABG 2011; EF 40-45% TTE 2018) Hx Heart Attack/AMI: No Hx Cardia Arrhythmia: No Hx Pacemaker: No Hx Internal Defibrillator: No - Central Nervous System Hx Seizures: Yes CVA: Yes (remote hx; failed swallow eval this admission) Hx Psychiatric Problems: Yes (dementia, altered mental status) - Endocrine Hx Renal Disease: No Hx Insulin Dependent Diabetes: Yes - Hematic Hx Anemia: Yes - Additional Comments Anesthesia Medical History Comments: Late entry, patient evaluated immediately prior to procedure. Patient presenting with gangrene of RLE, altered mental status now scheduled for AKA. PMH and anesthetic consent discussed with patient's and daughter.
[2021-04-13] MEDS ORDERED: ONDANSETRON 4 MG/2 ML INJ IV PRN (09:16)
[2021-04-13] MEDS ORDERED: HYDROmorphone 1 MG/1 ML INJ IV PRN (09:16)
--- NOTE | 2021-04-13 09:16 | Anesthesia Day of Surgery ---
Anesthesia Day of Surgery - Day of Surgery Patient Examined: Yes Patient H&P Reviewed: Yes Patient is NPO: Yes
[2021-04-13] MEDS ORDERED: BUPIVACAINE/PF (0.25%) 2.5 MG/ML 30 ML VIAL INFILTRATI ONE (09:33)
[2021-04-13] MEDS ORDERED: SODIUM CHLORIDE 0.9% IRR 1,500 ML BOTTLE IR ONE (09:33)
--- NOTE | 2021-04-13 10:23 | Operative Report ---
Operative Report Operative Report: Date of procedure: 04/13/2021 Pre-operative diagnosis: Right Lower Extremity Gangrene Post-operative diagnosis: Same Procedure(s): Right Above-Knee Amputation Surgeon: Mateus Shea MD Fibreglass Laminator: None Anesthesia: General Endotracheal Anesthesia EBL: 50 mL Counts: Correct Complications: None Condition: Stable Findings: All remaining tissue was healthy and viable. Specimen: Right leg sent to pathology Indication: The patient is a 65-year-old nonambulatory male who presented to the emergency department with a contracted right lower extremity with gangrene and rest pain. He had a previous endovascular intervention of his right lower extremity however at this point he had a mummified foot with evidence of wet gangrene of the right proximal foot as well as leukocytosis. At this point the foot is not salvageable and he is in need of a right above-knee amputation for pain control as well as to control infection. His family was given the risk, benefits, and alternative procedures and consented to the procedure. Description of Procedure: The patient was brought to the operating room and laid in supine position after general endotracheal anesthesia was achieved his right leg was prepped and draped in normal sterile fashion. A tourniquet, that had been placed on the proximal thigh, was inflated to 300 mmHg and a fishmouth incision was created approximately 3 fingerbreadths above the patella and carried down to the femur using electrocautery. The femur was dissected out circumferentially and the neurovascular bundle was identified and controlled with Fang clamps. Periosteal elevator was then used to elevate the periosteum an oscillating saw was then used to transect the femur approximately 4 cm above the incision. The remaining muscle and soft tissue was divided with electrocautery. The artery and vein were then suture ligated and divided and then I'll perform high ligation of the nerve. The tourniquet was deflated and adequate hemostasis was accomplished with a combination of cautery and direct pressure. Once hemostasis was achieved the femur was smoothed with a rasp and the wound was copiously irrigated. I then anesthetized the wound with 0.25% Marcaine. I closed the wound in 2 layers using 0 Vicryl in interrupted fashion to reapproximate the fascia and abby to close the skin. I dressed the wound with Xeroform gauze, fluffs, ABDs, Kerlix, and an Ramone bandage. The patient tolerated the procedure well, all sponge needle and sponge counts correct, the patient was taken to the recovery area stable condition.
[2021-04-13] MEDS: FAMOTIDINE 10 MG TAB PO SCH ×2 (11:20→21:49)
--- NOTE | 2021-04-13 12:00 | Consultation ---
History of Present Illness - Reason for Consult Consult date: 04/13/21 gangrene - History of Present Illness 65-year-old male with history of diabetes mellitus, uncontrolled, previous CVA with expressive aphasia, hypertension, previous left AKA, urinary retention, chronic indwelling Toribio, peripheral vascular disease status post revascularization, previous complicated UTI/bacteremia with septic shock secondary to Proteus/[facility] [place] [facility] in July 2019, as well as right heel pressure ulcer/eschar with MRI showing possible osteomyelitis treated with IV Dalvance ceftriaxone for 6 weeks; admitted on 04/11/2021 secondary to worsening right foot gangrene. Patient was seen in wound care clinic noted worsening necrosis of the foot. On arrival, temperature 100.3, HR 78, O2 sat 95%, BP 150/ 62. Initial WBC 23.4, hemoglobin 9, platelets 365. Creatinine 1.9. Glucose 375. Blood culture 04/11/2021 no growth today. Chest x-ray did not show any consolidations. X-ray of the foot shows soft tissue gas in the great toe and plantar area. Review of Systems: Unable to obtain due to expressive aphasia Medications and Allergies Allergies Allergy/AdvReac Type Severity Reaction Status Date / Time No Known Allergies Allergy Verified 04/11/21 15:34 Home Medications Medication Instructions Recorded Confirmed Last Taken Type Atorvastatin Calcium [Lipitor] 80 mg PO HS 06/16/19 08/16/19 Unknown History Colace CAP 200 mg PO BID 06/16/19 08/16/19 Unknown History Dicyclomine [Bentyl] 20 mg PO Q6HR PRN 06/16/19 08/16/19 Unknown History Ezetimibe [Zetia] 10 mg PO HS 06/16/19 08/16/19 Unknown History Losartan Potassium 100 mg PO DAILY 06/16/19 08/16/19 Unknown History Maalox Advanced Suspension 5 ml PO Q6HR PRN 06/16/19 08/16/19 Unknown History Melatonin 5 mg PO HS 06/16/19 08/16/19 Unknown History Plavix 75 mg PO DAILY 06/16/19 08/16/19 Unknown History Polyethylene Glycol 3350 1 packet PO DAILY PRN 06/16/19 08/16/19 Unknown History TEGretol 200 mg PO DAILY 06/16/19 08/16/19 Unknown History Vaseline White Petroleum 1 applicatio BID PRN 06/16/19 08/16/19 Unknown History allopurinoL [Zyloprim] 300 mg PO QDAY 06/16/19 08/16/19 Unknown History carvediloL [Coreg] 12.5 mg PO BID 06/16/19 08/16/19 Unknown History ALBUTEROL NEB's [Proventil 0.083% 2.5 mg IH Q4HRT PRN nebu 06/20/19 08/16/19 Unknown Rx NEBS] Pantoprazole [Protonix TAB] 40 mg PO DAILY tablet 06/20/19 08/16/19 Unknown Rx Sulfamethoxazole/Trimethoprim 1 each PO BID #14 tablet 06/20/19 08/16/19 Unknown Rx [Bactrim DS TAB] Tamsulosin [Flomax] 0.4 mg PO QDAY capsule 06/20/19 08/16/19 Unknown Rx amLODIPine 5 mg PO QDAY tablet 06/20/19 08/16/19 Unknown Rx Aspirin EC [Halfprin EC] 81 mg PO QDAY #30 tablet 08/22/19 Unknown Rx Insulin Detemir [Levemir Flextouch] 12 unit SQ QHS #1 insuln.pen 08/22/19 Unknown Rx oxyCODONE /ACETAMINOPHEN [Percocet 1 tab PO Q6H PRN #14 tablet 08/22/19 Unknown Rx 5/325 mg] Active Meds: Active Medications Acetaminophen (Acetaminophen 325 Mg Tab) 650 mg PO Q4H PRN PRN Reason: Pain MILD(1-3)/Fever >100.5/GONZALEZ Famotidine (Famotidine 10 Mg Tab) 10 mg PO BID [facility] Last Admin: 04/13/21 11:20 Dose: 10 mg Documented by: Heparin Sodium (Porcine) (Heparin 5,000 Unit/1 Ml Vial) 5,000 unit SUB-Q Q8HR [facility] Last Admin: 04/13/21 06:40 Dose: 5,000 unit Documented by: Hydralazine HCl (Hydralazine 20 Mg/1 Ml Inj) 5 mg IV Q30MIN PRN PRN Reason: Hypertension Hydromorphone HCl (Hydromorphone 1 Mg/1 Ml Inj) 0.5 mg IV Q10MIN PRN PRN Reason: Pain , Severe (7-10) Stop: 04/13/21 20:00 Last Admin: 04/13/21 11:19 Dose: 0.5 mg Documented by: Vancomycin HCl (Vancomycin/Ns 1 Gm/250 Ml) 1 gm in 250 mls @ 166.667 mls/hr IV Q12H [facility]; Protocol Last Admin: 04/13/21 06:45 Dose: 166.667 mls/hr Documented by: Cefepime HCl (Cefepime/Ns 1 Gm/100 Ml) 1 gm in 100 mls @ 200 mls/hr IV Q8H [facility]; Protocol Last Admin: 04/13/21 06:40 Dose: 200 mls/hr Documented by: Dextrose/Sodium Chloride (D5ns) 1,000 mls @ 75 mls/hr IV DIRECT [facility] Last Admin: 04/13/21 06:41 Dose: 75 mls/hr Documented by: Morphine Sulfate (Morphine 2 Mg/1 Ml Inj) 2 mg IV Q4H PRN PRN Reason: Pain, Moderate (4-6) Last Admin: 04/12/21 23:01 Dose: 2 mg Documented by: Ondansetron HCl (Ondansetron 4 Mg/2 Ml Inj) 4 mg IV Q8H PRN PRN Reason: N/V unrelieved by Samuel Ondansetron HCl (Ondansetron 4 Mg/2 Ml Inj) 4 mg IV ONCE PRN PRN Reason: Nausea And Vomiting Stop: 04/13/21 13:00 Oxycodone/Acetaminophen (Oxycodone /Acetaminophen 5-325mg Tab) 1 tab PO Q6H PRN PRN Reason: Pain, Moderate (4-6) Last Admin: 04/11/21 23:13 Dose: 1 tab Documented by: Physical Examination - Physical Exam Narrative exam: General appearance: Alert in NAD Eyes: anicteric sclerae, moist conjunctivae; no lid-lag; PERRLA HENT: Normocephalic, Atraumatic; normal external ears, nares open, oropharynx clear edentulous Neck: supple, tracheal midline, no JVD Lungs: Clear to auscultation bilaterally CV: RRR no murmur Abdomen: Soft, non-tender; no masses or hepatosplenomegaly Extremities: Right AKA with surgical dressing, left AKA healed. Skin: No rash. Psych: no agitated Neuro: Alert, aphasic - Constitutional Vitals: Vital Signs Temp Pulse Resp BP Pulse Ox 98.1 F 81 14 131/50 95 04/13/21 10:45 04/13/21 10:45 04/13/21 10:45 04/13/21 10:45 04/13/21 10:45 Temperature -Last 24 Hours Temperature 98.1 F Temperature 97.2 F Temperature 98.1 F Temperature 98.8 F Results - Labs CBC & Chem 7: 04/11/21 16:09 04/12/21 05:20 Labs: Abnormal lab results 04/13/21 04/13/21 Range/Units 08:16 10:24 POC Glucose 237 H (70-105) mg/dL Crossmatch See Detail Assessment and Plan Cultures: Blood culture 04/11/2021 no growth today. Assessment: 65-year-old male with history of diabetes mellitus, uncontrolled, previous CVA with expressive aphasia, hypertension, previous left AKA, urinary retention, chronic indwelling Toribio, peripheral vascular disease status post revascularization, previous complicated UTI/bacteremia with septic shock secondary to Proteus/[facility] [place] [facility] in July 2019, as well as right heel pressure ulcer/eschar with MRI showing possible osteomyelitis treated with IV Dalvance ceftriaxone for 6 weeks; admitted on 04/11/2021 secondary to worsening right foot gangrene: #Sepsis: Present on admission with fever and leukocytosis; likely secondary to worsening right foot gangrene. #Right foot gangrene: X-ray shows worsening gas in the great toe and the plantar area. Status post [id number] amputation today. #History of CVA: With expressive aphasia. Recommendations: -Repeat CBC -Obtain UA and urine culture as needed -Continue cefepime 2 g IV every 12 hours -Continue vancomycin with PK consult, keep vancomycin trough 10-20 -Follow-up blood cultures -If clinically better and blood cultures negative tomorrow will stop all antibiotics Will follow. Jackelyn Archer MD Infectious Diseases Beta [employer] [facility] M [phone] O [phone]
[2021-04-13 13:47] LABS: Bacteria,Urine 2+ /HPF (Negative); Bilirubin,Urine NEG (Negative); Blood,Urine NEG (Negative); Color,Urine Amber (Yellow); Mucus,Urine FEW /HPF; Red Blood Cell Casts,Urine 4 /LPF
--- NOTE | 2021-04-13 13:50 | Post Anesthesia Evaluation ---
- Post Anesthesia Evaluation Patient Participated: No (baseline mentation) Airway Patent: Yes Stable Respiratory Function: Yes Nausea/Vomiting: No Temp > 96.8F: Yes Pain Manageable: Yes Adequeate Hydration: Yes Anesthesia Complications: No
[2021-04-13 14:45] LABS: Basophils # (Auto) 0.1 K/mm3 (0.0-0.1); Basophils % (Auto) 0.3 % (0.0-1.8); Eosinophils # (Auto) 0.1 K/mm3 (0.0-0.4); Eosinophils % (Auto) 0.3 % (0.0-4.3); Hematocrit 26.2 % (35.5-45.6); Hemoglobin 8.7 gm/dl (11.8-15.2); Lymphocytes # (Auto) 1.6 K/mm3 (1.2-5.4); Lymphocytes % (Auto) 8.3 % (13.4-35.0); Mean Corpuscular HGB Conc 33 % (32-34); Mean Corpuscular Volume 90 fl (84-94); Monocytes # (Auto) 0.9 K/mm3 (0.0-0.8); Monocytes % (Auto) 4.5 % (0.0-7.3); Platelet Count 337 K/mm3 (140-440); Red Blood Count 2.92 M/mm3 (3.65-5.03); Red Cell Distribution Width 15.9 % (13.2-15.2)
--- NOTE | 2021-04-13 15:11 | Progress Note ---
Assessment and Plan Right Foot Dry gangrene Sepsis Daily clinical course: 04/12/21: Continue empiric antibiotics, continue IV fluid. Vascular ID consulted will follow recommendation. Wound culture pending. 04/13/21; status post right above-knee amputation today. Continue to follow surgical culture, follow clinically. Wait for vascular recommendation for discharge planning. Subjective Date of service: 04/13/21 Objective - Constitutional Vitals: Vital Signs - 12hr 04/13/21 04/13/21 04/13/21 04:17 08:56 10:16 Temperature 98.1 F 97.2 F L Pulse Rate 90 78 Respiratory 18 19 Rate Blood Pressure 177/71 150/62 O2 Sat by Pulse 98 95 100 Oximetry 04/13/21 04/13/21 04/13/21 10:20 10:25 10:30 Temperature Pulse Rate 81 81 79 Respiratory 19 21 21 Rate Blood Pressure 146/59 134/65 153/63 O2 Sat by Pulse 100 100 100 Oximetry 04/13/21 04/13/21 10:35 10:45 Temperature 98.1 F Pulse Rate 82 81 Respiratory 20 14 Rate Blood Pressure 150/63 131/50 O2 Sat by Pulse 100 95 Oximetry - Labs CBC & Chem 7: 04/13/21 13:48 04/12/21 05:20 Labs: Abnormal lab results 04/13/21 04/13/21 04/13/21 Range/Units 08:16 10:24 13:00 WBC (4.5-11.0) K/mm3 RBC (3.65-5.03) M/mm3 Hgb (11.8-15.2) gm/dl Hct (35.5-45.6) % RDW (13.2-15.2) % Lymph % (Auto) (13.4-35.0) % [place] # (Auto) (0.0-0.8) K/mm3 Seg Neutrophils % (40.0-70.0) % Seg Neutrophils # (1.8-7.7) K/mm3 POC Glucose 237 H (70-105) mg/dL Urine WBC (Auto) 8.0 H (0.0-6.0) /HPF Crossmatch See Detail 04/13/21 Range/Units 13:48 WBC 19.0 H (4.5-11.0) K/mm3 RBC 2.92 L (3.65-5.03) M/mm3 Hgb 8.7 L (11.8-15.2) gm/dl Hct 26.2 L (35.5-45.6) % RDW 15.9 H (13.2-15.2) % Lymph % (Auto) 8.3 L (13.4-35.0) % [place] # (Auto) 0.9 H (0.0-0.8) K/mm3 Seg Neutrophils % 86.6 H (40.0-70.0) % Seg Neutrophils # 16.5 H (1.8-7.7) K/mm3 POC Glucose (70-105) mg/dL Urine WBC (Auto) (0.0-6.0) /HPF Crossmatch
[2021-04-14] MEDS: CEFEPIME/NS 1 GM/100 ML 1 GM/100 ML BAG IV SCH ×2 (02:29→10:20)
[2021-04-14] MEDS: HEPARIN 5,000 UNIT/1 ML VIAL SUB-Q SCH ×4 (04:57→21:34)
[2021-04-14] MEDS: VANCOMYCIN/NS 1 GM/250 ML 1 GM/250 ML BAG IV SCH (08:00)
[2021-04-14 08:01] LABS: Basophils # (Auto) 0.1 K/mm3 (0.0-0.1); Basophils % (Auto) 0.4 % (0.0-1.8); Eosinophils % (Auto) 0.3 % (0.0-4.3); Hematocrit 27.9 % (35.5-45.6); Hemoglobin 8.9 gm/dl (11.8-15.2); Lymphocytes # (Auto) 1.3 K/mm3 (1.2-5.4); Lymphocytes % (Auto) 9.6 % (13.4-35.0); Mean Corpuscular HGB Conc 32 % (32-34); Mean Corpuscular Volume 92 fl (84-94); Monocytes # (Auto) 0.8 K/mm3 (0.0-0.8); Monocytes % (Auto) 5.7 % (0.0-7.3); Platelet Count 305 K/mm3 (140-440); Red Blood Count 3.02 M/mm3 (3.65-5.03)
[2021-04-14 08:29] LABS: Blood Urea Nitrogen 13 mg/dL (9-20); Calcium 8.4 mg/dL (8.4-10.2); Hemolysis Index 0
[2021-04-14 08:56] LABS: BUN/Creatinine Ratio 33
[2021-04-14] MEDS: FAMOTIDINE 10 MG TAB PO SCH ×2 (10:21→21:37)
--- NOTE | 2021-04-14 12:20 | Progress Note ---
Assessment and Plan Patient now with bilateral [id number] amputations. We will plan on changing dressing tomorrow. Subjective Date of service: 04/14/21 Principal diagnosis: PVD with gangrene Interval history: Patient postop day 1 status post right [id number] amputation. Prior left whvbz-bny-[id number] amputation. No complaints of pain at rest. Only when moving his surgical site.. Objective - Constitutional Vitals: Vital Signs - 12hr 04/14/21 04/14/21 04/14/21 00:26 04:04 07:40 Temperature 98.2 F 98.4 F 97.9 F Pulse Rate 82 82 84 Respiratory 18 18 20 Rate Blood Pressure 105/59 101/65 138/62 O2 Sat by Pulse 95 95 95 Oximetry 04/14/21 12:12 Temperature 98.3 F Pulse Rate 87 Respiratory 20 Rate Blood Pressure 125/63 O2 Sat by Pulse 97 Oximetry General appearance: Present: no acute distress - EENT Eyes: EOM intact ENT: hearing intact - Neck Neck: supple, normal ROM - Respiratory Respiratory effort: normal Extremities: abnormal - Gastrointestinal General gastrointestinal: Present: deferred Rectal Exam: deferred - Genitourinary Male genitourinary: deferred - Psychiatric Psychiatric: cooperative - Labs CBC & Chem 7: 04/14/21 07:05 04/14/21 07:05 Labs: Abnormal lab results 04/13/21 04/13/21 04/13/21 Range/Units 08:16 13:00 13:48 WBC 19.0 H (4.5-11.0) K/mm3 RBC 2.92 L (3.65-5.03) M/mm3 Hgb 8.7 L (11.8-15.2) gm/dl Hct 26.2 L (35.5-45.6) % RDW 15.9 H (13.2-15.2) % Lymph % (Auto) 8.3 L (13.4-35.0) % [place] # (Auto) 0.9 H (0.0-0.8) K/mm3 Seg Neutrophils % 86.6 H (40.0-70.0) % Seg Neutrophils # 16.5 H (1.8-7.7) K/mm3 Chloride (98-107) mmol/L Creatinine (0.8-1.3) mg/dL Glucose (75-100) mg/dL POC Glucose (70-105) mg/dL Urine WBC (Auto) 8.0 H (0.0-6.0) /HPF Crossmatch See Detail 04/13/21 04/14/21 04/14/21 Range/Units 20:57 07:05 07:05 WBC 14.1 H (4.5-11.0) K/mm3 RBC 3.02 L (3.65-5.03) M/mm3 Hgb 8.9 L (11.8-15.2) gm/dl Hct 27.9 L (35.5-45.6) % RDW 16.0 H (13.2-15.2) % Lymph % (Auto) 9.6 L (13.4-35.0) % [place] # (Auto) (0.0-0.8) K/mm3 Seg Neutrophils % 84.0 H (40.0-70.0) % Seg Neutrophils # 11.8 H (1.8-7.7) K/mm3 Chloride 111.0 H (98-107) mmol/L Creatinine 0.4 L D (0.8-1.3) mg/dL Glucose 221 H (75-100) mg/dL POC Glucose 235 H (70-105) mg/dL Urine WBC (Auto) (0.0-6.0) /HPF Crossmatch Medications & Allergies - Medications Allergies/Adverse Reactions: Allergies No Known Allergies Allergy (Verified 04/11/21 15:34) Home Medications: Home Medications Medication Instructions Recorded Confirmed Last Taken Type Atorvastatin Calcium [Lipitor] 80 mg PO HS 06/16/19 08/16/19 Unknown History Colace CAP 200 mg PO BID 06/16/19 08/16/19 Unknown History Dicyclomine [Bentyl] 20 mg PO Q6HR PRN 06/16/19 08/16/19 Unknown History Ezetimibe [Zetia] 10 mg PO HS 06/16/19 08/16/19 Unknown History Losartan Potassium 100 mg PO DAILY 06/16/19 08/16/19 Unknown History Maalox Advanced Suspension 5 ml PO Q6HR PRN 06/16/19 08/16/19 Unknown History Melatonin 5 mg PO HS 06/16/19 08/16/19 Unknown History Plavix 75 mg PO DAILY 06/16/19 08/16/19 Unknown History Polyethylene Glycol 3350 1 packet PO DAILY PRN 06/16/19 08/16/19 Unknown History TEGretol 200 mg PO DAILY 06/16/19 08/16/19 Unknown History Vaseline White Petroleum 1 applicatio BID PRN 06/16/19 08/16/19 Unknown History allopurinoL [Zyloprim] 300 mg PO QDAY 06/16/19 08/16/19 Unknown History carvediloL [Coreg] 12.5 mg PO BID 06/16/19 08/16/19 Unknown History ALBUTEROL NEB's [Proventil 0.083% 2.5 mg IH Q4HRT PRN nebu 06/20/19 08/16/19 Unknown Rx NEBS] Pantoprazole [Protonix TAB] 40 mg PO DAILY tablet 06/20/19 08/16/19 Unknown Rx Sulfamethoxazole/Trimethoprim 1 each PO BID #14 tablet 06/20/19 08/16/19 Unknown Rx [Bactrim DS TAB] Tamsulosin [Flomax] 0.4 mg PO QDAY capsule 06/20/19 08/16/19 Unknown Rx amLODIPine 5 mg PO QDAY tablet 06/20/19 08/16/19 Unknown Rx Aspirin EC [Halfprin EC] 81 mg PO QDAY #30 tablet 08/22/19 Unknown Rx Insulin Detemir [Levemir Flextouch] 12 unit SQ QHS #1 insuln.pen 08/22/19 Unknown Rx oxyCODONE /ACETAMINOPHEN [Percocet 1 tab PO Q6H PRN #14 tablet 08/22/19 Unknown Rx 5/325 mg] Active Medications: Generic Name Dose Route Start Last Admin Trade Name Freq PRN Reason Stop Dose Admin Acetaminophen 650 mg 04/11/21 17:37 Acetaminophen 325 Mg Tab PO Q4H PRN Pain MILD(1-3)/Fever >100.5/GONZALEZ Famotidine 10 mg 04/11/21 22:00 04/14/21 10:21 Famotidine 10 Mg Tab PO 10 mg BID SAM Administration Heparin Sodium (Porcine) 5,000 unit 04/11/21 22:00 04/14/21 05:05 Heparin 5,000 Unit/1 Ml Vial SUB-Q Not Given Q8HR SAM Hydralazine HCl 5 mg 04/11/21 17:37 Hydralazine 20 Mg/1 Ml Inj IV Q30MIN PRN Hypertension Vancomycin HCl 1 gm in 250 mls @ 166.667 mls/hr 04/11/21 18:00 04/13/21 18:40 Vancomycin/Ns 1 Gm/250 Ml IV 166.667 mls/hr Q12H SAM Administration Protocol Cefepime HCl 1 gm in 100 mls @ 200 mls/hr 04/12/21 02:00 04/14/21 10:20 Cefepime/Ns 1 Gm/100 Ml IV 200 mls/hr Q8H SAM Administration Protocol Dextrose/Sodium Chloride 1,000 mls @ 75 mls/hr 04/12/21 15:00 04/13/21 06:41 D5ns IV 75 mls/hr DIRECT SAM Administration Morphine Sulfate 2 mg 04/11/21 17:27 04/12/21 23:01 Morphine 2 Mg/1 Ml Inj IV 2 mg Q4H PRN Administration Pain, Moderate (4-6) Ondansetron HCl 4 mg 04/11/21 17:37 Ondansetron 4 Mg/2 Ml Inj IV Q8H PRN N/V unrelieved by Samuel Oxycodone/Acetaminophen 1 tab 04/11/21 17:37 04/11/21 23:13 Oxycodone /Acetaminophen 5-325mg Tab PO 1 tab Q6H PRN Administration Pain, Moderate (4-6)
--- NOTE | 2021-04-14 16:17 | Progress Note ---
Assessment and Plan Cultures: Blood culture 04/11/2021 no growth today. Assessment: 65-year-old male with history of diabetes mellitus, uncontrolled, previous CVA with expressive aphasia, hypertension, previous left AKA, urinary retention, chronic indwelling Toribio, peripheral vascular disease status post revascularization, previous complicated UTI/bacteremia with septic shock secondary to [facility] [place] [facility] in July 2019, as well as right heel pr essure ulcer/eschar with MRI showing possible osteomyelitis treated with IV Dalvance ceftriaxone for 6 weeks; admitted on 04/11/2021 secondary to worsening right foot gangrene: #Sepsis: Improving.; likely secondary to worsening right foot gangrene. #Right foot gangrene: X-ray shows worsening gas in the great toe and the plantar area. Status post [id number] amputation today. #History of CVA: With expressive aphasia. Recommendations: -Stop vancomycin and cefepime D3 -Monitor off antibiotics Will sign off Jackelyn Archer MD Infectious Diseases [employer] [facility] M [phone] Subjective Date of service: 04/14/21 Principal diagnosis: PVD with gangrene Interval history: Patient feels better. Denies any complaints. Objective - Exam Narrative Exam: General appearance: Alert in NAD Eyes: anicteric sclerae, moist conjunctivae; no lid-lag; PERRLA HENT: Normocephalic, Atraumatic; normal external ears, nares open, oropharynx clear edentulous Neck: supple, tracheal midline, no JVD Lungs: Clear to auscultation bilaterally CV: RRR no murmur Abdomen: Soft, non-tender; no masses or hepatosplenomegaly Extremities: Right AKA with surgical dressing, left AKA healed. Skin: No rash. Psych: no agitated Neuro: Alert, aphasic - Constitutional Vitals: Vital Signs Temp Pulse Resp BP Pulse Ox 98.3 F 87 20 125/63 97 04/14/21 12:12 04/14/21 12:12 04/14/21 12:12 04/14/21 12:12 04/14/21 12:12 Temperature -Last 24 Hours Temperature 98.3 F Temperature 97.9 F Temperature 98.4 F Temperature 98.2 F Temperature 97.5 F - Labs CBC & Chem 7: 04/14/21 07:05 04/14/21 07:05 Labs: Abnormal lab results 04/13/21 04/13/21 04/14/21 Range/Units 08:16 20:57 07:05 WBC 14.1 H (4.5-11.0) K/mm3 RBC 3.02 L (3.65-5.03) M/mm3 Hgb 8.9 L (11.8-15.2) gm/dl Hct 27.9 L (35.5-45.6) % RDW 16.0 H (13.2-15.2) % Lymph % (Auto) 9.6 L (13.4-35.0) % Seg Neutrophils % 84.0 H (40.0-70.0) % Seg Neutrophils # 11.8 H (1.8-7.7) K/mm3 Chloride (98-107) mmol/L Creatinine (0.8-1.3) mg/dL Glucose (75-100) mg/dL POC Glucose 235 H (70-105) mg/dL Crossmatch See Detail 04/14/21 Range/Units 07:05 WBC (4.5-11.0) K/mm3 RBC (3.65-5.03) M/mm3 Hgb (11.8-15.2) gm/dl Hct (35.5-45.6) % RDW (13.2-15.2) % Lymph % (Auto) (13.4-35.0) % Seg Neutrophils % (40.0-70.0) % Seg Neutrophils # (1.8-7.7) K/mm3 Chloride 111.0 H (98-107) mmol/L Creatinine 0.4 L D (0.8-1.3) mg/dL Glucose 221 H (75-100) mg/dL POC Glucose (70-105) mg/dL Crossmatch
--- NOTE | 2021-04-14 16:38 | Progress Note ---
Assessment and Plan Right Foot Dry gangrene Sepsis Daily clinical course: 04/12/21: Continue empiric antibiotics, continue IV fluid. Vascular ID consulted will follow recommendation. Wound culture pending. 04/13/21; status post right above-knee amputation today. Continue to follow surgical culture, follow clinically. Wait for vascular recommendation for discharge planning. 04/14/21: Plan for dressing change tomorrow, ID recommended to stop antibiotic a nd to monitor without antibiotic. If clinically stable patient could be discharged back to assisted tomorrow. Subjective Date of service: 04/14/21 Principal diagnosis: PVD with gangrene Objective - Constitutional Vitals: Vital Signs - 12hr 04/14/21 04/14/21 04/14/21 07:40 12:12 15:52 Temperature 97.9 F 98.3 F 98.2 F Pulse Rate 84 87 78 Respiratory 20 20 20 Rate Blood Pressure 138/62 125/63 108/65 O2 Sat by Pulse 95 97 97 Oximetry - Labs CBC & Chem 7: 04/14/21 07:05 04/14/21 07:05 Labs: Abnormal lab results 04/13/21 04/13/21 04/14/21 Range/Units 08:16 20:57 07:05 WBC 14.1 H (4.5-11.0) K/mm3 RBC 3.02 L (3.65-5.03) M/mm3 Hgb 8.9 L (11.8-15.2) gm/dl Hct 27.9 L (35.5-45.6) % RDW 16.0 H (13.2-15.2) % Lymph % (Auto) 9.6 L (13.4-35.0) % Seg Neutrophils % 84.0 H (40.0-70.0) % Seg Neutrophils # 11.8 H (1.8-7.7) K/mm3 Chloride (98-107) mmol/L Creatinine (0.8-1.3) mg/dL Glucose (75-100) mg/dL POC Glucose 235 H (70-105) mg/dL Crossmatch See Detail 04/14/21 Range/Units 07:05 WBC (4.5-11.0) K/mm3 RBC (3.65-5.03) M/mm3 Hgb (11.8-15.2) gm/dl Hct (35.5-45.6) % RDW (13.2-15.2) % Lymph % (Auto) (13.4-35.0) % Seg Neutrophils % (40.0-70.0) % Seg Neutrophils # (1.8-7.7) K/mm3 Chloride 111.0 H (98-107) mmol/L Creatinine 0.4 L D (0.8-1.3) mg/dL Glucose 221 H (75-100) mg/dL POC Glucose (70-105) mg/dL Crossmatch
[2021-04-14] MEDS: D5W/0.9% NACL 1,000 ML IV SCH (21:35)
[2021-04-15 05:46] LABS: Hematocrit 27.6 % (35.5-45.6); Hemoglobin 8.9 gm/dl (11.8-15.2)
[2021-04-15] MEDS: HEPARIN 5,000 UNIT/1 ML VIAL SUB-Q SCH ×3 (07:08→21:43)
[2021-04-15] MEDS: FAMOTIDINE 10 MG TAB PO SCH ×2 (10:09→21:44)
--- NOTE | 2021-04-15 14:19 | Progress Note ---
Assessment and Plan Right Foot Dry gangrene Sepsis Daily clinical course: 04/12/21: Continue empiric antibiotics, continue IV fluid. Vascular ID consulted will follow recommendation. Wound culture pending. 04/13/21; status post right above-knee amputation today. Continue to follow surgical culture, follow clinically. Wait for vascular recommendation for discharge planning. 04/14/21: Plan for dressing change tomorrow, ID recommended to stop antibiotic a nd to monitor without antibiotic. If clinically stable patient could be discharged back to care home tomorrow. 04/15/21; pending repeat Covid test, monitoring off antibiotics. Will DC fluid as patient is taking enough p.o. diet. Discharge planning per vascular. Subjective Date of service: 04/15/21 Principal diagnosis: PVD with gangrene Objective - Constitutional Vitals: Vital Signs - 12hr 04/15/21 04/15/21 04/15/21 04:16 09:12 12:00 Temperature 98.9 F 98.4 F 98.8 F Pulse Rate 79 85 81 Respiratory 18 20 20 Rate Blood Pressure 106/63 Blood Pressure 110/75 124/76 [Right] O2 Sat by Pulse 98 97 96 Oximetry - Labs CBC & Chem 7: 04/15/21 05:37 04/14/21 07:05 Labs: Abnormal lab results 04/14/21 04/15/21 Range/Units 22:01 05:37 Hgb 8.9 L (11.8-15.2) gm/dl Hct 27.6 L (35.5-45.6) % POC Glucose 340 H (70-105) mg/dL
--- NOTE | 2021-04-15 14:49 | Progress Note ---
Assessment and Plan The patient is postop day #2 status post right above-knee amputation. His incision is intact and healing well. He can be discharged from a vascular surgery standpoint when he is stable medically. He should have his dressing changed daily to a dry dressing. He should follow-up to see me as an outpatient in 2 weeks and will have his abby removed in 6 weeks. Subjective Date of service: 04/15/21 Principal diagnosis: PVD with gangrene Interval history: No significant events overnight. Objective - Constitutional Vitals: Vital Signs - 12hr 04/15/21 04/15/21 04/15/21 04:16 09:12 12:00 Temperature 98.9 F 98.4 F 98.8 F Pulse Rate 79 85 81 Respiratory 18 20 20 Rate Blood Pressure 106/63 Blood Pressure 110/75 124/76 [Right] O2 Sat by Pulse 98 97 96 Oximetry General appearance: Present: no acute distress - Respiratory Respiratory effort: normal Extremities: abnormal (The right AKA stump dressing was removed and the incision is clean, dry, and intact without evidence of bleeding or infection. There is no evidence of ischemia.) - Labs CBC & Chem 7: 04/15/21 05:37 04/14/21 07:05 Labs: Abnormal lab results 04/14/21 04/15/21 Range/Units 22:01 05:37 Hgb 8.9 L (11.8-15.2) gm/dl Hct 27.6 L (35.5-45.6) % POC Glucose 340 H (70-105) mg/dL Medications & Allergies - Medications Allergies/Adverse Reactions: Allergies No Known Allergies Allergy (Verified 04/11/21 15:34) Home Medications: Home Medications Medication Instructions Recorded Confirmed Last Taken Type Atorvastatin Calcium [Lipitor] 80 mg PO HS 06/16/19 08/16/19 Unknown History Colace CAP 200 mg PO BID 06/16/19 08/16/19 Unknown History Dicyclomine [Bentyl] 20 mg PO Q6HR PRN 06/16/19 08/16/19 Unknown History Ezetimibe [Zetia] 10 mg PO HS 06/16/19 08/16/19 Unknown History Losartan Potassium 100 mg PO DAILY 06/16/19 08/16/19 Unknown History Maalox Advanced Suspension 5 ml PO Q6HR PRN 06/16/19 08/16/19 Unknown History Melatonin 5 mg PO HS 06/16/19 08/16/19 Unknown History Plavix 75 mg PO DAILY 06/16/19 08/16/19 Unknown History Polyethylene Glycol 3350 1 packet PO DAILY PRN 06/16/19 08/16/19 Unknown History TEGretol 200 mg PO DAILY 06/16/19 08/16/19 Unknown History Vaseline White Petroleum 1 applicatio BID PRN 06/16/19 08/16/19 Unknown History allopurinoL [Zyloprim] 300 mg PO QDAY 06/16/19 08/16/19 Unknown History carvediloL [Coreg] 12.5 mg PO BID 06/16/19 08/16/19 Unknown History ALBUTEROL NEB's [Proventil 0.083% 2.5 mg IH Q4HRT PRN nebu 06/20/19 08/16/19 Unknown Rx NEBS] Pantoprazole [Protonix TAB] 40 mg PO DAILY tablet 06/20/19 08/16/19 Unknown Rx Sulfamethoxazole/Trimethoprim 1 each PO BID #14 tablet 06/20/19 08/16/19 Unknown Rx [Bactrim DS TAB] Tamsulosin [Flomax] 0.4 mg PO QDAY capsule 06/20/19 08/16/19 Unknown Rx amLODIPine 5 mg PO QDAY tablet 06/20/19 08/16/19 Unknown Rx Aspirin EC [Halfprin EC] 81 mg PO QDAY #30 tablet 08/22/19 Unknown Rx Insulin Detemir [Levemir Flextouch] 12 unit SQ QHS #1 insuln.pen 08/22/19 Unknown Rx oxyCODONE /ACETAMINOPHEN [Percocet 1 tab PO Q6H PRN #14 tablet 08/22/19 Unknown Rx 5/325 mg] Active Medications: Generic Name Dose Route Start Last Admin Trade Name Freq PRN Reason Stop Dose Admin Acetaminophen 650 mg 04/11/21 17:37 Acetaminophen 325 Mg Tab PO Q4H PRN Pain MILD(1-3)/Fever >100.5/GONZALEZ Famotidine 10 mg 04/11/21 22:00 04/15/21 10:09 Famotidine 10 Mg Tab PO 10 mg BID SAM Administration Heparin Sodium (Porcine) 5,000 unit 04/11/21 22:00 04/15/21 07:08 Heparin 5,000 Unit/1 Ml Vial SUB-Q 5,000 unit Q8HR SAM Administration Hydralazine HCl 5 mg 04/11/21 17:37 Hydralazine 20 Mg/1 Ml Inj IV Q30MIN PRN Hypertension Morphine Sulfate 2 mg 04/11/21 17:27 04/12/21 23:01 Morphine 2 Mg/1 Ml Inj IV 2 mg Q4H PRN Administration Pain, Moderate (4-6) Ondansetron HCl 4 mg 04/11/21 17:37 Ondansetron 4 Mg/2 Ml Inj IV Q8H PRN N/V unrelieved by Samuel Oxycodone/Acetaminophen 1 tab 04/11/21 17:37 04/11/21 23:13 Oxycodone /Acetaminophen 5-325mg Tab PO 1 tab Q6H PRN Administration Pain, Moderate (4-6)
[2021-04-16] MEDS: MORPHINE 2 MG/1 ML INJ IV PRN (03:15)
[2021-04-16] MEDS: hydrALAZINE 20 MG/1 ML INJ IV PRN ×2 (03:15→18:18)
[2021-04-16] MEDS: HEPARIN 5,000 UNIT/1 ML VIAL SUB-Q SCH ×2 (05:24→13:30)
[2021-04-16 06:38] LABS: Hematocrit 29.9 % (35.5-45.6); Hemoglobin 9.7 gm/dl (11.8-15.2); Mean Corpuscular HGB Conc 33 % (32-34); Mean Corpuscular Volume 90 fl (84-94); Red Blood Count 3.31 M/mm3 (3.65-5.03); Red Cell Distribution Width 15.8 % (13.2-15.2)
[2021-04-16 06:41] LABS: Blood Urea Nitrogen 8 mg/dL (9-20); Calcium 8.1 mg/dL (8.4-10.2); Hemolysis Index 163
[2021-04-16 06:46] LABS: Platelet Count 334 K/mm3 (140-440)
[2021-04-16 06:50] LABS: BUN/Creatinine Ratio 20
[2021-04-16] MEDS: FAMOTIDINE 10 MG TAB PO SCH (09:24)
[2021-04-16 11:06] LABS: Myelocytes # (Manual) 0.2 K/mm3; Total Cells Counted 100
[2021-04-16 11:10] LABS: Hypochromasia Few; Tear Drop Cells Few
[2021-04-16 11:11] LABS: Platelet Estimate Consistent w Auto
--- NOTE | 2021-04-16 15:59 | Progress Note ---
Assessment and Plan 65-year-old male with multiple medical issues including severe dementia, bilateral hip contractures, right knee contracture, and gangrene of the right forefoot and hindfoot. Patient is now status post right above-knee amputation with bilateral above-knee amputations. Recommend continuation of wound care. Follow-up with Dr. Shea in 2 to 4 weeks. Can be discharged from vascular perspective. Subjective Date of service: 04/16/21 Principal diagnosis: PVD with gangrene Interval history: Doing well. Discussed with nurse that she needs to change dressing daily. Discussed dressing changes with nurse. Patient appears to be in less discomfort today. Objective - Constitutional Vitals: Vital Signs - 12hr 04/16/21 04/16/21 04/16/21 07:56 11:05 12:48 Temperature 97.9 F 98.4 F Pulse Rate 88 90 Respiratory 20 18 18 Rate Blood Pressure 170/66 155/75 O2 Sat by Pulse 98 97 96 Oximetry General appearance: Present: no acute distress - EENT Eyes: EOM intact ENT: hearing intact - Respiratory Respiratory effort: normal Extremities: abnormal (Bilateral above-knee amputations) - Gastrointestinal General gastrointestinal: Present: soft, non-tender - Psychiatric Psychiatric: cooperative, other (Demented, cannot communicate well) - Labs CBC & Chem 7: 04/16/21 05:54 04/16/21 05:54 Labs: Abnormal lab results 04/13/21 04/16/21 04/16/21 Range/Units 08:16 05:54 05:54 WBC 15.2 H (4.5-11.0) K/mm3 RBC 3.31 L (3.65-5.03) M/mm3 Hgb 9.7 L (11.8-15.2) gm/dl Hct 29.9 L (35.5-45.6) % RDW 15.8 H (13.2-15.2) % Seg Neuts % (Manual) 84.0 H (40.0-70.0) % Lymphocytes % (Manual) 10.0 L (13.4-35.0) % Seg Neutrophils # Man 12.8 H (1.8-7.7) K/mm3 Basophils # (Manual) 0.2 H (0.0-0.1) K/mm3 Sodium 134 L (137-145) mmol/L Carbon Dioxide 21 L (22-30) mmol/L BUN 8 L (9-20) mg/dL Creatinine 0.4 L (0.8-1.3) mg/dL Glucose 302 H (75-100) mg/dL POC Glucose (70-105) mg/dL Calcium 8.1 L (8.4-10.2) mg/dL Crossmatch See Detail 04/16/21 04/16/21 Range/Units 07:38 11:49 WBC (4.5-11.0) K/mm3 RBC (3.65-5.03) M/mm3 Hgb (11.8-15.2) gm/dl Hct (35.5-45.6) % RDW (13.2-15.2) % Seg Neuts % (Manual) (40.0-70.0) % Lymphocytes % (Manual) (13.4-35.0) % Seg Neutrophils # Man (1.8-7.7) K/mm3 Basophils # (Manual) (0.0-0.1) K/mm3 Sodium (137-145) mmol/L Carbon Dioxide (22-30) mmol/L BUN (9-20) mg/dL Creatinine (0.8-1.3) mg/dL Glucose (75-100) mg/dL POC Glucose 223 H 280 H (70-105) mg/dL Calcium (8.4-10.2) mg/dL Crossmatch Medications & Allergies - Medications Allergies/Adverse Reactions: Allergies No Known Allergies Allergy (Verified 04/11/21 15:34) Home Medications: Home Medications Medication Instructions Recorded Confirmed Last Taken Type Atorvastatin Calcium [Lipitor] 80 mg PO HS 06/16/19 08/16/19 Unknown History Colace CAP 200 mg PO BID 06/16/19 08/16/19 Unknown History Dicyclomine [Bentyl] 20 mg PO Q6HR PRN 06/16/19 08/16/19 Unknown History Ezetimibe [Zetia] 10 mg PO HS 06/16/19 08/16/19 Unknown History Losartan Potassium 100 mg PO DAILY 06/16/19 08/16/19 Unknown History Maalox Advanced Suspension 5 ml PO Q6HR PRN 06/16/19 08/16/19 Unknown History Melatonin 5 mg PO HS 06/16/19 08/16/19 Unknown History Plavix 75 mg PO DAILY 06/16/19 08/16/19 Unknown History Polyethylene Glycol 3350 1 packet PO DAILY PRN 06/16/19 08/16/19 Unknown History TEGretol 200 mg PO DAILY 06/16/19 08/16/19 Unknown History Vaseline White Petroleum 1 applicatio BID PRN 06/16/19 08/16/19 Unknown History allopurinoL [Zyloprim] 300 mg PO QDAY 06/16/19 08/16/19 Unknown History carvediloL [Coreg] 12.5 mg PO BID 06/16/19 08/16/19 Unknown History ALBUTEROL NEB's [Proventil 0.083% 2.5 mg IH Q4HRT PRN nebu 06/20/19 08/16/19 Unknown Rx NEBS] Pantoprazole [Protonix TAB] 40 mg PO DAILY tablet 06/20/19 08/16/19 Unknown Rx Sulfamethoxazole/Trimethoprim 1 each PO BID #14 tablet 06/20/19 08/16/19 Unknown Rx [Bactrim DS TAB] Tamsulosin [Flomax] 0.4 mg PO QDAY capsule 06/20/19 08/16/19 Unknown Rx amLODIPine 5 mg PO QDAY tablet 06/20/19 08/16/19 Unknown Rx Aspirin EC [Halfprin EC] 81 mg PO QDAY #30 tablet 08/22/19 Unknown Rx Insulin Detemir [Levemir Flextouch] 12 unit SQ QHS #1 insuln.pen 08/22/19 Unknown Rx oxyCODONE /ACETAMINOPHEN [Percocet 1 tab PO Q6H PRN #14 tablet 08/22/19 Unknown Rx 5/325 mg] Active Medications: Generic Name Dose Route Start Last Admin Trade Name Freq PRN Reason Stop Dose Admin Acetaminophen 650 mg 04/11/21 17:37 Acetaminophen 325 Mg Tab PO Q4H PRN Pain MILD(1-3)/Fever >100.5/GONZALEZ Famotidine 10 mg 04/11/21 22:00 04/16/21 09:24 Famotidine 10 Mg Tab PO 10 mg BID SAM Administration Heparin Sodium (Porcine) 5,000 unit 04/11/21 22:00 04/16/21 13:30 Heparin 5,000 Unit/1 Ml Vial SUB-Q 5,000 unit Q8HR SAM Administration Hydralazine HCl 5 mg 04/11/21 17:37 04/16/21 03:15 Hydralazine 20 Mg/1 Ml Inj IV 5 mg Q30MIN PRN Administration Hypertension Insulin Human Regular 0 units 04/16/21 16:30 Insulin Regular, Human 100 Units/1 Ml SUB-Q ACHS [facility] Protocol Morphine Sulfate 2 mg 04/11/21 17:27 04/16/21 03:15 Morphine 2 Mg/1 Ml Inj IV 2 mg Q4H PRN Administration Pain, Moderate (4-6) Ondansetron HCl 4 mg 04/11/21 17:37 Ondansetron 4 Mg/2 Ml Inj IV Q8H PRN N/V unrelieved by Samuel Oxycodone/Acetaminophen 1 tab 04/11/21 17:37 04/11/21 23:13 Oxycodone /Acetaminophen 5-325mg Tab PO 1 tab Q6H PRN Administration Pain, Moderate (4-6)
[2021-04-16 16:19] VITALS: BP 175/74
[2021-04-16] MEDS ORDERED: INSULIN REGULAR, HUMAN 100 UNITS/1 ML SUB-Q SCH (16:30)
--- NOTE | 2021-04-16 17:15 | Discharge Summary ---
Providers - Providers Date of Admission: 04/11/21 17:31 Date of discharge: 04/16/21 Attending physician: CATALINA MAURO 04/11/21 17:18 Consult to Physician [CONS] Stat Comment: Consulting Provider: KAT BENSON Physician Instructions: Reason For Exam: dry gangrene 04/11/21 23:40 Speech Therapy Evaluation and Treat [CONS] Routine Reason For Exam: coughing with drinking water 04/12/21 10:08 Consult to Physician [CONS] Routine Comment: Consulting Provider: LAMONT GOINS Physician Instructions: Reason For Exam: gangrene 04/12/21 11:23 PICC Line Insertion [Consult to PICC Line RN] [CONS] Stat Reason For Exam: diff IV start and getting mult IV antibiotics Type Line:: PICC 04/13/21 05:23 Consult to Wound/ET Nurse [CONS] Stat Reason For Exam: wound eval Primary care physician: SERVICE CLERK Hospitalization Condition: Stable Disposition: 01 HOME / SELF CARE / HOMELESS Final Discharge Diagnosis (Prints w/discharge instructions): Gangrene of the right forefoot and hindfoot s/p AKA, sepsis, severe dementia, bilateral hip contractures, right knee contracture. Time spent for discharge: 34 minutes Core Measure Documentation - Palliative Care Palliative Care/ Comfort Measures: Not Applicable - Core Measures Any of the following diagnoses?: history only Exam - Constitutional Vitals: Temp Pulse Resp BP Pulse Ox 98.6 F 86 18 175/74 98 04/16/21 16:06 04/16/21 16:06 04/16/21 16:06 04/16/21 16:06 04/16/21 16:06 Plan Activity: advance as tolerated Weight Bearing Status: Weight Bear as Tolerated Diet: other (mechanical soft diet ) Wound: per your surgeon's advice Follow up with: TOM COOK MD [Primary Care Provider] - 3-5 Days RU HARVEY MD [Staff Physician] - 14 Days
[2021-04-16] MEDS ORDERED: METOPROLOL TARTRATE 25 MG TAB PO SCH (19:00)
== END 2021-04-16 19:49 | DRG 854 ==
LOC: ED 14:13 → 4A 17:31
PROVIDERS: ADMIT Internal Medicine; ATTEND Internal Medicine
PROC: 0Y6C0Z1 Detachment at Right Upper Leg, High, Open Approach (ICD-10-PCS; principal; 2021-04-13)
DX: A41.9 Sepsis, unspecified organism (principal); I96 Gangrene, not elsewhere classified; E11.52 Type 2 diabetes mellitus with diabetic peripheral angiopathy with gangrene; Z20.822 Contact with and (suspected) exposure to COVID-19; I10 Essential (primary) hypertension; I25.10 Atherosclerotic heart disease of native coronary artery without angina pectoris; Z86.73 Personal history of transient ischemic attack (TIA), and cerebral infarction without residual deficits; F03.90 Unspecified dementia, unspecified severity, without behavioral disturbance, psychotic disturbance, mood disturbance, and anxiety; Z79.4 Long term (current) use of insulin; Z79.899 Other long term (current) drug therapy; M19.90 Unspecified osteoarthritis, unspecified site; E78.5 Hyperlipidemia, unspecified; M10.9 Gout, unspecified; G47.30 Sleep apnea, unspecified; D64.9 Anemia, unspecified; M24.561 Contracture, right knee; M24.552 Contracture, left hip; M24.551 Contracture, right hip
CPT/HCPCS: 36415; 71045; 80048; 81001; 82140; 82962; 85007; 85014; 85018; 85025; 85610; 85730; 86850; 86900; 86901; 86920; 87040; 88307; 88311; G0378; J0330; J0360; J0692; J1170; J1644; J1815; J2270; J2370; J2704; J3010; J3370; J7030; J7040; J7042; J7050; U0003